=== PATIENT | female | born 1945 ===

== ENCOUNTER 2021-02-19 13:40 | Outpatient (REF) | payer OTHER, SELFPAY ==
[2021-02-19 15:32] LABS: Anion Gap 9 (12-20); Blood Urea Nitrogen 16 mg/dL (9-16); Calcium 10.2 mg/dL (8.4-10.2); Carbon Dioxide 32 mmol/L (22-29); Chloride 108 mmol/L (96-108); Estimated Glomerular Filt Rate > 60; Glucose Random 98 mg/dL (60-115); Potassium 5.3 mmol/L (3.3-5.1); Sodium 144 mmol/L (135-145)
[2021-02-19 15:37] LABS: T4 Thyroxine 6.3 ug/dL (4.5-12.0); Thyroid Stimulating Hormone 0.72 uIU/mL (0.32-4.0)
[2021-02-19 15:39] LABS: Folate > 20.0 ng/mL (> or = 4.0); Vitamin B12 743 pg/mL (200-900)
== END 2021-02-19 13:41 | disposition home or self-care (01) ==
LOC: HO.LAB 13:40
PROVIDERS: Visit Provider Psychiatry & Neurology Neurology
DX: G31.84 Mild cognitive impairment of uncertain or unknown etiology (principal)
CPT/HCPCS: 36415; 80048; 82607; 82746; 84436; 84443

== ENCOUNTER 2021-03-06 13:58 | Outpatient (REF) | payer OTHER, SELFPAY ==
--- NOTE | ~2021-03-06 | CT_ITS ---
EXAMINATION: CT HEAD WITHOUT CONTRAST CLINICAL INFORMATION: Mild cognitive impairment COMPARISON: None TECHNIQUE: Contiguous axial imaging was performed from the skull base to vertex without intravenous administration of contrast. This CT examination was performed using dose optimization techniques as appropriate, variously including the following: *Automated exposure control *Adjustment of mA and/or kV according to patient size (this includes techniques or standardized protocols for targeted exams where dose is matched to indication/reason for exam; i.e. extremities or head) *Use of iterative reconstruction technique DLP: 699 mGy-cm FINDINGS: There is no evidence of acute intracranial hemorrhage or territorial infarction. No abnormal mass effect or midline shift is seen. Richards to white matter differentiation is well preserved. No extra-axial fluid collections are identified. The ventricles are normal in size. There is no abnormal attenuation within the brain parenchyma. The osseous structures and soft tissues are normal. The mastoid air cells and visualized portions of the paranasal sinuses are well aerated. CT/CT head/brain wo con IMPRESSION: Unremarkable exam.
== END 2021-03-06 13:59 | disposition home or self-care (01) ==
LOC: HO.CT 13:58
PROVIDERS: Visit Provider Psychiatry & Neurology Neurology
DX: G31.84 Mild cognitive impairment of uncertain or unknown etiology (principal)
CPT/HCPCS: 70450

== ENCOUNTER 2021-11-28 07:56 | Outpatient (REF) | payer OTHER, SELFPAY ==
--- NOTE | ~2021-11-28 | XR_ITS ---
EXAMINATION: XR AP BILATERAL KNEE XR LEFT KNEE CLINICAL INFORMATION: Knee pain. COMPARISON: None. TECHNIQUE: AP bilateral knee standing 1 view. Left knee 2 views. FINDINGS: AP Bilateral Knee: There is total left knee prosthesis in satisfactory alignment. There is moderate medial and mild loss of lateral compartment joint space right knee with chondrocalcinosis lateral compartment. Also visualized is moderate osteophytosis in the medial compartment and mild osteophytosis in lateral compartment right knee. No visible acute fracture, dislocation or subluxation seen. Mild lateral subluxed right patella is noted Left Knee: There is a total left knee arthroplasty with the prosthetic components in satisfactory alignment. No periprostatic fracture or loose body seen. No abnormal suprapatellar joint effusion. XR/XR knee LT 2V IMPRESSION: There is a total left knee arthroplasty in satisfactory alignment. No periprostatic fracture or loose bodies or joint effusion seen. Moderate medial compartment and cvah-[id number]-ockaiizg lateral compartment degenerative changes with periarticular spurring right knee. There is chondrocalcinosis lateral compartment. No loose bodies or acute fractures seen. Mild lateral subluxation patella is noted.
--- NOTE | ~2021-11-28 | XR_ITS ---
EXAMINATION: XR AP BILATERAL KNEE XR LEFT KNEE CLINICAL INFORMATION: Knee pain. COMPARISON: None. TECHNIQUE: AP bilateral knee standing 1 view. Left knee 2 views. FINDINGS: AP Bilateral Knee: There is total left knee prosthesis in satisfactory alignment. There is moderate medial and mild loss of lateral compartment joint space right knee with chondrocalcinosis lateral compartment. Also visualized is moderate osteophytosis in the medial compartment and mild osteophytosis in lateral compartment right knee. No visible acute fracture, dislocation or subluxation seen. Mild lateral subluxed right patella is noted Left Knee: There is a total left knee arthroplasty with the prosthetic components in satisfactory alignment. No periprostatic fracture or loose body seen. No abnormal suprapatellar joint effusion. XR/XR knee standing BI IMPRESSION: There is a total left knee arthroplasty in satisfactory alignment. No periprostatic fracture or loose bodies or joint effusion seen. Moderate medial compartment and zath-ps-[id number] lateral compartment degenerative changes with periarticular spurring right knee. There is chondrocalcinosis lateral compartment. No loose bodies or acute fractures seen. Mild lateral subluxation patella is noted.
== END 2021-11-28 07:57 | disposition home or self-care (01) ==
LOC: HO.HOSX 07:56
PROVIDERS: Visit Provider Physician Assistant
DX: M25.562 Pain in left knee (principal)
CPT/HCPCS: 73560; 73565

== ENCOUNTER 2022-03-12 06:08 | Outpatient (REF) | payer OTHER, SELFPAY | END 2022-03-12 06:09 | disposition home or self-care (01) | LOC: CF 06:08 | PROVIDERS: Visit Provider Internal Medicine | DX: M25.561 Pain in right knee (principal) | CPT/HCPCS: 64447 ==

== ENCOUNTER → 2022-03-17 15:35 | Outpatient (BNVA) | payer OTHER, SELFPAY | PROVIDERS: PCP Internal Medicine; Visit Provider Nurse Practitioner Family | DX: M96.1 Postlaminectomy syndrome, not elsewhere classified (principal) ==

== ENCOUNTER 2022-06-30 13:59 | Outpatient (REF) | payer OTHER, SELFPAY ==
[2022-06-30 15:10] LABS: Hematocrit 39.1 % (37.0-47.0); Hemoglobin 12.7 g/dl (12.0-16.0); Mean Corpuscular HGB Conc 32.5 g/dl (31.0-35.0); Mean Corpuscular Hemoglobin 32.8 pg (27.0-33.0); Mean Platelet Volume 12.2 fL (9.4-12.3); Platelet Count 175 X10*3/uL (160-400); Red Blood Count 3.87 X10*6/uL (4.20-5.50); Red Cell Distribution Width 12.8 % (11.0-16.0); White Blood Count 3.2 X10*3/uL (4.8-10.8)
[2022-06-30 15:38] LABS: Alanine Aminotransferase 15 U/L (0-31); Albumin Level 4.2 g/dL (3.5-5.0); Alkaline Phosphatase 74 U/L (39-117); Aspartate Amino Transferase 17 U/L (5-31); Bilirubin Direct 0.1 mg/dL (0.0-0.5); Bilirubin Total 0.5 mg/dL (0.0-1.0); Lipase 15 U/L (8-78); Total Protein 6.7 g/dL (6.5-8.0)
[2022-07-02 17:48] LABS: Transglutaminase Ab IgG <1.0 U/mL
[2022-07-02 18:59] LABS: Immunoglobulin A 109 mg/dL (70-320)
== END 2022-06-30 14:00 | disposition home or self-care (01) ==
LOC: HO.LAB 13:59
PROVIDERS: PCP Internal Medicine; Visit Provider Internal Medicine Gastroenterology
DX: R10.84 Generalized abdominal pain (principal)
CPT/HCPCS: 36415; 80076; 82784; 83690; 85027; 86364

== ENCOUNTER 2022-09-03 09:47 | Day surgery (SDC) | payer OTHER, SELFPAY ==
[2022-09-03 09:33] VITALS: BMI 28.9
[2022-09-03 09:52] VITALS: BP 127/64; PULSE 78; RESP 20; TEMP 36.1; O2SAT 98
[2022-09-03 11:25] VITALS: BP 118/59; PULSE 75; RESP 16; TEMP 37.2; O2SAT 96
--- NOTE | 2022-09-03 11:45 | P.BOP_ITS ---
Brief Operative Note Date of Service: 09/03/22 Pre-op diagnosis: Chronic intractable right knee pain Post-op diagnosis: same Procedure: Temporary right saphenous nerve stimulator placement Implants: Sprint temporary PNS system Surgeon: Wilber Alvarado MD Anesthesia: local Was an Filter Press Supervisor used for this Procedure?: No Estimated blood loss (mL): 1 Pathology: none sent Condition: stable Disposition: same day
--- NOTE | 2022-09-03 11:45 | MHC.SHP ---
Pre-Procedural Eval Section A Date of Service: 09/03/22 The patient is an INPATIENT: No Changes since office visit: Yes Patient answered all questions The History & Physical has been completed within 30 days and I have reviewed it.: Yes Section B Chief Complaint: Pain in right knee Relevant Family History (Specify if Yes): No Relevant Social History: None Present Medications: see Short Stay Collaborative assessment Medical History: No relevant PMH History of Previous Operations: No relevant previous surgery Allergies: Allergies Allergy/AdvReac Type Severity Reaction Status Date / Time No Known Allergies Allergy Verified 03/12/22 09:38 Review of Systems Sugical H&P ROS: Negative: Constitution, Cardiovascular and Respiratory Exam Surgical H&P Exam: Normal: HEENT, Normal: Heart and Normal: Lungs Plan Diagnosis/Plan: Unchanged I have reviewed the history and physical and performed a pertinent physical examination on my patient. No changes have occurred unless specified. Proceed with right saphenous nerve stimulator placement. A emotional support teacher will be available during the procedure. Time Spent With Patient Time: Total time managing care of this patient today ____ minutes.
--- NOTE | 2022-09-03 12:10 | P.OP_ITS ---
Operative Note Operative Note Date of Service: 09/03/22 Narrative: Peripheral Nerve Stimulation Temporary Lead Placement, Ultrasound-Guided, Saphenous Nerve, Right ? After the risks, benefits and alternatives were discussed with the patient and informed consentwas obtained, patient was placed in the supine position and padded to foster comfort. Appropriate skin and bony landmarks were identified, and pertinent vascular structures were located. The skin overlying the needle entry site was prepped and draped in sterile fashion. Ultrasound was used to identify the femoral artery, the femoral vein and the saphenous nerve. After identifying and marking the intended target along the course of the saphenous nerve, the skin around the planned entry point and the subcutaneous tissues were injected with local anesthetic. An introducer needle and stimulating probe were assembled, inserted and advanced along the intended course of the saphenous; nerve, taking care to maintain the proper depth of insertion as the introducer was advanced under ultrasound guidance. The introducer needle was delivered to a location in proximity to the nerve taking care not to puncture the femoral artery or the vein. Multiple stimulation parameters were used to deliver stimulation to the saphenous nerve in concert with stimulating at multiple positions around the nerve. Nerve target acquisition was confirmed noting generation of sensory and mild motor effects (paresthesia, muscle tension, etc) in the medial knee, leg and ankle; corresponding to the distribution of the saphenous nerve. Various electrical parameter combinations were tested, and the lead location was adjusted (physic ally relocated under ultrasound guidance) until the patient indicated medial knee paresthesia and tension overlapping the distribution of the patient?s typical region of pain. The stimulating probe was removed from the introducer and a percutaneous lead was guided through the needle and delivered to a location in similar proximity to the nerve. Final location was verified with electrical stimulation and documented. The introducer needle was removed, and the exposed end of the percutaneous lead was attached to an external stimulator unit. Various electrical parameter combinations were again tested until the patient indicated paresthesia and muscle tension overlapping the distribution of the patient?s typical region of pain. After confirming that lead impedance was in the normal range, the external unit was detached, the needle was removed, and the lead was anchored at the skin. The lead was threaded into the connector block and electrical continuity and desired patient response was confirmed. The connector block was attached to the external stimulator unit. The site was covered with a sterile occlusive dressing. A final ultrasound image was taken to document final placement. The patient was observed for stability of vital signs and comfort.
== END 2022-09-03 11:59 | disposition home or self-care (01) ==
PROVIDERS: PCP Internal Medicine; Visit Provider Internal Medicine
PROC: (CPT 64555; principal; 2022-09-03 10:30)
DX: M25.561 Pain in right knee (principal); G89.29 Other chronic pain; M17.11 Unilateral primary osteoarthritis, right knee; M11.261 Other chondrocalcinosis, right knee; M54.50 Low back pain, unspecified; M54.16 Radiculopathy, lumbar region; E78.00 Pure hypercholesterolemia, unspecified; Z79.899 Other long term (current) drug therapy; Z98.890 Other specified postprocedural states; Z96.652 Presence of left artificial knee joint
CPT/HCPCS: 64555; C1778

== ENCOUNTER → 2022-09-03 09:47 | Outpatient (BNV) | payer OTHER, SELFPAY | PROVIDERS: PCP Internal Medicine; Visit Provider Internal Medicine | DX: M25.561 Pain in right knee (principal) | CPT/HCPCS: 64555 ==

== ENCOUNTER 2022-09-12 10:00 | Outpatient (AMB) | payer OTHER, SELFPAY ==
[2022-09-12 10:16] VITALS: BP 124/70; PULSE 82; RESP 16; O2SAT 97; BMI 25.5
--- NOTE | 2022-09-12 10:16 | A.OFFVIS_ITS ---
Intake Vital Signs 09/12/22 10:16 Height 5 ft 5 in Weight 153 lb 6 oz BMI 25.5 BP 124/70 Blood Pressure Location Lt brachial Position Sitting Respiration 16 Pulse 82 Pulse Source Pulse Oximeter Pulse Oximetry (%) 97 Oxygen Delivery Method Room Air Intake Visit Reasons: s/p right SN Sprint Allergies No Known Allergies Allergy (Verified 09/12/22 10:17) HPI HPI Comments History of Present Illness Details Tita is a very pleasant 77 year old female who presents to the office today 1 week s/p Right saphenous nerve peripheral nerve stimulation at the adductor canal placed 09/03/2022. Patient reports approx 40% pain relief today with improvement in activity, mobility and overall quality of life. She has been more active and is able to take 15minute walks daily. She has changed the dressing at home without difficulty. Denies any untoward effects of the device. Today she has the stimulation up to 83, she has been adjusting as tolerated and feels comfortable managing the device at home. Prior: Patient presents today via telehealth encounter to assess response to Right Diagnostic SNB at adductor canal on 03/12/[address] Alvarado. Patient reports 75-80% pain relief for 8 hours post procedure with improved mobility, functioning, sleep, and social interaction. Her pain has returned to baseline since then and has been increasing with walking. Patient is interested to proceed with peripheral nerve stimulation with Sprint for right knee pain. We also discussed genicular RFA and therapeutic injections. Patient has upcoming appointment with Dr. Dotson at [facility] this month for chronic back pain and scheduled injections. PRIOR: Patient is a pleasant 76 years old Central African speaking female presents today with right knee pain and chronic lower back pain with radiation to right lower ex tremity posteriorly and laterally with numbness and tingling in her toes. Patient is accompanied by her SCHOOL [employer]FET[employer]IA COOK. Denies any recent trauma, injury or falls. Patient reports her main pain generator is right knee pain. She reports the history of left TRK on 03/11/2020 at [facility] which has not healed well. She reports constant, daily aching, stabbing, throbbing, shooting, heavy, knee clicking, weakness, numbness and tingling sensation. Pain increased with walking, weight bearing, climbing stairs and cold weather changes. Right knee x-ray on 11/28/21 noted for Moderate medial compartment and bvqi-rn-yaudikeq lateral compartment degenerative changes with periarticular spurring right knee. There is chondrocalcinosis lateral compartment. Mild lateral subluxation patella is noted. Patient reports with orthopedic mutual decision, she is deferring right knee surgery at this time and is interested in non surgical options. Patient was referred to us for potential genicular nerve blocks. Patient reports history of back surgery at [facility] in 2018. She is currently undergoing regular lumbar and cervical injections through [facility] by Dr. Dotson. Her last injection was 3 months ago and she states next pain management visit is scheduled for 02/11/22. Patient is currently managing her pain with pregabalin, celebrex, ice and heat therapy. She cannot tolerate physical therapy due to significant pain at this time. 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 Answers questions appropriately. Fully engaged in examination. Skin: warm, dry, intact without visible rashes or lesions. Sprint insertion site dry, clean, intact without redness/warmth or drainage. HEENT: Normocephalic. Conjuntivae clear without exudate. Sclera non-icteric. Hearing intact. Cardiac: External chest normal in appearance. Respiratory: No signs of trauma. No signs of respiratory distress. No cough, audible wheezing or stridor. Abdomen: without gross distension. MS: Able to transition from sit to stand unassisted. Sprint device in place right thigh with intact Tegaderm dressing Neurological: Oriented to person, place, time and situation. Thought process intact. Psychiatric: Appropriate mood and affect. Good judgment and insight. Assessment & Plan Assessment & Plan (1) Post laminectomy syndrome: Code(s): M96.1 - Postlaminectomy syndrome, not elsewhere classified (2) Lumbar back pain with radiculopathy affecting right lower extremity: Code(s): M54.16 - Radiculopathy, lumbar region (3) Osteoarthritis of right knee: Code(s): M17.11 - Unilateral primary osteoarthritis, right knee (4) Right knee pain: Code(s): M25.561 - Pain in right knee Plan Tita is a pleasant 77 year old female seen in the office today 1 week s/p Right saphenous nerve Sprint PNS at the adductor canal. She is tolerating the device well and reports improvement in pain, mobility, functioning and quality of life since placement. Continue with once weekly dressing changes. Patient has supplies. She was reeducated today on proper dressing change to ensure lead does not get misplaced. Monitor for signs of infection at site of insertion, call the office for any drainage, redness, warmth, fevers or other concerns. Patient verbalizes understanding of stimulation titration for pain management. Sprint rep in office today and will remain in contact with patient weekly and as needed. All questions and concerns have been addressed with patient today. Follow up in the office as planned for device removal, sooner if needed. Coding Level of Care Code Est Pt Level 3 (88717) Diagnoses Post laminectomy syndrome M96.1 Lumbar back pain with radiculopathy affecting right lower extremity M54.16 Osteoarthritis of right knee M17.11 Right knee pain M25.561
== END 2022-09-12 10:36 | disposition home or self-care (01) ==
PROVIDERS: PCP Internal Medicine; Visit Provider Registered Nurse Emergency
DX: M96.1 Postlaminectomy syndrome, not elsewhere classified (principal); M54.16 Radiculopathy, lumbar region; M17.11 Unilateral primary osteoarthritis, right knee; M25.561 Pain in right knee
CPT/HCPCS: 99213

== ENCOUNTER → 2022-09-12 10:00 | Outpatient (BNVA) | payer OTHER, SELFPAY | PROVIDERS: PCP Internal Medicine; Visit Provider Registered Nurse Emergency | DX: M96.1 Postlaminectomy syndrome, not elsewhere classified (principal); M54.16 Radiculopathy, lumbar region; M17.11 Unilateral primary osteoarthritis, right knee | CPT/HCPCS: 99212 ==

== ENCOUNTER 2022-10-30 11:11 | Outpatient (REF) | payer OTHER, SELFPAY ==
--- NOTE | ~2022-10-30 | XR_ITS ---
EXAMINATION: XR KNEE, RIGHT CLINICAL INFORMATION: Pain. COMPARISON: 11/28/2021 TECHNIQUE: Three views of the right knee. FINDINGS: Significant degeneration of the medial compartment with significant joint space loss and marginal spurring. Possible meniscal calcifications are seen laterally. Efrz-aa-xobvvhxg patellofemoral spurring. Mild lateralization of the patella. Small effusion is seen. XR/XR knee RT 3V IMPRESSION: Degenerative changes muajohuh-nr-jgoxdj ongoing from 2021 study. No acute bony finding. Small effusion
== END 2022-10-30 11:12 | disposition home or self-care (01) ==
LOC: HO.XRAY 11:11
PROVIDERS: PCP Internal Medicine; Visit Provider Nurse Practitioner Family
DX: M96.1 Postlaminectomy syndrome, not elsewhere classified (principal); M17.11 Unilateral primary osteoarthritis, right knee
CPT/HCPCS: 73562; 99212

== ENCOUNTER 2022-10-30 11:11 | Outpatient (AMB) | payer OTHER, SELFPAY ==
--- NOTE | 2022-10-30 11:20 | MHC.OFFVIS ---
Intake Intake Visit Reasons: Sprint removal Intake Note: Pain today 07/02 Slot Technician Required: Yes Slot Technician Language: Trinidadian Accompanied by: Unknown Allergies No Known Allergies Allergy (Verified 10/30/22 11:39) HPI HPI Comments History of Present Illness Details Patient presents today for follow up for Sprint removal. Patient reports satisfactory and ongoing 50-60% pain relief for right anterior knee pain over the past 2 months. She reports better mobility, improved tolerance with climbing stairs, general daily activities and sleep. Patient reports ongoing posterior knee pain for months with mild bulging and tightness behind her right knee. We will proceed with xray to evaluate for Parker cyst. Denies any recent cough, cold, infection, fever, claudicating pain, back pain, or other significant changes in medical history since last office visit. Patient denies any bladder or bowel incontinence or saddle anesthesia. The dressing was removed today. Lead insertion site look clean, dry, intact, no redness, no swelling, no pathological discharge. Area was cleansed with Chloraprep. Leads pulled with tips intact and the area was cleansed again with Chloraprep, applied Bacitracin and covered it with gauze and Bandaid dressing. PRIOR: Tita is a very pleasant 77 year old female who presents to the office today 1 week s/p Right saphenous nerve peripheral nerve stimulation at the adductor canal placed 09/03/2022. Patient reports approx 40% pain relief today with improvement in activity, mobility and overall quality of life. She has been more active and is able to take 15minute walks daily. She has changed the dressing at home without difficulty. Denies any untoward effects of the device. Today she has the stimulation up to 83, she has been adjusting as tolerated and feels comfortable managing the device at home. Prior: Patient presents today via telehealth encounter to assess response to Right Diagnostic SNB at adductor canal on 03/12/[address] Alvarado. Patient reports 75-80% pain relief for 8 hours post procedure with improved mobility, functioning, sleep, and social interaction. Her pain has returned to baseline since then and has been increasing with walking. Patient is interested to proceed with peripheral nerve stimulation with Sprint for right knee pain. We also discussed genicular RFA and therapeutic injections. Patient has upcoming appointment with Dr. Dotson at [facility] this month for chronic back pain and scheduled injections. PRIOR: Patient is a pleasant 76 years old Trinidadian speaking female presents today with right knee pain and chronic lower back pain with radiation to right lower extremity posteriorly and laterally with numbness and tingling in her toes. Patient is accompanied by her REACTOR SERVICE OPERATOR. Denies any recent trauma, injury or falls. Patient reports her main pain generator is right knee pain. She reports the history of left TRK on 03/11/2020 at [facility] which has not healed well. She reports constant, daily aching, stabbing, throbbing, shooting, heavy, knee clicking, weakness, numbness and tingling sensation. Pain increased with walking, weight bearing, climbing stairs and cold weather changes. Right knee x-ray on 11/28/21 noted for Moderate medial compartment and chty-xq-jxiapzun lateral compartment degenerative changes with periarticular spurring right knee. There is chondrocalcinosis lateral compartment. Mild lateral subluxation patella is noted. Patient reports with orthopedic mutual decision, she is deferring right knee surgery at this time and is interested in non surgical options. Patient was referred to us for potential genicular nerve blocks. Patient reports history of back surgery at [facility] in 2018. She is currently undergoing regular lumbar and cervical injections through [facility] by Dr. Dotson. Her last injection was 3 months ago and she states next pain management visit is scheduled for 02/11/22. Patient is currently managing her pain with pregabalin, celebrex, ice and heat therapy. She cannot tolerate physical therapy due to significant pain at this time. 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 Alert and oriented. Mood and affect appropriate. Follows and participates in conversation appropriately. Respiratory effort is unlabored. Able to transition from sit to stand unassisted. Ambulates with bilaterally normal heel strike and toe off. Lead Insertion Site: Lead insertion site looks clean, dry, intact. Lead pulled with tip intact. Extrem General: Yes capillary refill normal, Yes no clubbing, cyanosis or edema and Yes no calf tenderness Left lower extremity: knee (small fluid-like lump posteromedial aspect of popliteal space) Details: normal to inspection and tenderness Location: of the popliteal fossa; no swelling, no ecchymosis, no crepitus and no unusual warmth and lower leg (Homans' sign negative) Details: normal to inspection and no edema; no erythema, no tenderness, no localized swelling, no ecchymosis, no crepitus and no unusual warmth Results Reviewed Results Reviewed: XR AP BILATERAL KNEE XR LEFT KNEE 11/28/21 FINDINGS: AP Bilateral Knee: There is total left knee prosthesis in satisfactory alignment. There is moderate medial and mild loss of lateral compartment joint space right knee with chondrocalcinosis lateral compartment. Also visualized is moderate osteophytosis in the medial compartment and mild osteophytosis in lateral compartment right knee. No visible acute fracture, dislocation or subluxation seen. Mild lateral subluxed right patella is noted Left Knee: There is a total left knee arthroplasty with the prosthetic components in satisfactory alignment. No periprostatic fracture or loose body seen. No abnormal suprapatellar joint effusion. IMPRESSION: There is a total left knee arthroplasty in satisfactory alignment. No periprostatic fracture or loose bodies or joint effusion seen. Moderate medial compartment and gufs-ym-czykfxpz lateral compartment degenerative changes with periarticular spurring right knee. There is chondrocalcinosis lateral compartment. No loose bodies or acute fractures seen. Mild lateral subluxation patella is noted. Assessment & Plan Assessment & Plan (1) Posterior right knee pain: Code(s): M25.561 - Pain in right knee (2) Post laminectomy syndrome: Code(s): M96.1 - Postlaminectomy syndrome, not elsewhere classified (3) Osteoarthritis of right knee: Code(s): M17.11 - Unilateral primary osteoarthritis, right knee Plan Patient is status post Right saphenous nerve Sprint removal with satisfactory results with ongloing 50-60% anterior right knee pain relief. Lead pulled with tip intact. She will continue to monitor her pain over the next months for sustained similar results. For posterior right knee pain, will obtain xray to rule out Parker's cyst for potential fluid aspiration. She denies calf pain, back or claudicating pain today. All questions were answered and the patient agreed with the plan. Follow up as needed. Orders: Orders XR knee RT 3V Today M25.561 - Pain in right knee Coding Level of Care Code Est Pt Level 4 (01353) Diagnoses Posterior right knee pain M25.561 Post laminectomy syndrome M96.1 Osteoarthritis of right knee M17.11
== END 2022-10-30 11:58 | disposition home or self-care (01) ==
PROVIDERS: PCP Internal Medicine; Visit Provider Nurse Practitioner Family
DX: M25.561 Pain in right knee (principal); M96.1 Postlaminectomy syndrome, not elsewhere classified; M17.11 Unilateral primary osteoarthritis, right knee
CPT/HCPCS: 99214

== ENCOUNTER 2023-03-11 10:39 | Outpatient (AMB) | payer OTHER, SELFPAY ==
[2023-03-11 10:52] VITALS: BMI 25.5
--- NOTE | 2023-03-11 10:52 | MHC.OFFVIS ---
Intake Vital Signs 03/11/23 10:52 Height 5 ft 5 in Weight 153 lb BMI 25.5 Intake Visit Reasons: New Prob- upper back/middle back pain Intake Note: Tita is a 77 year old romansh speaking female who presents today as a new patient with complaints of upper/middle back pain. Patient refused quality assurance monitor final, she only wishes to rely on daughter. She was referred to us by [facility], where she has history of multiple botox injections and physical therapy. Patient is currently managing her pain with pregabalin, celebrex, ice and heat therapy. Hx of back surgery in 2018 with [facility]. She is a patient with Pain mgmt, most recently on 10/30/22 she had a Sprint device removal that was effective in treating right knee pain. 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 Referred by Dr. Dotson, [facility]. Was seeing her for mid/lower back pain. Daughter mentions that she is being referred for ablation . I did discuss that ablation is/can be done by Pain Management department. Points to in between scapular area, from mid going to left side. Does not radiate lower; does not radiate to arms or legs. Denies associated numbness on hands or feet. No radiation to chest or abdoment. [facility], Ortho and pain management reviewed: Right saphenous nerve peripheral nerve stimulation at the adductor canal placed 09/03/2022. Right Diagnostic SNB at adductor canal on 03/12/[address] Alvarado. Follows Dr. Dotson at [facility] this month for chronic back pain and injections. left TRK on 03/11/2020 at [facility]. history of back surgery at [facility] in 2018. Botox injections, levator scapular, trapezius, rhomboids, . Cervical epidural injections 2020. Thoracic and cervical medial branch blocks 04/17/2019. Thoracic facet injections 2022. MRI cervical spine reporting mild degenerative changes 2020. MRI thoracic spine reporting degenerative changes 2018. Per patient, none of the above procedures have helped. 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 Patient was appropriately conversant and oriented. Good historian. MSK: No specific abnormalities found on inspection of the spine and all extremities. Tender left trapezius, rhomboids. No scapular winging. Lumbar ROM was full. Bilateral hip, knee and ankle ROM WNL. No ligamentous laxity or crepitance. No increased effusion. Straight-leg raising test negative. FABERE test negative. Strength is 5/5 in all muscle groups tested. No increased tone noted. Neurological: Neurologic examination of the upper and lower extremities was nonfocal with intact sensation, muscle stretch reflexes and without focal motor deficits . Keen?s negative bilaterally. Babinski was down going bilaterally. Clonus was negative. Gait is non-antalgic without loss of balance. Results Reviewed Results Reviewed: I reviewed records from the following: As above Assessment & Plan Assessment & Plan (1) Chronic thoracic back pain: Code(s): M54.6 - Pain in thoracic spine; G89.29 - Other chronic pain Qualifiers: Back pain laterality: midline Qualified Code(s): M54.6 - Pain in thoracic spine; G89.29 - Other chronic pain Plan Patient and daughter specifically looking to do procedures such as radiofrequency ablation. Discussed that I will refer her to our pain management department, they may evaluate/consider doing MBB/RFA and peripheral nerve stimulator. Consider physical therapy for myofascial pain on rhomboids and trapezius. Assessment and plan discussed with patient, and patient was agreeable. All questions were answered thoroughly. Total of 45 minutes spent today including chart review (remove all 275 pages), results review, history taking, physical examination, discussion of assessment and plan, and coordination of care. Precious Foster MD, SIMÓN Board Certified, [place] Board [employer] and Rehabilitation (ABPMR) Board Certified, [place] Board of Electrodiagnostic Medicine (ABEM) Orders: Referrals Pain Management Referral G89.29 - Other chronic pain, M54.6 - Pain in thoracic spine Coding Level of Care Code New Pt Level 4 (95574) Diagnoses Chronic midline thoracic back pain M54.6; G89.29 Back pain laterality: midline
== END 2023-03-11 11:37 | disposition home or self-care (01) ==
PROVIDERS: PCP Internal Medicine; Visit Provider Physical Medicine & Rehabilitation
DX: M54.6 Pain in thoracic spine (principal); G89.29 Other chronic pain
CPT/HCPCS: 99204

== ENCOUNTER → 2023-03-11 10:39 | Outpatient (BNVA) | payer OTHER, SELFPAY | PROVIDERS: PCP Internal Medicine; Visit Provider Physical Medicine & Rehabilitation | DX: G89.29 Other chronic pain (principal); M54.6 Pain in thoracic spine | CPT/HCPCS: 99202 ==

== ENCOUNTER 2023-03-16 13:50 | Outpatient (REF) | payer OTHER, SELFPAY ==
--- NOTE | ~2023-03-16 | XR_ITS ---
EXAMINATION: XR THORACIC SPINE, LUMBAR SPINE CLINICAL INFORMATION: In the thoracic spine, spondylosis without myelopathy. COMPARISON: None available. TECHNIQUE: 3 views of the thoracic spine. 5 views of the lumbar spine including bilateral obliques. FINDINGS: LUMBAR SPINE: Degenerative changes with sclerosis in the bilateral sacroiliac joints, right greater than left. Degenerative changes on limited imaging of the left hip. Atherosclerotic aortoiliac calcifications. Posterior fixation with bilateral rods and pedicular screws at L5-S1. Disc spacer at L5-S1. Hardware appears intact. Slight rightward curvature of the mid to lower lumbar spine. Moderate multilevel spondylosis in the remainder of the lumbar spine with loss of disc space height at L4-L5. THORACIC SPINE: Slight rightward curvature of the thoracic spine. Moderate multilevel degenerative changes in the thoracic spine. Degenerative changes on very limited imaging of the cervical spine could be evaluated with dedicated cervical spine radiographs. XR/XR thoracic spine 3V IMPRESSION: 1. Status post posterior fixation at L5-S1. Hardware appears intact. 2. Moderate multilevel spondylosis in the thoracic and lumbar spines with loss of disc space height at L4-L5. 3. Degenerative changes with sclerosis in the bilateral sacroiliac joints, right greater than left. 4. Moderate multilevel degenerative changes in the thoracic spine.
--- NOTE | ~2023-03-16 | XR_ITS ---
EXAMINATION: XR THORACIC SPINE, LUMBAR SPINE CLINICAL INFORMATION: In the thoracic spine, spondylosis without myelopathy. COMPARISON: None available. TECHNIQUE: 3 views of the thoracic spine. 5 views of the lumbar spine including bilateral obliques. FINDINGS: LUMBAR SPINE: Degenerative changes with sclerosis in the bilateral sacroiliac joints, right greater than left. Degenerative changes on limited imaging of the left hip. Atherosclerotic aortoiliac calcifications. Posterior fixation with bilateral rods and pedicular screws at L5-S1. Disc spacer at L5-S1. Hardware appears intact. Slight rightward curvature of the mid to lower lumbar spine. Moderate multilevel spondylosis in the remainder of the lumbar spine with loss of disc space height at L4-L5. THORACIC SPINE: Slight rightward curvature of the thoracic spine. Moderate multilevel degenerative changes in the thoracic spine. Degenerative changes on very limited imaging of the cervical spine could be evaluated with dedicated cervical spine radiographs. XR/XR lumbar spine 4V min IMPRESSION: 1. Status post posterior fixation at L5-S1. Hardware appears intact. 2. Moderate multilevel spondylosis in the thoracic and lumbar spines with loss of disc space height at L4-L5. 3. Degenerative changes with sclerosis in the bilateral sacroiliac joints, right greater than left. 4. Moderate multilevel degenerative changes in the thoracic spine.
== END 2023-03-16 13:51 | disposition home or self-care (01) ==
LOC: HO.XRAY 13:50
PROVIDERS: PCP Internal Medicine; Visit Provider Nurse Practitioner Family
DX: M54.6 Pain in thoracic spine (principal); G89.29 Other chronic pain; M96.1 Postlaminectomy syndrome, not elsewhere classified; M47.816 Spondylosis without myelopathy or radiculopathy, lumbar region
CPT/HCPCS: 72072; 72110; 99212

== ENCOUNTER 2023-03-16 13:50 | Outpatient (AMB) | payer OTHER, SELFPAY ==
--- NOTE | 2023-03-16 13:55 | A.OFFVIS_ITS ---
Intake Vital Signs 03/16/23 13:58 Height 5 ft 5 in Weight 156 lb 6 oz BMI 26.0 BP 134/76 Blood Pressure Location Rt brachial Position Sitting Pulse 97 Pulse Source Pulse Oximeter Pulse Oximetry (%) 100 Oxygen Delivery Method Room Air Intake Visit Reasons: Back pain Intake Note: Pain today 10/02 Groundwater Monitoring Technician Required: Yes Groundwater Monitoring Technician Language: Geology Scientist Name: Elba-daughter Accompanied by: Family/Other Allergies No Known Allergies Allergy (Verified 03/16/23 13:59) HPI HPI Comments History of Present Illness Details Patient presents today for evaluation of mid-thoracic and low back pain. She is accompanied by her MAGAZINE HAND and her daughter Sarah on the phone who assists with translation per patient's request. She was seen in our office last year for right knee pain which has responded well to Sprint PNS trial but notices that her right knee pain has been gradually returnning. Today her main concern is mid thoracic pain with radiation into her lower back. Denies recent trauma, injury or falls. She presents with midline and paraspinal tenderness, more on the left in her mid and lower thoracic spine and scapular area. No midline tenderness in her lumbar regions. Pain increases with pushing, pulling, thoraco-lumbar extension, movements, coughing and sneezing. She reports previous thoracic injections at [facility] provided minimal benefit. Cervical, thoracic and lumbar spine MRIs were previously completed at [facility], complete reports are not available for review today. Patient is interested to undergo interventional treatments, including RFA and PNS trial for her back pain. Denies any abdominal or groin pain, chest pain, pressure or tightness, shortness of breaths, dizziness, visual disturbances, vertigo, foot drop, weakness, bladder or bowel dysfunction or saddle anesthesia. Patient reports she also has chronic left sided neck pain with muscle stiffness and spasms for which she used to receive Botox injections at [facility]. Patient reports she would to continue Botox injections with EMG guidance in our facility. I will refer her to our Neurology group for this. Past Procedures: 09/03/22: Right saphenous nerve peripher al nerve stimulation at the adductor canal placed 09/03/2022% pain relief 03/12/22: Right Diagnostic SNB at adduct or canal on 03/12/[address] Alvarado-75-80% pain relief for 8 hours [facility], Orthopedic management reviewed: Follows Dr. Dotson at [facility] this month for chronic back pain and injections. Left TRK on 03/11/2020 at [facility]. History of back surgery at [facility] in 2018. Botox injections, levator scapular, trapezius, rhomboids, . Cervical epidural injections 2020. Thoracic and cervical medial branch blocks 04/17/2019. Thoracic facet injections 2022. PRIOR 10/30/22: Patient presents today for follow up for Sprint removal. Patient reports satisfactory and ongoing 50-60% pain relief for right anterior knee pain over the past 2 months. She reports better mobility, improved tolerance with climbing stairs, general daily activities and sleep. Patient reports ongoing posterior knee pain for months with mild bulging and tightness behind her right knee. We will proceed with xray to evaluate for Parker cyst. Denies any recent cough, cold, infection, fever, claudicating pain, back pain, or other significant changes in medical history since last office visit. Patient denies any bladder or bowel incontinence or saddle anesthesia. The dressing was removed today. Lead insertion site look clean, dry, intact, no redness, no swelling, no pathological discharge. Area was cleansed with Chloraprep. Leads pulled with tips intact and the area was cleansed again with Chloraprep, applied Bacitracin and covered it with gauze and Bandaid dressing. PRIOR: Tita is a very pleasant 77 year old female who presents to the office today 1 week s/p Right saphenous nerve peripheral nerve stimulation at the adductor canal placed 09/03/2022. Patient reports approx 40% pain relief today with improvement in activity, mobility and overall quality of life. She has been more active and is able to take 15minute walks daily. She has changed the dressing at home without difficulty. Denies any untoward effects of the device. Today she has the stimulation up to 83, she has been adjusting as tolerated and feels comfortable managing the device at home. Prior: Patient presents today via telehealth encounter to assess response to Right Diagnostic SNB at adductor canal on 03/12/[address] Alvarado. Patient reports 75-80% pain relief for 8 hours post procedure with improved mobility, functioning, sleep, and social interaction. Her pain has returned to baseline since then and has been increasing with walking. Patient is interested to proceed with peripheral nerve stimulation with Sprint for right knee pain. We also discussed genicular RFA and therapeutic injections. Patient has upcoming appointment with Dr. Dotson at [facility] this month for chronic back pain and scheduled injections. PRIOR: Patient is a pleasant 76 years old Divehi speaking female presents today with right knee pain and chronic lower back pain with radiation to right lower extremity posteriorly and laterally with numbness and tingling in her toes. Patient is accompanied by her MAGAZINE HAND. Denies any recent trauma, injury or falls. Patient reports her main pain generator is right knee pain. She reports the history of left TRK on 03/11/2020 at [facility] which has not healed well. She reports constant, daily aching, stabbing, throbbing, shooting, heavy, knee clicking, weakness, numbness and tingling sensation. Pain increased with walking, weight bearing, climbing stairs and cold weather changes. Right knee x-ray on 11/28/21 noted for Moderate medial compartment and [id number] lateral compartment degenerative changes with periarticular spurring right knee. There is chondrocalcinosis lateral compartment. Mild lateral subluxation patella is noted. Patient reports with orthopedic mutual decision, she is deferring right knee surgery at this time and is interested in non surgical options. Patient was referred to us for potential genicular nerve blocks. Patient reports history of back surgery at [facility] in 2018. She is currently undergoing regular lumbar and cervical injections through [facility] by Dr. Dotson. Her last injection was 3 months ago and she states next pain management visit is scheduled for 02/11/22. Patient is currently managing her pain with pregabalin, celebrex, ice and heat therapy. She cannot tolerate physical therapy due to significant pain at this time. 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 Review of Systems Const All systems reviewed & are unremarkable except as noted in HPI and below Reports as per HPI, Denies body aches, Denies chills, Reports fatigue, Denies fever(s), Denies frequent falls, Reports headache(s), Denies malaise, Denies night sweats and Denies weight loss ENT Reports headache(s) Neuro Denies frequent falls and Reports headache(s) Endo Reports fatigue Physical Exam Vital Signs: Last Vital Signs Pulse 97 03/16/23 13:58 BP 134/76 03/16/23 13:58 Pulse Ox 100 03/16/23 13:58 Oxygen Delivery Method Room Air 03/16/23 13:58 BMI result Body Mass Index 26.0 General: Appears afebrile. Alert and oriented. Mood and affect appropriate. Pleasant. Follows and participates in conversation appropriately. Respiratory effort is unlabored. No cough. Able to transition from sit to stand unassisted. Ambulates with bilaterally normal heel strike and toe off. Back/Spine/Pelvis Other: Patient is able to walk and stand on heels and tip toes with no difficulties demonstrating good motor tone. No limping. Can flex forward to 60-70 degrees and extend to 5-10 degrees before experiencing lumbar pain. Increase pain in mid back with extension. Demonstrates 5/5 strength of quadriceps bilaterally as well as flexion/dorsiflexion of bilateral feet against resistance. 2+ pedal pulses bilaterally. Straight leg rise with dorsiflexion negative bilaterally. +2 patellar and achilles reflexes bilaterally. Facet loading test positive bilaterally. James?s and Pelvic compression tests are negative bilaterally. No groin pain with I/E hip rotations. Valsalva maneuver negative. Cervical Spine: cervical muscular tenderness, pain with cervical ROM (with left rotation, bending and extension), cervical spasm (left, SCM mild hypertrophy noted), No Cervical spine tenderness and No step off deformity Thoracic/Lumbar Spine: thoracic and lumbar spine normal to inspection, Thoracic/lumbar spine scar(s), Lasegue's sign negative, straight leg raise negative bilaterally, pain with thoraco-lumbar ROM, paraspinal muscle tenderness on the left greater than right, thoraco-lumbar ROM limited, thoraco-lumbar spasm on the left, thoracic spinal tenderness (mid thoracic) and lumbar spinal tenderness at L5 Pelvis: no buttock tenderness Sacroiliac joints: bilaterally nontender Results Reviewed Results Reviewed: MRI cervical spine reporting mild degenerative changes 2020. MRI thoracic spine reporting degenerative changes 2019. Assessment & Plan Assessment & Plan (1) Chronic thoracic back pain: Code(s): M54.6 - Pain in thoracic spine; G89.29 - Other chronic pain Qualifiers: Back pain laterality: midline Qualified Code(s): M54.6 - Pain in thoracic spine; G89.29 - Other chronic pain (2) Post laminectomy syndrome: Code(s): M96.1 - Postlaminectomy syndrome, not elsewhere classified (3) Lumbar spondylosis: Code(s): M47.816 - Spondylosis without myelopathy or radiculopathy, lumbar region (4) Muscle spasms of neck: Code(s): M62.838 - Other muscle spasm Plan Lumbar and thoracic spine imaging to assess degree of degenerative changes, any subluxation, listhesis, compression fractures or pars defects. Medical records release sent to [facility] for complete imaging reports of previous cervical, thoracic and lumbar spine MRIs. For ongoing axial back pain will tentatively plan for diagnostic thoraco-lumbar medial branch blocks with local and fluoroscopy. If patient has significant relief from the diagnostic blocks for her axial low back pain, will consider either peripheral nerve stimulation or RFA depending on her preference. Also, recommend formal course of PT for thoracic and low back pain with muscle stiffness and spasms. Script provided. Neurology referral per patient's request for continuation of Botox injections for left sided neck pain and muscle spasms. All questions and concerns have been answered and patient agreed with the plan. Follow up for xray results and sooner if needed. Orders: Orders XR lumbar spine 4V min Today G89.29 - Other chronic pain, M47.816 - Spondylosis without myelopathy or radiculopathy, lumbar region, M54.6 - Pain in thoracic spine, M96.1 - Postlaminectomy syndrome, not elsewhere classified PT Evaluation and Treatment Today G89.29 - Other chronic pain, M47.816 - Spondylosis without myelopathy or radiculopathy, lumbar region, M54.6 - Pain in thoracic spine, M62.838 - Other muscle spasm, M96.1 - Postlaminectomy syndrome, not elsewhere classified XR thoracic spine 3V Today G89.29 - Other chronic pain, M47.816 - Spondylosis without myelopathy or radiculopathy, lumbar region, M54.6 - Pain in thoracic spi ne, M96.1 - Postlaminectomy syndrome, not elsewhere classified Referrals Neurology Referral M48.02 - Spinal stenosis, cervical region, M62.838 - Other muscle spasm Coding Level of Care Code Est Pt Level 4 (46769) Diagnoses Chronic midline thoracic back pain M54.6; G89.29 Back pain laterality: midline Post laminectomy syndrome M96.1 Lumbar spondylosis M47.816 Muscle spasms of neck M62.838
[2023-03-16 13:58] VITALS: BP 134/76; PULSE 97; O2SAT 100; BMI 26.0
== END 2023-03-16 14:27 | disposition home or self-care (01) ==
PROVIDERS: PCP Internal Medicine; Visit Provider Nurse Practitioner Family
DX: M54.6 Pain in thoracic spine (principal); G89.29 Other chronic pain; M96.1 Postlaminectomy syndrome, not elsewhere classified; M47.816 Spondylosis without myelopathy or radiculopathy, lumbar region; M62.838 Other muscle spasm
CPT/HCPCS: 99214

== ENCOUNTER 2023-04-30 06:18 | Outpatient (REF) | payer OTHER, SELFPAY ==
--- NOTE | ~2023-04-30 | FL_ITS ---
EXAMINATION: XR FLUOROSCOPY WITH IMAGES CLINICAL INFORMATION: Spondylosis without myelopathy COMPARISON: None available. TECHNIQUE: Fluoroscopy Supervised By: Olga. Pimentel. Fluoroscopy Time: 0.2 minutes. Cumulative Dose: 3.78 mGy. DAP: 0.440 Gycm2. Images: 3. FINDINGS: There are 3 digital images obtained revealing disc prosthesis at L5-S1 disc level stabilized with bilateral L5-S1 pedicular screws with interconnecting rods for fusion. There are bilateral needles adjacent L4 and L5 pedicles with contrast opacifying the soft tissues for pain management. FL/FL guidance in treatment room IMPRESSION: Fluoroscopy was provided to referrer for pain management at the L5-S1 disc level.
== END 2023-04-30 06:19 | disposition home or self-care (01) ==
LOC: CF 06:18
PROVIDERS: Visit Provider Internal Medicine
DX: M47.816 Spondylosis without myelopathy or radiculopathy, lumbar region (principal)
CPT/HCPCS: 64493; 64494; J2795; Q9967

== ENCOUNTER 2023-04-30 11:24 | Outpatient (AMB) | payer OTHER, SELFPAY ==
[2023-04-30 13:11] VITALS: BP 130/78; PULSE 71; RESP 16; O2SAT 98; BMI 26.0
--- NOTE | 2023-04-30 13:11 | A.OFFVIS_ITS ---
Intake Vital Signs 04/30/23 13:11 04/30/23 13:12 Height 5 ft 5 in Weight 156 lb BMI 26.0 BP 130/78 142/68 H Blood Pressure Location Lt brachial Lt brachial Position Sitting Sitting Respiration 16 18 Pulse 71 68 Pulse Source Pulse Oximeter Pulse Oximeter Pulse Oximetry (%) 98 Oxygen Delivery Method Room Air Comment Pre-Op Post-Op Intake Visit Reasons: BILATERAL DIAGNOSTIC L3, L4 DRL5 MBB Allergies No Known Allergies Allergy (Verified 03/16/23 13:59) HPI BILATERAL DIAGNOSTIC L3, L4 DRL5 MBB HPI Details Patient presents for scheduled procedure. Denies any recent cough, cold, infection, fever or other significant changes in medical history since last office visit. 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 The patient was placed in a prone position. The respective lumbosacral area was prepped with chloraprep and draped in sterile fashion. The skin over the target medial branch nerves was anesthetized with 0.5% lidocaine. A 22 gauge 3.5 inch needle was inserted into the target medial branch nerve under fluoroscopic guidance. No paresthesias were elicited with needle placement and aspiration was negative for blood and CSF. Next, 0.2cc of omnipaque 180 was injected to verify positioning. Next 0.5 ml 0.5% ropivicaine was injected (0.5cc total per level). The identical procedure was performed at the remaining levels. The skin was cleansed and a sterile bandage was applied. Following the procedure the patient's vital signs were stable. The patient tolerated the procedure well and no complications were encountered. Following the procedure the patient's vital signs were stable. The patient was discharged home in good condition with post-procedural instructions. Time Out: Immediately prior to the procedure, the following was verbally confirmed that there is a signed consent form and that the correct patient, planned procedure, site and side are consistent with documentation and that necessary equipment and/or blood products are available prior to the start of the case. Complications: none EBL: <5 cc 30232 - second level, with Fluoroscopy (bilateral) Procedure code (CPT) selection complete Assessment & Plan Assessment & Plan (1) Lumbar spondylosis: Code(s): M47.816 - Spondylosis without myelopathy or radiculopathy, lumbar region Plan Patient is status post diagnostic bilateral L3, L4 medial branches and L5 dorsal ramus blocks. Patient tolerated procedure well and was discharged home in stable condition with discharge instructions. All questions were answered. We will follow-up via telephone or in clinic to assess response to therapy. A follow-up appointment was made during today's visit. Orders: Orders FL guidance in treatment room Today M47.816 - Spondylosis without myelopathy or radiculopathy, lumbar region Coding Level of Care Code Procedure Only Diagnoses Lumbar spondylosis M47.816 CPT Codes Facet Injection-Lumbar/Sacral - CPT: 93547 - second level, with Fluoroscopy ([id number])
[2023-04-30 13:12] VITALS: BP 142/68; PULSE 68; RESP 18
== END 2023-04-30 12:37 | disposition home or self-care (01) ==
LOC: HO.PMCPRC 11:25
PROVIDERS: PCP Internal Medicine; Visit Provider Internal Medicine
DX: M47.816 Spondylosis without myelopathy or radiculopathy, lumbar region (principal)
CPT/HCPCS: 64493; 64494

== ENCOUNTER 2023-05-07 10:57 | Outpatient (AMB) | payer OTHER, SELFPAY ==
--- NOTE | 2023-05-07 11:00 | MHC.OFFVIS ---
Intake Vital Signs 05/07/23 11:07 Height 5 ft 5 in Weight 156 lb BMI 26.0 BP 109/59 L Blood Pressure Location Rt brachial Position Sitting Pulse 65 Pulse Source Pulse Oximeter Pulse Oximetry (%) 96 Oxygen Delivery Method Room Air Intake Visit Reasons: BILATERAL DIAGNOSTIC L3, L4, DRL5 MBB Intake Note: Pain today 10/02 Professional Fee Coder Required: Yes Professional Fee Coder Language: Tuvaluan Accompanied by: Other Relationship Allergies No Known Allergies Allergy (Verified 05/07/23 11:07) HPI HPI Comments History of Present Illness Details Patient presents today to assess response to diagnostic bilateral L3, L4 medial branches and L5 dorsal ramus blocks on 04/30/[address] Alvarado. Patient reports 100% pain relief for 24 hours with improvement in her daily functioning, mobility and sleep. However, patient reports her mid thoracic back pain has been worsening and radiating more to the left side. She would like to address mid back pain and hold off on longer term treatments for axial low back pain at this time. Patient reports this pain at 810 with significant localized tenderness to left mid back paraspinals and lower trapezius. This pain comes unexpectedly as shooting and stabbing pain per patient. She denies any recent trauma, injury, or falls. Coughing, sneezing, pulling, lifting, extension and forward flexion increase her midthoracic back pain. She reports completing multiple thoracic injections at [facility] with minimal relief. Denies any abdominal or groin pain, chest pain, pressure or tightness, shortness of breaths, heartburn, dizziness, visual disturbances, vertigo, rash, foot drop, weakness, bladder or bowel dysfunction or saddle anesthesia. Past Procedures: 04/30/23: Bilateral Diagnostic L3-L4 DR L5 MBB-100% pain relief for 24 hours 09/03/22: Right saphenous nerve peripheral nerve stimulation at the adductor canal placed 09/03/2022% pain relief 03/12/22: Right Diagnostic SNB at adductor canal on 03/12/[address] Alvarado-75-80% pain relief for 8 hours [facility], [facility], Orthopedic management reviewed: Follows Dr. Dotson at [facility] this month for chronic back pain and injections. Left TRK on 03/11/2020 at [facility]. History of back surgery at [facility] in 2018. Botox injections, levator scapular, trapezius, rhomboids, . Cervical epidural injections 2020. Thoracic and cervical medial branch blocks 04/17/2019. Thoracic facet injections 2022. PRIOR: Patient is a pleasant 76 years old Tuvaluan speaking female presents today with right knee pain and chronic lower back pain with radiation to right lower extremity posteriorly and laterally with numbness and tingling in her toes. Patient is accompanied by her DIGITAL FORENSICS EXAMINER. Denies any recent trauma, injury or falls. Patient reports her main pain generator is right knee pain. She reports the history of left TRK on 03/11/2020 at [facility] which has not healed well. She reports constant, daily aching, stabbing, throbbing, shooting, heavy, knee clicking, weakness, numbness and tingling sensation. Pain increased with walking, weight bearing, climbing stairs and cold weather changes. Right knee x-ray on 11/28/21 noted for Moderate medial compartment and [id number] lateral compartment degenerative changes with periarticular spurring right knee. There is chondrocalcinosis lateral compartment. Mild lateral subluxation patella is noted. Patient reports with orthopedic mutual decision, she is deferring right knee surgery at this time and is interested in non surgical options. Patient was referred to us for potential genicular nerve blocks. Patient reports history of back surgery at [facility] in 2018. She is currently undergoing regular lumbar and cervical injections through [facility] by Dr. Dotson. Her last injection was 3 months ago and she states next pain management visit is scheduled for 02/11/22. Patient is currently managing her pain with pregabalin, celebrex, ice and heat therapy. She cannot tolerate physical therapy due to significant pain at this time. 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 Alert and oriented. Mood and affect appropriate. Pleasant. Follows and participates in conversation appropriately. Respiratory effort is unlabored. No cough. Able to transition from sit to stand unassisted. Ambulates with bilaterally normal heel strike and toe off. Resp Effort & Inspection: normal respiratory effort, able to speak in complete sentences, no cough, no respiratory distress and symmetric chest movement Back/Spine/Pelvis Cervical Spine: cervical muscular tenderness, cervical spasm (left, SCM mild hypertrophy noted) and No Cervical spine tenderness Thoracic/Lumbar Spine: thoracic and lumbar spine normal to inspection, Thoracic/lumbar spine scar(s), Lasegue's sign negative, straight leg raise negative bilaterally, pain with thoraco-lumbar ROM, paraspinal muscle tenderness on the left in the mid thoracic and in the lower thoracic, thoraco-lumbar ROM limited, Thoracic/lumbar scoliosis, thoraco-lumbar spasm on the left, thoracic spinal tenderness (mid thoracic) at T4, at T5, at T6 and at T7 and lumbar spinal tenderness at L5 Pelvis: no buttock tenderness Sacroiliac joints: bilaterally tender to palpation Skin General skin exam: no rashes or lesions noted Results Reviewed Results Reviewed: XR THORACIC SPINE, LUMBAR SPINE 03/16/23 CLINICAL INFORMATION: In the thoracic spine, spondylosis without myelopathy. FINDINGS: LUMBAR SPINE: Degenerative changes with sclerosis in the bilateral sacroiliac joints, right greater than left. Degenerative changes on limited imaging of the left hip. Atherosclerotic aortoiliac calcifications. Posterior fixation with bilateral rods and pedicular screws at L5-S1. Disc spacer at L5-S1. Hardware appears intact. Slight rightward curvature of the mid to lower lumbar spine. Moderate multilevel spondylosis in the remainder of the lumbar spine with loss of disc space height at L4-L5. THORACIC SPINE: Slight rightward curvature of the thoracic spine. Moderate multilevel degenerative changes in the thoracic spine. Degenerative changes on very limited imaging of the cervical spine could be evaluated with dedicated cervical spine radiographs. IMPRESSION: 1. Status post posterior fixation at L5-S1. Hardware appears intact. 2. Moderate multilevel spondylosis in the thoracic and lumbar spines with loss of disc space height at L4-L5. 3. Degenerative changes with sclerosis in the bilateral sacroiliac joints, right greater than left. 4. Moderate multilevel degenerative changes in the thoracic spine. Assessment & Plan Assessment & Plan (1) Chronic thoracic back pain: Code(s): M54.6 - Pain in thoracic spine; G89.29 - Other chronic pain Qualifiers: Back pain laterality: midline Qualified Code(s): M54.6 - Pain in thoracic spine; G89.29 - Other chronic pain (2) Thoracic radiculopathy: Code(s): M54.14 - Radiculopathy, thoracic region (3) Lumbar spondylosis: Code(s): M47.816 - Spondylosis without myelopathy or radiculopathy, lumbar region (4) Post laminectomy syndrome: Code(s): M96.1 - Postlaminectomy syndrome, not elsewhere classified Plan Patient is status post diagnostic bilateral L3, L4 medial branches and L5 dorsal ramus blocks on 04/30/2023 with good relief. We will hold off on interventional procedures for axial low back pain and address midthoracic back pain with radiculopathy as next steps. Thoracic spine MRI to assess for neural integrity, compression and degenerative endplate changes. Script provided for gabapentin 100 mg t.i.d. and topical capsaicin cream. Side effects and precautions were discussed with patient and family in greater detail. All questions and concerns have been answered and patient agreed with the plan follow-up for MRI results and sooner as needed. Orders: Orders MR thoracic spine wo con Today G89.29 - Other chronic pain, M54.14 - Radiculopathy, thoracic region, M54.6 - Pain in thoracic spine Medications: New gabapentin 100 mg PO TID 30 days 90 caps 0RF pain G89.29 - Other chronic pain, M54.14 - Radiculopathy, thoracic region, M54.6 - Pain in thoracic spine capsaicin 0.1% (Arthritis Pain Relief (capsaicin)) do not wash area for at least 30 min after application 1 appl topical TID 60 grams 1RF pain 30 days G89.29 - Other chronic pain, M54.14 - Radiculopathy, thoracic region, M54.6 - Pain in thoracic spine, M96.1 - Postlaminectomy syndrome, not elsewhere classified Coding Level of Care Code Est Pt Level 4 (61656) Diagnoses Chronic midline thoracic back pain M54.6; G89.29 Back pain laterality: midline Thoracic radiculopathy M54.14 Lumbar spondylosis M47.816 Post laminectomy syndrome M96.1
[2023-05-07 11:07] VITALS: BP 109/59; PULSE 65; O2SAT 96; BMI 26.0
== END 2023-05-07 11:27 | disposition home or self-care (01) ==
PROVIDERS: PCP Internal Medicine; Visit Provider Nurse Practitioner Family
DX: M54.6 Pain in thoracic spine (principal); G89.29 Other chronic pain; M54.14 Radiculopathy, thoracic region; M47.816 Spondylosis without myelopathy or radiculopathy, lumbar region; M96.1 Postlaminectomy syndrome, not elsewhere classified
CPT/HCPCS: 99214

== ENCOUNTER → 2023-05-07 10:57 | Outpatient (BNVA) | payer OTHER, SELFPAY | PROVIDERS: PCP Internal Medicine; Visit Provider Nurse Practitioner Family | DX: G89.29 Other chronic pain (principal); M54.6 Pain in thoracic spine; M54.14 Radiculopathy, thoracic region; M47.816 Spondylosis without myelopathy or radiculopathy, lumbar region; M96.1 Postlaminectomy syndrome, not elsewhere classified; Z98.890 Other specified postprocedural states | CPT/HCPCS: 99212 ==

== ENCOUNTER 2023-06-03 17:31 | Outpatient (REF) | payer OTHER, SELFPAY ==
--- NOTE | ~2023-06-03 | MR_ITS ---
EXAMINATION: MR THORACIC SPINE WITHOUT CONTRAST CLINICAL INFORMATION: Pain in thoracic spine COMPARISON: None available. TECHNIQUE: MRI of the thoracic spine was obtained using routine sequences without contrast. FINDINGS: Normal vertebral body heights and alignment. Heterogeneous marrow signal without suspicious focal osseous lesion. There is a hemangioma involving the T8 vertebral body as well as a small hemangiomas in L1 and L2.. Several small endplate Schmorl's nodes. The conus medullaris terminates at L2 No significant marrow edema. Mild degenerative disc desiccation and height loss in the mid thoracic spine. The thoracic spinal canal is widely patent. Normal caliber and signal of the thoracic cord. The conus medullaris terminates at L2 No significant abnormalities of the visualized extraspinal soft tissues. There is a 2 cm T2 hyperintense lesion in the right lobe of the liver, likely representing a cyst. MR/MR thoracic spine wo con IMPRESSION: Mild degenerative changes of the thoracic spine. No significant spinal canal narrowing, cord compression, or cord signal abnormality.
== END 2023-06-03 17:32 | disposition home or self-care (01) ==
LOC: HO.MRI 17:31
PROVIDERS: PCP Internal Medicine; Visit Provider Nurse Practitioner Family
DX: M54.6 Pain in thoracic spine (principal); M54.14 Radiculopathy, thoracic region; G89.29 Other chronic pain
CPT/HCPCS: 72146

== ENCOUNTER 2023-06-15 12:51 | Outpatient (AMB) | payer OTHER, SELFPAY ==
--- NOTE | 2023-06-15 13:05 | MHC.OFFVIS ---
Intake Visit Reasons: Discuss MRI Results Intake Note: Pain today 09/01 Regional Sales Representative Required: Yes Regional Sales Representative Language: Wolof Accompanied by: Self / Same As Patient Allergies No Known Allergies Allergy (Verified 06/15/23 13:11) HPI Comments Details: Patient presents today to discuss recent thoracic spine MRI results. She continues to endorse mid back pain which radiates into her left periscapular and anterior left shoulder pain. Thoracic spine MRI showed mild degenerative changes of the thoracic spine with no significant spinal canal narrowing, cord compression, or cord signal abnormality. Patient underwent multiple cervical and thoracic injections with minimal relief or function improvement. She presents today with difficulty reaching her back side pocket and anterior shoulder tenderness with range of motion with pain radiating to her left mid back paraspinals and lower trapezius. She reports this pain comes unexpectedly as shooting and stabbing sensations. Patient denies any recent trauma, injury, or falls. She reports mild relief with gabapentin and topical capsaicin, NDAIDs. Denies any fever, chills, weight loss, chest pain, pressure or tightness, shortness of breaths, heartburn, dizziness, visual disturbances, vertigo, rash, foot drop, weakness, bladder or bowel dysfunction or saddle anesthesia. Past Procedures: 04/30/23: Bilateral Diagnostic L3-L4 DR L5 MBB-100% pain relief for 24 hours 09/03/22: Right saphenous nerve peripheral nerve stimulation at the adductor canal placed 09/03/2022% pain relief 03/12/22: Right Diagnostic SNB at adductor canal on 03/12/[address] Alvarado-75-80% pain relief for 8 hours [facility], [facility], Orthopedic management reviewed: Follows Dr. Dotson at [facility] this month for chronic back pain and injections. Left TRK on 03/11/2020 at [facility]. History of back surgery at [facility] in 2018. Botox injections, levator scapular, trapezius, rhomboids, . Cervical epidural injections 2020. Thoracic and cervical medial branch blocks 04/17/2019. Thoracic facet injections 2022. PRIOR: Patient is a pleasant 76 years old Wolof speaking female presents today with right knee pain and chronic lower back pain with radiation to right lower extremity posteriorly and laterally with numbness and tingling in her toes. Patient is accompanied by her AIR HOSE COUPLER. Denies any recent trauma, injury or falls. Patient reports her main pain generator is right knee pain. She reports the history of left TKR on 03/11/2020 at [facility] which has not healed well. She reports constant, daily aching, stabbing, throbbing, shooting, heavy, knee clicking, weakness, numbness and tingling sensation. Pain increased with walking, weight bearing, climbing stairs and cold weather changes. Right knee x-ray on 11/28/21 noted for Moderate medial compartment and [id number] lateral compartment degenerative changes with periarticular spurring right knee. There is chondrocalcinosis lateral compartment. Mild lateral subluxation patella is noted. Patient reports with orthopedic mutual decision, she is deferring right knee surgery at this time and is interested in non surgical options. Patient was referred to us for potential genicular nerve blocks. Patient reports history of back surgery at [facility] in 2018. She is currently undergoing regular lumbar and cervical injections through [facility] by Dr. Dotson. Her last injection was 3 months ago and she states next pain management visit is scheduled for 02/11/22. Patient is currently managing her pain with pregabalin, celebrex, ice and heat therapy. She cannot tolerate physical therapy due to significant pain at this time. 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 Alert and oriented. Mood and affect appropriate. Pleasant. Follows and participates in conversation appropriately. Respiratory effort is unlabored. No cough. Able to transition from sit to stand unassisted. Ambulates with bilaterally normal heel strike and toe off. Neck Neck: Yes no lymphadenopathy, Yes supple, No anterior neck swelling, Yes no JVD and No prominent dorsocervical fat pad Resp Effort & Inspection: normal respiratory effort, able to speak in complete sentences, no cough, no respiratory distress and symmetric chest movement Back/Spine/Pelvis Cervical Spine: cervical muscular tenderness, pain with cervical ROM, cervical spasm (left, SCM mild hypertrophy noted) and No Cervical spine tenderness Thoracic/Lumbar Spine: thoracic and lumbar spine normal to inspection, Thoracic/lumbar spine scar(s), Lasegue's sign negative, straight leg raise negative bilaterally, pain with thoraco-lumbar ROM, paraspinal muscle tenderness on the left in the mid thoracic and in the lower thoracic, thoraco-lumbar ROM limited, Thoracic/lumbar scoliosis, thoraco-lumbar spasm on the left in the upper thoracic and in the mid thoracic, thoracic spinal tenderness (mid thoracic) and lumbar spinal tenderness at L4 and at L5 Sacroiliac joints: bilaterally tender to palpation Skin General skin exam: no rashes or lesions noted Extrem General: Yes capillary refill normal, Yes no clubbing, cyanosis or edema and Yes no calf tenderness Left upper extremity: shoulder/upper arm (Limited ROM due to pain.) Details: tenderness Location: of the A-C joint, of the scapula and over the subacromial bursa and crepitus; no swelling and no unsual warmth Results Reviewed Results Reviewed: XR THORACIC SPINE, LUMBAR SPINE 03/16/23 CLINICAL INFORMATION: In the thoracic spine, spondylosis without myelopathy. FINDINGS: LUMBAR SPINE: Degenerative changes with sclerosis in the bilateral sacroiliac joints, right greater than left. Degenerative changes on limited imaging of the left hip. Atherosclerotic aortoiliac calcifications. Posterior fixation with bilateral rods and pedicular screws at L5-S1. Disc spacer at L5-S1. Hardware appears intact. Slight rightward curvature of the mid to lower lumbar spine. Moderate multilevel spondylosis in the remainder of the lumbar spine with loss of disc space height at L4-L5. THORACIC SPINE: Slight rightward curvature of the thoracic spine. Moderate multilevel degenerative changes in the thoracic spine. Degenerative changes on very limited imaging of the cervical spine could be evaluated with dedicated cervical spine radiographs. IMPRESSION: 1. Status post posterior fixation at L5-S1. Hardware appears intact. 2. Moderate multilevel spondylosis in the thoracic and lumbar spines with loss of disc space height at L4-L5. 3. Degenerative changes with sclerosis in the bilateral sacroiliac joints, right greater than left. 4. Moderate multilevel degenerative changes in the thoracic spine. MR THORACIC SPINE WITHOUT CONTRAST 06/03/23 CLINICAL INFORMATION: Pain in thoracic spine FINDINGS: Normal vertebral body heights and alignment. Heterogeneous marrow signal without suspicious focal osseous lesion. There is a hemangioma involving the T8 vertebral body as well as a small hemangiomas in L1 and L2.. Several small endplate Schmorl's nodes. The conus medullaris terminates at L2 No significant marrow edema. Mild degenerative disc desiccation and height loss in the mid thoracic spine. The thoracic spinal canal is widely patent. Normal caliber and signal of the thoracic cord. The conus medullaris terminates at L2 No significant abnormalities of the visualized extraspinal soft tissues. There is a 2 cm T2 hyperintense lesion in the right lobe of the liver, likely representing a cyst. IMPRESSION: Mild degenerative changes of the thoracic spine. No significant spinal canal narrowing, cord compression, or cord signal abnormality. Assessment & Plan Assessment & Plan (1) Thoracic radiculopathy: Code(s): M54.14 - Radiculopathy, thoracic region Category: Medical (2) Chronic left shoulder pain: Code(s): M25.512 - Pain in left shoulder; G89.29 - Other chronic pain Category: Medical (3) Periscapular pain of left shoulder: Code(s): M25.512 - Pain in left shoulder Category: Medical (4) Chronic thoracic back pain: Code(s): M54.6 - Pain in thoracic spine; G89.29 - Other chronic pain Category: Medical Qualifiers: Back pain laterality: midline Qualified Code(s): M54.6 - Pain in thoracic spine; G89.29 - Other chronic pain Plan Thoracic spine MRI results discussed with patient and her family. Findings showed mild degenerative changes of the thoracic spine. No significant spinal canal narrowing, cord compression, or cord signal abnormality. Recommend PT for ongoing myofascial pain in the mid-thoracic and neck paraspinals, periscapular, rhomboids and trapezius areas. Will obtain left shoulder and scapula imaging to rule out referred pain. Patient with limited left shoulder ROM and localized tenderness in the scapular and anterior aspects of left shoulder. All questions and concerns have been answered and patient agreed with the plan. Follow up for xray results and sooner as needed. Orders: Orders PT Evaluation and Treatment Today G89.29 - Other chronic pain, M25.512 - Pain in left shoulder, M54.6 - Pain in thoracic spine XR shoulder LT min 2V Today G89.29 - Other chronic pain, M25.512 - Pain in left shoulder, M54.14 - Radiculopathy, thoracic region XR scapula LT Today G89.29 - Other chronic pain, M25.512 - Pain in left shoulder, M54.14 - Radiculopathy, thoracic region
== END 2023-06-15 13:42 | disposition home or self-care (01) ==
LOC: HO.PMC 12:53
PROVIDERS: PCP Internal Medicine; Visit Provider Nurse Practitioner Family
DX: M54.14 Radiculopathy, thoracic region (principal); M25.512 Pain in left shoulder; G89.29 Other chronic pain; M54.6 Pain in thoracic spine
CPT/HCPCS: 99214

== ENCOUNTER 2023-06-15 12:53 | Outpatient (REF) | payer OTHER, SELFPAY ==
--- NOTE | ~2023-06-15 | XR_ITS ---
EXAMINATION: XR left shoulder, left scapula CLINICAL INFORMATION: Radiculopathy thoracic region, patient stated pain in shoulder with no trauma. COMPARISON: None available. TECHNIQUE: 3 views of the left shoulder. 2 views of the left scapula. FINDINGS: Left Shoulder: Degenerative changes in the imaged upper thoracic spine. Moderate degenerative changes in the acromioclavicular joint with joint space narrowing and hypertrophic change. Moderate degenerative changes in the glenohumeral joint with inferior hypertrophic change. Subchondral corticated cystic lucency along the glenoid. Corticated cystic lucency in the lateral aspect of the humeral head. Left Scapula: No gross displaced fracture of the scapula is appreciated; however, evaluation is limited due to overlying bony structures. XR/XR scapula LT IMPRESSION: 1. Moderate degenerative changes in the acromioclavicular and glenohumeral joints. 2. No gross displaced fracture of the scapula is appreciated; however, evaluation is limited due to overlying bony structures.
--- NOTE | ~2023-06-15 | XR_ITS ---
EXAMINATION: XR left shoulder, left scapula CLINICAL INFORMATION: Radiculopathy thoracic region, patient stated pain in shoulder with no trauma. COMPARISON: None available. TECHNIQUE: 3 views of the left shoulder. 2 views of the left scapula. FINDINGS: Left Shoulder: Degenerative changes in the imaged upper thoracic spine. Moderate degenerative changes in the acromioclavicular joint with joint space narrowing and hypertrophic change. Moderate degenerative changes in the glenohumeral joint with inferior hypertrophic change. Subchondral corticated cystic lucency along the glenoid. Corticated cystic lucency in the lateral aspect of the humeral head. Left Scapula: No gross displaced fracture of the scapula is appreciated; however, evaluation is limited due to overlying bony structures. XR/XR shoulder LT min 2V IMPRESSION: 1. Moderate degenerative changes in the acromioclavicular and glenohumeral joints. 2. No gross displaced fracture of the scapula is appreciated; however, evaluation is limited due to overlying bony structures.
== END 2023-06-15 12:54 | disposition home or self-care (01) ==
LOC: HO.XRAY 12:53
PROVIDERS: PCP Internal Medicine; Visit Provider Nurse Practitioner Family
DX: M54.14 Radiculopathy, thoracic region (principal); M25.512 Pain in left shoulder; G89.29 Other chronic pain; M54.6 Pain in thoracic spine
CPT/HCPCS: 73010; 73030; 99212

== ENCOUNTER 2023-06-29 14:01 | Outpatient (REF) | payer OTHER, SELFPAY ==
--- NOTE | ~2023-06-29 | XR_ITS ---
EXAMINATION: XR KNEE, RIGHT CLINICAL INFORMATION: Pain in the right knee. COMPARISON: X-rays of the right knee October 2022. TECHNIQUE: 3 views of the right knee. FINDINGS: RIGHT KNEE: There is genu varus. Medial compartment: Severe joint space narrowing with marginal osteophytes indicative of severe osteoarthritis. Lateral compartment: Slight widening likely due to the genu varus. Marginal osteophytes. Findings indicative of at least mild osteoarthritis. Patellofemoral compartment: Marginal osteophytes with mild joint space narrowing indicative of [id number] osteoarthritis. Small effusion. Chondrocalcinosis. XR/XR knee RT 3V IMPRESSION: Advanced osteoarthritis. Unchanged compared with the October 2022.
== END 2023-06-29 14:02 | disposition home or self-care (01) ==
LOC: HO.XRAY 14:01
PROVIDERS: PCP Internal Medicine; Visit Provider Nurse Practitioner Family
DX: M25.561 Pain in right knee (principal)
CPT/HCPCS: 73562; 99212

== ENCOUNTER 2023-06-29 14:01 | Outpatient (AMB) | payer OTHER, SELFPAY ==
--- NOTE | 2023-06-29 14:01 | MHC.OFFVIS ---
Vital Signs 06/29/23 14:06 Height 5 ft 5 in Weight 158 lb 3 oz BMI 26.3 BP 134/74 Blood Pressure Location Rt brachial Position Sitting Pulse 92 Pulse Source Pulse Oximeter Pulse Oximetry (%) 100 Oxygen Delivery Method Room Air Intake Visit Reasons: XRAY FOLLOW UP Intake Note: Pain today 10/02 Car Whacker Required: Yes Car Whacker Language: Montenegrin Accompanied by: Other Relationship Allergies No Known Allergies Allergy (Verified 06/29/23 14:07) HPI Comments Details: Patient presents today to discuss recent left shoulder and scapula xray results. Radilogy findings showed moderate degenerative changes in the acromioclavicular and glenohumeral joints and no gross displaced fracture of the scapula is appreciated. Patient is scheduled to see Orthopedics Dr. Jay on 07/02/23. She also reports right knee pain with localized tenderness in patella, medial and posterior aspects. She would like to discuss with Orthopedics as well. Patient reports chronic left sided neck pain with muscle spasms and stiffness. She is interested to restart Botox injections with EMG guidance with Neurology provider. Her last Botox injections were in 2022. Denies any recent cough, cold, infection, fever, any significant changes in her medical history, medications or recent hospitalizations. PRIOR: Patient presents today to discuss recent thoracic spine MRI results. She continues to endorse mid back pain which radiates into her left periscapular and anterior left shoulder pain. Thoracic spine MRI showed mild degenerative changes of the thoracic spine with no significant spinal canal narrowing, cord compression, or cord signal abnormality. Patient underwent multiple cervical and thoracic injections with minimal relief or function improvement. She presents today with difficulty reaching her back side pocket and anterior shoulder tenderness with range of motion with pain radiating to her left mid back paraspinals and lower trapezius. She reports this pain comes unexpectedly as shooting and stabbing sensations. Patient denies any recent trauma, injury, or falls. She reports mild relief with gabapentin and topical capsaicin, NDAIDs. Denies any fever, chills, weight loss, chest pain, pressure or tightness, shortness of breaths, heartburn, dizziness, visual disturbances, vertigo, rash, foot drop, weakness, bladder or bowel dysfunction or saddle anesthesia. Past Procedures: 04/30/23: Bilateral Diagnostic L3-L4 DR L5 MBB-100% pain relief for 24 hours 09/03/22: Right saphenous nerve peripheral nerve stimulation at the adductor canal placed 09/03/2022% pain relief 03/12/22: Right Diagnostic SNB at adductor canal on 03/12/[address] Alvarado-75-80% pain relief for 8 hours [facility], Orthopedic management reviewed: Follows Dr. Dotson at [facility] this month for chronic back pain and injections. Left TRK on 03/11/2020 at [facility]. History of back surgery at [facility] in 2018. Botox injections, levator scapular, trapezius, rhomboids, . Cervical epidural injections 2020. Thoracic and cervical medial branch blocks 04/17/2019. Thoracic facet injections 2022. PRIOR: Patient is a pleasant 76 years old Montenegrin speaking female presents today with right knee pain and chronic lower back pain with radiation to right lower extremity posteriorly and laterally with numbness and tingling in her toes. 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 Denies any recent trauma, injury or falls. Patient reports her main pain generator is right knee pain. She reports the history of left TKR on 03/11/2020 at [facility] which has not healed well. She reports constant, daily aching, stabbing, throbbing, shooting, heavy, knee clicking, weakness, numbness and tingling sensation. Pain increased with walking, weight bearing, climbing stairs and cold weather changes. Right knee x-ray on 11/28/21 noted for Moderate medial compartment and [id number] lateral compartment degenerative changes with periarticular spurring right knee. There is chondrocalcinosis lateral compartment. Mild lateral subluxation patella is noted. Patient reports with orthopedic mutual decision, she is deferring right knee surgery at this time and is interested in non surgical options. Patient was referred to us for potential genicular nerve blocks. Patient reports history of back surgery at [facility] in 2018. She is currently undergoing regular lumbar and cervical injections through [facility] by Dr. Dotson. Her last injection was 3 months ago and she states next pain management visit is scheduled for 02/11/22. Patient is currently managing her pain with pregabalin, celebrex, ice and heat therapy. She cannot tolerate physical therapy due to significant pain at this time. 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 No acute distress. Alert and oriented. Mood and affect appropriate. Pleasant. Follows and participates in conversation appropriately. Respiratory effort is unlabored. No cough. Able to transition from sit to stand unassisted. Ambulates with bilaterally normal heel strike and toe off. Neck Neck: Yes no lymphadenopathy, Yes supple, No anterior neck swelling, Yes no JVD and No prominent dorsocervical fat pad Resp Effort & Inspection: normal respiratory effort, able to speak in complete sentences, no cough, no respiratory distress and symmetric chest movement Back/Spine/Pelvis Cervical Spine: cervical muscular tenderness, pain with cervical ROM, cervical spasm (left, SCM mild hypertrophy noted), No Cervical spine tenderness and No step off deformity Thoracic/Lumbar Spine: thoracic and lumbar spine normal to inspection, Thoracic/lumbar spine scar(s), Lasegue's sign negative, straight leg raise negative bilaterally, pain with thoraco-lumbar ROM, paraspinal muscle tenderness on the left in the mid thoracic and in the lower thoracic, thoraco-lumbar ROM limited, Thoracic/lumbar scoliosis, thoraco-lumbar spasm on the left in the upper thoracic, thoracic spinal tenderness (mid thoracic) and lumbar spinal tenderness at L4 and at L5 Skin General skin exam: no rashes or lesions noted Extrem General: Yes capillary refill normal, Yes no clubbing, cyanosis or edema, Yes no calf tenderness and Yes muscle hypertrophy (left sided cervical muscles) Left upper extremity: shoulder/upper arm (Limited ROM due to pain.) Details: tenderness Location: of the A-C joint, of the scapula and over the subacromial bursa and crepitus; no swelling, no ecchymosis, no deformity and no unsual warmth Right lower extremity: knee (Limited ROM due to pain. ) Details: tenderness Location: of the patella and of the medial joint line, swelling Location: of the patella and of the popliteal fossa and crepitus; no ecchymosis and no unusual warmth Results Reviewed Results Reviewed: XR left shoulder, left scapula 06/15/23 CLINICAL INFORMATION: Radiculopathy thoracic region, patient stated pain in shoulder with no trauma. COMPARISON: None available. TECHNIQUE: 3 views of the left shoulder. 2 views of the left scapula. FINDINGS: Left Shoulder: Degenerative changes in the imaged upper thoracic spine. Moderate degenerative changes in the acromioclavicular joint with joint space narrowing and hypertrophic change. Moderate degenerative changes in the glenohumeral joint with inferior hypertrophic change. Subchondral corticated cystic lucency along the glenoid. Corticated cystic lucency in the lateral aspect of the humeral head. Left Scapula: No gross displaced fracture of the scapula is appreciated; however, evaluation is limited due to overlying bony structures. IMPRESSION: 1. Moderate degenerative changes in the acromioclavicular and glenohumeral joints. 2. No gross displaced fracture of the scapula is appreciated; however, evaluation is limited due to overlying bony structures. Assessment & Plan Assessment & Plan (1) Muscle spasms of neck: Code(s): M62.838 - Other muscle spasm Category: Medical (2) Cervicalgia: Code(s): M54.2 - Cervicalgia Category: Medical (3) Periscapular pain of left shoulder: Code(s): M25.512 - Pain in left shoulder Category: Medical (4) Degenerative cervical spinal stenosis: Code(s): M48.02 - Spinal stenosis, cervical region Category: Medical (5) Right knee pain: Code(s): M25.561 - Pain in right knee Category: Medical (6) Lumbar spondylosis: Code(s): M47.816 - Spondylosis without myelopathy or radiculopathy, lumbar region Category: Medical Plan Left shoulder and scapula results discussed with patient and family today. Pending Orthopedic evaluation on 07/02/23. Right knee xray to assess degree of arthritis and effusion. Patient will follow up with Ortho for further guidance. Briefly reviewed interventional treatments for shoulder and knee pain, including diagnostic injections for potential Sprint PNS trial vs RFA, therapeutic injections. Script provided for methocarbamol for neck muscle spasms. Side effects and precautions discussed with patient and family. Refill provided for Celebrex for prn use only. Reviewed complications with long-term NSAID use in post-menopausal female. Neurology referral for potential restart of Botox injections with EMG guidance for left sided neck pain and significant spasms. All questions and concerns have been answered and patient agreed with the plan. Follow up for medication review and sooner as needed. Orders: Orders XR knee RT 3V Today M25.561 - Pain in right knee Referrals Neurology Referral M54.2 - Cervicalgia, M62.838 - Other muscle spasm Medications: New methocarbamol 500 mg PO Q8H 30 days PRN 90 tabs 0RF muscle spasm M25.512 - Pain in left shoulder, M54.2 - Cervicalgia, M62.838 - Other muscle spasm Changed From celecoxib 100 mg PO DAILY M48.02 - Spinal stenosis, cervical region, M54.2 - Cervicalgia To celecoxib Take it with food and full glass of water. 100 mg PO DAILY 30 caps 1RF pain M48.02 - Spinal stenosis, cervical region, M54.2 - Cervicalgia Coding Level of Care Code Est Pt Level 4 (74339) Diagnoses Muscle spasms of neck M62.838 Cervicalgia M54.2 Periscapular pain of left shoulder M25.512 Degenerative cervical spinal stenosis M48.02 Right knee pain M25.561 Lumbar spondylosis M47.816
[2023-06-29 14:06] VITALS: BP 134/74; PULSE 92; O2SAT 100; BMI 26.3
== END 2023-06-29 14:26 | disposition home or self-care (01) ==
PROVIDERS: PCP Internal Medicine; Visit Provider Nurse Practitioner Family
DX: M62.838 Other muscle spasm (principal); M54.2 Cervicalgia; M25.512 Pain in left shoulder; M48.02 Spinal stenosis, cervical region; M25.561 Pain in right knee; M47.816 Spondylosis without myelopathy or radiculopathy, lumbar region
CPT/HCPCS: 99214

== ENCOUNTER 2023-07-02 13:37 | Outpatient (AMB) | payer OTHER, SELFPAY ==
--- NOTE | 2023-07-02 13:50 | MHC.OFFVIS ---
Intake Visit Reasons: Pain in left shoulder, Other chronic pain Intake Note: Tita is a 78 year old female who presents witlh Left shoulder pain that radiates to her back. Patient reports her pain has been going on for about 10 years and is a 8 on the 1-10 pain scale. She states she has used tylenol, ibuprofen, voltaren cream, with some relief. She has had injections with no relief. She reports weakness when lifting her left hand above shoulder height. She denies any numbness or tingling in either of her upper extremities. She has done physical therapy exercises which aggravated her pain and did not help with her weakness. Internal Control Analyst Name: [id number] Allergies No Known Allergies Allergy (Verified 07/02/23 14:00) Medication List - Last Reconciled 07/03/23 by Carlos Jay MD alendronate 70 mg PO QWEEK calcium carbonate-vitamin D3 600 mg-5 mcg (200 unit) 1 tab PO BID capsaicin 0.1% (Arthritis Pain Relief (capsaicin)) 1 appl topical TID 30 days celecoxib 100 mg PO DAILY donepezil mg PO duloxetine 30 mg PO DAILY erythromycin ophthalmic (eye) BEDTIME fluticasone propionate 50 mcg/actuation 1 spray intranasal DAILY gabapentin 100 mg PO TID 30 days lovastatin 20 mg PO BEDTIME methocarbamol 500 mg PO Q8H PRN 30 days trazodone 100 mg PO BEDTIME valacyclovir 1,000 mg PO DAILY zolpidem 5 mg PO BEDTIME PRN PFSH Medical History Lower back pain High cholesterol Surgical History History of back surgery Social History Current occupational status: disabled 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 Physical Exam Const Other: Well-nourished well-developed very friendly female awake alert and oriented x3 in no acute distress Extrem Other: Bilateral upper extremity examination shows good capillary refill, no skin lesions noted, normal sensation light touch Left shoulder examination shows slightly decreased range of motion when compared to her right shoulder, 4+ out of 5 strength with supraspinatus testing, positive impingement signs, tenderness over her acromioclavicular joint, no instability Results Reviewed Results Reviewed: X-rays of the patient's left shoulder show severe acromioclavicular joint narrowing, a type 2 acromion, no acute bony abnormalities Assessment & Plan Assessment & Plan (1) Chronic left shoulder pain: Code(s): M25.512 - Pain in left shoulder; G89.29 - Other chronic pain Category: Medical Plan Ms. Ingram presents with progressively worsening left shoulder pain and weakness possibly due to full-thickness rotator cuff tearing as well as impingement syndrome. Thus, I will send the patient for an MRI of her left shoulder for further evaluation. I will see her back once the MRI is completed to discuss the findings and treatment options. Feel free to call me at any time should questions regarding her orthopedic management arise. Thank you very much for asking me to see this very friendly patient. I spent 20 minutes in reviewing the patient's records and imaging studies, seeing the patient and documenting in the medical record. Orders: Orders MR shoulder LT wo con 07/02/23 G89.29 - Other chronic pain, M25.512 - Pain in left shoulder Coding Level of Care Code New Pt Level 2 (09274) Diagnoses Chronic left shoulder pain M25.512; G89.29
== END 2023-07-02 14:15 | disposition home or self-care (01) ==
PROVIDERS: PCP Internal Medicine; Visit Provider Orthopaedic Surgery
DX: M25.512 Pain in left shoulder (principal); G89.29 Other chronic pain
CPT/HCPCS: 99203

== ENCOUNTER → 2023-07-02 13:37 | Outpatient (BNVA) | payer OTHER, SELFPAY | PROVIDERS: PCP Internal Medicine; Visit Provider Orthopaedic Surgery | DX: M25.512 Pain in left shoulder (principal); G89.29 Other chronic pain | CPT/HCPCS: 99202 ==

== ENCOUNTER 2023-07-17 13:00 | Outpatient (AMB) | payer OTHER, SELFPAY ==
[2023-07-17 13:06] VITALS: BP 129/72; PULSE 91; O2SAT 100; BMI 26.4
--- NOTE | 2023-07-17 13:06 | MHC.OFFVIS ---
Vital Signs 07/17/23 13:06 Height 5 ft 5 in Weight 158 lb 6 oz BMI 26.4 BP 129/72 Blood Pressure Location Rt brachial Position Sitting Pulse 91 Pulse Source Pulse Oximeter Pulse Oximetry (%) 100 Oxygen Delivery Method Room Air Intake Visit Reasons: follow up xray result Intake Note: Pain today 10/02 Recruiter Account Manager Required: Yes Recruiter Account Manager Language: Lockstitch Waistline Joiner Name: Corinne Accompanied by: demonstrator sales Allergies No Known Allergies Allergy (Verified 07/17/23 13:07) HPI Comments Details: Patient presents today to discuss recent right knee xray results. She continues to endorse significant right knee pain with walking and climbing stairs. She recently seen Orthopedic provider and is scheduled to undergo left shoulder MRI next month. She has started physical therapy and finds these beneficial for neck and muscle spasms but reports limited ROM of left shoulder and pain with movements. Patient is interested to undergo interventional treatments for right knee pain. She has localized tenderness in patella, medial and posterior aspects. Denies any recent cough, cold, infection, fever, any significant changes in her medical history, medications or recent hospitalizations. PRIOR: Patient presents today to discuss recent thoracic spine MRI results. She continues to endorse mid back pain which radiates into her left periscapular and anterior left shoulder pain. Thoracic spine MRI showed mild degenerative changes of the thoracic spine with no significant spinal canal narrowing, cord compression, or cord signal abnormality. Patient underwent multiple cervical and thoracic injections with minimal relief or function improvement. She presents today with difficulty reaching her back side pocket and anterior shoulder tenderness with range of motion with pain radiating to her left mid back paraspinals and lower trapezius. She reports this pain comes unexpectedly as shooting and stabbing sensations. Patient denies any recent trauma, injury, or falls. She reports mild relief with gabapentin and topical capsaicin, NDAIDs. Denies any fever, chills, weight loss, chest pain, pressure or tightness, shortness of breaths, heartburn, dizziness, visual disturbances, vertigo, rash, foot drop, weakness, bladder or bowel dysfunction or saddle anesthesia. Past Procedures: 04/30/23: Bilateral Diagnostic L3-L4 DR L5 MBB-100% pain relief for 24 hours 09/03/22: Right saphenous nerve peripheral nerve stimulation at the adductor canal placed 09/03/2022% pain relief 03/12/22: Right Diagnostic SNB at adductor canal on 03/12/[address] Alvarado-75-80% pain relief for 8 hours [facility], [facility], Orthopedic management reviewed: Follows Dr. Dotson at [facility] this month for chronic back pain and injections. Left TRK on 03/11/2020 at [facility]. History of back surgery at [facility] in 2018. Botox injections, levator scapular, trapezius, rhomboids, . Cervical epidural injections 2020. Thoracic and cervical medial branch blocks 04/17/2019. Thoracic facet injections 2022. PRIOR: Patient is a pleasant 76 years old Cook Islander speaking female presents today with right knee pain and chronic lower back pain with radiation to right lower extremity posteriorly and laterally with numbness and tingling in her toes. Patient is accompanied by her RIVETING MACHINE OPERATOR AUTOMATIC. Denies any recent trauma, injury or falls. Patient reports her main pain generator is right knee pain. She reports the history of left TKR on 03/11/2020 at [facility] which has not healed well. She reports constant, daily aching, stabbing, throbbing, shooting, heavy, knee clicking, weakness, numbness and tingling sensation. Pain increased with walking, weight bearing, climbing stairs and cold weather changes. Right knee x-ray on 11/28/21 noted for Moderate medial compartment and [id number] lateral compartment degenerative changes with periarticular spurring right knee. There is chondrocalcinosis lateral compartment. Mild lateral subluxation patella is noted. Patient reports with orthopedic mutual decision, she is deferring right knee surgery at this time and is interested in non surgical options. Patient was referred to us for potential genicular nerve blocks. Patient reports history of back surgery at [facility] in 2018. She is currently undergoing regular lumbar and cervical injections through [facility] by Dr. Dotson. Her last injection was 3 months ago and she states next pain management visit is scheduled for 02/11/22. Patient is currently managing her pain with pregabalin, celebrex, ice and heat therapy. She cannot tolerate physical therapy due to significant pain at this time. 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 No acute distress. Alert and oriented. Mood and affect appropriate. Pleasant. Follows and participates in conversation appropriately. Respiratory effort is unlabored. No cough. Able to transition from sit to stand unassisted. Ambulates with bilaterally normal heel strike and toe off. Neck Neck: Yes no lymphadenopathy, Yes supple, No anterior neck swelling, Yes no JVD and No prominent dorsocervical fat pad Resp Effort & Inspection: normal respiratory effort, able to speak in complete sentences, no cough, no respiratory distress and symmetric chest movement Back/Spine/Pelvis Cervical Spine: cervical muscular tenderness, pain with cervical ROM, cervical spasm (left, SCM mild hypertrophy noted) and No Cervical spine tenderness Thoracic/Lumbar Spine: thoracic and lumbar spine normal to inspection, Thoracic/lumbar spine scar(s), Lasegue's sign negative, straight leg raise negative bilaterally, pain with thoraco-lumbar ROM, paraspinal muscle tenderness on the left in the mid thoracic and in the lower thoracic, thoraco-lumbar ROM limited, Thoracic/lumbar scoliosis, thoraco-lumbar spasm on the left in the upper thoracic, thoracic spinal tenderness (mid thoracic) and lumbar spinal tenderness at L4 and at L5 Skin General skin exam: no rashes or lesions noted Extrem General: Yes capillary refill normal, Yes no clubbing, cyanosis or edema, Yes no calf tenderness and Yes muscle hypertrophy (left sided cervical muscles) Left upper extremity: shoulder/upper arm (Limited ROM due to pain.) Details: tenderness Location: of the A-C joint, of the scapula and over the subacromial bursa and crepitus; no swelling Right lower extremity: knee (Limited ROM due to pain. ) Details: tenderness Location: of the patella, of the medial joint line and of the lateral joint line, swelling Location: of the patella and of the popliteal fossa and crepitus; no ecchymosis and no unusual warmth Results Reviewed Results Reviewed: XR left shoulder, left scapula 06/15/23 CLINICAL INFORMATION: Radiculopathy thoracic region, patient stated pain in shoulder with no trauma. COMPARISON: None available. TECHNIQUE: 3 views of the left shoulder. 2 views of the left scapula. FINDINGS: Left Shoulder: Degenerative changes in the imaged upper thoracic spine. Moderate degenerative changes in the acromioclavicular joint with joint space narrowing and hypertrophic change. Moderate degenerative changes in the glenohumeral joint with inferior hypertrophic change. Subchondral corticated cystic lucency along the glenoid. Corticated cystic lucency in the lateral aspect of the humeral head. Left Scapula: No gross displaced fracture of the scapula is appreciated; however, evaluation is limited due to overlying bony structures. IMPRESSION: 1. Moderate degenerative changes in the acromioclavicular and glenohumeral joints. 2. No gross displaced fracture of the scapula is appreciated; however, evaluation is limited due to overlying bony structures. XR KNEE, RIGHT 06/29/23 CLINICAL INFORMATION: Pain in the right knee. COMPARISON: X-rays of the right knee October 2022. FINDINGS: RIGHT KNEE: There is genu varus. Medial compartment: Severe joint space narrowing with marginal osteophytes indicative of severe osteoarthritis. Lateral compartment: Slight widening likely due to the genu varus. Marginal osteophytes. Findings indicative of at least mild osteoarthritis. Patellofemoral compartment: Marginal osteophytes with mild joint space narrowing indicative of [id number] osteoarthritis. Small effusion. Chondrocalcinosis. IMPRESSION: Advanced osteoarthritis. Unchanged compared with the October 2022. Assessment & Plan Assessment & Plan (1) Muscle spasms of neck: Code(s): M62.838 - Other muscle spasm Category: Medical (2) Cervicalgia: Code(s): M54.2 - Cervicalgia Category: Medical (3) Periscapular pain of left shoulder: Code(s): M25.512 - Pain in left shoulder Category: Medical (4) Degenerative cervical spinal stenosis: Code(s): M48.02 - Spinal stenosis, cervical region Category: Medical (5) Right knee pain: Code(s): M25.561 - Pain in right knee Category: Medical (6) Osteoarthritis of right knee: Code(s): M17.11 - Unilateral primary osteoarthritis, right knee Category: Medical Plan Right knee x-ray results were discussed with patient and her family. Patient is interested to undergo right knee intra-articular Durolane injections with local and fluoroscopy for severe OA. Follow up with Dr. Jay for left shoulder pain with pending MRI in July. Patient declined interventional treatments for left shoulder pain. Continue methocarbamol as needed for neck muscle spasms. Side effects and precautions were reviewed with patient and family. All questions and concerns have been answered and patient agreed with the plan. Follow up after injections and sooner as needed. Coding Level of Care Code Est Pt Level 4 (15202) Diagnoses Muscle spasms of neck M62.838 Cervicalgia M54.2 Periscapular pain of left shoulder M25.512 Degenerative cervical spinal stenosis M48.02 Right knee pain M25.561 Osteoarthritis of right knee M17.11
== END 2023-07-17 13:39 | disposition home or self-care (01) ==
PROVIDERS: PCP Internal Medicine; Visit Provider Nurse Practitioner Family
DX: M62.838 Other muscle spasm (principal); M54.2 Cervicalgia; M25.512 Pain in left shoulder; M48.02 Spinal stenosis, cervical region; M25.561 Pain in right knee; M17.11 Unilateral primary osteoarthritis, right knee
CPT/HCPCS: 99214

== ENCOUNTER → 2023-07-17 13:00 | Outpatient (BNVA) | payer OTHER, SELFPAY | PROVIDERS: PCP Internal Medicine; Visit Provider Nurse Practitioner Family | DX: M62.838 Other muscle spasm (principal); M54.2 Cervicalgia; M25.512 Pain in left shoulder; M48.02 Spinal stenosis, cervical region; M25.561 Pain in right knee; M17.11 Unilateral primary osteoarthritis, right knee | CPT/HCPCS: 99212 ==

== ENCOUNTER 2023-08-06 06:19 | Outpatient (REF) | payer OTHER, SELFPAY ==
--- NOTE | ~2023-08-06 | FL_ITS ---
EXAMINATION: XR FLUOROSCOPY WITH IMAGES CLINICAL INFORMATION: Right knee pain. COMPARISON: None available. TECHNIQUE: Fluoroscopy Supervised By: Dr. Wilber Alvarado. Fluoroscopy Time: 0.0 minutes. Cumulative Dose: 0.221 mGy. DAP: 0.51334 Gy-cm2. Images: 2. FINDINGS: Intraoperative fluoroscopy and spot films were performed during a procedure in the OR. A needle is seen in an anterior approach in the right knee joint. Contrast media is seen in the knee joint. Please correlate with Dr. Wilber Alvarado' report for complete details. FL/FL guidance in treatment room IMPRESSION: Intraoperative fluoroscopy and spot films were obtained. Please see Dr. Wilber Alvarado' report for complete details.
== END 2023-08-06 06:20 | disposition home or self-care (01) ==
LOC: CF 06:19
PROVIDERS: Visit Provider Internal Medicine
DX: M17.11 Unilateral primary osteoarthritis, right knee (principal)
CPT/HCPCS: 20610; Q9967

== ENCOUNTER 2023-08-06 14:48 | Outpatient (AMB) | payer OTHER, SELFPAY ==
--- NOTE | 2023-08-06 15:02 | MHC.OFFVIS ---
Vital Signs 08/06/23 15:50 08/06/23 15:51 Height 5 ft 5 in Weight 158 lb BMI 26.3 BP 128/70 128/70 Blood Pressure Location Lt brachial Lt brachial Position Sitting Sitting Respiration 16 18 Pulse 81 83 Pulse Source Pulse Oximeter Pulse Oximeter Pulse Oximetry (%) 94 96 Oxygen Delivery Method Room Air Room Air Comment Pre-Op Post-op Intake Visit Reasons: Right knee synvisc one Allergies No Known Allergies Allergy (Verified 07/17/23 13:07) HPI HPI Right knee synvisc one: Details: Patient presents for scheduled procedure. Denies any recent cough, cold, infection, fever or other significant changes in medical history since last office visit. 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 A 25 gauge needle was advanced intra-articularly under fluoroscopy and placement was confirmed with Omnipaque 1-2 cc 180 milligrams/mL. Following intra-articular confirmation, the prepackaged Synvisc-One syringe containing 6 mL hyaluronic acid was retrieved and administered to the joint. The patient tolerated the procedure well. Synvisc One Lot # [id number] Exp Date 03/14/2026 Primary Site: right knee Coding 39927 - Large joint Additional procedure code (CPT) needed Assessment & Plan Assessment & Plan (1) Osteoarthritis of right knee: Code(s): M17.11 - Unilateral primary osteoarthritis, right knee Category: Medical Plan Patient is status post right knee Synvisc One injection under fluoroscopy. Patient tolerated procedure well and was discharged home in stable condition with discharge instructions. All questions were answered. We will follow-up via telephone or in clinic to assess response to therapy. A follow-up appointment was made during today's visit. Orders: Orders US guide needle placement 08/05/23 Una Wen APRN, TAPPING MACHINE OPERATOR AUTOMATIC M25.561 - Pain in right knee FL guidance in treatment room Today Wilber Alvarado MD M25.561 - Pain in right knee Coding Level of Care Code Procedure Only Diagnoses Osteoarthritis of right knee M17.11 CPT Codes Coding - 70563 Large joint: 14826 - Large joint ([id number])
[2023-08-06 15:50] VITALS: BP 128/70; PULSE 81; RESP 16; O2SAT 94; BMI 26.3
[2023-08-06 15:51] VITALS: BP 128/70; PULSE 83; RESP 18; O2SAT 96
== END 2023-08-06 15:45 | disposition home or self-care (01) ==
LOC: HO.PMCPRC 14:48
PROVIDERS: PCP Internal Medicine; Visit Provider Internal Medicine
DX: M17.11 Unilateral primary osteoarthritis, right knee (principal)
CPT/HCPCS: 20610; 77002

== ENCOUNTER 2023-08-13 12:00 | Outpatient (RCR) | payer OTHER, SELFPAY ==
--- NOTE | 2023-07-13 13:50 | MHC.PT.EP ---
[facility] [place] Office [place] [facility] [place] Office [address] Olegario Brock [address] [phone] F: [phone] F: [phone] F: [phone] F: [phone] Physical Therapy Plan of Care Date of Evaluation: 07/13/23 Date of Surgery: Diagnosis: upper back and left shoulder pain (RL) Assessment: pt is a 78 y/o female presenting to physical therapy w/ referring diagnosis of upper back and left shoulder pain. pt has had this pain she presents to today for over a decade. At this time, I did recommend she talk to her doctor about her current medication routine as she may be experiencing some side effects from her statin and/or calcium. pt may also be experiencing psychosomatic origin of symptoms and hyperalgesia given her perseveration on symptoms. Impairments include pain, decreased range of motion, decreased strength, impaired functional mobility, impaired postural awareness, and altered ambulation mechanics. pt is a fair candidate for skilled PT due to age, potential remediation of impairments, typical disease/condition progression and prognosis, comorbidities, and motivation. pt would benefit from skilled PT intervention to provide a tailored strengthening and stretching exercise program, functional training, gait training, postural re-training, neuromuscular re-education, modalities as needed for pain, equipment safety demonstration. Frequency and Duration: The patient will be seen 2x/wk for 4 wks Short Term Goals: pt will be I w/ HEP to promote self-management of condition. pt will improve L shoulder AROM flexion and abduction by at least 15 degrees to promote ease in reaching. 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 pt will report a statistically significant improvement in self-reported outcome measure, SPADI, to promote improved independence. Treatment Plan: Modalities to reduce pain, spasms and effusion. Manual therapy to restore motion and function. Therapeutic exercise to improve strength and flexibility. Neuromuscular re-education for posture and balance. Therapeutic activities to return to functional activities of daily living. Electronically signed by: Huong Rosa PT, DPT Please sign and return to therapist. Thank you for your referral.
--- NOTE | 2023-08-21 09:53 | MHC.PT.DC ---
[facility] [place] Office [place] Office [place] Office [address] Olegario Brock [address] [facility] [phone] F: [phone] F: [phone] F: [phone] F: [phone] Physical Therapy Discharge Report Diagnosis: upper back and left shoulder pain (RL) Date of Surgery: Date of Evaluation: 07/13/23 Date of Discharge: 08/21/23 Treatments to Date: 8 Cancellations to Date: 0 No Shows to Date: 0 Discharge Status: Recommend MD Follow-up Discharge Summary: The patient overall has been reporting an improvement in her upper trapezius and thoracic spine pain. It does not seem that she has gained any additional function in her daily routine. She essentially has 15/09 care via [employer] which does not foster her to be independent. She did not have any clear goals when she first arrived. While she does have less pain I do not feel it makes much of a difference in her everyday life. The patient requested to end this session early to accommodate for an MRI appointment for the same shoulder she is receiving treatment for currently. She is independent with her home exercise program. She is discharged from this physical therapy plan of care. Electronically signed by: Huong Rosa PT, DPT Please sign and return to therapist. Thank you for your referral.
== END 2023-08-21 09:53 | disposition home or self-care (01) ==
LOC: HO.PT 12:00
PROVIDERS: PCP Internal Medicine; Visit Provider Nurse Practitioner Family
DX: M25.512 Pain in left shoulder (principal); M54.6 Pain in thoracic spine; G89.29 Other chronic pain
CPT/HCPCS: 97110; 97140; 97162

== ENCOUNTER 2023-08-13 12:43 | Outpatient (REF) | payer OTHER, SELFPAY ==
--- NOTE | ~2023-08-13 | MR_ITS ---
EXAMINATION: MR SHOULDER WITHOUT CONTRAST, LEFT CLINICAL INFORMATION: Shoulder pain. COMPARISON: X-ray 06/15/2023 TECHNIQUE: MRI of the shoulder without contrast was performed on a high-field scanner. FINDINGS: ROTATOR CUFF: Mild-moderate supraspinatus tendinosis. There is heterogeneous signal present. There are small foci of low T1 signal within the tendon, which could reflect heterogeneity related to the tendinosis; small focus of calcific tendinitis not excluded. No tear is seen. Mild-moderate infraspinatus tendinosis. There is 0.5 cm (ML) intrasubstance tear in the myotendinous region. Teres minor is intact. Mild subscapularis tendinosis, deep surface partial tearing in the distal tendon measuring 1.2 cm in ML dimension. No muscle atrophy or fatty infiltration. BICEPS: Intact. CORACOACROMIAL ARCH: The undersurface of the acromion is flat with no subacromial spur. Mild-moderate acromioclavicular arthritis. LABRUM/CAPSULE: There is labral degeneration with foci of fraying/ill-defined tear. GLENOHUMERAL JOINT/MARROW: Mild posterior subluxation of the humeral head with respect to glenoid. Moderate glenohumeral joint arthritis. No acute fracture. Subcortical cysts in the posterior lateral humeral head. Moderate joint effusion, with synovitis/debris. MR/MR shoulder LT wo con IMPRESSION: 1. Mild-moderate supraspinatus tendinosis. Foci of low T1 signal in the tendon could reflect heterogeneity related to tendinosis, small focus of calcific tendinitis not excluded. No tear is seen. 2. Mild-moderate infraspinatus tendinosis. 0.5 cm intrasubstance tear in the myotendinous region. 3. Mild subscapularis tendinosis, deep surface partial tearing in the distal tendon measuring 1.2 cm in ML. 4. Labral degeneration with foci of fraying/ill-defined tear. 5. Moderate glenohumeral joint arthritis. Moderate effusion with synovitis/debris. 6. Mild-moderate acromioclavicular arthritis.
== END 2023-08-13 12:44 | disposition home or self-care (01) ==
LOC: HO.MRI 12:43
PROVIDERS: PCP Internal Medicine; Visit Provider Orthopaedic Surgery
DX: M25.512 Pain in left shoulder (principal); G89.29 Other chronic pain
CPT/HCPCS: 73221

== ENCOUNTER 2023-10-01 09:44 | Outpatient (AMB) | payer OTHER, SELFPAY ==
--- NOTE | 2023-10-01 09:47 | MHC.OFFVIS ---
Intake Visit Reasons: OV-Left shoulder MRI review Intake Note: Tita is a 78 year old female who presents with complaints of progressively worsening left shoulder pain. The patient describes her pain as sharp in nature. Her pain has gotten worse over the last few years in spite of continued non operative treatments. She reports mild weakness when lifting her left hand above shoulder height. She has done physical therapy which aggravated her pain. She has also tried Tylenol, ibuprofen and Voltaren topical cream which gave her only mild relief. She wishes to hold off on surgery if at all possible. Sales Representative Raw Fibers Required: Yes Sales Representative Raw Fibers Language: Archivist Military History Name: Yolanda([id number]) Allergies No Known Allergies Allergy (Verified 10/01/23 09:48) Medication List - Last Reconciled 10/01/23 by Carlos Jay MD alendronate 70 mg PO QWEEK calcium carbonate-vitamin D3 600 mg-5 mcg (200 unit) 1 tab PO BID capsaicin 0.1% (Arthritis Pain Relief (capsaicin)) 1 appl topical TID 30 days celecoxib 100 mg PO DAILY donepezil mg PO duloxetine 30 mg PO DAILY erythromycin ophthalmic (eye) BEDTIME fluticasone propionate 50 mcg/actuation 1 spray intranasal DAILY gabapentin 100 mg PO TID PRN 30 days lovastatin 20 mg PO BEDTIME methocarbamol 500 mg PO Q8H PRN trazodone 100 mg PO BEDTIME valacyclovir 1,000 mg PO DAILY zolpidem 5 mg PO BEDTIME PRN PFSH Medical History Lower back pain High cholesterol Surgical History History of back surgery Social History Current occupational status: disabled 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 Physical Exam Const Other: Well-nourished well-developed very friendly female awake alert and oriented x3 in no acute distress Extrem Other: Bilateral upper extremity examination shows good capillary refill, no skin lesions noted, normal sensation light touch Left shoulder examination shows slightly decreased range of motion when compared to her right shoulder, 4+ out of 5 strength with supraspinatus testing, positive impingement signs, tenderness over her acromioclavicular joint, no instability Office Procedures Joint Injection/Aspiration Joint Injection/Aspiration Primary Site: left shoulder Prep: site was prepped using aseptic technique Injected: 40 mg of, DepoMedrol and 1% plain lidocaine Procedure: The patient tolerated the procedure well Coding 53085 - Large joint Procedure code (CPT) selection complete Results Reviewed Results Reviewed: MRI of the patient's left shoulder show severe acromioclavicular joint narrowing, a type 2 acromion, signal change within the supraspinatus tendon due to rotator cuff tendinosis versus partial-thickness tearing Assessment & Plan Assessment & Plan (1) Impingement syndrome of left shoulder: Code(s): M75.42 - Impingement syndrome of left shoulder Category: Medical Plan Ms. Ingram presents with left shoulder pain due to impingement syndrome, acromioclavicular joint arthritis and rotator cuff tendinosis versus partial-thickness tearing. I had a lengthy discussion with the patient regarding the treatment options. The risks and benefits of a left shoulder cortisone injection were discussed at length with the patient. The patient wished to proceed. She tolerated the injection well. She will continue with her home stretching prevent stiffness. She will follow up with me on an as-needed basis should her symptoms not plateau at an unacceptable level over the next few months. Feel free to call me at any time should questions regarding her orthopedic management arise. I spent 21 minutes in reviewing the patient's records and imaging studies, seeing the patient and documenting in the medical record. Orders: Orders AMB Joint Injection/Aspiration Today M75.42 - Impingement syndrome of left shoulder Coding Level of Care Code Est Pt Level 3 (99101) Diagnoses Impingement syndrome of left shoulder M75.42 CPT Codes Coding - Large joint: 03897 - Large joint ([id number])
== END 2023-10-01 10:28 | disposition home or self-care (01) ==
PROVIDERS: PCP Internal Medicine; Visit Provider Orthopaedic Surgery
DX: M75.42 Impingement syndrome of left shoulder (principal)
CPT/HCPCS: 20610; 99213

== ENCOUNTER → 2023-10-01 09:44 | Outpatient (BNVA) | payer OTHER, SELFPAY | PROVIDERS: PCP Internal Medicine; Visit Provider Orthopaedic Surgery | DX: M75.42 Impingement syndrome of left shoulder (principal) | CPT/HCPCS: 20610; 99212; J1010 ==

== ENCOUNTER 2023-10-06 10:23 | Outpatient (REF) | payer OTHER, SELFPAY ==
--- NOTE | ~2023-10-06 | XR_ITS ---
EXAMINATION: XR KNEE, LEFT CLINICAL INFORMATION: Pain left knee COMPARISON: None available. TECHNIQUE: 3 views of the left knee FINDINGS: Status post left knee total arthroplasty. Hardware appears intact. Trace joint effusion. Alignment maintained. XR/XR knee LT 3V IMPRESSION: Status post left knee total arthroplasty. Hardware appears intact. Alignment maintained. Electronically signed by: Erin Barnes MD 11/04/2023 05:18 AM EDT
== END 2023-10-06 10:24 | disposition home or self-care (01) ==
LOC: HO.HOSX 10:23
PROVIDERS: Visit Provider Orthopaedic Surgery
DX: M25.562 Pain in left knee (principal)
CPT/HCPCS: 73562; 99212

== ENCOUNTER 2023-10-06 12:55 | Outpatient (AMB) | payer OTHER, SELFPAY ==
--- NOTE | 2023-10-06 13:07 | MHC.OFFVIS ---
Vital Signs 10/06/23 13:15 Height 5 ft 5 in Weight 158 lb BMI 26.3 Intake Visit Reasons: Right knee pain Intake Note: Tita is a 78 year old female who presents with complaints of progressively worsening right knee pain. The patient did undergo left total knee replacement surgery approximately 3 years ago by another surgeon in [place]. She reports intermittent discomfort in her left knee. She denies any fevers or chills. She describes her right knee pain as sharp and severe in nature, 10/10. Right knee pain has gotten worse over the last few years in spite of continued non operative treatments. She has done physical therapy which aggravated her pain. She has also tried Tylenol and anti-inflammatory medicines which gave her minimal relief. She has had injections in the past. The most recent injection gave her no relief. The patient has difficulty walking even short distances because of her right knee pain. At this point her right knee pain is interfering with her activities of daily living and her ability to sleep well through the night. Shearing Shed Hand Services: Shearing Shed Hand Offered & Declined Accompanied by: Child Allergies No Known Allergies Allergy (Verified 10/06/23 13:12) Medication List - Last Reconciled 10/06/23 by Carlos Jay MD alendronate 70 mg PO QWEEK calcium carbonate-vitamin D3 600 mg-5 mcg (200 unit) 1 tab PO BID capsaicin 0.1% (Arthritis Pain Relief (capsaicin)) 1 appl topical TID 30 days celecoxib 100 mg PO DAILY donepezil mg PO duloxetine 30 mg PO DAILY erythromycin ophthalmic (eye) BEDTIME fluticasone propionate 50 mcg/actuation 1 spray intranasal DAILY gabapentin 100 mg PO TID PRN 30 days lovastatin 20 mg PO BEDTIME methocarbamol 500 mg PO Q8H PRN trazodone 100 mg PO BEDTIME valacyclovir 1,000 mg PO DAILY zolpidem 5 mg PO BEDTIME PRN PFSH Medical History Lower back pain High cholesterol Surgical History History of back surgery Social History Current occupational status: disabled 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 Physical Exam Vital Signs: BMI result Body Mass Index 26.3 Const Other: Well-nourished well-developed very friendly female awake alert and oriented x3 in no acute distress Extrem Other: Bilateral lower extremity examination shows good capillary refill, no skin lesions noted, normal sensation light touch Left knee examination shows that the surgical incision is well healed, no erythema, full active extension and flexion to 115 degrees, her patella tracks well Right knee examination shows a minimal effusion, palpable crepitus with range of motion, pain with range of motion, range of motion from -3 degrees to 115 degrees, no instability Results Reviewed Results Reviewed: X-rays of the patient's right knee show end-stage degenerative joint disease with grade 4 [id number] arthritis in the medial compartment, subchondral sclerosis, osteophyte formation, no acute bony abnormalities X-rays of the patient's left knee show a total knee arthroplasty in good position with no signs of loosening, no acute bony abnormalities Assessment & Plan Assessment & Plan (1) Right knee pain: Code(s): M25.561 - Pain in right knee Category: Medical Plan Ms. Juan Jose rCuz presents with progressively worsening right knee pain due to end-stage degenerative joint disease. I had a lengthy discussion with the patient regarding the treatment options. At this point she has failed continued non operative treatments. The risks and benefits of right total knee replacement surgery were discussed at length with the patient. The patient wishes to proceed with surgery. She will be scheduled for next available date. She will follow-up as instructed. Feel free to call me at any time should questions regarding her orthopedic management arise. I spent 22 minutes in reviewing the patient's records and imaging studies, seeing the patient and documenting in the medical record. Orders: Orders XR knee LT 3V Today M25.562 - Pain in left knee Coding Level of Care Code Est Pt Level 3 (62771) Diagnoses Right knee pain M25.561
[2023-10-06 13:15] VITALS: BMI 26.3
== END 2023-10-06 13:22 | disposition home or self-care (01) ==
PROVIDERS: PCP Internal Medicine; Visit Provider Orthopaedic Surgery
DX: M25.561 Pain in right knee (principal)
CPT/HCPCS: 99214

== ENCOUNTER → 2023-10-20 11:04 | Outpatient (BNVA) | payer OTHER, SELFPAY | PROVIDERS: PCP Internal Medicine | DX: Z01.818 Encounter for other preprocedural examination (principal) ==

== ENCOUNTER 2023-10-22 09:47 | Outpatient (AMB) | payer OTHER, SELFPAY ==
[2023-10-22 09:49] VITALS: BMI 26.3
--- NOTE | 2023-10-22 09:49 | MHC.OFFVIS ---
Vital Signs 10/22/23 09:49 Height 5 ft 5 in Weight 158 lb BMI 26.3 Intake Visit Reasons: Right knee pain Intake Note: Tita is a 78 year old female who presents with complaints of progressively worsening right knee pain. The patient did undergo left total knee replacement surgery approximately 3 years ago by another surgeon in [place]. She reports intermittent discomfort in her left knee. I have discuss the possibility of the patient seeing Dr. Alvarado for a nerve stimulation procedure around her left total knee replacement surgery. The patient wishes to hold off on that for now. She denies any fevers or chills. She describes her right knee pain as sharp and severe in nature, 10/10. Right knee pain has gotten worse over the last few years in spite of continued non operative treatments. She has done physical therapy which aggravated her pain. She has also tried Tylenol and anti-inflammatory medicines which gave her minimal relief. She has had injections in the past. The most recent injection gave her no relief. The patient has difficulty walking even short distances because of her right knee pain. At this point her right knee pain is interfering with her activities of daily living and her ability to sleep well through the night. Vacuum Cleaner Mechanic Required: Yes Vacuum Cleaner Mechanic Language: Computer Typesetter Name: [id number] Allergies No Known Allergies Allergy (Verified 10/22/23 09:50) Medication List - Last Reconciled 10/22/23 by Carlos Jay MD calcium carbonate-vitamin D3 600 mg-5 mcg (200 unit) 1 tab PO BID capsaicin 0.1% (Arthritis Pain Relief (capsaicin)) 1 appl topical TID 30 days celecoxib 100 mg PO DAILY duloxetine 30 mg PO DAILY erythromycin ophthalmic (eye) BEDTIME fluticasone propionate 50 mcg/actuation 1 spray intranasal DAILY gabapentin 100 mg PO TID PRN 30 days rosuvastatin 5 mg PO DAILY trazodone 100 mg PO BEDTIME valacyclovir 1,000 mg PO DAILY walker Folding front wheeled walker [facility] Medical History Lower back pain High cholesterol Surgical History History of back surgery Social History Current occupational status: disabled 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 Physical Exam Vital Signs: BMI result Body Mass Index 26.3 Const Other: Well-nourished well-developed very friendly female awake alert and oriented x3 in no acute distress Extrem Other: Right knee examination shows a minimal effusion, palpable crepitus with range of motion, pain with range of motion, range of motion from -3 degrees to 115 degrees, no instability Results Reviewed Results Reviewed: X-rays of the patient's right knee taken previously show end-stage degenerative joint disease with grade 4 [id number] arthritis, subchondral sclerosis, no acute bony abnormalities Assessment & Plan Assessment & Plan (1) Right knee pain: Code(s): M25.561 - Pain in right knee Category: Medical Plan Ms. Juan Jose Cruz presents with progressively worsening right knee pain due to end-stage degenerative joint disease. I had a lengthy discussion with the patient regarding the treatment options. At this point she has failed continued non operative treatments. The risks and benefits of right total knee replacement surgery were discussed at length with the patient. The patient wishes to proceed with surgery. She will be scheduled for next available date. I will see her back 1 week prior to her surgery to answer any final questions that she might have. Feel free to call me at any time should questions regarding her orthopedic management arise. I spent 21 minutes in reviewing the patient's records and imaging studies, seeing the patient and documenting in the medical record. Coding Level of Care Code Est Pt Level 3 (28571) Complex EM visit Add On G2211 Diagnoses Right knee pain M25.561
== END 2023-10-22 10:15 | disposition home or self-care (01) ==
LOC: HO.HOS 09:47
PROVIDERS: PCP Internal Medicine; Visit Provider Orthopaedic Surgery
DX: M25.561 Pain in right knee (principal); Z96.652 Presence of left artificial knee joint
CPT/HCPCS: 99214; G2211

== ENCOUNTER → 2023-10-22 09:47 | Outpatient (BNVA) | payer OTHER, SELFPAY | PROVIDERS: PCP Internal Medicine; Visit Provider Orthopaedic Surgery | DX: M25.561 Pain in right knee (principal) | CPT/HCPCS: 99212 ==

== ENCOUNTER 2023-11-19 10:14 | Outpatient (AMB) | payer OTHER, SELFPAY ==
--- NOTE | 2023-11-19 10:16 | MHC.OFFVIS ---
Intake Visit Reasons: Pre-Op: R TKA w/DR 11/23/23 Intake Note: Tita is a 78 year old female who presents with complaints of progressively worsening right knee pain. She did undergo left total knee replacement surgery several years ago by another provider. She reports mild intermittent discomfort in her left knee. She describes her right knee pain as sharp severe in nature, 10/10. Her right knee pain has gotten worse in spite of continued non operative treatments. She has done physical therapy exercises which aggravated her pain. She has also tried Tylenol and anti-inflammatory medicines as well as topical creams which gave her minimal relief. She has had multiple injections. The most recent injection gave her no relief. The patient has difficulty walking even short distances because of her pain. At this point her right knee pain is interfering with her activities of daily living and her ability to sleep well through the night. Sprayer Machine Required: Yes Sprayer Machine Language: [employer] Assistant Manager Name: [id number] Allergies zolpidem Adverse Reaction (Verified 11/09/23 09:29) Headache Medication List - Last Reconciled 11/19/23 by Carlos Jay MD calcium carbonate-vitamin D3 600 mg-5 mcg (200 unit) 1 tab PO BID capsaicin 0.1% (Arthritis Pain Relief (capsaicin)) 1 appl topical TID 30 days celecoxib 100 mg PO DAILY diclofenac sodium 1% 4 grams topical QID PRN duloxetine 30 mg PO DAILY erythromycin ophthalmic (eye) BEDTIME fluticasone propionate 50 mcg/actuation 1 spray intranasal DAILY gabapentin 100 mg PO TID PRN 30 days rosuvastatin 5 mg PO 3XW sodium chloride 5% 1 drp ophthalmic (eye) TID trazodone 100 mg PO BEDTIME valacyclovir 1,000 mg PO DAILY walker Folding front wheeled walker [facility] Medical History Osteoarthritis Herpes DDD (degenerative disc disease), lumbar Osteoporosis Insomnia Depression Headache High cholesterol Circulation problem Lower back pain High cholesterol Surgical History History of total left knee replacement (TKR) (~2020) Hx of appendectomy Hx of hysterectomy Hx of bilateral cataract extraction History of back surgery (~2017) Social History Are you a primary director of primary care to a significant other at home: No Do you presently have visiting nurse or other home services: Yes (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) Patient Tobacco Use Status: Never used Tobacco Current occupational status: disabled 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 Juan Jose Cruz presents with progressively worsening right knee pain due to end-stage osteoarthritis. I had a lengthy discussion with the patient regarding the treatment options. At this point she has failed continued non operative treatments. The risks and benefits of right total knee replacement surgery were discussed at length with the patient. The patient wishes to proceed with surgery. health services coordinator will be consulted following her surgery for home physical therapy and nursing versus possible inpatient rehabilitation. The patient will follow-up as instructed. Feel free to call me at any time should questions regarding her orthopedic management arise. I spent 22 minutes in reviewing the patient's records and imaging studies, seeing the patient and documenting in the medical record. Coding Level of Care Code Est Pt Level 3 (33917) Complex EM visit Add On G2211 Diagnoses Osteoarthritis of right knee M17.11
== END 2023-11-19 10:39 | disposition home or self-care (01) ==
PROVIDERS: PCP Internal Medicine; Visit Provider Orthopaedic Surgery
DX: M17.11 Unilateral primary osteoarthritis, right knee (principal)
CPT/HCPCS: 99024

== ENCOUNTER → 2023-11-19 10:14 | Outpatient (BNVA) | payer OTHER, SELFPAY | PROVIDERS: PCP Internal Medicine; Visit Provider Orthopaedic Surgery | DX: Z01.818 Encounter for other preprocedural examination (principal); M17.11 Unilateral primary osteoarthritis, right knee | CPT/HCPCS: 99212 ==

== ENCOUNTER 2023-11-23 08:06 | Inpatient (IN) | payer OTHER, SELFPAY ==
[2023-11-09 10:30] VITALS: BP 115/69; PULSE 82; RESP 16; O2SAT 96; BMI 32.1
--- NOTE | 2023-11-09 10:57 | P.CONAN_ITS ---
Documented by User: Ariadne Johnson NP 11/20/23 13:22 HPI - Anesthesia Eval Consult details Narrative: 78yo F for Right Knee Replacement Total, 11/23/23 Medically cleared No recent illness No CP/SOB with minimal activity r/t knee pain Left neck pain. Increased with movement. Left side slightly swollen compared to right. Patient instructed to make appointment with PCP for further eval. PMFSH Active Problems Active Problems: All Active Problems Left knee pain (Acute) Impingement syndrome of left shoulder (Acute) Cervicalgia (Acute) Periscapular pain of left shoulder (Acute) Chronic left shoulder pain (Acute) Thoracic radiculopathy (Acute) Muscle spasms of neck (Acute) Degenerative cervical spinal stenosis (Acute) Lumbar spondylosis (Acute) Chronic thoracic back pain (Acute) Posterior right knee pain (Acute) Post laminectomy syndrome (Acute) Lumbar back pain with radiculopathy affecting right lower extremity (Acute) Osteoarthritis of right knee (Acute) Right knee pain (Acute) Status post total left knee replacement (Acute) Past Medical History Medical History Osteoarthritis Herpes DDD (degenerative disc disease), lumbar Osteoporosis Insomnia Depression Headache High cholesterol Circulation problem Lower back pain High cholesterol Family History Family history of problems with anesthesia: No Surgical History Surgical History History of total left knee replacement (TKR) (~2020) Hx of appendectomy Hx of hysterectomy Hx of bilateral cataract extraction History of back surgery (~2017) History of Problems with Anesthesia: No Social History Social History Are you a primary patient care manager to a significant other at home: No Do you presently have visiting nurse or other home services: Yes ([employer] 3 hours daily) Patient Tobacco Use Status: Never used Tobacco Use of substances other than those prescribed or required for medical reasons: No Have you been hit, kicked, punched, or otherwise hurt by someone within the past year? 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 Meds Allergies Allergy/AdvReac Type Severity Reaction Status Date / Time zolpidem AdvReac Headache Verified 11/09/23 09:29 Home Medications ?Medication ?Instructions ?Recorded ?Confirmed ?Last Taken ?Type calcium carbonate 600 mg-vitamin 1 tab PO BID 11/28/21 11/19/23 Unknown History D3 5 mcg (200 unit) tablet trazodone 100 mg tablet 100 mg PO BEDTIME 11/28/21 11/19/23 Unknown History valacyclovir 1 gram tablet 1,000 mg PO DAILY 11/28/21 11/19/23 Unknown History duloxetine 30 mg capsule,delayed 30 mg PO DAILY 01/13/22 11/19/23 Unknown History release erythromycin 5 mg/gram (0.5 %) eye ophthalmic (eye) BEDTIME 05/07/23 11/19/23 Unknown History ointment fluticasone propionate 50 1 spray intranasal DAILY 06/15/23 11/19/23 Unknown History mcg/actuation nasal spray,suspension rosuvastatin 5 mg tablet 5 mg PO 3XW 10/20/23 11/19/23 Unknown History diclofenac sodium 1 % topical gel 4 g topical QID PRN Pain 11/09/23 11/19/23 Unknown History sodium chloride 5 % eye drops 1 drp ophthalmic (eye) TID 11/09/23 11/19/23 Unknown History Exam Height,Weight and Vital Signs: Height 4 ft 11 in Weight 72.121 kg Last Vital Signs Pulse 82 11/09/23 10:30 Resp 16 11/09/23 10:30 BP 115/69 11/09/23 10:30 Pulse Ox 96 11/09/23 10:30 O2 Del Method Room Air 11/09/23 10:30 Pertinent Lab Results Pertinent Lab Results: CBC and BMP 10/2023 from outside facility WNL Narrative Narrative: EKG 10/31/23 SR @ 76 Nonspecific T wave abnormality Airway Mallampati Class: III TM Dist: >3cm Neck ROM: Limited (Pain with movement, left side, swollen) Loose/Missing/Broken Teeth: No Heart: RRR Lungs: CTAB Assessment and Plan Assessment Anesthesia Assessment: Anesthesia Plan Discussed and PAT Visit Final Anesthetic Review Family History of Problems with Anesthesia: No History of Problems with Anesthesia: No Documented by User: Meghana aGlindo MD 11/23/23 08:25 PMFSH Past Medical History Medical History Osteoarthritis Herpes DDD (degenerative disc disease), lumbar Osteoporosis Insomnia Depression Headache High cholesterol Circulation problem Lower back pain High cholesterol Surgical History Surgical History History of total left knee replacement (TKR) (~2020) Hx of appendectomy Hx of hysterectomy Hx of bilateral cataract extraction History of back surgery (~2017) Social History Social History Are you a primary patient care manager to a significant other at home: No Do you presently have visiting nurse or other home services: Yes ([employer] 3 hours daily) Patient Tobacco Use Status: Never used Tobacco Use of substances other than those prescribed or required for medical reasons: No Have you been hit, kicked, punched, or otherwise hurt by someone within the past year? 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 Meds Allergies Allergy/AdvReac Type Severity Reaction Status Date / Time zolpidem AdvReac Headache Verified 11/09/23 09:29 Home Medications ?Medication ?Instructions ?Recorded ?Confirmed ?Last Taken ?Type calcium carbonate 600 mg-vitamin 1 tab PO BID 11/28/21 11/19/23 Unknown History D3 5 mcg (200 unit) tablet trazodone 100 mg tablet 100 mg PO BEDTIME 11/28/21 11/19/23 Unknown History valacyclovir 1 gram tablet 1,000 mg PO DAILY 11/28/21 11/19/23 Unknown History duloxetine 30 mg capsule,delayed 30 mg PO DAILY 01/13/22 11/19/23 Unknown History release erythromycin 5 mg/gram (0.5 %) eye ophthalmic (eye) BEDTIME 05/07/23 11/19/23 Unknown History ointment fluticasone propionate 50 1 spray intranasal DAILY 06/15/23 11/19/23 Unknown History mcg/actuation nasal spray,suspension rosuvastatin 5 mg tablet 5 mg PO 3XW 10/20/23 11/19/23 Unknown History diclofenac sodium 1 % topical gel 4 g topical QID PRN Pain 11/09/23 11/19/23 Unknown History sodium chloride 5 % eye drops 1 drp ophthalmic (eye) TID 11/09/23 11/19/23 Unknown History Assessment and Plan Final Anesthetic Review NPO: Yes ASA Class: III Final Preanesthetic Review: No Changes in Pt Med Stat, Meds/Allgs Chart Reviewed, Consent Obtained/Reviewed and Anes Risks/Benef Reviewed Patient Risk: Intermediate Procedure Risk: Intermediate Anesthetic Plan Anesthetic Plan: Spinal and Regional Block Disposition: Standard PACU
[2023-11-09 12:27] LABS: Estimated Average Glucose 117 mg/dL; Hemoglobin A1C 126.3651 umol/L; Hemoglobin A1c % 5.7 % (<6.0); Total Hemoglobin (HGBA1C) 3273.7639 umol/L
[2023-11-09 13:19] LABS: MRSA Nasal PCR NEGATIVE (Negative); SA Nasal PCR NEGATIVE (Negative)
[2023-11-23] VITALS (9 sets, daily range): BP systolic 115–168; BP diastolic 70–81; PULSE 62–88; RESP 14–18; TEMP 36.1–37; O2SAT 93–100; BMI 31.9
--- OUTSIDE RECORDS SUMMARY | 2023-11-23 08:09 | XMS_ITS ---
Author Organization [facility] Address [address] [place] [id number] Care Team Providers Care Toe Trimmer Name Role Phone SHIVANI GREEN Primary Care Provider Rufus Fernandez Jr Unavailable ALLERGIES No Known Allergies REASON FOR VISIT Patient presents today for abd pain MEDICATIONS Medication SIG (Take, Route, Frequency, Duration) Notes Start Date End Date Status Brinzolamide 1 % PONGA CELIA GOTA EN LO S DOS OJOS GRETEL VECES AL D A Ophthalmic for 25 Active Rosuvastatin Calcium 5 MG TOME CELIA TABLE TA POR V A ORAL ON THURSDAY, THURSDAY, AND THURSDAY Oral for 28 Active Omeprazole 20 MG 1 capsule 30 minutes before morning meal Orally Once a day for 30 day(s) 06/30/2022 Active valACYclovir HCl 1 GM TOME CELIA TABLETA T ODOS LOS D Oral for 90 Active Celecoxib 200 MG TOME CELIA C PSULA TOD OS LOS D Oral for 30 Active traZODone HCl 100 MG TOME CELIA TABLETA TO DOS LOS D AL ACOSTARSE Oral for 30 Active DULoxetine HCl 30 MG TOME 1 CAPSULA POR VIA ORAL TODOS LOS CLEMENTS Oral for 90 Active Restasis 0.05 % PONGA CELIA GOTA EN LO S DOS OJOS DOS VECES AL D A Ophthalmic for 30 Active Vitamin D-3 125 MCG (5000 UT) as directed Orally Active Calcium + Vitamin D3 600-5 MG-MCG TOME CELIA TABLETA DOS VECES AL D A Oral for 30 Active Calcium 1 tab Oral for 14 days Active SOCIAL HISTORY Tobacco Use: Social History Observation Description Date Details (start date - stop date) Never Smoker NA - NA Sex Assigned At : Social History Observation Description Sex Assigned At Unknown Tobacco Use/Smoking Question Answer Notes Patient is a nonsmoker Alcohol Screen Question Answer Notes Did you have a drink containing alcohol in the p ast year? No Points 0 Interpretation Negative VITAL SIGNS BMI 30.85 kg/m2 11/12/2023 Blood pressure systolic 00 mm Hg 11/12/19 24 Blood pressure diastolic 00 mm Hg 024 Height 60 in 11/12/2023 Weight 158 lbs 11/12/2023 Encounters Encounter Location Date Provider Diagnosis [facility] [address] [place] [address] 11/12/2023 Rufus Dover Jr Generalized abdominal pain R10.84 and Bloating R14.0 ASSESSMENTS Encounter Date Diagnosis Assessment Notes Treatment Notes Treatment Clinical Notes 11/12/2023 Generalized abdominal pain (ICD-10 - R10.84) Abdominal MRI scan material was printed 11/12/2023 Bloating (ICD-10 - R14.0) PLAN OF TREATMENT Treatment Notes Assessment Notes Generalized abdominal pain Abdominal MRI scan material was printed Next Appt Details Follow Up: 1 Year, Reason: Provider Name:Rufus minor Jr, 11/17/2024 01:35:00 PM, [address], [address], [place], [address],
--- OUTSIDE RECORDS SUMMARY | 2023-11-23 08:10 | XMS_ITS ---
Author Organization Unknown ALLERGIES AND ADVERSE REACTIONS No information ASSESSMENT No information CHIEF COMPLAINT No information MEDICATIONS No information OBJECTIVE DATA No information PHYSICAL EXAMINATION No information TREATMENT PLAN Planned Care Start Date Provider Encounter for Check-up [id number] PROBLEMS No information RESULTS No information REVIEW OF SYSTEMS No information SUBJECTIVE DATA No information VITAL SIGNS No information
--- OUTSIDE RECORDS SUMMARY | 2023-11-23 08:10 | XMS_ITS | Patient Health Record ---
Author Organization [facility] Address [address] [place] [id number] Care Team Providers Care Senior Administrative Support Name Role Phone SHIVANI GREEN Primary Care Provider Rufus Fernandez Jr Unavailable [phone] ALLERGIES No Known Allergies REASON FOR REFERRAL No Information MEDICATIONS Medication SIG (Take, Route, Frequency, Duration) Notes Start Date End Date Status valACYclovir HCl 1 GM TOME CELIA TABLETA T ODOS LOS D Oral for 90 Active Celecoxib 200 MG TOME CELIA C PSULA TOD OS LOS D Oral for 30 Active Brinzolamide 1 % PONGA CELIA GOTA EN LO S DOS OJOS GRETEL VECES AL D A Ophthalmic for 25 Active Vitamin D-3 125 MCG (5000 UT) as directed Orally Active Rosuvastatin Calcium 5 MG TOME CELIA TABLE TA POR V A ORAL ON THURSDAY, THURSDAY, AND THURSDAY Oral for 28 Active Omeprazole 20 MG 1 capsule 30 minutes before morning meal Orally Once a day for 30 day(s) 06/30/2022 Active Calcium + Vitamin D3 600-5 MG-MCG TOME CELIA TABLETA DOS VECES AL D A Oral for 30 Active Calcium 1 tab Oral for 14 days Active traZODone HCl 100 MG TOME CELIA TABLETA TO DOS LOS D AL ACOSTARSE Oral for 30 Active DULoxetine HCl 30 MG TOME 1 CAPSULA POR VIA ORAL TODOS LOS CLEMENTS Oral for 90 Active Restasis 0.05 % PONGA CELIA GOTA EN LO S DOS OJOS DOS VECES AL D A Ophthalmic for 30 Active IMMUNIZATIONS Vaccine Route Administration Date Status Comme nts Influenza Unknown 12/10/2021 Administered SOCIAL HISTORY Tobacco Use: Social History Observation Description Date Details (start date - stop date) Never Smoker NA - NA Sex Assigned At : Social History Observation Description Sex Assigned At Unknown Tobacco Use/Smoking Question Answer Notes Patient is a nonsmoker Alcohol Screen Question Answer Notes Did you have a drink containing alcohol in the p ast year? No Points 0 Interpretation Negative PROBLEMS Problem Type ICD Code Onset Dates Problem Status W/U Status Risk SNOMED Code Notes Problem Generalized abdominal pain (R10.84) Active confirmed 057201109 Problem Bloating (R14.0) Active confirmed 06071 9008 Problem Gastroesophageal reflux disease without esophagitis (K21.9) Active confirmed 009558111 VITAL SIGNS Blood pressure diastolic 00 mm Hg 11/12/2023 Height 60 in 11/12/2023 Blood pressure systolic 00 mm Hg 11/12/2023 Weight 158 lbs 11/12/2023 BMI 30.85 kg/m2 11/12/2023 Encounters Encounter Location Date Provider Diagnosis [facility] [address] [place] [address] 11/12/2023 Rufus Dover Jr Generalized abdominal pain R10.84 and Bloating R14.0 ASSESSMENTS Encounter Date Diagnosis Assessment Notes Treatment Notes Treatment Clinical Notes 11/12/2023 Bloating (ICD-10 - R14.0) 11/12/2023 Generalized abdominal pain (ICD-10 - R10.84) Abdominal MRI scan material was printed PLAN OF TREATMENT Pending Test Test Name Order Date LIVER PROFILE 06/30/2022 LIPASE 06/30/2022 CBC w/o DIFF 06/30/2022 IgA 06/30/2022 TRANSGLUTAMINASE AB IGA 06/30/2022 Next Appt Details Provider Name:Rufus minor Jr, 11/17/2024 01:35:00 PM, [address], [address], [place], [address], Insurance Providers Payer Name Payer Address Payer Phone Subscriber Number Group Number Insured Name Patient Relationship to Insured Coverage Start Date Coverage End Date [facility] [address] [address] [place] [address] [phone] [id number] JILL WU Self - patient is the insured MEDICARE OF [facility] [address] [facility] [place] [address] [id number] JILL WU Self - patient is the insured MEDICAL (GENERAL) HISTORY Medical History History ICD Code Osteoarthritis Depression Insomnia Elevated cholesterol Migraine headaches Osteoporosis Obstructive sleep apnea HSV infection Surgical History Surgery Date(Month/Year) Back surgery Hysterectomy Appendectomy Cataract surgery Left total knee replacement right knee replacement
--- OUTSIDE RECORDS SUMMARY | 2023-11-23 08:10 | XMS_ITS ---
Author Organization [facility] Address [address] [place] [address] Care Team Providers Care Practice Administrator Name Role Phone NORMASHIVANI Primary Care Provider Rufus Fernandez Jr [phone] REASON FOR VISIT labs Encounters Encounter Location Date Provider Diagnosis [facility] [address] [place] [address] 07/03/2022 Rufus Dover Jr PLAN OF TREATMENT Next Appt Details Provider Name:Rufus minor Jr, 11/17/2024 01:35:00 PM, [address] [facility] [address], [address], [place], [address],
--- OUTSIDE RECORDS SUMMARY | 2023-11-23 08:10 | XMS_ITS ---
Author Organization [facility] Address [address] [place] [phone] Care Team Providers Care Vegetable Grader Name Role Phone SHIVANI GREEN Primary Care Provider Rufus Fernandez Jr Unavailable ALLERGIES No Known Allergies REASON FOR VISIT Patient presents today for abd pain MEDICATIONS Medication SIG (Take, Route, Frequency, Duration) Notes Start Date End Date Status Restasis 0.05 % PONGA CELIA GOTA EN LO S DOS OJOS DOS VECES AL D A Ophthalmic for 30 Active DULoxetine HCl 30 MG TOME 1 CAPSULA POR VIA ORAL TODOS LOS CLEMENTS Oral for 90 Active Lovastatin 20 MG TOME CELIA TABLETA POR V A ORAL TODOS LOS D AL ACOSTARSE Oral for 90 Active Celecoxib 200 MG TOME CELIA C PSULA TOD OS LOS D Oral for 30 Active valACYclovir HCl 1 GM TOME CELIA TABLETA T ODOS LOS D Oral for 90 Active Vitamin D-3 125 MCG (5000 UT) as directed Orally Active Omeprazole 20 MG 1 capsule 30 minutes before morning meal Orally Once a day for 30 day(s) 06/30/2022 Active Calcium 1 tab Oral for 14 days Active Calcium + Vitamin D3 600-5 MG-MCG TOME CELIA TABLETA DOS VECES AL D A Oral for 30 Active traZODone HCl 100 MG TOME CELIA TABLETA TO DOS LOS D AL ACOSTARSE Oral for 30 Active Alendronate Sodium 70 MG TOME CELIA TABLET A VIA ORAL CELIA VEZ AL SEMANA Oral for 84 Active Brinzolamide 1 % PONGA CELIA GOTA EN LO S DOS OJOS GRETEL VECES AL D A Ophthalmic for 25 Active SOCIAL HISTORY Tobacco Use: Social History [...] W/U Status Risk SNOMED Code Notes Problem Gastroesophageal reflux disease without esophagitis (K21.9) Active confirmed 466214089 VITAL SIGNS BMI 29.17 kg/m2 11/10/2022 Blood pressure systolic 000 mm Hg 11/11/19 23 Blood pressure diastolic 00 mm Hg 023 Height 60 in 11/10/2022 Temperature 97.5 degrees Fahrenheit 11/11/19 23 Weight 149 lb 6 oz lbs 11/10/2022 Encounters Encounter Location Date Provider Diagnosis [facility] [address] [place] [phone] 11/10/2022 Rufus Dover Jr Gastroesophageal reflux disease without esophagitis K21.9 and Bloating R14.0 ASSESSMENTS Encounter Date Diagnosis Assessment Notes Treatment Notes Treatment Clinical Notes 11/10/2022 Gastroesophageal reflux disease without esophagitis (ICD-10 - K21.9) Gastroesophageal reflux disease material was printed 11/10/2022 Bloating (ICD-10 - R14.0) PLAN OF TREATMENT Treatment Notes Assessment Notes Gastroesophageal reflux dise ase without esophagitis Gastroesophageal reflux disease material was printed Next Appt Details Follow Up: 1 Year, Reason: Provider Name:Rufus minor Jr, 11/17/2024 01:35:00 PM, [address], [address], [place], [address],
[2023-11-23] MEDS: Lactated Ringers 1,000 ML 100 ML IVCONT ×2 (08:37→15:15)
--- NOTE | 2023-11-23 09:12 | PHA.MEDREC ---
Pharmacy Consult ? Medication Reconciliation Pharmacy has reviewed the medication reconciliation completed by nursing.
--- NOTE | 2023-11-23 14:17 | P.BOP_ITS ---
Brief Operative Note Date of Service: 11/23/23 Pre-op diagnosis: Right knee degenerative joint disease Post-op diagnosis: same Procedure: Right total knee arthroplasty Implants: Eliot Triathlon cemented posterior stabilized total knee arthroplasty with a femoral component size 2 right, tibial component size 1, polyethylene liner size 1 with 11 mm of thickness, a symmetric patellar component size 27 with 8 mm of thickness Surgeon: Carlos Jay MD Anesthesia: regional and spinal Was an Operations Accountant used for this Procedure?: No Operations Accountant: Annia Fernando Estimated blood loss (mL): 200 Pathology: other (Bony fragments from the right femur, tibia and patella) Condition: stable Disposition: PACU
--- NOTE | 2023-11-23 14:18 | W.PM.OPN ---
Operative Note Operative Note Date of Service: 11/23/23 Narrative: After the patient was identified as Tita Cruz and her right knee was initialed by myself the patient was brought to the holding area where a right leg nerve block was performed by the anesthesiologist in routine fashion. The patient was then brought to the operating room where conscious sedation and spinal anesthesia were performed by the anesthesiologist in routine fashion. The patient was given 2 g of IV Ancef preoperatively for infection prophylaxis. The patient's right lower extremity was prepped and draped in sterile fashion. A formal time-out was completed. The patient's right knee was placed onto a small bump to produce 30? of knee flexion during exposure. A #10 scalpel blade was used to make a midline incision extending 1 handbreadth proximal and distal to the patella. A second #10 scalpel blade was used to dissect the subcutaneous tissues down to the extensor mechanism. The subcutaneous flaps were maintained as thick as possible. A medial parapatellar arthrotomy was then performed using a #10 scalpel blade. The arthrotomy was begun just medial to the patellar tendon. The arthrotomy was continued 1 cm medial to the patella and then 5 mm into the medial aspect of the quadriceps tendon. The infrapatellar fat pad was partially excised to help with exposure. The soft tissue retinaculum was raised one-half of the way around the medial aspect of the proximal tibia. The patella was everted and the knee was flexed to 90?. There was no injury to the patellar tendon or its insertion onto the tibial tubercle. A drill bit was introduced into the distal aspect of the femur with a starting point 1 cm anterior to the origin of the posterior cruciate ligament. The intramedullary alignment shanti was put into place. The distal alignment guide was set for a 5 degree valgus cut. The distal cutting block was put into place and was held with 4 pins. The intramedullary alignment shanti was removed. Soft tissues were retracted in the distal femoral cut was made using a sagittal saw. The distal aspect of the femur measured to be a size 2 right component. Two drill holes were placed into the distal aspect of the femur marking 3? of external rotation. The distal cutting block was impacted into place and was held with 2 pins. Soft tissues were retracted and the 4 distal femoral cuts were made using a sagittal saw. Final notching and drilling of the distal aspect of the femur were performed in routine fashion. The trial femoral component was impacted into place. The knee was taken through a full range of motion. The patella tracked well. The patella was everted and the knee was flexed to 90?. The trial component was removed and our attention was directed to the proximal tibia. The medial and lateral menisci were removed using a #10 scalpel blade. A small rim of the medial meniscus was left intact to help prevent injury to the medial collateral ligament. A drill bit was then introduced into the proximal tibia with a starting point midway from medial to lateral and one-third of the way posteriorly. The intramedullary alignment shanti was put into place. The proximal tibial cutting guide was placed over the alignment shanti in line with the 2nd toe. The guide was held in place using 3 pins. The intramedullary alignment shanti was removed. Soft tissues were retracted and the proximal tibial cut was made using a sagittal saw. The proximal tibia measured to be a size 1 component. The tibial tray was put into place with an 11 mm liner. The femoral component was impacted into place. The knee was taken through a full range of motion. There was full flexion and full extension. There was no instability with varus or valgus stress testing with the knee in flexion or extension. The patella tracked well with no medially directed force. The rotation of the tibial tray was marked using electrocautery with the knee in extension. The patella was everted and the knee was flexed to 90?. All trial components were removed. The tibial tray was placed onto the proximal tibia in line with the electrocautery nena. The tray was held in place using 3 pins. Final broaching of the proximal tibia was performed in routine fashion. The trial liner and trial femoral component were put into place. The knee was brought into extension and our attention was directed to the patella. The patella measured 25 mm in thickness. The patellar resection guide was set for a 10 mm resection. Soft tissues were retracted and the patella cut was made using a sagittal saw. The remaining patella measured 15 mm in thickness. The undersurface of the patella was measured to be a size 27 symmetric component. Three drill holes were placed into the undersurface of the patella in routine fashion. The trial component was put into place. The knee was taken through a full range of motion. The patella tracked well. The patella was everted and the knee was flexed to 90?. All trial components were removed. The knee was once again brought into extension and placed onto a small bump. The knee joint was irrigated with copious amounts of normal saline solution via pulse lavage while the cement was mixed. The patella was everted and the knee was flexed to 90?. A small amount of cement was placed along the posterior aspects of the tibial and femoral components. Cement was then pressurized into the proximal tibia. The tibial component was impacted into place. Any excess cement was removed. The polyethylene liner was then impacted into place. Cement was then pressurized into the distal aspect of the femur. A small amount of cement was placed into the intramedullary canal to help reduce bleeding. The femoral component was impacted into place. Any excess cement was removed. The knee was then brought into extension. Cement was pressurized into the undersurface of the patella. The patellar component was put into place and was held with a patella clamp. Any excess cement was removed. Once the cement had hardened the patellar clamp was removed. The knee was taken through a full range of motion. There was full flexion and extension. There was no instability with varus or valgus stress testing with the knee in flexion or extension. The patella tracked well with no medially directed force. The knee joint was irrigated with copious amounts of normal saline solution via pulse lavage. Any significant bleeding vessels were coagulated. The patient's right knee was placed onto a small bump. The arthrotomy was closed with #2 Ethibond [id number] interrupted suture as well as #1 Vicryl [id number] interrupted suture. The wound was once again irrigated. The subcutaneous tissues were closed with 0 Vicryl and 2-0 Vicryl interrupted sutures. The skin was closed with skin maria c. Dry sterile dressing and Vinayak bandages were placed over the patient's right knee. The patient was awake and alert. The patient was transferred to the recovery room in stable condition.
[2023-11-23] MEDS: oxyCODONE HCl Immed Release 5 MG TABLET PO (15:13)
[2023-11-23] MEDS: methocarbamoL 500 MG TABLET PO ×2 (15:13→21:00)
[2023-11-23] MEDS: Acetaminophen 325 MG TABLET 650 MG PO (18:22)
[2023-11-23] MEDS: Aspirin 325 MG TABLET PO ×2 (18:22→20:59)
[2023-11-23] MEDS: ceFAZolin Sodium/Dextrose,Iso 2 GM/50 ML PIGGYBACK IV (18:22)
[2023-11-23] MEDS: oxyCODONE HCl Immed Release 5 MG TABLET 10 MG PO (18:22)
--- NOTE | 2023-11-23 18:30 | HO.PM.IMCN ---
History of Present Illness Data of Consult Service Date: 11/23/23 Requesting physician: Carlos Jay Primary Care Provider: SHIVANI GREEN DO HPI Reason for consult: Medical management 78-year-old female admitted for routine left total knee replacement. Asked to see postoperatively for medical management Review of Systems Review of Systems: Denies chest pain Denies shortness of breath Denies nausea vomiting diarrhea Denies fever chills Admits to right knee pain PMFSH Medical History (Updated 11/23/23 @ 18:36 by Celestino Johnson DO) Osteoarthritis Herpes DDD (degenerative disc disease), lumbar Osteoporosis Insomnia Depression Headache High cholesterol Circulation problem Lower back pain High cholesterol Surgical History (Updated 11/23/23 @ 18:36 by Celestino Johnson DO) History of total left knee replacement (TKR) (~2020) Hx of appendectomy Hx of hysterectomy Hx of bilateral cataract extraction History of back surgery (~2017) Social History Household Members: None Housing: Apartment Are you a primary patient care secretary to a significant other at home: No Do you presently have visiting nurse or other home services: Yes (solutions specialist daily) Patient Tobacco Use Status: Never used Tobacco Use of substances other than those prescribed or required for medical reasons: No Have you been hit, kicked, punched, or otherwise hurt by someone within the past year? 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 Meds Allergies Allergy/AdvReac Type Severity Reaction Status Date / Time zolpidem AdvReac Headache Verified 11/23/23 09:02 Active Medications: Current Medications Acetaminophen (Acetaminophen 325 Mg Tablet) 650 mg PO Q6H PRN PRN Reason: Pain, Mild (Pain Scale 1-3), fever or headache Last Admin: 11/23/23 18:22 Dose: 650 mg Aspirin (Aspirin 325 Mg Tablet) 325 mg PO BID [facility] Last Admin: 11/23/23 18:22 Dose: 325 mg Atorvastatin Calcium (Atorvastatin Calcium 20 Mg Tablet) 20 mg PO MoWeFr [facility] Celecoxib (Celecoxib 200 Mg Capsule) 200 mg PO BID [facility] Docusate Sodium (Docusate Sodium 100 Mg Capsule) 100 mg PO BID [facility] Duloxetine HCl (Duloxetine Hcl 30 Mg Capsule.Dr) 30 mg PO DAILY [facility] Erythromycin (Erythromycin Base 0.5% Oph Oin 1 Gm Tube) 0.635 cm EYE-BOTH BEDTIME [facility] Fluticasone Propionate (Fluticasone Propionate Nasal 16 Gm [place]) 1 spray NOSTRIL-B DAILY [facility] Gabapentin (Gabapentin 100 Mg Capsule) 100 mg PO TID PRN PRN Reason: for pain Hydromorphone HCl (Hydromorphone Hcl 0.5 Mg/0.5 Ml Syringe) 0.25 mg IVPUSH Q4H PRN; Protocol PRN Reason: Pain, Moderate(Pain Scale 4-6) Hydromorphone HCl (Hydromorphone Hcl 0.5 Mg/0.5 Ml Syringe) 0.5 mg IVPUSH Q4H PRN; Protocol PRN Reason: Pain, Severe (Pain Scale 7-10) Lactated Ringer's (Lr) 1,000 mls @ 100 mls/hr IVCONT .Q10H [facility] Last Admin: 11/23/23 15:15 Dose: 100 mls/hr Cefazolin Sodium/Dextrose (Ancef) 2 gm in 50 mls @ 100 mls/hr IV Q8H [facility] Stop: 11/24/23 17:29 Last Admin: 11/23/23 18:22 Dose: 100 mls/hr Magnesium Hydroxide (Milk Of Magnesia 30 Ml Oral.Susp) 30 ml PO DAILY PRN PRN Reason: Constipation Melatonin (Melatonin 3 Mg Tablet) 6 mg PO BEDTIME PRN PRN Reason: Insomnia Methocarbamol (Methocarbamol 500 Mg Tablet) 500 mg PO TID [facility] Last Admin: 11/23/23 15:13 Dose: 500 mg Ondansetron HCl (Ondansetron Hcl 4 Mg/2 Ml Vial) 4 mg IVPUSH Q8H PRN PRN Reason: Nausea and Vomiting Oxycodone HCl (Oxycodone Hcl Immed Release 5 Mg Tablet) 5 mg PO Q4H PRN PRN Reason: Pain, Mild (Pain Scale 1-3) Last Admin: 11/23/23 15:13 Dose: 5 mg Oxycodone HCl (Oxycodone Hcl Immed Release 5 Mg Tablet) 10 mg PO Q4H PRN PRN Reason: Pain, Moderate(Pain Scale 4-6) Last Admin: 11/23/23 18:22 Dose: 10 mg Sodium Chloride (Sodium Chloride 5 % Ophth Jodi 15 Ml Drpbtl) 1 drop EYE-BOTH TID [facility] Last Admin: 11/23/23 15:15 Dose: Not Given Sodium Chloride (0.9 % Sodium Chloride Flush 3 Ml Syringe) 3 ml IVFLUSH QSHIFT [facility] Last Admin: 11/23/23 15:15 Dose: Not Given Trazodone HCl (Trazodone Hcl 100 Mg Tablet) 100 mg PO BEDTIME [facility] Valacyclovir HCl (Valacyclovir Hcl 1,000 Mg Tablet) 1,000 mg PO DAILY [facility] Home Medications ?Medication ?Instructions ?Recorded ?Confirmed ?Last Taken ?Type calcium carbonate 600 mg-vitamin 1 tab PO BID 11/28/21 11/19/23 Unknown History D3 5 mcg (200 unit) tablet trazodone 100 mg tablet 100 mg PO BEDTIME 11/28/21 11/19/23 Unknown History valacyclovir 1 gram tablet 1,000 mg PO DAILY 11/28/21 11/19/23 Unknown History duloxetine 30 mg capsule,delayed 30 mg PO DAILY 01/13/22 11/19/23 Unknown History release erythromycin 5 mg/gram (0.5 %) eye 0.25 inch ophthalmic (eye) BEDTIME 05/07/23 11/23/23 Unknown History ointment fluticasone propionate 50 1 spray intranasal DAILY 06/15/23 11/19/23 Unknown History mcg/actuation nasal spray,suspension rosuvastatin 5 mg tablet 5 mg PO 3XW 10/20/23 11/19/23 Unknown History diclofenac sodium 1 % topical gel 4 g topical QID PRN Pain 11/09/23 11/19/23 Unknown History sodium chloride 5 % eye drops 1 drp ophthalmic (eye) TID 11/09/23 11/19/23 Unknown History Physical Exam Vital Signs and Narrative: Vital Signs: Last Vital Signs Temp 97.7 F 11/23/23 14:57 Pulse 64 11/23/23 14:57 Resp 14 11/23/23 14:57 BP 145/73 H 11/23/23 14:57 Pulse Ox 96 11/23/23 14:57 O2 Del Method Room Air 11/23/23 14:57 O2 Flow Rate 6 11/23/23 14:05 BMI result Body Mass Index 31.9 Const: Other: Awake alert no acute distress Resp: Other: Clear to auscultation bilaterally no rales rhonchi or wheezes Cardio: Other: No S4; positive S1-S2; no S3 murmurs rubs or gallops GI: Other: Soft nontender nondistended normoactive bowel sounds Extrem: Other: No edema bilaterally. Dressing right knee clean dry and intact Assessment and Plan (1) Status post right knee replacement: Status: Acute (2) Herpes: Status: Acute (3) High cholesterol: Status: Acute (4) Depression: Qualifiers: Depression Type: unspecified Qualified Code(s): F32.A - Depression, unspecified Status: Acute Plan 78-year-old female admitted for elective right total knee arthroplasty; consult for medical management in the postoperative. 1. Right total knee arthroplasty -as per Orthopedics 2. Herpes (details unknown) -continue valacyclovir as ordered 3. Hyperlipidemia -rosuvastatin as ordered 4. Depression -stable and well compensated -continue duloxetine/gabapentin/trazodone
[2023-11-23] MEDS: Celecoxib 200 MG CAPSULE PO (21:00)
[2023-11-23] MEDS: Docusate Sodium 100 MG CAPSULE PO (21:00)
[2023-11-23] MEDS: traZODone HCL 100 MG TABLET PO (21:00)
[2023-11-23] MEDS: Erythromycin Base 0.5% Oph Oin 1 GM TUBE 0.635 CM EYE-BOTH (21:01)
[2023-11-23] MEDS: Sodium Chloride 5 % Ophth Sol 15 ML DRPBTL 1 DROP EYE-BOTH (21:01)
[2023-11-23] MEDS: Atorvastatin Calcium 20 MG TABLET PO (21:08)
[2023-11-23] MEDS: 0.9 % Sodium Chloride Flush 3 ML SYRINGE IVFLUSH (21:09)
[2023-11-23] MEDS: HYDROmorphone HCl 0.5 MG/0.5 ML SYRINGE 0.25 MG IVPUSH (21:09)
[2023-11-23] MEDS: ondansetron HCL 4 MG/2 ML VIAL IVPUSH (22:48)
--- NOTE | 2023-11-23 22:56 | PC.NURSE ---
2220- PATIENT NOTED TO VOMIT SMALL TO MODERATE AMOUNT OF UNDIGESTED FOOD, FEELING HOT AND NAUSEOUS. ASSIST OF 2 TO BEDSIDE COMMODE, VOIDED YELLOW URINE, BED AND CHITO CHANGED, BACK AND MOUTH CARE. HOB UP, MEDICATED WITH ZOFRAN IVP AT 2245. WILL CONTINUE TO MONITOR
[2023-11-24] MEDS: Lactated Ringers 1,000 ML 100 ML IVCONT ×3 (01:16→22:09)
[2023-11-24] MEDS: ceFAZolin Sodium/Dextrose,Iso 2 GM/50 ML PIGGYBACK IV ×2 (01:20→10:31)
[2023-11-24 03:20] VITALS: BP 141/64; PULSE 86; RESP 18; TEMP 36.3; O2SAT 94
[2023-11-24 05:31] LABS: Basophils Percent Auto 0.1 % (0-2); Hematocrit 33.2 % (37.0-47.0); Hemoglobin 11.1 g/dl (12.0-16.0); Imm Gran Abs Auto 0.03 X10*3/uL (0.00-0.03); Imm Gran Pct Auto 0.3 % (0.0-0.4); Lymphocytes Absolute Auto 0.8 X10*3/uL (1.2-4.9); Lymphocytes Percent Auto 8.2 % (20-40); MANUAL DIFF FLAG NO; Mean Corpuscular HGB Conc 33.4 g/dl (31.0-35.0); Mean Corpuscular Hemoglobin 33.2 pg (27.0-33.0); Mean Corpuscular Volume 99.4 fL (80.0-98.0); Mean Platelet Volume 11.2 fL (9.4-12.3); Monocytes Absolute Auto 0.7 X10*3/uL (0.1-1.2); Monocytes Percent Auto 7.3 % (2-11); Neutrophils Absolute Auto 7.9 x10*3/uL (2.0-8.3); Neutrophils Percent Auto 84.1 % (45-73); Platelet Count 168 X10*3/uL (160-400); Red Blood Count 3.34 X10*6/uL (4.20-5.50); Red Cell Distribution Width 12.9 % (11.0-16.0); White Blood Count 9.4 X10*3/uL (4.8-10.8)
[2023-11-24 05:59] LABS: Anion Gap 12 (12-20); Blood Urea Nitrogen 14 mg/dL (9-16); Carbon Dioxide 28 mmol/L (22-29); Chloride 105 mmol/L (96-108); Creatinine Clr Calc Pharmacy 43.9; Estimated Glomerular Filt Rate 60; Glucose Fasting 128 mg/dL (60-99); Potassium 4.1 mmol/L (3.3-5.1); Sodium 141 mmol/L (135-145)
[2023-11-24 07:26] VITALS: BP 174/74; PULSE 74; RESP 16; TEMP 36.7; O2SAT 96
[2023-11-24 08:00] VITALS: BP 140/70
[2023-11-24] MEDS: ondansetron HCL 4 MG/2 ML VIAL IVPUSH (08:00)
[2023-11-24] MEDS: Sodium Chloride 5 % Ophth Sol 15 ML DRPBTL 1 DROP EYE-BOTH (08:02)
[2023-11-24] MEDS: Fluticasone Propionate Nasal 16 GM SPRAY 1 SPRAY NOSTRIL-B (08:02)
[2023-11-24] MEDS: valACYclovir HCL 1,000 MG TABLET 1000 MG PO ×2 (08:39→08:41)
[2023-11-24] MEDS: DULoxetine HCl 30 MG CAPSULE.DR PO ×2 (08:39→08:41)
[2023-11-24] MEDS: oxyCODONE HCl Immed Release 5 MG TABLET PO (08:39)
[2023-11-24] MEDS: Celecoxib 200 MG CAPSULE PO ×2 (08:41→22:10)
[2023-11-24] MEDS: Docusate Sodium 100 MG CAPSULE PO ×2 (08:41→22:11)
[2023-11-24] MEDS: Aspirin 325 MG TABLET PO ×2 (08:41→22:10)
[2023-11-24] MEDS: methocarbamoL 500 MG TABLET PO ×3 (08:41→22:10)
--- NOTE | 2023-11-24 09:08 | PM.DS ---
DS: Providers Provider Date of Service: 11/25/23 Date of admission: 11/23/23 08:06 Primary care physician: SHIVANI GREEN DO Consults: 11/23/23 14:57 Consult to Hospitalist Routine Comment: Consulting Provider: Hospitalist Reason For Exam: Routine medical management DS: Diagnosis Discharge Diagnosis (1) Status post right knee replacement: Status: Acute (2) Herpes: Status: Acute (3) High cholesterol: Status: Acute (4) Depression: Status: Acute DS: Summary Hospital Course Hospital Course: The patient underwent a successful right total knee arthroplasty, they were transferred to PACU and then to the floor to recover. During their stay, their vitals were stable, afebrile at 98.3. Labs were unremarkable, H/H 10.5/32.4. POD 1 they were started on Aspirin 325mg po bid for DVT ppx, they also received Physical Therapy services twice a day. Prior to discharge, their dressing was clean dry and intact, and the plan was to be discharged to rehab for continuation of physical therapy for safe discharge home. Time Attestation Discharge Coordination Time (in mins): 30 Quality: Safe Use of Opioids Does Pt have an Active Cancer Diagnosis on the Problem List?: No Quality: Stroke Does the patient have a stroke diagnosis?: No Physical Exam Vital Signs: Vital Signs: Last Vital Signs Temp 98.1 F 11/24/23 07:26 Pulse 74 11/24/23 07:26 Resp 16 11/24/23 07:26 BP 140/70 H 11/24/23 08:00 Pulse Ox 96 11/24/23 07:26 O2 Del Method Room Air 11/24/23 07:26 O2 Flow Rate 6 11/23/23 14:05 BMI result Body Mass Index 31.9 Const: General: cooperative, healthy appearing and no acute distress Resp: Effort & Inspection: normal respiratory effort and able to speak in complete sentences Cardio: Rate: regular rate Peripheral pulses: Peripheral pulses 2+ throughout GI: Palpation (GI): Soft to palpation Skin: Lesions: no lesions Rashes: no rashes Extrem: Other: right knee dressing is c/d/i. Able to dorsi/plantar flex. Calf is supple and nontender. Sensation intact. Pedal pulse intact. DS: Data Data Completed and Pending Pending studies at discharge: Pending at discharge 11/23/23 12:20 Surgical [PTH] Routine Labs on day of discharge: Laboratory Results - last 24 hr 11/24/23 04:59 WBC 9.4 RBC 3.34 L Hgb 11.1 L Hct 33.2 L MCV 99.4 H MCH 33.2 H MCHC 33.4 RDW 12.9 Plt Count 168 MPV 11.2 Immature Gran % (Auto) 0.3 Neut % (Auto) 84.1 H Lymph % (Auto) 8.2 L Potter % (Auto) 7.3 Eos % (Auto) 0.0 Baso % (Auto) 0.1 Lymph # (Auto) 0.8 L Potter # (Auto) 0.7 Eos # (Auto) 0.0 Baso # (Auto) 0.0 Abs Immat Gran (auto) 0.03 Absolute Neuts (auto) 7.9 Absolute Nucleated RBC 0.000 Nucleated RBC % (auto) 0.0 Sodium 141 Potassium 4.1 Chloride 105 Carbon Dioxide 28 Anion Gap 12 BUN 14 Creatinine 0.91 Estim Creat Clear Calc 43.9 Estimated GFR 60 Fasting Glucose 128 H Calcium 9.0 D Discharge Plan Discharge Anticipated Discharge Date/Time: 11/25/23 13:47 Patient Disposition: Home Health Service Discharge Diagnosis: s/p RTKA Referrals: SHIVANI GREEN [Primary Care Provider] - 1 Week Discharge Medications: New celecoxib 200 mg Capsule 200 mg PO BID 30 Days Qty: 60 0RF methocarbamol 500 mg Tablet 500 mg PO TID 7 Days Qty: 21 0RF acetaminophen 325 mg Tablet 650 mg PO Q6H PRN (Reason: Pain, Mild (Pain Scale 1-3), fever or headache) 30 Days Qty: 240 0RF aspirin 325 mg Tablet 325 mg PO BID 42 Days Qty: 84 0RF docusate sodium 100 mg Capsule 100 mg PO BID 30 Days Qty: 60 0RF oxycodone 10 mg tablet 10 mg PO Q4H PRN (Reason: pain) 7 Days Qty: 42 0RF Rx Instructions: Partial Fill upon patient request. Continued gabapentin 100 mg capsule 100 mg PO TID PRN (Reason: for pain) 30 Days Qty: 90 2RF (DME) tonia Misc See Rx Instructions .ROUTE .MEDSUPPLY Qty: 1 0RF Rx Instructions: Folding front wheeled tonia sodium chloride 5 % drops 1 drp ophthalmic (eye) TID diclofenac sodium 1 % gel 4 g topical QID PRN (Reason: Pain) trazodone 100 mg tablet 100 mg PO BEDTIME calcium carbonate-vitamin D3 600 mg-5 mcg (200 unit) tablet 1 tab PO BID valacyclovir 1 gram tablet 1,000 mg PO DAILY duloxetine 30 mg capsule,delayed release(DR/EC) 30 mg PO DAILY erythromycin 5 mg/gram (0.5 %) ointment 0.25 inch ophthalmic (eye) BEDTIME rosuvastatin 5 mg tablet 5 mg PO 3XW fluticasone propionate 50 mcg/actuation spray,suspension 1 spray intranasal DAILY Discontinued celecoxib 100 mg capsule 100 mg PO DAILY Qty: 30 1RF Rx Instructions: Take it with food and full glass of water. Discharge Orders: Discharge Order (Routine); Ordered 11/25/23 Ordered By: Annia Fernando Diet: Advance to usual diet Activity on Discharge: Use cane or walker Stand Alone Forms: Patient Portal Discharge page Print Language: Mohawk Activity Restrictions/Additional Instructions: Physical Therapy for ROM 0-120, quad strength, gait training. Use walker for ambulation Limit stair climbing, No shower, No tub bath, No driving Continue anticoagulant x 6 weeks Keep Aquacel dressing clean, dry and intact. Follow up with orthopedics in 2 weeks Care Plan Goals: restor fxn to right knee Health Concerns: none Plan of Treatment: see above Assessment: stable for d/c
--- NOTE | 2023-11-24 09:09 | W.MHC.F2F ---
Service Date Service Date: 11/24/23 Encounter Date of encounter: 11/25/23 Reasons for Services Signs and symptoms assessed: s/p RTKA Pt. is considered homebound due to recent surgery. Unable to drive, poor balance, poor gait mechanics. Reason for physical therapy: home safety and mobility, therapeutic exercises, restore joint function, gait/transfer training and ADL training Homebound: Leaving the home is medically contraindicated at this time without the asist of a device and/or another person due th the listed conditions above and below. Reason homebound: unsteady gait / fall risk, leg weakness, pain with ambulation, poor balance / fall risk and unable to drive Certification: Based on the above findings, I certify that this patient is confined to the home and needs intermittent jail care, physical therapy and/or speech therapy, or continues to need occupational therapy. The patient is under my care, and I have initiated the establishment of the plan of care. The patient will be followed by a physician who will periodically review the plan of care. Time Spent With Patient Time: Total time managing care of this patient today ____ minutes.
--- NOTE | 2023-11-24 09:43 | MHC.CM.PN ---
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
--- NOTE | 2023-11-24 10:26 | HO.POSTANES ---
Post Anesthesia Evaluation Post Anesthesia Evaluation Date of Service: 11/23/23 Vital Signs: Vital Signs Temp Pulse Resp BP Pulse Ox O2 Del Method 11/24/23 08:00 140/70 H 11/24/23 07:26 98.1 F 74 16 174/74 H 96 Room Air 11/24/23 03:20 97.3 F 86 18 141/64 H 94 Room Air Anesthesia: Spinal Mental Status: Awake Pain Control: Satisfactory Nausea/Vomiting: None Hydration: Adequate Anesthesia-Related Issues: No Anes. Related Issues
[2023-11-24] MEDS: HYDROmorphone HCl 0.5 MG/0.5 ML SYRINGE IVPUSH (10:56)
--- NOTE | 2023-11-24 13:13 | P.PNOP_ITS ---
Subjective Subjective Date of Service: 11/24/23 Interval history: POD 1 s/p RT TKA no overnight events resting in chair -worked with PT denies sob, cp, palpitations Physical Exam Vital Signs: Vital Signs: Last Vital Signs Temp 98.1 F 11/24/23 07:26 Pulse 74 11/24/23 07:26 Resp 16 11/24/23 07:26 BP 140/70 H 11/24/23 08:00 Pulse Ox 96 11/24/23 07:26 O2 Del Method Room Air 11/24/23 07:26 O2 Flow Rate 6 11/23/23 14:05 BMI result Body Mass Index 31.9 Const: General: cooperative, healthy appearing and no acute distress Resp: Effort & Inspection: normal respiratory effort and able to speak in complete sentences Cardio: Rate: regular rate Peripheral pulses: Peripheral pulses 2+ throughout GI: Palpation (GI): Soft to palpation Skin: General skin exam: no rashes or lesions noted Extrem: Other: bandage clean dry and intact. Calf supple nontender. Neurovascularly intact. Procedures Date of Service Date of Service: 11/24/23 Progress Note: A&P Assessment and plan (1) Status post right knee replacement: Status: Acute Assessment and Plan: * Continue pain mgmnt * Begin Aspirin for dvt ppx * begin PT for RT TKA * Dispo planning-Pending PT eval, pain mgmnt Need for continued inpatient stay: PT Time Spent With Patient Time: Total time managing care of this patient today ____ minutes. Quality Stroke Does the patient have a stroke diagnosis?: No VTE Prior VTE?: No VTE Risk Level:: Surgical - very high VTE Device Contraindication: N/A - Device Ordered VTE Drug Contraindication: N/A - Med Ordered
--- NOTE | 2023-11-24 14:32 | P.PNIM_ITS ---
Subjective Subjective Date of Service: 11/24/23 Interval History: No acute issues overnight. Pain control Review of Systems Denies chest pain Denies shortness of breath Denies nausea vomiting diarrhea Denies fever chills Admits to right knee pain Physical Exam 2 Vital Signs: Vital Signs: Last Vital Signs Temp 98.1 F 11/24/23 07:26 Pulse 74 11/24/23 07:26 Resp 16 11/24/23 07:26 BP 140/70 H 11/24/23 08:00 Pulse Ox 96 11/24/23 07:26 O2 Del Method Room Air 11/24/23 07:26 O2 Flow Rate 6 11/23/23 14:05 BMI result Body Mass Index 31.9 Const: Other: Awake alert no acute distress Resp: Other: Clear to auscultation bilaterally no rales rhonchi or wheezes Cardio: Other: No S4; positive S1-S2; no S3 murmurs rubs or gallops GI: Other: Soft nontender nondistended normoactive bowel sounds Extrem: Other: No edema bilaterally. Dressing right knee clean dry and intact Objective Data Active Medications Acetaminophen (Acetaminophen 325 Mg Tablet) 650 mg PO Q6H PRN PRN Reason: Pain, Mild (Pain Scale 1-3), fever or headache Last Admin: 11/23/23 18:22 Dose: 650 mg Documented By: MAR Aspirin (Aspirin 325 Mg Tablet) 325 mg PO BID [facility] Last Admin: 11/24/23 08:41 Dose: 325 mg Documented By: KAUSHIK Atorvastatin Calcium (Atorvastatin Calcium 20 Mg Tablet) 20 mg PO MoWeFr [facility] Last Admin: 11/23/23 21:08 Dose: 20 mg Documented By: MATEUSZ Celecoxib (Celecoxib 200 Mg Capsule) 200 mg PO BID [facility] Last Admin: 11/24/23 08:41 Dose: 200 mg Documented By: KAUSHIK Docusate Sodium (Docusate Sodium 100 Mg Capsule) 100 mg PO BID [facility] Last Admin: 11/24/23 08:41 Dose: 100 mg Documented By: KAUSHIK Duloxetine HCl (Duloxetine Hcl 30 Mg Capsule.Dr) 30 mg PO DAILY [facility] Last Admin: 11/24/23 08:39 Dose: 30 mg Documented By: KAUSHIK Erythromycin (Erythromycin Base 0.5% Oph Oin 1 Gm Tube) 0.635 cm EYE-BOTH BEDTIME [facility] Last Admin: 11/23/23 21:01 Dose: 0.635 cm Documented By: MATEUSZ Fluticasone Propionate (Fluticasone Propionate Nasal 16 Gm Hardy) 1 spray NOSTRIL-B DAILY [facility] Last Admin: 11/24/23 08:02 Dose: 1 spray Documented By: KAUSHIK Gabapentin (Gabapentin 100 Mg Capsule) 100 mg PO TID PRN PRN Reason: for pain Hydromorphone HCl (Hydromorphone Hcl 0.5 Mg/0.5 Ml Syringe) 0.25 mg IVPUSH Q4H PRN; Protocol PRN Reason: Pain, Moderate(Pain Scale 4-6) Last Admin: 11/23/23 21:09 Dose: 0.25 mg Hydromorphone HCl (Hydromorphone Hcl 0.5 Mg/0.5 Ml Syringe) 0.5 mg IVPUSH Q4H PRN; Protocol PRN Reason: Pain, Severe (Pain Scale 7-10) Last Admin: 11/24/23 10:56 Dose: 0.5 mg Documented By: KAUSHIK Lactated Ringer's (Lr) 1,000 mls @ 100 mls/hr IVCONT .Q10H [facility] Last Admin: 11/24/23 10:31 Dose: 100 mls/hr Documented By: KAUSHIK Cefazolin Sodium/Dextrose (Ancef) 2 gm in 50 mls @ 100 mls/hr IV Q8H [facility] Stop: 11/24/23 17:29 Last Infusion: 11/24/23 11:31 Dose: Infused Documented By: KAUSHIK Magnesium Hydroxide (Milk Of Magnesia 30 Ml Oral.Susp) 30 ml PO DAILY PRN PRN Reason: Constipation Melatonin (Melatonin 3 Mg Tablet) 6 mg PO BEDTIME PRN PRN Reason: Insomnia Methocarbamol (Methocarbamol 500 Mg Tablet) 500 mg PO TID [facility] Last Admin: 11/24/23 08:41 Dose: 500 mg Documented By: KAUSHIK Ondansetron HCl (Ondansetron Hcl 4 Mg/2 Ml Vial) 4 mg IVPUSH Q6H PRN PRN Reason: Nausea and Vomiting Oxycodone HCl (Oxycodone Hcl Immed Release 5 Mg Tablet) 5 mg PO Q4H PRN PRN Reason: Pain, Mild (Pain Scale 1-3) Last Admin: 11/24/23 08:39 Dose: 5 mg Documented By: KAUSHIK Oxycodone HCl (Oxycodone Hcl Immed Release 5 Mg Tablet) 10 mg PO Q4H PRN PRN Reason: Pain, Moderate(Pain Scale 4-6) Last Admin: 11/23/23 18:22 Dose: 10 mg Documented By: MAR Sodium Chloride (Sodium Chloride 5 % Ophth Jodi 15 Ml Drpbtl) 1 drop EYE-BOTH TID [facility] Last Admin: 11/24/23 08:02 Dose: 1 drop Documented By: KAUSHIK Sodium Chloride (0.9 % Sodium Chloride Flush 3 Ml Syringe) 3 ml IVFLUSH QSHIFT [facility] Last Admin: 11/24/23 07:49 Dose: Not Given Documented By: KAUSHIK Non-Admin Reason: IV Running Trazodone HCl (Trazodone Hcl 100 Mg Tablet) 100 mg PO BEDTIME [facility] Last Admin: 11/23/23 21:00 Dose: 100 mg Documented By: MATEUSZ Valacyclovir HCl (Valacyclovir Hcl 1,000 Mg Tablet) 1,000 mg PO DAILY [facility] Last Admin: 11/24/23 08:39 Dose: 1,000 mg Documented By: KAUSHIK Labs 11/24/23 04:59 11/24/23 04:59 Labs: Laboratory Results - last 24 hr 11/24/23 04:59 MCV 99.4 H MCH 33.2 H MCHC 33.4 RDW 12.9 Plt Count 168 MPV 11.2 Immature Gran % (Auto) 0.3 Neut % (Auto) 84.1 H Lymph % (Auto) 8.2 L Chase % (Auto) 7.3 Eos % (Auto) 0.0 Baso % (Auto) 0.1 Lymph # (Auto) 0.8 L Chase # (Auto) 0.7 Eos # (Auto) 0.0 Baso # (Auto) 0.0 Abs Immat Gran (auto) 0.03 Absolute Neuts (auto) 7.9 Absolute Nucleated RBC 0.000 Nucleated RBC % (auto) 0.0 Anion Gap 12 Estim Creat Clear Calc 43.9 Estimated GFR 60 Fasting Glucose 128 H Calcium 9.0 D Assessment and Plan (1) Status post right knee replacement: Status: Acute Plan 78-year-old female admitted for elective right total knee arthroplasty; consult for medical management in the postoperative. 1. Right total knee arthroplasty -as per Orthopedics 2. Herpes (details unknown) -continue valacyclovir as ordered 3. Hyperlipidemia -rosuvastatin as ordered 4. Depression -stable and well compensated -continue duloxetine/gabapentin/trazodone No acute changes. Will sign off at this time. Quality Stroke Does the patient have a stroke diagnosis?: No VTE Prior VTE?: No VTE Risk Level:: Surgical - very high VTE Device Contraindication: N/A - Device Ordered VTE Drug Contraindication: N/A - Med Ordered
[2023-11-24 15:04] VITALS: BP 144/67; PULSE 74; RESP 16; TEMP 36.1; O2SAT 93
[2023-11-24] MEDS: 0.9 % Sodium Chloride Flush 3 ML SYRINGE IVFLUSH (18:21)
[2023-11-24 18:59] VITALS: BP 156/71; PULSE 75; RESP 16; TEMP 36.8; O2SAT 90
[2023-11-24 22:00] VITALS: O2SAT 96
[2023-11-24] MEDS: traZODone HCL 100 MG TABLET PO (22:10)
[2023-11-24] MEDS: Erythromycin Base 0.5% Oph Oin 1 GM TUBE 0.635 CM EYE-BOTH (22:10)
[2023-11-25] MEDS: oxyCODONE HCl Immed Release 5 MG TABLET 10 MG PO ×2 (02:37→17:30)
[2023-11-25 03:16] VITALS: BP 115/56; PULSE 86; RESP 18; TEMP 36.5; O2SAT 92
[2023-11-25] MEDS: Lactated Ringers 1,000 ML 100 ML IVCONT (05:43)
[2023-11-25 07:17] VITALS: BP 134/60; PULSE 72; RESP 16; TEMP 36.8; O2SAT 92
[2023-11-25 07:26] LABS: MANUAL DIFF FLAG NO
--- NOTE | 2023-11-25 07:29 | PM.PNORT ---
Subjective Subjective Date of Service: 11/25/23 Interval history: POD2 s/p RTKA Patient is resting in bed comfortably No overnight events Pain is managed No additional complaints Physical Exam Vital Signs: Vital Signs: Last Vital Signs Temp 98.3 F 11/25/23 07:17 Pulse 72 11/25/23 07:17 Resp 16 11/25/23 07:17 BP 134/60 11/25/23 07:17 Pulse Ox 92 11/25/23 07:17 O2 Del Method Room Air 11/25/23 07:17 O2 Flow Rate 6 11/23/23 14:05 BMI result Body Mass Index 31.9 Const: General: cooperative, healthy appearing and no acute distress Resp: Effort & Inspection: normal respiratory effort and able to speak in complete sentences Cardio: Rate: regular rate Peripheral pulses: Peripheral pulses 2+ throughout GI: Palpation (GI): Soft to palpation Skin: Lesions: no lesions Rashes: no rashes Extrem: Other: right knee dressing is c/d/i. Able to dorsi/plantar flex. Calf is supple and nontender. Sensation intact. Pedal pulse intact. Procedures Date of Service Date of Service: 11/25/23 Progress Note: A&P Assessment and plan (1) Status post right knee replacement: Status: Acute Assessment and Plan: Continue pain mgmnt Begin ASA for dvt ppx begin PT for RTKA- WBAT Dispo planning- PT, pain mgmnt, rehab placement - ready for D/C to rehab Time Spent With Patient Time: Total time managing care of this patient today ____ minutes. Quality Stroke Does the patient have a stroke diagnosis?: No VTE Prior VTE?: No VTE Risk Level:: Surgical - very high VTE Device Contraindication: N/A - Device Ordered VTE Drug Contraindication: N/A - Med Ordered
[2023-11-25 07:33] LABS: Basophils Percent Auto 0.2 % (0-2); Eosinophils Percent Auto 0.2 % (0-4); Hematocrit 32.4 % (37.0-47.0); Hemoglobin 10.5 g/dl (12.0-16.0); Imm Gran Abs Auto 0.04 X10*3/uL (0.00-0.03); Imm Gran Pct Auto 0.5 % (0.0-0.4); Lymphocytes Absolute Auto 1.4 X10*3/uL (1.2-4.9); Lymphocytes Percent Auto 16.9 % (20-40); Mean Corpuscular HGB Conc 32.4 g/dl (31.0-35.0); Mean Corpuscular Hemoglobin 32.5 pg (27.0-33.0); Mean Corpuscular Volume 100.3 fL (80.0-98.0); Mean Platelet Volume 11.8 fL (9.4-12.3); Monocytes Absolute Auto 0.9 X10*3/uL (0.1-1.2); Monocytes Percent Auto 11.2 % (2-11); Neutrophils Absolute Auto 5.9 x10*3/uL (2.0-8.3); Platelet Count 163 X10*3/uL (160-400); Red Blood Count 3.23 X10*6/uL (4.20-5.50); Red Cell Distribution Width 13.2 % (11.0-16.0); White Blood Count 8.2 X10*3/uL (4.8-10.8)
[2023-11-25] MEDS: Aspirin 325 MG TABLET PO (07:40)
[2023-11-25] MEDS: Celecoxib 200 MG CAPSULE PO (07:41)
[2023-11-25] MEDS: methocarbamoL 500 MG TABLET PO ×2 (07:41→15:30)
[2023-11-25] MEDS: valACYclovir HCL 1,000 MG TABLET 1000 MG PO (07:41)
[2023-11-25] MEDS: 0.9 % Sodium Chloride Flush 3 ML SYRINGE IVFLUSH (07:42)
[2023-11-25] MEDS: Docusate Sodium 100 MG CAPSULE PO (07:42)
[2023-11-25] MEDS: DULoxetine HCl 30 MG CAPSULE.DR PO (07:42)
[2023-11-25 07:53] LABS: Anion Gap 12 (12-20); Blood Urea Nitrogen 10 mg/dL (9-16); Calcium 8.9 mg/dL (8.4-10.2); Carbon Dioxide 28 mmol/L (22-29); Chloride 106 mmol/L (96-108); Creatinine Clr Calc Pharmacy 50.5; Estimated Glomerular Filt Rate > 60; Glucose Fasting 122 mg/dL (60-99); Potassium 3.9 mmol/L (3.3-5.1); Sodium 142 mmol/L (135-145)
[2023-11-25] MEDS: Sodium Chloride 5 % Ophth Sol 15 ML DRPBTL 1 DROP EYE-BOTH ×2 (07:53→15:33)
[2023-11-25] MEDS: Fluticasone Propionate Nasal 16 GM SPRAY 1 SPRAY NOSTRIL-B (07:53)
[2023-11-25] MEDS: oxyCODONE HCl Immed Release 5 MG TABLET PO (07:54)
[2023-11-25] MEDS: Acetaminophen 325 MG TABLET 650 MG PO (07:54)
[2023-11-25] MEDS: ondansetron HCL 4 MG/2 ML VIAL IVPUSH (11:40)
[2023-11-25 15:35] VITALS: BP 99/62; PULSE 95; RESP 18; TEMP 36.6; O2SAT 92
--- NOTE | 2023-11-25 15:48 | MHC.CM.PN ---
pt denied by [facility] for not meetingacute care criteria ..pt acccpted by [facility] and has auth jenny hoffman notified of dc tonight at 6:30 w/ explaination of acute care vs str
== END 2023-11-25 18:49 | disposition skilled nursing facility (03) | DRG 470 ==
LOC: HO.SSSA 11:06 → HO.S3 11:22
PROVIDERS: Nurse Practitioner; Physician Assistant; Admitting Provider Orthopaedic Surgery; PCP Internal Medicine; Visit Provider Orthopaedic Surgery
PROC: 0SRC0J9 Replacement of Right Knee Joint with Synthetic Substitute, Cemented, Open Approach (ICD-10-PCS; CPT 27447; principal; 2023-11-23 10:30)
DX: M17.11 Unilateral primary osteoarthritis, right knee (principal); F32.A Depression, unspecified; B00.9 Herpesviral infection, unspecified; G89.18 Other acute postprocedural pain; E78.5 Hyperlipidemia, unspecified; Z79.899 Other long term (current) drug therapy
CPT/HCPCS: 36415; 80048; 83036; 85025; 86850; 86900; 86901; 87640; 87641; 88305; 88311; 97110; 97116; 97162; 97166; 97535; C1776; J0131; J0665; J0690; J1100; J1170; J2250; J2371; J2405; J2704; J3370; J7120

== ENCOUNTER → 2023-11-23 08:06 | Outpatient (BNV) | payer OTHER, SELFPAY | PROVIDERS: Admitting Provider Orthopaedic Surgery; PCP Internal Medicine; Visit Provider Orthopaedic Surgery | DX: Z96.651 Presence of right artificial knee joint (principal) | CPT/HCPCS: 27447; 99024 ==

== ENCOUNTER → 2023-11-23 08:06 | Outpatient (BNV) | payer OTHER, SELFPAY | PROVIDERS: Admitting Provider Orthopaedic Surgery; PCP Internal Medicine; Visit Provider Hospitalist | DX: G89.18 Other acute postprocedural pain (principal); Z96.651 Presence of right artificial knee joint | CPT/HCPCS: 99222; 99231 ==

== ENCOUNTER 2023-12-10 08:43 | Outpatient (REF) | payer OTHER, SELFPAY | END 2023-12-10 08:44 | disposition home or self-care (01) | LOC: HO.HOSX 08:43 | PROVIDERS: Visit Provider Physician Assistant | DX: M25.561 Pain in right knee (principal); M25.562 Pain in left knee; Z96.651 Presence of right artificial knee joint | CPT/HCPCS: 73560; 73562; 99212 ==

== ENCOUNTER 2023-12-10 11:17 | Outpatient (AMB) | payer OTHER, SELFPAY ==
--- NOTE | 2023-12-10 11:20 | A.OFFVIS_ITS ---
Intake Visit Reasons: 2WK PO: R TKA avni/ 11/23/23 Intake Note: Tita is a 78 year old female who presents today for a post op appointment s/p R TKA avni/ 11/23/23. Patient reports she is doing very well. No pain or discomfort at the moment. Allergies zolpidem Adverse Reaction (Verified 11/23/23 09:02) Headache HPI HPI 2WK PO: R TKA avni/ 11/23/23: Details: 78-year-old female, who is Trinidadian speaking, presents in the office today 17 days status post right total knee arthroplasty, which was performed on 11/23/[address] Jay. While in the office today, the patient is overall doing well. She is ambulating with the use of a walker. Her pain is effectively managed with prescribed pain medication. She is taking pain medication as directed. She would like to start with physical therapy. [facility] Medical History (Updated 11/27/23 @ 00:02 by Background Daemon) Osteoarthritis Herpes DDD (degenerative disc disease), lumbar Osteoporosis Insomnia Depression Headache High cholesterol Circulation problem Lower back pain High cholesterol Surgical History (Updated 11/27/23 @ 00:02 by Background Daemon) History of total left knee replacement (TKR) (~2020) Hx of appendectomy Hx of hysterectomy Hx of bilateral cataract extraction History of back surgery (~2017) Social History Household Members: None Housing: Apartment Are you a primary child care associate to a significant other at home: No Do you presently have visiting nurse or other home services: Yes (clinical laboratory technologist daily) Patient Tobacco Use Status: Never used Tobacco service: No Current occupational status: disabled 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 Roberto intact. No surrounding erythema or drainage. No signs of infection. ROM is 0-110 degrees. NVI. Assessment & Plan Assessment & Plan (1) Status post right knee replacement: Code(s): Z96.651 - Presence of right artificial knee joint Category: Surgical Plan Ms. Juan Jose Cruz is a 78-year-old female, who is Trinidadian speaking, presents in the office today 17 days status post right total knee arthroplasty, which was performed on 11/23/[address] Jay. While in the office today, the patient is overall doing well. She is ambulating with the use of a walker. Her pain is effectively managed with prescribed pain medication. She is taking pain medication as directed. She would like to start with physical therapy. Roberto were removed, and steri-strips were applied. The patient is transitioned to outpatient physical therapy at this time and has placed an order for PT. I sent a prescription for an antibiotic, amoxicillin 2000 mg PO (to be taken 1 hour prior to dental work), prophylactically for possible dental work in the future. However, the patient was educated they should not have any major dental work for the first 3 months post op after the procedure. I have also sent a refill of oxycodone 10 mg PO Q4H PRN and oxycodone 5 mg PO Q4H PRN to the pharmacy. Follow-up will be in [address] Jay, or sooner if needed. X-rays of the right knee which were obtained while in the office today and were reviewed by me, Annia Fernando PA-C, revealed: Intact orthopedic hardware with satisfactory alignment. Orders: Orders XR knee RT 3V Today M25.569 - Pain in unspecified knee PT Evaluation and Treatment Today Z96.651 - Presence of right artificial knee joint XR knee LT 1V Today M25.569 - Pain in unspecified knee Medications: New 2 amoxicillin 2,000 mg (4 x 500 mg) PO ONCE 4 tabs 0RF take 4 tabs by mouth 1 hour prior to dental ppx 1 day Changed From oxycodone Partial Fill upon patient request. 10 mg PO Q4H 7 days PRN 42 tabs 0RF pain To oxycodone Partial Fill upon patient request. 5 mg PO Q4H PRN 42 tabs 0RF pain 7 days Patient Instructions: Scribed by Dora Hernandez, medical grade shoemaker, for Annia Fernando PA-C on 11/23 09/15 at 11:36 am EST. Coding Level of Care Code Global (18412) Diagnoses Status post right knee replacement Z96.651
== END 2023-12-10 12:09 | disposition home or self-care (01) ==
PROVIDERS: PCP Internal Medicine; Visit Provider Physician Assistant
DX: Z96.651 Presence of right artificial knee joint (principal)
CPT/HCPCS: 99024

== ENCOUNTER 2023-12-31 10:46 | Outpatient (AMB) | payer OTHER, SELFPAY ==
--- NOTE | 2023-12-31 10:51 | A.OFFVIS_ITS ---
Intake Visit Reasons: 6WK PO: R TKA w/DR 11/23/23 Intake Note: Tita is a 78 year old female who presents with complaints of mild intermittent discomfort in her right knee after undergoing right total knee replacement surgery on 11/23/2023. She denies any fevers or chills. She continues to go to formal physical therapy. She is no longer taking narcotics for her discomfort. She does walk with a walker when she is out of her home. Tugboat Dispatcher Services: Tugboat Dispatcher Offered & Declined Allergies zolpidem Adverse Reaction (Verified 11/23/23 09:02) Headache Medication List - Last Reconciled 12/31/23 by Carlos Jay MD acetaminophen 650 mg (2 x 325 mg) PO Q6H PRN 30 days amoxicillin 2,000 mg (4 x 500 mg) PO ONCE 1 day aspirin 325 mg PO BID 42 days calcium carbonate-vitamin D3 600 mg-5 mcg (200 unit) 1 tab PO BID celecoxib 200 mg PO BID 30 days diclofenac sodium 1% 4 grams topical QID PRN docusate sodium 100 mg PO BID 30 days duloxetine 30 mg PO DAILY erythromycin 0.25 inches ophthalmic (eye) BEDTIME fluticasone propionate 50 mcg/actuation 1 spray intranasal DAILY gabapentin 100 mg PO TID PRN 30 days methocarbamol 500 mg PO TID 7 days oxycodone 5 mg PO Q4H PRN 7 days rosuvastatin 5 mg PO 3XW sodium chloride 5% 1 drp ophthalmic (eye) TID trazodone 100 mg PO BEDTIME valacyclovir 1,000 mg PO DAILY walker Folding front wheeled walker [facility] Medical History (Updated 11/27/23 @ 00:02 by Rosetta Hyman) Osteoarthritis Herpes DDD (degenerative disc disease), lumbar Osteoporosis Insomnia Depression Headache High cholesterol Circulation problem Lower back pain High cholesterol Surgical History History of total left knee replacement (TKR) (~2020) Hx of appendectomy Hx of hysterectomy Hx of bilateral cataract extraction History of back surgery (~2017) Social History Household Members: None Housing: Apartment Are you a primary director critical care to a significant other at home: No Do you presently have visiting nurse or other home services: Yes (microsoft dynamics ax developer daily) Patient Tobacco Use Status: Never used Tobacco service: No Current occupational status: disabled 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 She will continue with her physical therapy exercises. She does know to take antibiotics before any dental work. She will contact me prior to her follow-up appointment in 2 months should any questions or concerns arise. Feel free to call me at any time should questions regarding her orthopedic management arise. Medications: New walker As directed WALKER WITH SEAT FOR REST 1 ea 0RF Z96.651 - Presence of right artificial knee joint Coding Level of Care Code Global (99419) Diagnoses Status post right knee replacement Z96.651
== END 2023-12-31 11:19 | disposition home or self-care (01) ==
LOC: HO.HOS 10:47
PROVIDERS: PCP Internal Medicine; Visit Provider Orthopaedic Surgery
DX: Z96.651 Presence of right artificial knee joint (principal)
CPT/HCPCS: 99024

== ENCOUNTER → 2023-12-31 10:46 | Outpatient (BNVA) | payer OTHER, SELFPAY | PROVIDERS: PCP Internal Medicine; Visit Provider Orthopaedic Surgery | DX: M25.561 Pain in right knee (principal); Z47.1 Aftercare following joint replacement surgery; Z96.651 Presence of right artificial knee joint | CPT/HCPCS: 99212 ==

== ENCOUNTER 2024-03-02 11:13 | Outpatient (AMB) | payer OTHER, SELFPAY ==
--- NOTE | 2024-03-02 11:15 | MHC.OFFVIS ---
Vital Signs 03/02/24 11:27 Height 4 ft 11 in Weight 157 lb BMI 31.7 Intake Visit Reasons: Right knee discomfort Intake Note: Tita is a 78 year old female who presents with complaints of mild intermittent discomfort in her right knee after undergoing right total knee replacement surgery on 11/23/2023. She continues to go to formal physical therapy. She is no longer taking narcotics for her discomfort. She denies any fevers or chills. 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 Accompanied by: Daughter Allergies zolpidem Adverse Reaction (Verified 03/02/24 11:26) Headache Medication List - Last Reconciled 03/02/24 by Carlos Jay MD acetaminophen 650 mg (2 x 325 mg) PO Q6H PRN 30 days amoxicillin 2,000 mg (4 x 500 mg) PO ONCE 1 day aspirin 325 mg PO BID 42 days calcium carbonate-vitamin D3 600 mg-5 mcg (200 unit) 1 tab PO BID celecoxib 100 mg PO DAILY diclofenac sodium 1% 4 grams topical QID PRN docusate sodium 100 mg PO BID 30 days duloxetine 30 mg PO DAILY erythromycin 0.25 inches ophthalmic (eye) BEDTIME fluticasone propionate 50 mcg/actuation 1 spray intranasal DAILY gabapentin 100 mg PO TID PRN 30 days methocarbamol 500 mg PO TID 7 days rosuvastatin 5 mg PO 3XW sodium chloride 5% 1 drp ophthalmic (eye) TID trazodone 100 mg PO BEDTIME valacyclovir 1,000 mg PO DAILY walker Folding front wheeled walker walker As directed WALKER WITH SEAT FOR REST [facility] Medical History (Updated 11/27/23 @ 00:02 by Rosetta Hyman) Osteoarthritis Herpes DDD (degenerative disc disease), lumbar Osteoporosis Insomnia Depression Headache High cholesterol Circulation problem Lower back pain High cholesterol Surgical History History of total left knee replacement (TKR) (~2020) Hx of appendectomy Hx of hysterectomy Hx of bilateral cataract extraction History of back surgery (~2017) Social History Household Members: None Housing: Apartment Are you a primary wound care rn to a significant other at home: No Do you presently have visiting nurse or other home services: Yes (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) Patient Tobacco Use Status: Never used Tobacco service: No Current occupational status: disabled 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 Juan Jose Cruz continues to do well after undergoing right total knee replacement surgery on 11/23/2023. She will continue going to formal physical therapy for now. She will gradually transition to a home exercise program. She does know to take antibiotics before any dental work. She will contact me prior to her follow-up appointment in 3 months should any questions or concerns arise. Feel free to call me at any time should questions regarding her orthopedic management arise. I spent 22 minutes in reviewing the patient's records and imaging studies, seeing the patient and documenting in the medical record. Coding Level of Care Code Est Pt Level 3 (52679) Complex EM visit Add On G2211 Diagnoses Status post right knee replacement Z96.651
[2024-03-02 11:27] VITALS: BMI 31.7
== END 2024-03-02 11:48 | disposition home or self-care (01) ==
LOC: HO.HOS 11:13
PROVIDERS: PCP Internal Medicine; Visit Provider Orthopaedic Surgery
DX: Z47.1 Aftercare following joint replacement surgery (principal); Z96.651 Presence of right artificial knee joint
CPT/HCPCS: 99213; G2211

== ENCOUNTER → 2024-03-02 11:13 | Outpatient (BNVA) | payer OTHER, SELFPAY | PROVIDERS: PCP Internal Medicine; Visit Provider Orthopaedic Surgery | DX: Z96.651 Presence of right artificial knee joint (principal) | CPT/HCPCS: 99212 ==

== ENCOUNTER 2024-03-02 13:45 | Outpatient (RCR) | payer OTHER, SELFPAY ==
--- NOTE | 2024-03-25 14:24 | MHC.PT.DC ---
[facility] [place] Office [place] Office [place] [facility] [address] [place] rBock [address] [phone] F: [phone] F: [phone] F: [phone] F: [phone] Physical Therapy Discharge Report Diagnosis: s/p R TKA Date of Surgery: 11/23/23 Date of Evaluation: 12/29/23 Date of Discharge: 03/25/24 Treatments to Date: 15 Cancellations to Date: 2 No Shows to Date: 4 Discharge Status: Patient Elected to Stop Discharge Summary: Pt cancelled last scheduled visit, no further info available. As we have not heard from her in greater than 30 days we will DC current chart and perform new assessment if needed Electronically signed by: Socorro Cee PT DPT Please sign and return to therapist. Thank you for your referral.
== END 2024-03-25 14:24 | disposition home or self-care (01) ==
LOC: HO.PT 13:45
PROVIDERS: PCP Internal Medicine; Visit Provider Physician Assistant
DX: Z96.651 Presence of right artificial knee joint (principal)
CPT/HCPCS: 97110; 97140; 97162; 97530; 97535

== ENCOUNTER 2024-06-22 12:41 | Outpatient (REF) | payer OTHER, SELFPAY | END 2024-06-22 12:42 | disposition home or self-care (01) | LOC: HO.HOSX 12:41 | PROVIDERS: Visit Provider Orthopaedic Surgery | DX: Z13.89 Encounter for screening for other disorder (principal) ==

== ENCOUNTER 2024-07-20 07:32 | Outpatient (REF) | payer OTHER, SELFPAY ==
--- NOTE | ~2024-07-20 | XR_ITS ---
EXAMINATION: XR KNEE 3 VIEWS RIGHT HISTORY: Z96.651 - Presence of right artificial knee joint COMPARISON: Comparison is made with the prior examination dated 12/10/2023. FINDINGS: AP and lateral and sunrise patellar views of the right knee are submitted. The patient is again noted to be status post right total knee arthroplasty. The orthopedic elements are in anatomic alignment. There is no radiographic evidence of loosening. There is no fracture or dislocation. There is no joint effusion. The soft tissues are unremarkable. XR/XR knee RT 3V IMPRESSION: Status post right total knee arthroplasty. Electronically signed by: Chavez Altamirano MD 07/20/2024 03:25 PM EDT
--- OUTSIDE RECORDS SUMMARY | 2024-07-20 07:33 | XMS_ITS ---
Author Organization [facility] Address [address] [place] [id number] Care Team Providers Care Cloth Burler Name Role Phone SHIVANI GREEN Primary Care Provider Rufus Fernandez Jr Unavailable [phone] Allergies No Known Allergies REASON FOR VISIT Patient presents today for abd pain Medications Medication SIG (Take, Route, Frequency, Duration) Notes [...] 1 tab Oral for 14 days Active Social History Tobacco Use: Social History Observation Description Date Details (start date - stop date) Never Smoker NA - NA Tobacco Use/Smoking Question Answer Notes Patient is a nonsmoker Alcohol Screen Question Answer Notes Did you have a drink containing alcohol in the p ast year? No Points 0 Interpretation Negative Vital Signs Blood pressure systolic 00 mm Hg 11/12/19 24 Blood pressure diastolic 00 mm Hg 024 Height 60 in 11/12/2023 Weight 158 lbs 11/12/2023 BMI 30.85 kg/m2 11/12/2023 Encounters Encounter Location Date Provider Diagnosis [facility] [address] [place] [address] 11/12/2023 Rufus Dover Jr Generalized abdominal pain R10.84 and Bloating R14.0 Assessments Encounter Date Diagnosis (ICD Code) Assessment Notes Treatment Notes Treatment Clinical Notes Section Notes 11/12/2023 Generalized abdominal pain (ICD-10 - R10.84) Abdominal MRI scan material was printed At this time, she is doing well. We discussed diet, lifestyle modifications, and weight management regarding the treatment of reflux. She will continue her present regimen. Followup will be in one year. She is up-to-date on colon cancer screening. Her bloating has resolved. 11/12/2023 Bloating (ICD-10 - R14.0) At this time, she is doing well. We discussed diet, lifestyle modifications, and weight management regarding the treatment of reflux. She will continue her present regimen. Followup will be in one year. She is up-to-date on colon cancer screening. Her bloating has resolved. Plan Of Treatment Treatment Notes Assessment Notes Generalized abdominal pain Abdominal MRI scan material was printed Next Appt Details Follow Up: 1 Year, Reason: Provider Name:Rufus minor Jr, 11/17/2024 01:35:00 PM, [address], [address], [place], [address], Progress Notes * JILL WU VDOB:0 1945 (78 yo F)Acc No.[id number]:11/12/2023 Progress Notes Patient:?PIEDAD WU V Provider:?Rufus Dover MD :1945???Age:78 Y???Sex:Female D ate:11/12/2023 Address:[address] [place] [address] Pcp:SHIVANI GREEN Subjective: * Chief Complaints: * ???1. Patient presents today for abd pain. * HPI: ???New symptom(s):? The patient is a pleasant 70-year-old woman seen today in followup of gastroesophageal reflux disease and abdominal bloating. Since we saw her last, she's been doing well. She did have some right-sided abdominal pain earlier this year, which subsequently resolved. She has no complaints of dysphagia, hematemesis, or melena. Weight and appetite have been stable. She continues on omeprazole which she's using intermittently, approximately 3 times per week. This controls her reflux symptoms well. * Medical History:?Osteoarthri tis, Depression, Insomnia, Elevated cholesterol, Migraine headaches, Osteoporosis, Obstructive sleep apnea, HSV infection. * Surgical History:?Back surge ry , Hysterectomy , Appendectomy , Cataract surgery , Left total knee replacement , right knee replacement . * Family History:?Father: dece ased.?Mother: , diagnosed with Diabetes.? No family history of colon cancer or liver cancer. * Social History:?Tobacco Use:?Tobacco Use/Smoking?Patient is a?nonsmoker.?Drugs/Alcohol:?Alcohol Screen?Did you have a drink containing alcohol in the past year??No,?Points?0,?Interpretation?Negative.?Miscellaneous:?Marital status: single. Occupation: retired. * Medications:?Taking Vitamin D-3 125 MCG (5000 UT) Tablet as directed Orally , Taking Calcium 1 tab Oral , Taking Calcium + Vitamin D3 600-5 MG-MCG Tablet TOME CELIA TABLETA DOS VECES AL D A Oral , Taking traZODone HCl 100 MG Tablet TOME CLEIA TABLETA TODOS LOS D AL ACOSTARSE Oral , Taking Restasis 0.05 % Emulsion PONGA CELIA GOTA EN LOS DOS OJOS DOS VECES AL D A Ophthalmic , Taking DULoxetine HCl 30 MG Capsule Delayed Release Particles TOME 1 CAPSULA POR VIA ORAL TODOS LOS CLEMENTS Oral , Taking Celecoxib 200 MG Capsule TOME CELIA C PSULA TODOS LOS D Oral , Taking valACYclovir HCl 1 GM Tablet TOME CELIA TABLETA TODOS LOS D Oral , Taking Brinzolamide 1 % Suspension PONGA CELIA GOTA EN LOS DOS OJOS GRETEL VECES AL D A Ophthalmic , Taking Omeprazole 20 MG Capsule Delayed Release 1 capsule 30 minutes before morning meal Orally Once a day, Taking Rosuvastatin Calcium 5 MG Tablet TOME CELIA TABLETA POR V A ORAL ON THURSDAY, THURSDAY, AND THURSDAY Oral , Discontinued Alendronate Sodium 70 MG Tablet TOME CELIA TABLETA VIA ORAL CELIA VEZ AL SEMANA Oral , Discontinued Lovastatin 20 MG Tablet TOME CELIA TABLETA POR V A ORAL TODOS LOS D AL ACOSTARSE Oral , Medication List reviewed and reconciled with the patient * Allergies:?N.K.D.A. Objective: * Vitals:?Wt: 158 lbs, Ht: 60 in, BMI:30.85 Index, BP: 00/00 mm Hg. * Examination: ???General Examination: ???On examination today, she appears well. Skin is anicteric. Lungs are clear. Heart shows a regular rate and rhythm. Abdomen is soft no focal masses or tenderness. Extremities are without edema. Assessment: * Assessment: 1.?Generalized abdominal neno n - R10.84 (Primary)?2.?Bloating - R14.0? At this time, she is doing w ell. We discussed diet, lifestyle modifications, and weight management regarding the treatment of reflux. She will continue her present regimen. Followup will be in one year. She is up-to-date on colon cancer screening. Her bloating has resolved. Plan: * Treatment: * Procedure Codes:?G9903 Pt sc rn tbco id as non user, G9744 PATIENT NOT ELIG D/T ACTIVE DX HTN * Preventive Medicine:? ??Counseling:?Care goal follow-up plan:?Above Normal BMI Follow-up?Giving encouragement to exercise,?BMI management provided?Yes.? ??Urinary Incontinence:?Urinary Incontinence?Assessment:?Absent,?Plan of care documented:?No, reason not specified.? ??Screenings:?Fall Risk Screening?Fall Risk Assessment:?No falls in the past year,?Assessment:?Not performed, no reason specified.? * Follow Up:?1 Year * * Sign off status: Completed true * Provider:?Rufus Dover MD Date:?0 11/12/2023 Generated for Galileo mclaughlin/Ricardo/Kojoitting on:?07/20/2024 07:33 AM EDT History and Physical Notes * HPI (History of Present Illness) Category Sub-Category Detail Notes Category Not es New symptom(s) The patient i s a pleasant 70-year-old woman seen today in followup of gastroesophageal reflux disease and abdominal bloating. Since we saw her last, she's been doing well. She did have some right-sided abdominal pain earlier this year, which subsequently resolved. She has no complaints of dysphagia, hematemesis, or melena. Weight and appetite have been stable. She continues on omeprazole which she's using intermittently, approximately 3 times per week. This controls her reflux symptoms well. Examination Category Sub-Category Detail Notes Category Not es General Examination On exami nation today, she appears well. Skin is anicteric. Lungs are clear. Heart shows a regular rate and rhythm. Abdomen is soft no focal masses or tenderness. Extremities are without edema.
== END 2024-07-20 07:33 | disposition home or self-care (01) ==
LOC: HO.HOSX 07:32
PROVIDERS: Visit Provider Orthopaedic Surgery
DX: Z96.651 Presence of right artificial knee joint (principal); M25.561 Pain in right knee; M25.562 Pain in left knee; G89.29 Other chronic pain
CPT/HCPCS: 73562; 99212

== ENCOUNTER 2024-07-20 14:48 | Outpatient (AMB) | payer OTHER, SELFPAY ==
[2024-07-20 15:18] VITALS: BMI 31.7
--- NOTE | 2024-07-20 15:18 | A.OFFVIS_ITS ---
Vital Signs 07/20/24 15:18 Height 4 ft 11 in Weight 157 lb BMI 31.7 Intake Visit Reasons: Bilateral knee pains Intake Note: Tita is a 79 year old female who presents with complaints of bilateral knee pains after undergoing right total knee replacement surgery performed by myself on 11/23/2023 as well as left total knee replacement surgery by another provider several years ago. She denies any fevers or chills. She has taken Tylenol which gives her mild relief. She denies any locking or giving way. Account Executive Trainee Required: Yes Account Executive Trainee Language: Stuntman Services: Account Executive Trainee Offered & Declined Allergies zolpidem Adverse Reaction (Verified 07/20/24 15:19) Headache Medication List - Last Reconciled 07/20/24 by Carlos Jay MD acetaminophen 650 mg (2 x 325 mg) PO Q6H PRN 30 days amoxicillin 2,000 mg (4 x 500 mg) PO ONCE 1 day aspirin 325 mg PO BID 42 days calcium carbonate-vitamin D3 600 mg-5 mcg (200 unit) 1 tab PO BID celecoxib 100 mg PO DAILY diclofenac sodium 1% 4 grams topical QID PRN docusate sodium 100 mg PO BID 30 days duloxetine 30 mg PO DAILY erythromycin 0.25 inches ophthalmic (eye) BEDTIME fluticasone propionate 50 mcg/actuation 1 spray intranasal DAILY gabapentin 100 mg PO TID PRN 30 days methocarbamol 500 mg PO TID 7 days rosuvastatin 5 mg PO 3XW sodium chloride 5% 1 drp ophthalmic (eye) TID trazodone 100 mg PO BEDTIME valacyclovir 1,000 mg PO DAILY walker Folding front wheeled walker walker As directed WALKER WITH SEAT FOR REST [facility] Medical History (Updated 07/20/24 @ 15:36 by Carlos Jay MD) Osteoarthritis Herpes DDD (degenerative disc disease), lumbar Osteoporosis Insomnia Depression Headache High cholesterol Circulation problem Lower back pain High cholesterol Surgical History History of total left knee replacement (TKR) (~2020) Hx of appendectomy Hx of hysterectomy Hx of bilateral cataract extraction History of back surgery (~2017) Social History Household Members: None Housing: Apartment Are you a primary director of primary care to a significant other at home: No Do you presently have visiting nurse or 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 home 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) Patient Tobacco Use Status: Never used Tobacco service: No Current occupational status: disabled 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 Physical Exam Vital Signs: BMI result Body Mass Index 31.7 Const Other: Well-nourished well-developed very friendly female awake alert and oriented x3 in no acute distress Extrem Other: Bilateral knee examination shows that the surgical incisions are well healed, no erythema, no signs of infection, range of motion from -3 degrees to 110 degrees, her patellae track well, no instability Results Reviewed Results Reviewed: X-rays of the patient's right knee taken today show a total knee arthroplasty in good position with no signs of loosening, no acute bony abnormalities Assessment & Plan Assessment & Plan (1) Bilateral chronic knee pain: Code(s): M25.561 - Pain in right knee; M25.562 - Pain in left knee; G89.29 - Other chronic pain Category: Medical Plan Tiat presents with continued bilateral knee pains after undergoing bilateral total knee replacement surgeries possibly due to scar tissue formation. The patient does not have any clinical evidence of infection. She may be a cand idate for a nerve stimulation procedure. Thus, I will have her evaluated in our pain management Department by Dr. Alvarado. She will contact me prior to her annual follow-up appointment should her symptoms worsen in any way. Feel free to call me at any time should questions regarding her orthopedic management arise. I spent 20 minutes in reviewing the patient's records and imaging studies, seeing the patient and documenting in the medical record. Orders: Orders XR knee RT 3V 07/20/24 Z96.651 - Presence of right artificial knee joint Referrals Pain Management Referral G89.29 - Other chronic pain, M25.561 - Pain in right knee, M25.562 - Pain in left knee Coding Level of Care Code Est Pt Level 3 (84025) Complex EM visit Add On G2211 Diagnoses Bilateral chronic knee pain M25.561; M25.562; G89.29
== END 2024-07-20 15:33 | disposition home or self-care (01) ==
LOC: HO.HOS 14:48
PROVIDERS: PCP Internal Medicine; Visit Provider Orthopaedic Surgery
DX: M25.561 Pain in right knee (principal); M25.562 Pain in left knee; G89.29 Other chronic pain
CPT/HCPCS: 99213; G2211

== ENCOUNTER → 2024-07-20 14:50 | Outpatient (BNV) | payer OTHER, SELFPAY | PROVIDERS: Visit Provider Radiology Diagnostic Radiology | DX: Z96.651 Presence of right artificial knee joint (principal) | CPT/HCPCS: 73562 ==

== ENCOUNTER 2024-08-22 14:09 | Outpatient (AMB) | payer OTHER, SELFPAY ==
[2024-08-22 14:18] VITALS: BP 122/66; PULSE 76; RESP 18; O2SAT 98; BMI 31.9
--- NOTE | 2024-08-22 14:18 | MHC.OFFVIS ---
Vital Signs 08/22/24 14:18 Height 4 ft 11 in Weight 158 lb BMI 31.9 BP 122/66 Blood Pressure Location Rt brachial Position Sitting Respiration 18 Pulse 76 Pulse Source Pulse Oximeter Pulse Oximetry (%) 98 Oxygen Delivery Method Room Air Intake Visit Reasons: BILATERAL KNEE PAIN Intake Note: Pain today 8 Child Care Giver Required: Yes Child Care Giver Language: Utility Clerk Services: Child Care Giver Present Child Care Giver Name: Corinne #[id number] Information Interpreted: non-clinical & clinical Accompanied by: yarn inspector Allergies zolpidem Adverse Reaction (Verified 08/22/24 14:19) Headache HPI Comments Details: The patient is a 79-year-old female presenting with history of bilateral total knee replacements and continues to endorse bilateral knee pain, with the left knee being more symptomatic. She received a right knee gel injection a year ago, which provided some relief. She underwent right TKA in October 2023 and left TKA in 2020 and is still recuperating from the surgery. Patient has underwent peripheral nerve stimulation therapy on the right with moderate relief with gradual return of her right knee to baseline. She is interested to address chronic left knee pain with Sprint PNS trial as well. The left knee is currently more problematic, with significant stiffness and tenderness noted in the anterior and patellofemoral aspects. The patient has been managing her pain with Tylenol, which provides mild relief, and denies any knee locking, instability or giving way. She has also reported chronic low back pain and chronic left sided neck muscle spasms and also reports shoulder pain for which she sees Orthopedic provider. She did undergo successful lumbar medial branch blocks but at this time would like to address left knee pain. Denies any recent cough, cold, infection, fever, any significant changes in her medical history, medications or recent hospitalizations. - Pain is located in both knees, with the left knee being more symptomatic. - Reports significant stiffness in the left knee. - Pain is mildly relieved by Tylenol. - Affect: No specific impact on mood or psychological wellbeing discussed. - Analgesia: Currently using Tylenol with mild relief. - Adverse Effects: No adverse effects from pain medication reported. - Activities of Daily Living: Stiffness in the left knee affects mobility, especially climbing stairs. - Aberrant Drug Related Behaviors: No aberrant behaviors reported. Past Procedures: 04/30/23: Bilateral Diagnostic L3-L4 DR L5 MBB-100% pain relief for 24 hours 09/03/22: Right saphenous nerve peripheral nerve stimulation at the adductor canal placed 09/03/2022% pain relief 03/12/22: Right Diagnostic SNB at adductor canal on 03/12/[address] Alvarado-75-80% pain relief for 8 hours [facility], [facility] General, Orthopedic management reviewed: Follows Dr. Dotson at [facility] this month for chronic back pain and injections. Left TRK on 03/11/2020 at [facility]. History of back surgery at [facility] in 2017. Botox injections, levator scapular, trapezius, rhomboids, . Cervical epidural injections 2020. Thoracic and cervical medial branch blocks 04/17/2019. Thoracic facet injections 2022. [facility] Medical History Osteoarthritis Herpes DDD (degenerative disc disease), lumbar Osteoporosis Insomnia Depression Headache High cholesterol Circulation problem Lower back pain High cholesterol Surgical History History of total left knee replacement (TKR) (~2020) Hx of appendectomy Hx of hysterectomy Hx of bilateral cataract extraction History of back surgery (~2017) Social History Household Members: None Housing: Apartment Are you a primary caregiver assisted living to a significant other at home: No Do you presently have visiting nurse or other home services: Yes (yarn inspector daily) Patient Tobacco Use Status: Never used Tobacco service: No Current occupational status: disabled 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 Denies knee locking or giving way. All systems reviewed & are unremarkable except as noted in HPI and below Physical Exam Vital Signs: Last Vital Signs Pulse 76 08/22/24 14:18 BP 122/66 08/22/24 14:18 Pulse Ox 98 08/22/24 14:18 Oxygen Delivery Method Room Air 08/22/24 14:18 BMI result Body Mass Index 31.9 General: Appears afebrile. Alert and oriented. Mood and affect appropriate. Follows and participates in conversation appropriately. Respiratory effort is unlabored. No cough. Able to transition from sit to stand unassisted. Ambulates with bilaterally normal heel strike and toe off. Back/Spine/Pelvis Cervical Spine: cervical ROM normal, loss of normal cervical lordosis, cervical muscular tenderness, pain with cervical ROM and No Cervical spine tenderness Thoracic/Lumbar Spine: pain with thoraco-lumbar ROM, thoraco-lumbar ROM limited, No thoracic spinal tenderness and No lumbar spinal tenderness Skin General skin exam: no rashes or lesions noted Extrem General: Yes capillary refill normal, Yes no clubbing, cyanosis or edema and Yes no calf tenderness Right lower extremity: knee (Limited ROM due to pain. Well healed incision.) Details: tenderness Location: of the patella, of the medial joint line and of the lateral joint line and crepitus; no swelling, no ecchymosis, no deformity and no unusual warmth Left lower extremity: knee (Limited ROM due to pain. Well healed incision.) Details: normal to inspection, tenderness (global TTP anterior aspects) and crepitus; no swelling, no ecchymosis and no unusual warmth Results Reviewed Results Reviewed: XR KNEE 3 VIEWS RIGHT 07/20/24 HISTORY: Z96.651 - Presence of right artificial knee joint COMPARISON: Comparison is made with the prior examination dated 12/10/2023. FINDINGS: AP and lateral and sunrise patellar views of the right knee are submitted. The patient is again noted to be status post right total knee arthroplasty. The orthopedic elements are in anatomic alignment. There is no radiographic evidence of loosening. There is no fracture or dislocation. There is no joint effusion. The soft tissues are unremarkable. IMPRESSION: Status post right total knee arthroplasty. XR KNEE BILATERAL, 1 VIEW 12/10/23 CLINICAL INFORMATION: Pain in unspecified knee M25.569. COMPARISON: XR left knee 10/06/2023. TECHNIQUE: AP view of the right and left knee. FINDINGS: Right knee arthroplasty in appropriate anatomic alignment with overlying soft tissue maria c. Redemonstration of a left knee arthroplasty in unchanged anatomic alignment. No evidence of complication. IMPRESSION: 1. Right knee arthroplasty without evidence of complication. 2. Left knee arthroplasty without evidence of complication. Assessment & Plan Assessment & Plan (1) Lumbar spondylosis: Code(s): M47.816 - Spondylosis without myelopathy or radiculopathy, lumbar region Category: Medical (2) Bilateral chronic knee pain: Code(s): M25.561 - Pain in right knee; M25.562 - Pain in left knee; G89.29 - Other chronic pain Category: Medical (3) History of total bilateral knee replacement: Code(s): Z96.653 - Presence of artificial knee joint, bilateral Category: Surgical (4) Cervicalgia: Code(s): M54.2 - Cervicalgia Category: Medical Plan The plan includes scheduling a diagnostic left saphenous nerve block to assess pain relief, similar to the previous right knee intervention. If significant relief is achieved, a Sprint PNS trial procedure will be considered for the left knee. The patient is advised to monitor pain for 6 hours post-injection and report any changes. Physical therapy is suggested to alleviate stiffness in the left knee, although the patient is currently focusing on knee interventions. Schedule Left Diagnostic Saphenous Nerve Block with local and fluoroscopy. Expectations, risks and benefits were reviewed. Patient is aware she will be contacted to schedule this procedure. All questions and concerns have been answered and patient agreed with the plan. Follow up after injection and sooner as needed. Patient was informed and verbally consented to the use of an ambient scribe for clinic note documentation during this visit. Coding Level of Care Code Est Pt Level 4 (91095) Complex EM visit Add On G2211 Diagnoses Lumbar spondylosis M47.816 Bilateral chronic knee pain M25.561; M25.562; G89.29 History of total bilateral knee replacement Z96.653 Cervicalgia M54.2
--- OUTSIDE RECORDS SUMMARY | 2024-08-22 14:43 | XMS_ITS | Patient Health Record ---
Author Organization [facility] Address [address] [place], [place] [id number] Care Team Providers Care Family Protection Specialist Name Role Phone Dana LEE, Juhi Primary Care Provider Jay Rodriguez Unavailable [phone] Reason For Referral No Information Medications Medication SIG (Take, Route, Fr equency, Duration) Notes Start Date End Date Status valACYclovir HCl Act rajni Fluticasone Propionate Active Loratadine Active ProAir HFA Active Lovastatin Active Alendronate Sodium A ctive Gabapentin Active traZODone HCl Active Cymbalta Active PARoxetine HCl Activ e Flagyl Active Baclofen Active Naproxen Active CVS Muscle Rub Activ e Tylenol Extra Strength Active Nystatin Active Meclizine HCl Active Lidocaine Active Calcium 600 + D Acti ve Multivitamin Active Pyridium Active Social History Tobacco Use: Social History Observation Description Date Details (start date - stop date) Never Smoker NA - NA Alcohol Question Answer Notes Did you have a drink containing alcohol in the p ast year? No Points 0 Interpretation Negative Smoking Question Answer Notes Are you a: never smoker Weight Management Questionaire: Question Answer Notes Does the pt want to actively manage their weight ? 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 confirmed Problem [id number] Pain in toe of left foot (M79.675) Active confirmed Problem [id number] Cramps, extremit y (R25.2) Active confirmed Plan Of Treatment No Information Insurance Providers Payer Name Payer Address Payer Phone Subscriber Number Group Number Insured Name Patient Relationship to Insured Coverage Start Date Coverage End Date [facility] [address] [address] [place] [phone] [id number] Tita Foreman Self - patient is the insured [facility] Claims Department [address] [place] [address] [phone] [id number] Tita Foreman Self - patient is the insured Medical (General) History Medical History History ICD Code Osteoporosis HLD Anxiety/Depression Chronic Back Pain Genital Herpes Surgical History Surgery Date(Month/Year) Hysterectomy Appendectomy
--- OUTSIDE RECORDS SUMMARY | 2024-08-22 14:43 | XMS_ITS ---
Author Name Saunders FRACISCORenetta Address [address] [place] [address] Phone [phone] [facility] Care Team Providers Care It Desktop Support Specialist Name Role Phone Renetta Saunders Unavailable [phone] [facility] Unavailable [phone] Reason for Referral Not Available Allergies, adverse reactions, alerts No known allergies History of medication use Medication Class Instructions Start Date End Date ALPRAZolam 0.5 mg Tab TAKE 1 TABLET BY M OUTH 1 HOUR PRIOR TO INJECTION. 2021-06-26 2022-01-28 Amoxicillin 500 mg Cap TAKE 4 CAPSULES M ORNING OF INJECTION 2021-06-26 No Data Available CALCIUM 600 MG-VIT D3 5 MCG TB TAKE 1 TABLET BY MOUTH TWICE A DAY 2021-03-07 No Data Available traZODone 100 mg Tab 1 tablet orally charissa ly at bedtime 2021-04-16 No Data Available Diclofenac Sodium 75 mg Tab delayed rel TOME CELIA TABLETA DOS VECES AL D A 2021-06-07 No Data Available Celecoxib 200 mg Cap TOME CELIA C PSULA DO S VECES AL D A CON ALIMENTO 2021-07-17 No Data Available Cyclobenzaprine 10 mg Tab TAKE 1/2 TO 1 TABLET POR V A ORAL DOS VECES AL D A CUANDO SEA NECESARIO FOR MUSCLE SPASM 2021-07-17 No Data Available Alendronate Sodium 70 mg Tab take 1 tabl et orally once every week 2020-12-21 2024-04-06 valACYclovir 1 GM Tab TOME CELIA TABLETA T ODOS LOS D 2021-05-23 No Data Available Lovastatin 20 mg Tab 1 TABLET ORALLY ONC E A DAY AT BEDTIME 90 2021-04-23 2024-04-06 Pregabalin 100 mg Cap TOME CELIA C PSULA D OS VECES AL D A 2021-10-09 2022-09-18 DULoxetine 30 mg Cap delayed rel 1 tablet by mouth once daily 2021-01-26 No Data Available Lidocaine 5 % Patch 1 patch topically to affected area daily remove after 12 hours PRN Pain 2022-01-28 2022-09-18 Diclofenac Sodium 1 % Gel 4 grams topica lly to affected area 4 times per day PRN 2022-01-28 No Data Available valACYclovir 1 GM Tab 1 tablet orally daily 2022-01-28 2024-07-12 Flonase Allergy Relief 50 MCG/ACT Suspension Nasal 1-2 sprays each nostril daily 2022-01-28 2024-04-06 Diclofenac Sodium 75 mg Tab delayed rel 1 tablet orally 2 times per day 2022-01-28 2024-04-06 Tylenol Extra Strength 500 m g Tab Take 1 tablet by mouth every 6 hours as needed 2022-01-28 No Data Available Celecoxib 100 mg Cap 1 capsule orally daily 2022-01-28 No Data Available Brinzolamide 1 % Suspension PONGA CELIA GO TA EN LOS DOS OJOS GRETEL VECES AL D A 2022-02-12 No Data Available Restasis 0.05 % Emulsion Ophthalmic instill 1 drop into both eyes twice daily 2022-06-09 2024-04-06 Omeprazole 20 mg Cap delayed rel 1 capsule by mouth once daily 2022-06-30 2024-04-06 ThermaCare heat therapy patches for back Apply to left upper back once a day for 8 hours 2022-09-18 No Data Available Sodium Chloride (Hypertonic) 5 % Solution Ophthalmic 1 drop ophthalmically into affected eye every 4 hours 2022-11-12 No Data Available Doxycycline Monohydrate 100 mg Tab TOME CELIA TABLETA DOS VECES AL D A POR 7 D 2023-03-16 No Data Available Zolpidem Tartrate 5 mg Tab TOME CELIA TABL ETA TODOS LOS D AL ACOSTARSE CUANDO SEA NECESARIO FOR 30 DAYS 2023-03-25 2023-07-10 Donepezil 10 mg Tab TOME 1/2 TAB POR V A ORAL DESPU S DE LAS COMIDAS POR 3 SEMANAS. THEN 1 TAB TODOS LOS D 2023-03-25 2023-07-10 Erythromycin 5 mg/GM Oint Ophthalmic APPLY SMALL AMOUNT INTO BOTH EYES EVERY NIGHT AT BEDTIME 2023-04-10 No Data Available Gabapentin 100 mg Cap 1 capsule by mouth three times daily as needed 2023-05-07 No Data Available Capsaicin 0.1 % Crm PLEASE SEE ATTACHED FOR DETAILED DIRECTIONS 2023-05-07 No Data Available Methocarbamol 500 mg Tab TOME CELIA TABLET A POR V A ORAL EVERY 8 HOURS NEEDED FOR MUSCLE SPASM FOR 30 DAYS 2023-06-29 No Data Available Fluticasone Propionate 50 MCG/ACT Suspension Nasal use 1 spray in each nostril BID as needed 2023-07-10 No Data Available Methocarbamol 500 mg Tab 1 tab Q8h as ne eded for muscle spasm 2023-07-10 2024-04-06 Rosuvastatin Calcium 5 mg Tab TOME CELIA T ABLETA POR VIA ORAL ON THURSDAY, THURSDAY, AND Thursday2023-07-16 No Data Available Triamcinolone Acetonide 0.1 % Crm APLIQUE AL LIVE AFECTADA TODOS LOS D FOR 1 WEEK, REPEAT NEEDED 2023-10-27 No Data Available oxyCODONE 5 mg Tab TOME CELIA TABLETA POR V A ORAL CADA CUATRO HORAS POR 7 D CUANDO SEA NECESARIO PARA EL DOLOR 2023-12-10 No Data Available Betamethasone Dipropionate 0.05 % Crm USE 1 APPLICATOR TOPICALLY DOS VECES AL D A FOR 14 DAYS 2024-01-11 No Data Available Problem List Problem Status Onset Date Resolved Date Synopsis Mild dementia Active 2023-07-10 N/A Not current ly taking medications. Continue to follow up with Neurologist. MDD (major depressive disorder), recurrent episode, moderate Active 2022-01-28 N/A RX: Duloxetine , TrazodoneContinue to follow up with PCP. Hyperlipidemia Active 2022-01-28 N/A RX: Rosuva statin Heart healthy diet. Continue to follow up with PCP. Chronic upper back pain Active 2022-09-18 N/A R X: Tylenol, Diclofenac Gel, CelecoxidContinue to follow up with PCP. Peripheral nervous system or special sense stimulat response abnormal Active 2022-09-18 N/A Taking Gabapen tinRight hip and leg painHas peripheral nerve stimulation device Arthritis, multiple joint involvement Active 2024-06-02 N/A Taking Tylenol, Celecoxib, Diclofenac GelReports intermittent pain, denies use of assistive device during ambulation. She continues to exercise as tolerated08/10/24: Reports R knee pain from surgery 3 years ago, has PCP appt next week who will refer to a specialist for follow up COPD with Obstructive sleep apnea Active 2023-07-10 N/A COPD documented on note dated 01/28/22. 'Not currently taking medications or MDIs.Avoid allergens and triggers. Continue to follow up with PCP. 05/06/24: She reports tolerating bipap machine. She was inquiring on a replacement masks. I instructed her to call the company that provided the equipment and to call with any concerns.07/12/24: Denies dyspnea, uses bipap with good effect Eye irritation Active 2024-07-12 N/A Reports ch ronic eyes irritationUses opth erythromycin, denies effectiveness with tears solution Other problems related to medical facilities and other health care Active 2023-05-05 N/A FALL CONTIN GENCY PLANMember to call for the following symptoms: Fall / Pre-syncope/ Vertigo/ WeaknessPlanned intervention: Encourage extra fluid intake / Assess for change in mental status and provide reassurance if none (patient's Baseline is a/o x3) / Review importance of sitting for two to three minutes prior to standing after laying downPAIN CONTINGENCY PLANLast updated: 07/12/2024Member to call for the following symptoms: Fall / Increased pain/ Joint swelling/ StiffnessPlanned intervention: Tylenol 1,000mg q6h/ Ibuprofen 400mg q6h/ Lidoderm patch 4% to affected area/ Prednisone 50mg daily for 5 days/ Apply heat to affected area/ Apply ice to affected area Encounters Encounters Type Facility Date of Service Diagnosis/Co mplaint New patient,40-59min; chronic exacerbation, 2 stable chronic or 1 acute illness add add modifier 95 for video (do not use for phone, instead use [id number]) [facility] Chronic obstructive pulmonar y disease, unspecifiedMajor depressive disorder, recurrent, mildHyperlipidemia, unspecifiedAcute upper respiratory infection, unspecified New patient,40-59min; chronic exacerbation, 2 stable chronic or 1 acute illness add add modifier 95 for video (do not use for phone, instead use [id number][facility] New patient,40-59min; chronic exacerbation, 2 stable chronic or 1 acute illness add add modifier 95 for video (do not use for phone, instead use [id number]) [facility] [place] New patient,40-59min; chronic exacerbation, 2 stable chronic or 1 acute illness add add modifier 95 for video (do not use for phone, instead use 12557-05) [facility] New patient,40-59min; chronic exacerbation, 2 stable chronic or 1 acute illness add add modifier 95 for video (do not use for phone, instead use 33556-47) [facility] New patient,40-59min; chronic exacerbation, 2 stable chronic or 1 acute illness add add modifier 95 for video (do not use for phone, instead use [id number]) [facility] Estab. patient 30-39min; chronic exacerbation, 2 stable chronic or 1 acute illness add add modifier 95 for video, (do not use for phone, instead use 55568-95) [facility]18[place]2022 Chronic obstructive pulmonar y disease, unspecifiedMajor depressive disorder, recurrent, mildHyperlipidemia, unspecifiedAcute upper respiratory infection, unspecifiedDorsalgia, unspecifiedOther chronic painOther specified postprocedural statesAbnormal response to nerve stimulation, unspecified Estab. patient 30-39min; chronic exacerbation, 2 stable chronic or 1 acute illness add add modifier 95 for video, (do not use for phone, instead use 87915-99) [facility] Estab. patient 30-39min; chronic exacerbation, 2 stable chronic or 1 acute illness add add modifier 95 for video, (do not use for phone, instead use 84899-51) [facility] Estab. patient 30-39min; chronic exacerbation, 2 stable chronic or 1 acute illness add add modifier 95 for video, (do not use for phone, instead use 07890-35) [facility] Estab. patient 30-39min; chronic exacerbation, 2 stable chronic or 1 acute illness add add modifier 95 for video, (do not use for phone, instead use 19940-71) [facility] Estab. patient 30-39min; chronic exacerbation, 2 stable chronic or 1 acute illness add add modifier 95 for video, (do not use for phone, instead use 34980-81) [facility] Estab. patient 30-39min; chronic exacerbation, 2 stable chronic or 1 acute illness add add modifier 95 for video, (do not use for phone, instead use [id number]) [facility]18[place] Estab. patient 30-39min; chronic exacerbation, 2 stable chronic or 1 acute illness add add modifier 95 for video, (do not use for phone, instead use 37647-46) [facility] [place]18[place]20[place] Estab. patient 30-39min; chronic exacerbation, 2 stable chronic or 1 acute illness add add modifier 95 for video, (do not use for phone, instead use 92710-49) [facility]23 Major depressive disorder, recurrent, mildHyperlipidemia, unspecifiedDorsalgia, unspecifiedOther chronic painOther specified postprocedural statesAbnormal response to nerve stimulation, unspecifiedAlzheimer's disease, unspecifiedOther problems related to medical facilities and other health careDementia in oth diseases classd elswhr w/o behavrl disturbChronic obstructive pulmonary disease, unspecifiedObstructive sleep apnea (adult) (pediatric) Estab. patient 30-39min; chronic exacerbation, 2 stable chronic or 1 acute illness add add modifier 95 for video, (do not use for phone, instead use 61682-45) [facility] Estab. patient 30-39min; chronic exacerbation, 2 stable chronic or 1 acute illness add add modifier 95 for video, (do not use for phone, instead use [id number]) [facility] Estab. patient 30-39min; chronic exacerbation, 2 stable chronic or 1 acute illness add add modifier 95 for video, (do not use for phone, instead use 27792-74) [facility] [place]20[place] Estab. patient 30-39min; chronic exacerbation, 2 stable chronic or 1 acute illness add add modifier 95 for video, (do not use for phone, instead use 79526-24) [facility] [place]20[place] Estab. patient 30-39min; chronic exacerbation, 2 stable chronic or 1 acute illness add add modifier 95 for video, (do not use for phone, instead use 31694-59) [facility] [place] 07[place]20[place] Estab. patient 30-39min; chronic exacerbation, 2 stable chronic or 1 acute illness add add modifier 95 for video, (do not use for phone, instead use 59556-83) [facility] [place] 07[place]20[place] Estab. patient 30-39min; chronic exacerbation, 2 stable chronic or 1 acute illness add add modifier 95 for video, (do not use for phone, instead use 08038-61) [facility] [place] 07[place]20[place] Estab. patient 10-29min; 1 minor problem; add add modifier 95 for video, modifier 93 for phone [facility] ([place] 03/30/2024 Dorsalgia, unspecifiedOther chronic painOther specified postprocedural statesOther problems related to medical facilities and other health care Estab. patient 20-29min; 1 stable chronic or 2 minor; add add modifier 95 for video, modifier 93 for phone [facility], ([place] 04/06/2024 Unspecified dementia, mild, without behavioral disturbance, psychotic disturbance, mood disturbance, and anxietyObstructive sleep apnea (adult) (pediatric)Chronic obstructive pulmonary disease, unspecifiedMajor depressive disorder, recurrent, moderateHyperlipidemia, unspecifiedDorsalgia, unspecifiedOther chronic painAbnormal response to nerve stimulation, unspecifiedOther problems related to medical facilities and other health care Estab. patient 20-29min; 1 stable chronic or 2 minor; add add modifier 95 for video, modifier 93 for phone [facility] [place] 04/06/20[place] Estab. patient 20-29min; 1 stable chronic or 2 minor; add add modifier 95 for video, modifier 93 for phone [facility] 04[place]20[place] Estab. patient 20-29min; 1 stable chronic or 2 minor; add add modifier 95 for video, modifier 93 for phone [facility] 04[place]06/20[place] Estab. patient 20-29min; 1 stable chronic or 2 minor; add add modifier 95 for video, modifier 93 for phone [facility] 04[place]06/20[place] Estab. patient 20-29min; 1 stable chronic or 2 minor; add add modifier 95 for video, modifier 93 for phone [facility] 04/06/20[place] Estab. patient 20-29min; 1 stable chronic or 2 minor; add add modifier 95 for video, modifier 93 for phone [facility] 04/06/2024 Estab. patient 10-29min; 1 minor problem; add add modifier 95 for video, modifier 93 for phone [facility] 05/06/2024 Obstructive sleep apnea (fidelina lt) (pediatric)Chronic obstructive pulmonary disease, unspecifiedOther problems related to medical facilities and other health care Estab. patient 10-29min; 1 minor problem; add add modifier 95 for video, modifier 93 for phone [facility] 06/02/2024 Arthropathy, unspecifiedOthe r problems related to medical facilities and other health care Estab. patient 10-29min; 1 minor problem; add add modifier 95 for video, modifier 93 for phone [facility] ([place] 07/12/2024 Dorsalgia, unspecifiedOther chronic painObstructive sleep apnea (adult) (pediatric)Chronic obstructive pulmonary disease, unspecifiedOther specified disorders of eye and adnexaOther problems related to medical facilities and other health care Estab. patient 10-29min; 1 minor problem; add add modifier 95 for video, modifier 93 for phone [facility] ([place] 08/10/2024 Arthropathy, unspecifiedOthe r problems related to medical facilities and other health care Vital Signs Date of Collection Vitals 2022-01-28 09:20:55 Height - 152.4 cmWei ght - 66.68 kgBody Mass Index (BMI) - 28.71 kg/m2 2022-09-18 11:27:22 Height - 152.4 cmWei ght - 69.4 kgBody Mass Index (BMI) - 29.88 kg/m2 2023-07-10 09:05:03 Weight - 68.04 kgBod y Mass Index (BMI) - 29.29 kg/m2 2024-04-06 14:14:11 Weight - 69.4 kgBody Mass Index (BMI) - 29.88 kg/m2Pain Scale - 0.0 {score} Social History Social History Social History Observation Description Effec tive Time Current Smoking Status Never smoker 2024-07-26 0 Sex Female History of Procedures Procedures Service Procedure code Service date Servicing provider Phone# New patient,40-59min; chronic exacerbation, 2 stable chronic or 1 acute illness add add modifier 95 for video (do not use for phone, instead use [id number]) 19759 2022-01-28 No Data Available No Data Availa ble Medication List Documented (1159F) 1159F 2022-01-28 No Data Available No Data Shelly ilable Medication Review by prescribing provider or pharmacist documented (1160F) 1160F 2022-01-28 No Data Available No Data Shelly ilable Pain Assessment - Pain Documented on a Pain Scale (1125F) 1125F 2022-01-28 No Data Available No Data Shelly ilable Advance Care Directive Advance care planning discussion documented in the medical record (1158F) 1158F 2022-01-28 No Data Available No Data Availa ble BMI obtained (3008F) 3008F 2022-01-28 No Data Availab le No Data Available Estab. patient 30-39min; chronic exacerbation, 2 stable chronic or 1 acute illness add add modifier 95 for video, (do not use for phone, instead use 71361-41) 67424 2022-09-18 No Data Available No Data Availa ble Medication List Documented (1159F) 1159F 2022-09-18 No Data Available No Data Shelly ilable Medication Review by prescribing provider or pharmacist documented (1160F) 1160F 2022-09-18 No Data Available No Data Shelly ilable BMI obtained (3008F) 3008F 2022-09-18 No Data Availab le No Data Available Advance Care Directive Advance care planning discussion documented in the medical record (1158F) 1158F 2022-09-18 No Data Available No Data Availa ble Advance care planning discussed and documented advance care plan or surrogate decision-maker was documented in the medical record. (1123F) 1123F 2022-09-18 No Data Available No Data Availa ble Pain Assessment - Pain Documented on a Pain Scale (1125F) 1125F 2022-09-18 No Data Available No Data Shelly ilable Functional Status Assessed (1170F) 1170F 2022-09-18 No Data Available No Data Avail able Estab. patient 30-39min; chronic exacerbation, 2 stable chronic or 1 acute illness add add modifier 95 for video, (do not use for phone, instead use 23073-22) 72000 2023-07-10 No Data Available No Data Availa ble Medication List Documented (1159F) 1159F 2023-07-10 No Data Available No Data Shelly ilable Medication Review by prescribing provider or pharmacist documented (1160F) 1160F 2023-07-10 No Data Available No Data Shelly ilable BMI obtained (3008F) 3008F 2023-07-10 No Data Availab le No Data Available Advance Care Directive Advance care planning discussion documented in the medical record (1158F) 1158F 2023-07-10 No Data Available No Data Availa ble Advance care planning discussed and documented advance care plan or surrogate decision-maker was documented in the medical record. (1123F) 1123F 2023-07-10 No Data Available No Data Availa ble Pain Assessment - Pain Documented on a Pain Scale (1125F) 1125F 2023-07-10 No Data Available No Data Shelly ilable Functional Status Assessed (1170F) 1170F 2023-07-10 No Data Available No Data Avail able Estab. patient 10-29min; 1 minor problem; add add modifier 95 for video, modifier 93 for phone 23069 2024-03-30 No Data Available No Data Availa ble Estab. patient 20-29min; 1 stable chronic or 2 minor; add add modifier 95 for video, modifier 93 for phone [id number] 2024-04-06 No Data Available No Data Availa ble Medication List Documented (1159F) 1159F 2024-04-06 No Data Available No Data Shelly ilable Medication Review by prescribing provider or pharmacist documented (1160F) 1160F 2024-04-06 No Data Available No Data Shelly ilable Functional Status Assessed (1170F) 1170F 2024-04-06 No Data Available No Data Avail able Advance Care Directive Advance care planning discussion documented in the medical record (1158F) 1158F 2024-04-06 No Data Available No Data Availa ble Advance care planning discussed and documented advance care plan or surrogate decision-maker was documented in the medical record. (1123F) 1123F 2024-04-06 No Data Available No Data Availa ble Pain Assessment - NO pain present (1126F) 1126F 2024-04-06 No Data Available No Data A vailable Estab. patient 10-29min; 1 minor problem; add add modifier 95 for video, modifier 93 for phone [id number] 2024-05-06 No Data Available No Data Availa ble Estab. patient 10-29min; 1 minor problem; add add modifier 95 for video, modifier 93 for phone [id number] 2024-06-02 No Data Available No Data Availa ble Estab. patient 10-29min; 1 minor problem; add add modifier 95 for video, modifier 93 for phone [id number] 2024-07-12 No Data Available No Data Availa ble Estab. patient 10-29min; 1 minor problem; add add modifier 95 for video, modifier 93 for phone [id number] 2024-08-10 No Data Available No Data Availa ble Functional Status Functional Category Effective Dates ADL: Bathing: Needs assistan ceDressing: Needs assistanceEating: IndependentAmbulation: Needs assistanceTransferring: Needs assistanceToileting: Needs assistanceIADL: Medication: Needs AssistanceMeal Prep: Needs AssistanceShopping: Needs AssistanceHousekeeping: Needs AssistanceFalls in last 6 Months: No 2022-09-18 DME: Walker, Cane. Shower Chair, Wheelch air 2024-04-06 Mental Status Status Date Cognition Status: Mild Dementia Assessments Date of Service Assessments 2022-01-28 09:20:55 COPD (chronic obstru ctive pulmonary disease)MDD (major depressive disorder), recurrent episode, mildHyperlipidemiaURI (upper respiratory infection) 2022-09-18 11:27:22 COPD (chronic obstru ctive pulmonary disease)MDD (major depressive disorder), recurrent episode, mildHyperlipidemiaURI (upper respiratory infection)Chronic upper back painHx of left knee surgeryPeripheral nervous system or special sense stimulat response abnormal 2023-07-10 09:05:03 MDD (major depressiv e disorder), recurrent episode, mildOther problems related to medical facilities and other health careHyperlipidemiaChronic upper back painHx of left knee surgeryPeripheral nervous system or special sense stimulat response abnormalAlzheimer's dementiaCOPD with Obstructive sleep apnea 2024-03-30 12:55:34 Chronic upper back p ainHx of left knee surgeryOther problems related to medical facilities and other health care 2024-04-06 14:14:11 Mild dementiaCOPD wi th Obstructive sleep apneaMDD (major depressive disorder), recurrent episode, moderateHyperlipidemiaChronic upper back painPeripheral nervous system or special sense stimulat response abnormalOther problems related to medical facilities and other health care 2024-05-06 07:35:31 Other problems relat ed to medical facilities and other health careCOPD with Obstructive sleep apnea 2024-06-02 11:47:20 Other problems relat ed to medical facilities and other health careArthritis, multiple joint involvementOther problems related to medical facilities and other health care 2024-07-12 12:59:24 Chronic upper back p ainCOPD with Obstructive sleep apneaEye irritationOther problems related to medical facilities and other health care 2024-08-10 14:04:19 Arthritis, multiple joint involvementOther problems related to medical facilities and other health care Plan of Care Date of Service Plans 2022-01-28 09:20:55 Medication Review by prescribing provider or pharmacist documented (1160F)Medication List Documented (1159F)Functional Status Assessed (1170F)Advance Care Directive Advance care planning discussion documented in the medical record (1158F)BMI obtained (3008F)sbdbTelevideo new patient,40-59min; chronic exacerbation, 2 stable chronic or 1 acute illness add modifier 95Pain Assessment - Pain Documented (1125F)Continue to see PCP. [facility] or disease education needs that may arise.not currently on medicationson duloxetine and trazodonestable, no recent episodeson lovastatinnasal congestion, cough x 12 days states she is feeling better, cough has improved and nasal congestions has decreasedwarm salt water garglesflonase as indicated 2022-09-18 11:27:22 Medication Review by prescribing provider or pharmacist documented (1160F)Medication List Documented (1159F)Functional Status Assessed (1170F)Advance Care Directive Advance care planning discussion documented in the medical record (1158F)BMI obtained (3008F)Televideo 30-39min; chronic exacerbation, 2 stable chronic or 1 acute illness add modifier 95Advance care planning discussed and documented advance care plan or surrogate decision-maker was documented in the medical record. (1123F)Pain Assessment - Pain Documented (1125F)Continue to see PCP. Follow-up with [facility] as needed for any acute or disease education needs that may arise.not currently on medicationson duloxetine and trazodonestable, no recent episodeson lovastatinnasal congestion, cough x 12 days states she is feeling better, cough has improved and nasal congestions has decreasedwarm salt water garglesflonase as indicatedx many yearsOn left side,has not found relief save for heatHeat [id number] hip and leg painHas peripheral nerve stimulation deviceput in on September 03 and will be removes 2023-07-10 09:05:03 Medication Review by prescribing provider or pharmacist documented (1160F)Medication List Documented (1159F)Functional Status Assessed (1170F)Advance Care Directive Advance care planning discussion documented in the medical record (1158F)BMI obtained (3008F)Televideo 30-39min; chronic exacerbation, 2 stable chronic or 1 acute illness add modifier 95Pain Assessment - Pain Documented (1125F)Advance care planning discussed and documented advance care plan or surrogate decision-maker was documented in the medical record. (1123F)Continue to see PCP. Follow-up with [facility] as needed for any acute or disease education needs that may arise.on duloxetine and trazodonestable, no recent episodesPHQ-4= 0When member to call: 1. If bp is elevated sbp>150; dbp>90 or symptomatic-h/a, dizziness, cp, sob. 2. if there is a fall 3. if BS >300 or BS<90 or symptomatic; i.e., dizzy, off balance , shaky, general weakness. 4. if UTI symptoms arise-urinary frequency, dysuria, low abd pain. 5. if pain in knees increases/ or joint pain increased Please remember to call CBContinue to see PCP. Follow-up with [facility] as needed for any acute or disease education needs that may arise 15/09.what should be done when the member calls: see each individual diagnosis for contingency planon lovastatinx many yearsOn left side,has not found relief save for heatHeat patches, diclofenac gel, methocarbamol07/10/23: Will start PT on [id number] to experience constant knee pain, she will f/u with pain clinic after PT sessions are completedTaking gabapentinRight hip and leg painHas peripheral nerve stimulation devicetaking celecoxibSees neurologistreports forgetfulness at times, she lives alone with good memory function per patient.COPD documented on note dated 01/28/22. wears CPAP machine every night she reports its due to her snoring 2024-03-30 12:55:34 Estab. patient 10-29 min; 1 minor problem; add add modifier 95 for video, modifier 93 for phoneContinue to see PCP. [facility] or disease education needs that may arise 15/09.x many yearsOn left side,has not found relief save for heatHeat patches, diclofenac gel, methocarbamol07/10/23: Will start PT on Thursday03/30/24: Pt reports ongoing pain with some relief from current regimen. Refill for diclofenac gel Contin to experience constant knee pain, she will f/u with pain clinic after PT sessions are completed03/30/24: Reports she was told that it will take time for increase relief.When member to call: 1. If bp is elevated sbp>150; dbp>90 or symptomatic-h/a, dizziness, cp, sob. 2. if there is a fall 3. if BS >300 or BS<90 or symptomatic; i.e., dizzy, off balance , shaky, general weakness. 4. if UTI symptoms arise-urinary frequency, dysuria, low abd pain. 5. if pain in knees increases/ or joint pain increased Please remember to call CB 2024-04-06 14:14:11 Functional Status As sessed (1170F)Advance Care Directive Advance care planning discussion documented in the medical record (1158F)Advance care planning discussed and documented advance care plan or surrogate decision-maker was documented in the medical record. (1123F)Estab. patient 20-29min; 1 stable chronic or 2 minor; add add modifier 95 for video, modifier 93 for phoneMedication List Documented (1159F)Medication Review by prescribing provider or pharmacist documented (1160F)BMI obtained (3008F)Pain Assessment - NO pain present (1126F)Continue to see PCP. Follow-up with [facility] as needed for any acute or disease education needs that may arise.Not currently taking medications. Continue to follow up with Neurologist.COPD documented on note dated 01/28/22. 'Not currently taking medications or MDIs.Avoid allergens and triggers. Continue to follow up with PCP.RX: Duloxetine, TrazodoneContinue to follow up with PCP.RX: Rosuvastatin Heart healthy diet. Continue to follow up with PCP.RX: Tylenol, Diclofenac Gel, CelecoxidContinue to follow up with PCP.Taking GabapentinRight hip and leg painHas peripheral nerve stimulation deviceFALL CONTINGENCY PLANMember to call for the following symptoms: Fall / Pre-syncope/ Vertigo/ WeaknessPlanned intervention: Encourage extra fluid intake / Assess for change in mental status and provide reassurance if none (patient's Baseline is _) / Review importance of sitting for two to three minutes prior to standing after laying downAt least 50% of time spent counseling patient, discussing diagnosis, treatment plan, compliance, and coordinating follow up care. 2024-05-06 07:35:31 Estab. patient 10-29 min; 1 minor problem; add add modifier 95 for video, modifier 93 for phoneContinue to see PCP. Follow-up with [facility] as needed for any acute or disease education needs that may arise 15/09.FALL CONTINGENCY PLANMember to call for the following symptoms: Fall / Pre-syncope/ Vertigo/ WeaknessPlanned intervention: Encourage extra fluid intake / Assess for change in mental status and provide reassurance if none (patient's Baseline is _) / Review importance of sitting for two to three minutes prior to standing after laying downCOPD documented on note dated 01/28/22. 'Not currently taking medications or MDIs.Avoid allergens and triggers. Continue to follow up with PCP. 05/06/24: She reports tolerating bipap machine. She was inquiring on a replacement masks. I instructed her to call the [employer] that provided the equipment and to call with any concerns. 2024-06-02 11:47:20 Estab. patient 10-29 min; 1 minor problem; add add modifier 95 for video, modifier 93 for phoneContinue to see PCP. Follow-up with [facility] as needed for any acute or disease education needs that may arise 15/09.Add Contingency PlanTaking Tylenol, Celecoxib, Diclofenac GelReports intermittent pain, denies use of assistive device during ambulation. She continues to exercise as toleratedFALL CONTINGENCY PLANMember to call for the following symptoms: Fall / Pre-syncope/ Vertigo/ WeaknessPlanned intervention: Encourage extra fluid intake / Assess for change in mental status and provide reassurance if none (patient's Baseline is _) / Review importance of sitting for two to three minutes prior to standing after laying down 2024-07-12 12:59:24 Estab. patient 10-29 min; 1 minor problem; add add modifier 95 for video, modifier 93 for phoneContinue to see PCP. [facility] or disease education needs that may arise 15/09.RX: Tylenol, Diclofenac Gel, CelecoxidContinue to follow up with PCP.COPD documented on note dated 01/28/22. 'Not currently taking medications or MDIs.Avoid allergens and triggers. Continue to follow up with PCP. 05/06/24: She reports tolerating bipap machine. She was inquiring on a replacement masks. I instructed her to call the [employer] that provided the equipment and to call with any concerns.07/12/24: Denies dyspnea, uses bipap with good effectReports chronic eyes irritationUses opth erythromycin, denies effectiveness with tears solutionFALL CONTINGENCY PLANMember to call for the following symptoms: Fall / Pre-syncope/ Vertigo/ WeaknessPlanned intervention: Encourage extra fluid intake / Assess for change in mental status and provide reassurance if none (patient's Baseline is a/o x3) / Review importance of sitting for two to three minutes prior to standing after laying downPAIN CONTINGENCY PLANLast updated: 07/12/2024[facility] the following symptoms: Fall / Increased pain/ Joint swelling/ StiffnessPlanned intervention: Tylenol 1,000mg q6h/ Ibuprofen 400mg q6h/ Lidoderm patch 4% to affected area/ Prednisone 50mg daily for 5 days/ Apply heat to affected area/ Apply ice to affected area 2024-08-10 14:04:19 Estab. patient 10-29 min; 1 minor problem; add add modifier 95 for video, modifier 93 for phoneContinue to see PCP. Follow-up with [facility] as needed for any acute or disease education needs that may arise 15/09.Taking Tylenol, Celecoxib, Diclofenac GelReports intermittent pain, denies use of assistive device during ambulation. She continues to exercise as tolerated08/10/24: Reports R knee pain from surgery 3 years ago, has PCP appt next week who will refer to a specialist for follow upFALL CONTINGENCY PLANMember to call for the following symptoms: Fall / Pre-syncope/ Vertigo/ WeaknessPlanned intervention: Encourage extra fluid intake / Assess for change in mental status and provide reassurance if none (patient's Baseline is a/o x3) / Review importance of sitting for two to three minutes prior to standing after laying downPAIN CONTINGENCY PLANLast updated: 07/12/2024[facility] to call for the following symptoms: Fall / Increased pain/ Joint swelling/ StiffnessPlanned intervention: Tylenol 1,000mg q6h/ Ibuprofen 400mg q6h/ Lidoderm patch 4% to affected area/ Prednisone 50mg daily for 5 days/ Apply heat to affected area/ Apply ice to affected area Goals Date Goal 2022-01-28 Remember to take med ications as prescribed 2022-01-28 Call me if you feel ill have any questions or concerns 2022-01-28 Keep it up performin g adls safely and independently 2022-01-28 aware to not take mo re than one NSAID medication, recently sent celebrex aware to not take aprosen and diclofenac all same class of medications 2024-04-06 Continue taking medi cations as directed and keep all follow up appointments with established PCP and Specialist. Health Concerns Date Concern 2024-08-10 Patient/Guardian agr eed to visit via telehealth.Visit completed via: [ ] audio and video; [x] audio only 2024-08-10 Concerns for today's visit:No acute concerns or needs 2024-08-10 Most recent hospital stay or ER visit:No ER visits or hospitalizations documented in [facility] in 90 days. Member denies ER visits or hospitalizations in last 90 days. 2024-08-10 Open HEDIS Measures: No open measures
--- OUTSIDE RECORDS SUMMARY | 2024-08-22 14:44 | XMS_ITS | Patient Health Record ---
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 Frame Builder Name Role Phone SHIVANI GREEN Primary Care Provider Rufus Fernandez Jr Unavailable Allergies No Known Allergies Reason For Referral No Information Medications Medication SIG (Take, Route, Frequency, Duration) [...] AL D A Ophthalmic for 30 Active Immunizations Vaccine Route Administration Date Status Comme nts Influenza Unknown 12/10/2021 Administered Social History Tobacco Use: Social History Observation Description Date Details (start date - stop date) Never Smoker NA - NA Tobacco Use/Smoking Question Answer Notes Patient is a nonsmoker Alcohol Screen Question Answer Notes Did you have a drink containing alcohol in the p ast year? No Points 0 Interpretation Negative Problems Problem Type SNOMED Code ICD Code Onset Dates Problem Status W/U Status Risk Notes Problem 511814967 Bloating (R14.0) Active confirmed Problem 934443059 Generalized abdominal pain (R10.84) Active confirmed Problem 145887850 Gastroesophageal reflux disease without esophagitis (K21.9) Active confirmed Vital Signs Blood pressure diastolic 00 mm Hg 11/12/2023 Height 60 in 11/12/2023 Blood pressure systolic 00 mm Hg 11/12/2023 Weight 158 lbs 11/12/2023 BMI 30.85 kg/m2 11/12/2023 Encounters Encounter Location Date Provider Diagnosis [facility] [address] [place] [phone] 11/12/2023 Rufus Dover Jr Generalized abdominal pain R10.84 and Bloating R14.0 Assessments Encounter Date Diagnosis (ICD Code) Assessment Notes Treatment Notes Treatment Clinical Notes Section Notes 11/12/2023 Bloating (ICD-10 - R14.0) At this time, she is doing well. We discussed diet, lifestyle modifications, and weight management regarding the treatment of reflux. She will continue her present regimen. Followup will be in one year. She is up-to-date on colon cancer screening. Her bloating has resolved. 11/12/2023 Generalized abdominal pain (ICD-10 - R10.84) Abdominal MRI scan material was printed At this time, she is doing well. We discussed diet, lifestyle modifications, and weight management regarding the treatment of reflux. She will continue her present regimen. Followup will be in one year. She is up-to-date on colon cancer screening. Her bloating has resolved. Plan Of Treatment Pending Test Test Name Order Date LIVER PROFILE 06/30/2022 LIPASE 06/30/2022 CBC w/o DIFF 06/30/2022 IgA 06/30/2022 TRANSGLUTAMINASE AB IGA 06/30/2022 Next Appt Details Provider Name:Rufus minor Jr, 11/17/2024 01:35:00 PM, [address] [place] [address] Drive, [address], [place], [address], Insurance Providers Payer Name Payer Address Payer Phone Subscriber Number Group Number Insured Name Patient Relationship to Insured Coverage Start Date Coverage End Date [facility] [address] [address] [place] [phone] [id number] JILL WU Self - patient is the insured MEDICARE OF [place] [address] [place], [place] [id number] [phone] [id number] JILL WU Self - patient is the insured Medical (General) History Medical History History ICD Code Osteoarthritis Depression Insomnia Elevated cholesterol Migraine headaches Osteoporosis Obstructive sleep apnea HSV infection Surgical History Surgery Date(Month/Year) Back surgery Hysterectomy Appendectomy Cataract surgery Left total knee replacement right knee replacement
--- OUTSIDE RECORDS SUMMARY | 2024-08-22 14:44 | XMS_ITS | Clinical Summary ---
Author Organization [facility] Address [address] [place] [address] Phone Care Team Providers Care Hotel Baggage Handler Name Role Phone Gerard Bradley DO Primary Care Provider [phone] Social History Tobacco Use Types Packs/Day Years Used Date Smoking Tobacco: Never Assessed Comments No Sex and Gender Information Value Date Recorded Sex Assigned at Not on file Legal Sex Female 5:00 AM EST Gender Identity Not on file Sexual Orientation Not on file Obstetrics History Para Term AB IAB SAB Ectopic Multiple Livin g Live Births 3 Last Filed Vital Signs Vital Sign Reading Time Taken Comments Blood Pressure - - Pulse - - Temperature - - Respiratory Rate - - Oxygen Saturation - - Inhaled Oxygen Concentration - - Weight 71.2 kg (157 lb) 01/13/2024 2:03 PM EST Height 149.9 cm (4' 11 ) 01/13/2024 2:03 PM EST Body Mass Index 31.71 01/13/2024 2:03 PM EST Plan of Treatment Upcoming Encounters Date Type Department Care Team (Late st Contact Info) Description 11/17/2024 1:30 PM EDT Office Visit [facility] [address] [phone] Aroldo Purcell MD [address] [address] 11/17/2024 3:00 PM EDT Office Visit [facility] [address] [phone] Aroldo Purcell MD [address] [place] [address] [address] [place] [address] Health Maintenance Due Date Last Done Comments DTaP,Tdap,and Td Vaccines (1 - Tdap) 1964 Zoster Vaccines (1 of 2) 1995 RSV Immunization Adult Patients (1 - 1-dose 75+ series) 2020 COVID-19 Vaccine ( season) 2024 12/28/2023, 07/15/2021, 01/14/2021, Additional history exists Cholesterol Screening (Lipid Panel) 07/24/2024 Depression Screening 07/24/2024 Falls Risk Assessment 07/24/2024 Hepatitis C Screening 07/24/2024 Medicare Annual Wellness Visit 07/24/2024 Osteoporosis Screening (Bone Density Screening) 07/24/2024 Social Influencers of Health Screening 07/24/2024 Pneumococcal Vaccine: 50+ Years Completed 11/13/2021, 01/09/2016 Influenza Vaccine Completed 12/22/2023, , 11/13/2021, Additional history exists HIB Vaccines Aged Out No longer eligi ble based on patient's age to complete this topic HPV Vaccines Aged Out No longer eligi ble based on patient's age to complete this topic Hepatitis A Vaccines Aged Out No long er eligible based on patient's age to complete this topic Hepatitis B Vaccines Aged Out No long er eligible based on patient's age to complete this topic IPV Vaccines Aged Out No longer eligi ble based on patient's age to complete this topic MMR Vaccines Aged Out No longer eligi ble based on patient's age to complete this topic Meningococcal ACWY Vaccine Aged Out N o longer eligible based on patient's age to complete this topic Meningococcal B Vaccine Aged Out No l onger eligible based on patient's age to complete this topic RSV Immunization Patients Under 20 months Aged Out No longer eligible based on patient's age to complete this topic Varicella Vaccines Aged Out No longer eligible based on patient's age to complete this topic Insurance [employer] MEDICARE MEDICAID - [place] [employer] MEDICARE Care Teams Hotel Baggage Handler Relationship Specialty Start Date End Date Gerard Bradley DO [address] [place] [id number] PCP - General Internal Medicine 01/12/24
--- OUTSIDE RECORDS SUMMARY | 2024-08-22 14:44 | XMS_ITS | Data Portability ---
Author Organization [place] - [facility]-IP Address [address] [place] [address] Care Team Providers Care Quality Engineer Medical Device Name Role Phone AMY KEATING Primary Care Provider Assessment Encounter Date Assessment Date Assessment LastModified by Organization Details LastModified Time 05/21/2017 05/21/2017 audio wnl.. sx are consistent with BPPV. however this pt is drowsy, an inconsistent historian with a depressed affect. a neuro consult would be appropriate if her PCP feels there has been some change that would suggest a net solutions architect problem. I have asked her to stop the meclizine which can cause many side effects exp in the elderly. we will send her for vestibular PT and see her in a month wwatt Not available 05/21/2017 16:48:12 Plan of Treatment Reminders Order Date Submit Date Provider Last Modified By Organization Details Last Modified Time Details Appointments None record ed. Lab None record ed. Referral None record ed. Procedures None record ed. Surgeries None record ed. Imaging None record ed. Medication Orders None record ed. Patient TargetsNo targets recorded. Patient Instructions Encounter Date Encounter Id Patient Instructions Last Modified By Organization Details Last Modified Time 05/21/2017 [id number] V rtigo posicional parox stico nnamdi: Instrucciones de cuidado - [Benign Paroxysmal Positional Vertigo (BPPV): Care Instructions] wwatt Not available 05/21/2017 16:50:43 Reason for Referral None Reported. Medical Equipment None Reported. Allergies No known drug allergies Medications Name Sig Start Date Stop Date Status Note LastModified by Organization Details LastModified Time duloxetine hcl 20 mg cpep active Not Available Not Available Not Available meclizine hcl 25 mg tabs active Not Available Not Available Not Available mapap 500 mg tabs active Not Available Not Available Not Available metronidazol e 500 mg tabs active Not Available Not Available Not Available gabapentin 100 mg caps active Not Available Not Available Not Available naproxen 500 mg tabs active Not Available Not Available Not Available tizanidine hcl 2 mg tabs active Not Available Not Available Not Available refresh opti miriam 0.5-0.9% active Not Available Not Available Not Available nystatin 391894 unit/gm crea active Not Available Not Available Not Available nitrofuranto in monohydrate/ macrocrystal s 100 mg caps active Not Available Not Available Not Available bengay cre greasles active Not Available Not Available Not Available cromolyn sodium 4 % soln active Not Available Not Available Not Available lovastatin 20 mg tabs active Not Available Not Available N ot Available calcium/d tab 600-400 active Not Available Not Available Not Available azopt 1 % susp active Not Available Not Available Not Available lidocaine 5 % oint active Not Available Not Available Not Available trazodone hcl 50 mg tabs active Not Available Not Available Not Available daily-genevieve tab active Not Available Not Available Not Available restasis 0.05 % emul active Not Available Not Available Not Available alendronate sodium 70 mg tabs active Not Available Not Available Not Available paroxetine hcl 20 mg tabs active Not Available Not Available Not Available paroxetine hcl 10 mg tabs active Not Available Not Available Not Available valacyclovir hcl 1 gm tabs active Not Available Not Available Not Available Mapap Extra Strength 500 mg tablet TK 2 TS PO TID PRF PAIN active Not Available Not Available No t Available paroxetine 10 mg tablet TK 1 T PO D active Not Available Not Avail able Not Available tizanidine 2 mg tablet TK 1 T PO BID FOR 30 DAYS active Not Available Not Available No t Available trazodone 50 mg tablet TK 1 T PO QHS active Not Available Not Available No t Available valacyclovir 1 gram tablet TK 1 T PO ONCE A DAY active Not Available Not Available N ot Available alendronate 70 mg tablet TK 1 T PO Q WEEK WITH WATER 30 MIUNTES BEFORE FIRST FOOD OR DRINK IN THE MORNING THEN AVOID LAYING DOWN FOR 30 MINUTES active Not Available Not Available No t Available cromolyn 4 % eye drops INT ONE GTT IN OU BID active Not Available Not Available No t Available metronidazol e 500 mg tablet TK 1 T PO BID active Not Available Not Available No t Available Azopt 1 % eye drops,suspen padmini INSTILL 1 GTT IN EACH EYE BID active Not Available Not Available No t Available Bengay Greaseless 15 %-10 % topical cream NELDA TO BACK PRN active Not Available Not Available No t Available meclizine 25 mg tablet TK 1 T PO Q 8 H PRN active Not Available Not Available No t Available paroxetine 20 mg tablet TK 1 T PO D active Not Available Not Avail able Not Available nystatin 100,000 unit/gram topical cream NELDA EXT AA TID active Not Available Not Available No t Available gabapentin 100 mg capsule TK 2 C PO TID FOR 30 DAYS active Not Available Not Available No t Available ergocalcifer ol (vitamin D2) 1,250 mcg (50,000 unit) capsule TK 1 C PO WEEKLY FOR 8 WKS active Not Available Not Available No t Available lovastatin 20 mg tablet TK 1 T PO QHS FOR CHOLESTEROL active Not Available Not Available Not Available naproxen 500 mg tablet TK 1 T PO BID PRF PAIN active Not Available Not Available No t Available Daily-Genevieve tablet TK 1 T PO D active Not Available Not Available Not Available Restasis 0.05 % eye drops in a dropperette INSTILL 1 GTT IN EACH EYE BID active Not Available Not Available No t Available nitrofuranto in monohydrate/ macrocrystal s 100 mg capsule TK 1 C PO BID FOR 7 DAYS active Not Available Not Available No t Available duloxetine 20 mg capsule,jonathan yed release TK 1 C PO BID active Not Available Not Available No t Available calcium 600 mg (as carbonate)-v itamin D3 10 mcg (400 unit) tablet TK 1 T PO BID active Not Available Not Available No t Available Refresh Optive 0.5 %-0.9 % eye drops INSTILL 1 GTT IN EACH EYE Q 4 H active Not Available Not Available No t Available lidocaine 5 % topical ointment NELDA EXT AA TID active Not Available Not Available No t Available Vitals None Recorded Social History Question Answer Notes LastModified by Organizat ion Details LastModified Time Tobacco Smoking Status Never Smoker Rachel schmitt [place] - [facility] 05/21/2017 15:11:47 What Is Your Level Of Caffeine Consumption? None Information not available 05/21/2017 What Was The Date Of Your Most Recent Tobacco Screening? 05/21/2017 Information n ot available 09/17/2018 How Much Tobacco Do You Smoke? No Information not available 05/21/2017 Sex: Unknown Functional Status Question Answer Note LastModified by Organization D etails LastModified Time What is your level of alcohol consumption? None Information not available 05/21/2017 Mental Status None recorded. Family History Nothing Reported. Medical History Condition Response Allergies/Hayfever N Acid reflux (GERD) N Heart Conditions N Liver Disease/Jaundice N Emphysema N Migraines N Thyroid Problems N Glaucoma Y Depression N HIV/Sexually Transmitted Disease N Anemia N Heart Attack (CA) N N Diabetes N Bleeding Disorder N Hearing Loss N Arthritis N Cancer N Stroke N Asthma N Sleep Disorder N Hypertension N Speech Delay N Kidney Disease N Gynecological HistoryNo gynecological history recorded. Obstetrics History GPAL:G 0 P 0 0 0 0 Past Encounters Encounter ID Performer Location Encounter Start Date Encounter Closed Date Diagnosis/Indication Diagnosis SNOMED-CT Code Diagnosis ICD10 Code Diagnosis Note [id number] Valerio Bronson MD Main Office [address] [place] [phone] 05/21/2017 15:07:05 05/21/2017 16:39:35 Benign paroxysmal positional vertigo 855992688 H81.11 Health Concerns Section Related Observation LastModified by Organization Detai ls LastModified Time None Recorded Concern Status LastModified by Organization Details LastModified Time None Recorded Advance Directives Directive None Recorded Payers Insurance Date Sequence Insurance Name Policy Number Policy Giraldo Covered Member ID Giraldo Member ID Guarantor Name 04/28/2017 1 [place] [employer] Tita Ingram [id number] Tita Cruz 08/17/2017 1 [facility] (MEDICAID HMO) Tita Cruz [id number] Tita Abarcaua 04/28/2017 1 [place] [facility] Tita Ingram [id number] Tita Cruz Notes Date Note Type Note Provider Name and Address Organization Details Recorded Time 05/21/2017 text/html about a year of dizziness which is mainly postional , occurring adriana when walking and turning. she has not noted sx when in bed and she is ok sitting unless she turns her head quickly. it sounds like sx have worsened for the past 4 months. [id number] she is depressed. her aide is not aware of cognitive issues. Valerio schmitt MA - [facility] 05/21/2017 16:50:59 OBGyn Episode No OBEpisode recorded.
== END 2024-08-22 14:27 | disposition home or self-care (01) ==
PROVIDERS: PCP Internal Medicine; Visit Provider Nurse Practitioner Family
DX: M47.816 Spondylosis without myelopathy or radiculopathy, lumbar region (principal); M25.561 Pain in right knee; M25.562 Pain in left knee; G89.29 Other chronic pain; Z96.653 Presence of artificial knee joint, bilateral; M54.2 Cervicalgia
CPT/HCPCS: 99214; G2211

== ENCOUNTER → 2024-08-22 14:09 | Outpatient (BNVA) | payer OTHER, SELFPAY | PROVIDERS: PCP Internal Medicine; Visit Provider Nurse Practitioner Family | DX: M25.562 Pain in left knee (principal); M47.816 Spondylosis without myelopathy or radiculopathy, lumbar region; G89.29 Other chronic pain; Z96.653 Presence of artificial knee joint, bilateral; Z79.899 Other long term (current) drug therapy | CPT/HCPCS: 99212 ==

== ENCOUNTER 2024-09-22 06:28 | Outpatient (REF) | payer OTHER, SELFPAY ==
--- OUTSIDE RECORDS SUMMARY | 2024-09-22 06:30 | XMS_ITS | Patient Health Record ---
Author Organization [facility] Address [address] [place] [address] Care Team Providers Care Rand Tacker Name Role Phone SHIVANI GREEN Primary Care Provider Rufus Fernandez Jr Unavailable [phone] Allergies No Known Allergies Reason For Referral [...] Problem Status W/U Status Risk Notes Problem [id number] Bloating (R14.0) Active confirmed Problem 279864899 Generalized abdominal pain (R10.84) Active confirmed Problem 307519887 Gastroesophageal reflux disease without esophagitis (K21.9) Active confirmed Vital Signs Blood pressure diastolic 00 mm Hg 11/12/2023 Height 60 in 11/12/2023 Blood pressure systolic 00 mm Hg 11/12/2023 Weight 158 lbs 11/12/2023 BMI 30.85 kg/m2 11/12/2023 Encounters Encounter Location Date Provider Diagnosis [facility] [address] [place] [phone] 11/12/2023 Rufus Dover Jr Generalized abdominal pain [...] Next Appt Details Provider Name:Rufus minor Jr, 10/10/2024 11:20:00 AM, [address], [address], [place], [address], Insurance Providers Payer Name Payer Address Payer Phone Subscriber Number Group Number Insured Name Patient Relationship to Insured Coverage Start Date Coverage End Date [facility] [address] [address] [place] [address] [phone] [id number] JILL WU Self - patient is the insured MEDICARE OF [place] [address] [place], [place] [id number] JILL WU Self - patient is the insured Medical (General) History Medical History History ICD Code Osteoarthritis Depression Insomnia Elevated cholesterol Migraine headaches Osteoporosis Obstructive sleep apnea HSV infection Surgical History Surgery Date(Month/Year) Back surgery Hysterectomy Appendectomy Cataract surgery Left total knee replacement right knee replacement
--- OUTSIDE RECORDS SUMMARY | 2024-09-22 06:30 | XMS_ITS | Patient Health Record ---
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) Active confirmed Problem 057722642754073 Pain in toe of left foot (M79.675) Active confirmed Problem 206612408 Cramps, extremit y (R25.2) Active confirmed Plan Of Treatment No Information Insurance Providers Payer Name Payer Address Payer Phone Subscriber Number Group Number Insured Name Patient Relationship to Insured Coverage Start Date Coverage End Date [facility] [address] [address] [place] [phone] [id number] Tita Foreman Self - patient is the insured [facility] [address] [place] [address] [phone] [id number] Tita Foreman Self - patient is the insured Medical (General) History Medical History History ICD Code Osteoporosis HLD Anxiety/Depression Chronic Back Pain Genital Herpes Surgical History Surgery Date(Month/Year) Hysterectomy Appendectomy
--- OUTSIDE RECORDS SUMMARY | 2024-09-22 06:30 | XMS_ITS ---
Author Name Saunders FRACISCORenetta Address [address] [place] [address] Phone [phone] [facility] Care Team Providers Care Blacking Wheel Tender Name Role Phone Renetta Saunders Unavailable [phone] [facility] Unavailable Reason for Referral Not Available Allergies, adverse [...] (do not use for phone, instead use 62619-75) [facility] Chronic obstructive pulmonar y disease, unspecifiedMajor depressive disorder, recurrent, mildHyperlipidemia, unspecifiedAcute upper respiratory infection, unspecified New patient,40-59min; chronic exacerbation, 2 stable chronic or 1 acute illness add add modifier 95 for video (do not use for phone, instead use 12287-28) [facility] New patient,40-59min; chronic exacerbation, 2 stable chronic or 1 acute illness add add modifier 95 for video (do not use for phone, instead use 17792-65) [facility] [place] New patient,40-59min; chronic exacerbation, 2 stable chronic or 1 acute illness add add modifier 95 for video (do not use for phone, instead use 55112-57) [facility] [place] New patient,40-59min; chronic exacerbation, 2 stable chronic or 1 acute illness add add modifier 95 for video (do not use for phone, instead use 70042-11) [facility] [place]/2022 New patient,40-59min; chronic exacerbation, 2 stable chronic or 1 acute illness add add modifier 95 for video (do not use for phone, instead use 10847-94) [facility] [place] 01/[place]/2022 Estab. patient 30-39min; chronic exacerbation, 2 stable chronic or 1 acute illness add add modifier 95 for video, (do not use for phone, instead use 46803-79) [facility] [place] 09/18/2022 Chronic obstructive pulmonar y disease, unspecifiedMajor depressive disorder, recurrent, mildHyperlipidemia, unspecifiedAcute upper respiratory infection, unspecifiedDorsalgia, unspecifiedOther chronic painOther specified postprocedural statesAbnormal response to nerve stimulation, unspecified Estab. patient 30-39min; chronic exacerbation, 2 stable chronic or 1 acute illness add add modifier 95 for video, (do not use for phone, instead use 45944-83) [facility] [place] 09[place]18[place]20[place] Estab. patient 30-39min; chronic exacerbation, 2 stable chronic or 1 acute illness add add modifier 95 for video, (do not use for phone, instead use 55635-08) [facility] [place] 09[place]18/20[place] Estab. patient 30-39min; chronic exacerbation, 2 stable chronic or 1 acute illness add add modifier 95 for video, (do not use for phone, instead use 44283-80) [facility] [place] 09[place]18/2022 Estab. patient 30-39min; chronic exacerbation, 2 stable chronic or 1 acute illness add add modifier 95 for video, (do not use for phone, instead use 73206-28) [facility] [place] 09[place]18/20[place] Estab. patient 30-39min; chronic exacerbation, 2 stable chronic or 1 acute illness add add modifier 95 for video, (do not use for phone, instead use 28669-66) [facility] [place] 09[place]18/2022 Estab. patient 30-39min; chronic exacerbation, 2 stable chronic or 1 acute illness add add modifier 95 for video, (do not use for phone, instead use 77195-83) [facility] [place] 09[place]18/2022 Estab. patient 30-39min; chronic exacerbation, 2 stable chronic or 1 acute illness add add modifier 95 for video, (do not use for phone, instead use 91805-11) [facility] [place] 09/18/2022 Estab. patient 30-39min; chronic exacerbation, 2 stable chronic or 1 acute illness add add modifier 95 for video, (do not use for phone, instead use 03255-72) [facility] [place] 07[place]10/2023 Major depressive disorder, recurrent, mildHyperlipidemia, [...] (do not use for phone, instead use 88557-72) [facility] [place] 07[place]10/2023 Estab. patient 30-39min; chronic exacerbation, 2 stable chronic or 1 acute illness add add modifier 95 for video, (do not use for phone, instead use 56813-14) [facility] [place] 07/10/2023 Estab. patient 30-39min; chronic exacerbation, 2 stable chronic or 1 acute illness add add modifier 95 for video, (do not use for phone, instead use 86345-13) [facility] [place] 07/10/2023 Estab. patient 30-39min; chronic exacerbation, 2 stable chronic or 1 acute illness add add modifier 95 for video, (do not use for phone, instead use 05517-44) [facility] [place] 07/10/2023 Estab. patient 30-39min; chronic exacerbation, 2 stable chronic or 1 acute illness add add modifier 95 for video, (do not use for phone, instead use 37618-06) [facility] [place] 07/10/2023 Estab. patient 30-39min; chronic exacerbation, 2 stable chronic or 1 acute illness add add modifier 95 for video, (do not use for phone, instead use 56276-58) [facility] [place] 07/10/2023 Estab. patient 30-39min; chronic exacerbation, 2 stable chronic or 1 acute illness add add modifier 95 for video, (do not use for phone, instead use 56213-73) [facility] [place] 07/10/2023 Estab. patient 10-29min; 1 minor problem; add add modifier 95 for video, modifier 93 for phone [facility] ([place] 03/30/2024 Dorsalgia, unspecifiedOther chronic painOther specified postprocedural statesOther problems related to medical facilities and other health care Estab. patient 20-29min; 1 stable chronic or 2 minor; add add modifier 95 for video, modifier 93 for phone [facility] [place] 04/06/2024 Unspecified dementia, mild, without behavioral disturbance, psychotic disturbance, mood disturbance, and anxietyObstructive sleep apnea (adult) (pediatric)Chronic obstructive pulmonary disease, unspecifiedMajor depressive disorder, recurrent, moderateHyperlipidemia, unspecifiedDorsalgia, unspecifiedOther chronic painAbnormal response to nerve stimulation, unspecifiedOther problems related to medical facilities and other health care Estab. patient 20-29min; 1 stable chronic or 2 minor; add add modifier 95 for video, modifier 93 for phone [facility] [place] 04/06/2024 Estab. patient 20-29min; 1 stable chronic [...] tive Time Current Smoking Status Never smoker 2024-08-25 1 Sex Female History of Procedures Procedures Service Procedure code Service date Servicing provider Phone# New patient,40-59min; chronic exacerbation, 2 stable chronic or 1 acute illness add add modifier 95 for video (do not use for phone, instead use 59279-19) [id number] 2022-01-28 No Data Available No Data Availa [...] (do not use for phone, instead use 74507-25) 59536 2022-09-18 No Data Available No Data Availa [...] (do not use for phone, instead use 26810-74) 17170 2023-07-10 No Data Available No Data Availa [...] 95 for video, modifier 93 for phone 94953 2024-03-30 No Data Available No Data Availa ble Estab. patient 20-29min; 1 stable chronic or 2 minor; add add modifier 95 for video, modifier 93 for phone 40175 2024-04-06 No Data Available No Data Availa [...] 95 for video, modifier 93 for phone 34627 2024-05-06 No Data Available No Data Availa ble Estab. patient 10-29min; 1 minor problem; add add modifier 95 for video, modifier 93 for phone 40617 2024-06-02 No Data Available No Data Availa ble Estab. patient 10-29min; 1 minor problem; add add modifier 95 for video, modifier 93 for phone 15761 2024-07-12 No Data Available No Data Availa ble Estab. patient 10-29min; 1 minor problem; add add modifier 95 for video, modifier 93 for phone 88966 2024-08-10 No Data Available No Data Availa [...] Documented (1125F)Continue to see PCP. [facility] [...] side,has not found relief save for heatHeat [id number] hip and leg painHas peripheral nerve stimulation [...] diclofenac gel, methocarbamol07/10/23: Will start PT on [id number] to experience constant knee pain, she will [...] for phoneContinue to see PCP. [facility] or [...] masks. I instructed her to call the [employer] that provided the equipment and to call [...] for phoneContinue to see PCP. [facility] any acute or disease education needs that may arise 15/09.RX: Tylenol, Diclofenac Gel, CelecoxidContinue to follow up with PCP.COPD documented on note dated 01/28/22. 'Not currently taking medications or MDIs.Avoid allergens and triggers. Continue to follow up with PCP. 05/06/24: She reports tolerating bipap machine. She was inquiring on a replacement masks. I instructed her to call the [employer] that provided the equipment and to call [...] standing after laying downPAIN CONTINGENCY PLANLast updated: 07/12/2024[facility] to call for the following symptoms: [...] for phoneContinue to see PCP. Follow-up with [facility] as needed for any acute or [...] standing after laying downPAIN CONTINGENCY PLANLast updated: 07/12/2024[facility] to call for the following symptoms: [...]
--- OUTSIDE RECORDS SUMMARY | 2024-09-22 06:30 | XMS_ITS | Clinical Summary ---
Author Organization [facility] Address [address] [place] [address] Phone Care Team Providers Care Mine Geologist Name Role Phone Gerard Bradley DO Primary Care Provider [phone] Social History Tobacco Use Types Packs/Day Years [...] Care Team (Late st Contact Info) Description 10/26/2024 3:00 PM EDT Office Visit Pulmonolgy - [place] [address] [phone] Aroldo Purcell MD [address] [facility] [address] [place] [address] Health Maintenance Due Date Last Done Comments DTaP,Tdap,and Td Vaccines (1 - Tdap) 1964 Zoster Vaccines (1 of 2) 1995 RSV Immunization Adult Patients (1 - 1-dose 75+ series) 2020 Depression Screening 02/24/2024 COVID-19 Vaccine (2023- season) 2024 12/28/2023, 07/15/2021, 01/14/2021, Additional history exists Cholesterol Screening (Lipid Panel) 07/24/2024 Falls Risk Assessment 07/24/2024 Hepatitis C Screening 07/24/2024 Medicare Annual Wellness Visit 07/24/2024 Osteoporosis Screening (Bone Density Screening) 07/24/2024 Social Influencers of Health Screening 07/24/2024 Influenza Vaccine (#1) 2024 , 12/29/2022, 11/13/2021, Additional history exists Pneumococcal Vaccine: 50+ Years Completed 11/13/2021, 01/09/2016 HIB Vaccines Aged Out No longer eligi [...] patient's age to complete this topic Insurance [address] [place] [address] [place] [address] MEDICAID - [place] [address] [place] [address] [place] [address] Care Teams Mine Geologist Relationship Specialty Start Date End Date Gerard Bradley DO [address] [place] [id number] PCP - General Internal Medicine 01/12/24
== END 2024-09-22 06:29 | disposition home or self-care (01) ==
LOC: CF 06:28
PROVIDERS: Visit Provider Internal Medicine
DX: M25.562 Pain in left knee (principal)
CPT/HCPCS: 64447; J2003; J2795

== ENCOUNTER 2024-09-22 12:35 | Outpatient (AMB) | payer OTHER, SELFPAY ==
[2024-09-22 12:54] VITALS: BP 125/78; PULSE 77; RESP 16; O2SAT 96; BMI 31.9
--- NOTE | 2024-09-22 12:54 | A.OFFVIS_ITS ---
Vital Signs 09/22/24 12:54 09/22/24 13:13 Height 4 ft 11 in Weight 158 lb BMI 31.9 BP 125/78 119/73 Blood Pressure Location Lt brachial Rt brachial Position Sitting Sitting Respiration 16 16 Pulse 77 78 Pulse Source Pulse Oximeter Pulse Oximeter Pulse Oximetry (%) 96 96 Oxygen Delivery Method Room Air Room Air Intake Visit Reasons: Left Dx SNB Allergies zolpidem Adverse Reaction (Verified 08/22/24 14:19) Headache HPI HPI Left Dx SNB: Details: Patient presents for scheduled procedure. Denies any recent cough, cold, infection, fever or other significant changes in medical history since last office visit. 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 The patient was placed supine on the table. The medial thigh area overlying the adductor canal was widely prepped with chloraprep, allowed to dry and sterilely draped. Using ultrasound, the appropriate landmarks including the femoral artery and saphenous nerve were identified. The skin overlying the target was anesthetized with 0.5% lidocaine. A 21 gauge 80 mm echostim needle was advanced under sonographic guidance to the adductor canal. Aspiration was negative for heme and synovial fluid. 10 cc of lidocaine 1%? was injected around the saphenous nerve. The needles were removed, skin cleansed and a sterile bandage was applied. The patient tolerated the procedure well and no complications were encountered. Following the procedure the patient's vital signs and knee strength were stable. The patient was discharged home in good condition with post-procedural instructions. Time Out: Immediately prior to the procedure, the following was verbally confirmed that there is a signed consent form and that the correct patient, planned procedure, site and side are consistent with documentation and that necessary equipment and/or blood products are available prior to the start of the case. Complications: none EBL: <1 cc 29354 - Femoral (adductor injection) Procedure code (CPT) selection complete Office Meds lidocaine (PF) 10 mg/mL (1 %) injection solution Performing Provider: Wilber Alvarado MD Performing Location: [facility] Administered by: Wilber Alvarado MD on 09/22/24 14:40 Dose Route Admin Location Dispensed Lot Number Expiration Date NDC Head Of Business Development 2 mL peripheral nerve block 2 mL Total Dispensed Waste 2 mL 0 % Assessment & Plan Assessment & Plan (1) Left knee pain: Code(s): M25.562 - Pain in left knee Category: Medical Plan Patient is status post left saphenous nerve block at the level of the adductor canal. Patient tolerated procedure well and was discharged home in stable condition with discharge instructions. All questions were answered. We will follow-up via telephone or in clinic to assess response to therapy. A follow-up appointment was made during today's visit. Orders: Orders US guide needle placement Today Una Wen APRN, ARTICULATION OFFICER M25.562 - Pain in left knee AMB Nerve Block Today Wilber Alvarado MD M25.562 - Pain in left knee Coding Level of Care Code Procedure Only Diagnoses Left knee pain M25.562 CPT Codes Nerve Block - Nerve Block 7: 45151 - Femoral (adductor injection) ([id number])
[2024-09-22 13:13] VITALS: BP 119/73; PULSE 78; RESP 16; O2SAT 96
== END 2024-09-22 13:17 | disposition home or self-care (01) ==
LOC: HO.PMCPRC 12:35
PROVIDERS: PCP Internal Medicine; Visit Provider Internal Medicine
DX: M25.562 Pain in left knee (principal)
CPT/HCPCS: 64447

== ENCOUNTER 2024-09-29 14:30 | Outpatient (AMB) | payer OTHER, SELFPAY ==
--- NOTE | 2024-09-29 14:31 | A.OFFVIS_ITS ---
Vital Signs 09/29/24 14:34 Height 4 ft 11 in Weight 158 lb BMI 31.9 BP 129/74 Blood Pressure Location Rt brachial Position Sitting Pulse 89 Pulse Source Pulse Oximeter Pulse Oximetry (%) 98 Oxygen Delivery Method Room Air Intake Visit Reasons: s/p Left Dx SNB Intake Note: Pain today 8/10 Plastic Fixture Builder Required: Yes Plastic Fixture Builder Language: Small Parts Assembler Services: Plastic Fixture Builder Offered & Declined Plastic Fixture Builder Name: DYE BOX OPERATOR Accompanied by: DYE BOX OPERATOR Allergies zolpidem Adverse Reaction (Verified 09/29/24 14:35) Headache HPI Comments Details: The patient is a 79-year-old female presenting with ongoing bilateral knee pain following knee replacement surgery. She underwent bilateral knee replacement and has been experiencing persistent pain, which is suspected to be due to scar tissue formation per Orthopedics. A diagnostic saphenous nerve block was performed on 09/22/24, which temporarily reduced her pain from 8/10 to 6/10 for few hours. Patient continues to reports significant anterior global left knee pain that extends downs into her pulido with intermittent tingling. She reports mild pain in the right knee today and denies back pain. Denies any recent cough, cold, infection, fever or any significant changes in medical history since last office visit. Past Procedures: 09/22/24: Left adductor canal saphenous nerve block, odlhcxcvid-xsmitt-30% pain relief PRIOR: The patient is a 79-year-old female presenting with history of bilateral total knee replacements and continues to endorse bilateral knee pain, with the left knee being more symptomatic. She received a right knee gel injection a year ago, which provided some relief. She underwent right TKA in October 2023 and left TKA in 2020 and is still recuperating from the surgery. Patient has underwent peripheral nerve stimulation therapy on the right with moderate relief with gradual return of her right knee to baseline. She is interested to address chronic left knee pain with Sprint PNS trial as well. The left knee is currently more problematic, with significant stiffness and tenderness noted in the anterior and patellofemoral aspects. The patient has been managing her pain with Tylenol, which provides mild relief, and denies any knee locking, instability or giving way. She has also reported chronic low back pain and chronic left sided neck muscle spasms and also reports shoulder pain for which she sees Orthopedic provider. She did undergo successful lumbar medial branch blocks but at this time would like to address left knee pain. Denies any recent cough, cold, infection, fever, any significant changes in her medical history, medications or recent hospitalizations. - Pain is located in both knees, with the left knee being more symptomatic. - Reports significant stiffness in the left knee. - Pain is mildly relieved by Tylenol. - Affect: No specific impact on mood or psychological wellbeing discussed. - Analgesia: Currently using Tylenol with mild relief. - Adverse Effects: No adverse effects from pain medication reported. - Activities of Daily Living: Stiffness in the left knee affects mobility, especially climbing stairs. - Aberrant Drug Related Behaviors: No aberrant behaviors reported. Past Procedures: 04/30/23: Bilateral Diagnostic L3-L4 DR L5 MBB-100% pain relief for 24 hours 09/03/22: Right saphenous nerve peripheral nerve stimulation at the adductor canal placed 09/03/2022% pain relief 03/12/22: Right Diagnostic SNB at adductor canal on 03/12/[address] Alvarado-75-80% pain relief for 8 hours [facility], Orthopedic management reviewed: Follows Dr. Dotson at [facility] this month for chronic back pain and injections. Left TRK on 03/11/2020 at [facility]. History of back surgery at [facility] in 2018. Botox injections, levator scapular, trapezius, rhomboids, . Cervical epidural injections 2020. Thoracic and cervical medial branch blocks 04/17/2019. Thoracic facet injections 2022. 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 Alert and oriented. Mood and affect appropriate. Follows and participates in conversation appropriately. Respiratory effort is unlabored. No cough. Able to transition from sit to stand unassisted. Ambulates with bilaterally normal heel strike and toe off. Back/Spine/Pelvis Cervical Spine: cervical ROM normal, loss of normal cervical lordosis, cervical muscular tenderness, pain with cervical ROM and No Cervical spine tenderness Thoracic/Lumbar Spine: pain with thoraco-lumbar ROM, thoraco-lumbar ROM limited, No thoracic spinal tenderness and No lumbar spinal tenderness Skin General skin exam: no rashes or lesions noted Extrem General: Yes capillary refill normal, Yes no clubbing, cyanosis or edema and Yes no calf tenderness Right lower extremity: knee (Limited ROM due to pain. Well healed incision.) Details: tenderness Location: of the patella, of the medial joint line and of the lateral joint line and crepitus; no swelling, no ecchymosis, no deformity and no unusual warmth Left lower extremity: knee (Limited ROM due to pain. Well healed incision.) Details: normal to inspection, tenderness (global TTP anterior aspects) and crepitus; no swelling, no ecchymosis and no unusual warmth Results Reviewed Results Reviewed: XR KNEE 3 VIEWS RIGHT 07/20/24 HISTORY: Z96.651 - Presence of right artificial knee joint COMPARISON: Comparison is made with the prior examination dated 12/10/2023. FINDINGS: AP and lateral and sunrise patellar views of the right knee are submitted. The patient is again noted to be status post right total knee arthroplasty. The orthopedic elements are in anatomic alignment. There is no radiographic evidence of loosening. There is no fracture or dislocation. There is no joint effusion. The soft tissues are unremarkable. IMPRESSION: Status post right total knee arthroplasty. XR KNEE BILATERAL, 1 VIEW 12/10/23 CLINICAL INFORMATION: Pain in unspecified knee M25.569. COMPARISON: XR left knee 10/06/2023. TECHNIQUE: AP view of the right and left knee. FINDINGS: Right knee arthroplasty in appropriate anatomic alignment with overlying soft tissue maria c. Redemonstration of a left knee arthroplasty in unchanged anatomic alignment. No evidence of complication. IMPRESSION: 1. Right knee arthroplasty without evidence of complication. 2. Left knee arthroplasty without evidence of complication. Assessment & Plan Assessment & Plan (1) Bilateral chronic knee pain: Code(s): M25.561 - Pain in right knee; M25.562 - Pain in left knee; G89.29 - Other chronic pain Category: Medical (2) History of total bilateral knee replacement: Code(s): Z96.653 - Presence of artificial knee joint, bilateral Category: Surgical Plan The plan involves considering a left diagnostic femoral nerve block with local and fluoroscopy as the next step as recent left diagnostic SNB did not provide temporary adequate relief. Patient is interested in Sprint PNS trial if effective and positive femoral nerve block. If the femoral nerve block is ineffective, the patient will be referred back to Orthopedics for further evaluation. Expectations, risks and benefits were reviewed. Patient is aware she will be contacted to schedule this procedure. Physical therapy is recommended to strengthen the muscles and potentially reduce joint pain. All questions and concerns have been answered and patient agreed with the plan. Follow up after injection and sooner as needed. Patient was informed and verbally consented to the use of an ambient scribe for clinic note documentation during this visit. Orders: Orders PT Evaluation and Treatment Today G89.29 - Other chronic pain, M25.561 - Pain in right knee, M25.562 - Pain in left knee, Z96.653 - Presence of artificial knee joint, bilateral Coding Level of Care Code Est Pt Level 3 (86080) Complex EM visit Add On G2211 Diagnoses Bilateral chronic knee pain M25.561; M25.562; G89.29 History of total bilateral knee replacement Z96.653
--- OUTSIDE RECORDS SUMMARY | 2024-09-29 14:33 | XMS_ITS ---
Author Name Saunders FRACISCORenetta Address [address] [place] [address] Phone [phone] [facility] Care Team Providers Care Supervisor Intelligence Analyst Name Role Phone Renetta Saunders Unavailable [phone] [facility] Unavailable Reason for Referral Not Available Allergies, [...] (do not use for phone, instead use 44449-69) [facility] Chronic obstructive pulmonar y disease, unspecifiedMajor depressive disorder, recurrent, mildHyperlipidemia, unspecifiedAcute upper respiratory infection, unspecified New patient,40-59min; chronic exacerbation, 2 stable chronic or 1 acute illness add add modifier 95 for video (do not use for phone, instead use 76995-26) [facility] New patient,40-59min; chronic exacerbation, 2 stable chronic or 1 acute illness add add modifier 95 for video (do not use for phone, instead use 41755-97) [facility] [place]28/20[place] New patient,40-59min; chronic exacerbation, 2 stable chronic or 1 acute illness add add modifier 95 for video (do not use for phone, instead use 84479-47) [facility] [place]2022 New patient,40-59min; chronic exacerbation, 2 stable chronic or 1 acute illness add add modifier 95 for video (do not use for phone, instead use 58525-34) [facility] [place] 01/28/2022 New patient,40-59min; chronic exacerbation, 2 stable chronic or 1 acute illness add add modifier 95 for video (do not use for phone, instead use 60545-69) [facility] [place] 01[place]28/2022 Estab. patient 30-39min; chronic exacerbation, 2 stable chronic or 1 acute illness add add modifier 95 for video, (do not use for phone, instead use 74444-63) [facility] 09[place]18/2022 Chronic obstructive pulmonar y disease, unspecifiedMajor depressive disorder, recurrent, mildHyperlipidemia, unspecifiedAcute upper respiratory infection, unspecifiedDorsalgia, unspecifiedOther chronic painOther specified postprocedural statesAbnormal response to nerve stimulation, unspecified Estab. patient 30-39min; chronic exacerbation, 2 stable chronic or 1 acute illness add add modifier 95 for video, (do not use for phone, instead use 48856-64) [facility] [place] 09[place]18/20[place] Estab. patient 30-39min; chronic exacerbation, 2 stable chronic or 1 acute illness add add modifier 95 for video, (do not use for phone, instead use 84139-50) [facility] [place] 09[place]18/20[place] Estab. patient 30-39min; chronic exacerbation, 2 stable chronic or 1 acute illness add add modifier 95 for video, (do not use for phone, instead use 60777-00) [facility] [place] 09[place]18/2022 Estab. patient 30-39min; chronic exacerbation, 2 stable chronic or 1 acute illness add add modifier 95 for video, (do not use for phone, instead use 41341-61) [facility] [place] 09[place]18/2022 Estab. patient 30-39min; chronic exacerbation, 2 stable chronic or 1 acute illness add add modifier 95 for video, (do not use for phone, instead use 72856-43) [facility] [place] 09[place]18/2022 Estab. patient 30-39min; chronic exacerbation, 2 stable chronic or 1 acute illness add add modifier 95 for video, (do not use for phone, instead use 21690-95) [facility] [place] 09[place]18/2022 Estab. patient 30-39min; chronic exacerbation, 2 stable chronic or 1 acute illness add add modifier 95 for video, (do not use for phone, instead use 62281-32) [facility] [place] 09[place]18/2022 Estab. patient 30-39min; chronic exacerbation, 2 stable chronic or 1 acute illness add add modifier 95 for video, (do not use for phone, instead use 65110-26) [facility] [place] 07[place]10/2023 Major depressive disorder, [...] (do not use for phone, instead use 21318-78) [facility] [place] 07[place]10/2023 Estab. patient 30-39min; chronic exacerbation, 2 stable chronic or 1 acute illness add add modifier 95 for video, (do not use for phone, instead use 59013-48) [facility] [place] 07/10/2023 Estab. patient 30-39min; chronic exacerbation, 2 stable chronic or 1 acute illness add add modifier 95 for video, (do not use for phone, instead use 61917-20) [facility] 07/10/2023 Estab. patient 30-39min; chronic exacerbation, 2 stable chronic or 1 acute illness add add modifier 95 for video, (do not use for phone, instead use 36835-15) [facility] [place] 07/10/2023 Estab. patient 30-39min; chronic exacerbation, 2 stable chronic or 1 acute illness add add modifier 95 for video, (do not use for phone, instead use 06444-25) [facility] [place] 07/10/2023 Estab. patient 30-39min; chronic exacerbation, 2 stable chronic or 1 acute illness add add modifier 95 for video, (do not use for phone, instead use 04700-15) [facility] [place] 07/10/2023 Estab. patient 30-39min; chronic exacerbation, 2 stable chronic or 1 acute illness add add modifier 95 for video, (do not use for phone, instead use 10398-10) [facility] [place] 07/10/2023 Estab. patient 10-29min; 1 minor problem; add add modifier 95 for video, modifier 93 for phone [facility] ([place] 03/30/2024 Dorsalgia, unspecifiedOther chronic painOther specified postprocedural statesOther problems related to medical facilities and other health care Estab. patient 20-29min; 1 stable chronic or 2 minor; add add modifier 95 for video, modifier 93 for phone [facility] [place] 04/06/2024 Unspecified dementia, mild, without behavioral disturbance, psychotic disturbance, mood disturbance, and anxietyObstructive sleep apnea (adult) (pediatric)Chronic obstructive pulmonary disease, unspecifiedMajor depressive disorder, recurrent, moderateHyperlipidemia, unspecifiedDorsalgia, unspecifiedOther chronic painAbnormal response to nerve stimulation, unspecifiedOther problems related to medical facilities and other health care Estab. patient 20-29min; 1 stable chronic or 2 minor; add add modifier 95 for video, modifier 93 for phone [facility] [place] 04/06/2024 Estab. patient 20-29min; 1 stable chronic [...] tive Time Current Smoking Status Never smoker 7 Sex Female History of Procedures Procedures Service Procedure code Service date Servicing provider Phone# New patient,40-59min; chronic exacerbation, 2 stable chronic or 1 acute illness add add modifier 95 for video (do not use for phone, instead use 53988-28) [id number] 2022-01-28 No Data Available No Data Availa [...] (do not use for phone, instead use 16335-46) [id number] 2022-09-18 No Data Available No Data Availa [...] (do not use for phone, instead use 50622-12) 56641 2023-07-10 No Data Available No Data Availa [...] 95 for video, modifier 93 for phone 53617 2024-03-30 No Data Available No Data Availa ble Estab. patient 20-29min; 1 stable chronic or 2 minor; add add modifier 95 for video, modifier 93 for phone 28823 2024-04-06 No Data Available No Data Availa [...] 95 for video, modifier 93 for phone [id number] 2024-05-06 No Data Available No Data Availa ble Estab. patient 10-29min; 1 minor problem; add add modifier 95 for video, modifier 93 for phone 59474 2024-06-02 No Data Available No Data Availa ble Estab. patient 10-29min; 1 minor problem; add add modifier 95 for video, modifier 93 for phone 70472 2024-07-12 No Data Available No Data Availa ble Estab. patient 10-29min; 1 minor problem; add add modifier 95 for video, modifier 93 for phone [id number] 2024-08-10 No Data Available No Data Availa [...] Documented (1125F)Continue to see PCP. [facility] or disease [...] side,has not found relief save for heatHeat [id number] hip and leg painHas peripheral nerve stimulation [...] diclofenac gel, methocarbamol07/10/23: Will start PT on [id number] to experience constant knee pain, she will [...] for phoneContinue to see PCP. [facility] or disease [...] masks. I instructed her to call the [employer] that provided the equipment and to call [...] for phoneContinue to see PCP. [facility] any acute or disease education needs that may arise 15/09.RX: Tylenol, Diclofenac Gel, CelecoxidContinue to follow up with PCP.COPD documented on note dated 01/28/22. 'Not currently taking medications or MDIs.Avoid allergens and triggers. Continue to follow up with PCP. 05/06/24: She reports tolerating bipap machine. She was inquiring on a replacement masks. I instructed her to call the [employer] that provided the equipment and to call [...] standing after laying downPAIN CONTINGENCY PLANLast updated: 07/12/2024[facility] [place] to call for the following symptoms: Fall [...] for phoneContinue to see PCP. Follow-up with [facility] as needed for any acute or [...] standing after laying downPAIN CONTINGENCY PLANLast updated: 07/12/2024[facility] [place] to call for the following symptoms: Fall [...]
--- OUTSIDE RECORDS SUMMARY | 2024-09-29 14:33 | XMS_ITS | Clinical Summary ---
Author Organization [facility] Address [address] [place] [address] Phone Care Team Providers Care Hand Bobbin Cleaner Name Role Phone Gerard Bradley DO Primary Care Provider [phone] Social History Tobacco Use Types Packs/Day Years [...] 3:00 PM EDT Office Visit Pulmonolgy - [place] [address] [phone] Aroldo Purcell MD 175 [facility] [address] [place] [address] Health Maintenance Due Date Last Done Comments [...] [address] [place] [address] [employer] [place]ICA[place] - [place] [address] [place] [address] [employer] Care Teams Hand Bobbin Cleaner Relationship Specialty Start Date End Date Gerard Bradley DO [address] [place] [id number] PCP - General Internal Medicine 01/12/24
[2024-09-29 14:34] VITALS: BP 129/74; PULSE 89; O2SAT 98; BMI 31.9
== END 2024-09-29 14:48 | disposition home or self-care (01) ==
LOC: HO.PMC 14:31
PROVIDERS: PCP Internal Medicine; Visit Provider Nurse Practitioner Family
DX: M25.561 Pain in right knee (principal); M25.562 Pain in left knee; G89.29 Other chronic pain; Z96.653 Presence of artificial knee joint, bilateral
CPT/HCPCS: 99213; G2211

== ENCOUNTER → 2024-09-29 14:30 | Outpatient (BNVA) | payer OTHER, SELFPAY | PROVIDERS: PCP Internal Medicine; Visit Provider Nurse Practitioner Family | DX: M25.561 Pain in right knee (principal); M25.562 Pain in left knee; G89.29 Other chronic pain; Z96.653 Presence of artificial knee joint, bilateral | CPT/HCPCS: 99212 ==

== ENCOUNTER 2024-10-06 13:54 | Outpatient (AMB) | payer OTHER, SELFPAY ==
--- NOTE | 2024-10-06 13:54 | MHC.OFFVIS ---
Vital Signs 10/06/24 13:57 Height 4 ft 11 in Weight 159 lb 8 oz BMI 32.2 BP 133/72 Blood Pressure Location Rt brachial Position Sitting Pulse 85 Pulse Source Pulse Oximeter Pulse Oximetry (%) 96 Oxygen Delivery Method Room Air Intake Visit Reasons: Back pain Paraffin Plant Operator Required: Yes Paraffin Plant Operator Language: Financial Auditor Services: Paraffin Plant Operator Offered & Declined Paraffin Plant Operator Name: Daughter Elba-phone Accompanied by: COMPUTER INFORMATION SCIENCE PROFESSOR Allergies zolpidem Adverse Reaction (Verified 10/06/24 13:57) Headache HPI Comments Details: The patient is a 79-year-old female presenting with worsening chronic mid back pain. The back pain has been persistent and resistant to conservative treatments, including multiple injections at [facility] and [facility] [place] that provided temporary relief. She has also experienced bilateral knee pain, which was addressed with injections previously but provided no significant relief. Patient reports significant mid back pain with radiation into her left side, ribs and ribcage, and left shoulder worse on the left. She underwent a cervical x-ray that revealed mild degenerative changes with C5-C7 disc space narrowing and multilevel bilateral facet hypertrophy. She also has chronic left shoulder pain due to AC joint arthritis, impingement syndrome and rotator cuff tendinosis versus partial-thickness tearing and has been followed for this by [facility] and last received cortisone injection one year ago. Patient reports increased mid back pain with movements, coughing, twisting, and leaning backwards and forward. She has been taking gabapentin and Tylenol with minimal relief. - Onset: Persistent and chronic - Quality: Sharp, burning, tingling, stabbing, throbbing, radiates from mid-back to left side, under ribs, up to neck and left shoulder - Exacerbating factors: Physical activity, pressing back against the wall for relief - Relieving factors: Temporary relief from injections - Interference: Affects daily activities, unable to perform usual tasks - Affect: Pain impacts daily activities and stability - Analgesia: Uses lidocaine patches, diclofenac cream, acetaminophen, gabapentin; previously used naproxen and oxycodone - Adverse Effects: Dislikes oxycodone due to sedation - Activities of Daily Living: Pain limits ability to perform household tasks - Aberrant Drug Related Behaviors: No evidence of misuse, but concern over high medication use PRIOR: The patient is a 79-year-old female presenting with ongoing bilateral knee pain following knee replacement surgery. She underwent bilateral knee replacement and has been experiencing persistent pain, which is suspected to be due to scar tissue formation per Orthopedics. A diagnostic saphenous nerve block was performed on 09/22/24, which temporarily reduced her pain from 8/10 to 6/10 for few hours. Patient continues to reports significant anterior global left knee pain that extends downs into her pulido with intermittent tingling. She reports mild pain in the right knee today and denies back pain. Denies any recent cough, cold, infection, fever or any significant changes in medical history since last office visit. Past Procedures: 09/22/24: Left adductor canal saphenous nerve block, [id number]% pain relief PRIOR: The patient is a 79-year-old female presenting with history of bilateral total knee replacements and continues to endorse bilateral knee pain, with the left knee being more symptomatic. She received a right knee gel injection a year ago, which provided some relief. She underwent right TKA in October 2023 and left TKA in 2020 and is still recuperating from the surgery. Patient has underwent peripheral nerve stimulation therapy on the right with moderate relief with gradual return of her right knee to baseline. She is interested to address chronic left knee pain with Sprint PNS trial as well. The left knee is currently more problematic, with significant stiffness and tenderness noted in the anterior and patellofemoral aspects. The patient has been managing her pain with Tylenol, which provides mild relief, and denies any knee locking, instability or giving way. She has also reported chronic low back pain and chronic left sided neck muscle spasms and also reports shoulder pain for which she sees Orthopedic provider. She did undergo successful lumbar medial branch blocks but at this time would like to address left knee pain. Denies any recent cough, cold, infection, fever, any significant changes in her medical history, medications or recent hospitalizations. - Pain is located in both knees, with the left knee being more symptomatic. - Reports significant stiffness in the left knee. - Pain is mildly relieved by Tylenol. - Affect: No specific impact on mood or psychological wellbeing discussed. - Analgesia: Currently using Tylenol with mild relief. - Adverse Effects: No adverse effects from pain medication reported. - Activities of Daily Living: Stiffness in the left knee affects mobility, especially climbing stairs. - Aberrant Drug Related Behaviors: No aberrant behaviors reported. Past Procedures: 04/30/23: Bilateral Diagnostic L3-L4 DR L5 MBB-100% pain relief for 24 hours 09/03/22: Right saphenous nerve peripheral nerve stimulation at the adductor canal placed 09/03/2022% pain relief 03/12/22: Right Diagnostic SNB at adductor canal on 03/12/[address] Alvarado-75-80% pain relief for 8 hours [facility] General, Orthopedic management reviewed: Follows Dr. Dotson at [facility] this month for chronic back pain and injections. Left TRK on 03/11/2020 at [facility]. History of back surgery at [facility] in 2017. Botox injections, levator scapular, trapezius, rhomboids, . Cervical epidural injections 2020. Thoracic and cervical medial branch blocks 04/17/2019. Thoracic facet injections 2022. [facility] Medical History Osteoarthritis Herpes DDD (degenerative disc disease), lumbar Osteoporosis Insomnia Depression Headache High cholesterol Circulation problem Lower back pain High cholesterol Surgical History History of total left knee replacement (TKR) (~2020) Hx of appendectomy Hx of hysterectomy Hx of bilateral cataract extraction History of back surgery (~2017) Social History Household Members: None Housing: Apartment Are you a primary critical care nurse specialist to a significant other at home: No Do you presently have visiting nurse or other home services: Yes (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) Patient Tobacco Use Status: Never used Tobacco service: No Current occupational status: disabled 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 Alert and oriented. Mood and affect appropriate. Follows and participates in conversation appropriately. Respiratory effort is unlabored. No cough. Able to transition from sit to stand unassisted. Ambulates with bilaterally normal heel strike and toe off. Neck Neck: Yes normal visual inspection, Yes no lymphadenopathy, Yes supple, No anterior neck swelling, Yes no JVD, No prominent supraclavicular fat pad and Yes prominent dorsocervical fat pad Chest Chest palpation & inspection: normal inspection of the chest, tenderness rib left mid-axillary line and No rash General: Yes no CVA tenderness Back/Spine/Pelvis Back: no CVA tenderness Cervical Spine: loss of normal cervical lordosis, cervical muscular tenderness, pain with cervical ROM and No Cervical spine tenderness Thoracic/Lumbar Spine: thoracic and lumbar spine normal to inspection, Thoracic/lumbar spine scar(s), pain with thoraco-lumbar ROM, paraspinal muscle tenderness on the left greater than right, thoraco-lumbar ROM limited, thoracic spinal tenderness (mid to lower thoracic) and No lumbar spinal tenderness Skin General skin exam: no rashes or lesions noted Extrem General: Yes capillary refill normal, Yes no clubbing, cyanosis or edema and Yes no calf tenderness Left upper extremity: shoulder/upper arm (Limited ROM due to pain.) Details: inspection abnormal, tenderness Location: of the A-C joint and over the subacromial bursa and crepitus; no swelling, no ecchymosis and no unsual warmth Right lower extremity: knee (Limited ROM due to pain. Well healed incision.) Details: tenderness Location: of the patella, of the medial joint line and of the lateral joint line and crepitus; no swelling, no ecchymosis, no deformity and no unusual warmth Left lower extremity: knee (Limited ROM due to pain. Well healed incision.) Details: normal to inspection, tenderness (global TTP anterior aspects) and crepitus; no swelling, no ecchymosis and no unusual warmth Results Reviewed Results Reviewed: XR THORACIC SPINE, LUMBAR SPINE 03/16/23 CLINICAL INFORMATION: In the thoracic spine, spondylosis without myelopathy. FINDINGS: LUMBAR SPINE: Degenerative changes with sclerosis in the bilateral sacroiliac joints, right greater than left. Degenerative changes on limited imaging of the left hip. Atherosclerotic aortoiliac calcifications. Posterior fixation with bilateral rods and pedicular screws at L5-S1. Disc spacer at L5-S1. Hardware appears intact. Slight rightward curvature of the mid to lower lumbar spine. Moderate multilevel spondylosis in the remainder of the lumbar spine with loss of disc space height at L4-L5. THORACIC SPINE: Slight rightward curvature of the thoracic spine. Moderate multilevel degenerative changes in the thoracic spine. Degenerative changes on very limited imaging of the cervical spine could be evaluated with dedicated cervical spine radiographs. IMPRESSION: 1. Status post posterior fixation at L5-S1. Hardware appears intact. 2. Moderate multilevel spondylosis in the thoracic and lumbar spines with loss of disc space height at L4-L5. 3. Degenerative changes with sclerosis in the bilateral sacroiliac joints, right greater than left. 4. Moderate multilevel degenerative changes in the thoracic spine. MR THORACIC SPINE WITHOUT CONTRAST 06/03/23 CLINICAL INFORMATION: Pain in thoracic spine FINDINGS: Normal vertebral body heights and alignment. Heterogeneous marrow signal without suspicious focal osseous lesion. There is a hemangioma involving the T8 vertebral body as well as a small hemangiomas in L1 and L2.. Several small endplate Schmorl's nodes. The conus medullaris terminates at L2 No significant marrow edema. Mild degenerative disc desiccation and height loss in the mid thoracic spine. The thoracic spinal canal is widely patent. Normal caliber and signal of the thoracic cord. The conus medullaris terminates at L2 No significant abnormalities of the visualized extraspinal soft tissues. There is a 2 cm T2 hyperintense lesion in the right lobe of the liver, likely representing a cyst. IMPRESSION: Mild degenerative changes of the thoracic spine. No significant spinal canal narrowing, cord compression, or cord signal abnormality. XR RIBS 4 VIEWS BILATERAL WITH PA CHEST 10/06/24 HISTORY: R07.81 - Pleurodynia COMPARISON: There are no prior studies available for comparison. FINDINGS: A single PA view of the chest and 2 views of the bilateral ribs are submitted. The lungs are expanded and clear. There is no pleural effusion, pneumothorax, or pulmonary vascular congestion. The heart is normal in size. The ribs are intact. No fracture is seen. IMPRESSION: Clear lungs. No evidence of fracture of the bilateral ribs. XR THORACIC SPINE 3 VIEWS 10/06/24 HISTORY: M54.6 - Pain in thoracic spine COMPARISON: Comparison is made with the prior examination dated 03/16/2023. FINDINGS: AP and lateral views of the thoracic spine are submitted. Osseous mineralization is normal. The vertebral bodies maintain normal height and alignment without evidence of fracture or subluxation. There is mild degenerative disc disease with disc space narrowing and osteophyte formation. The visualized paraspinal soft tissues are unremarkable. IMPRESSION: Mild degenerative disc disease. Assessment & Plan Assessment & Plan (1) Chronic thoracic back pain: Code(s): M54.6 - Pain in thoracic spine; G89.29 - Other chronic pain Category: Medical Qualifiers: Back pain laterality: midline Qualified Code(s): M54.6 - Pain in thoracic spine; G89.29 - Other chronic pain (2) Thoracic radiculopathy: Code(s): M54.14 - Radiculopathy, thoracic region Category: Medical (3) Rib pain: Code(s): R07.81 - Pleurodynia Category: Medical (4) Bilateral chronic knee pain: Code(s): M25.561 - Pain in right knee; M25.562 - Pain in left knee; G89.29 - Other chronic pain Category: Medical (5) Post laminectomy syndrome: Code(s): M96.1 - Postlaminectomy syndrome, not elsewhere classified Category: Medical (6) Thoracic spondylosis: Code(s): M47.814 - Spondylosis without myelopathy or radiculopathy, thoracic region Category: Medical (7) Chronic left shoulder pain: Code(s): M25.512 - Pain in left shoulder; G89.29 - Other chronic pain Category: Medical Plan The plan includes scheduling a thoracic MRI to evaluate the left-sided thoracic radiculitis and significant mid-back pain that has been resistant to conservative treatment. Updated thoracic xray and ribs xray completed today after visit are noted above. For chronic low back pain with post laminectomy syndrome and chronic SI joint pain, we discussed spinal cord stimulation. Informational pamphlets provided to patient in [place]. The patient's gabapentin dosage will be increased to two pills three times a day to better manage her pain. A prescription for lidocaine patches will be provided for knee pain management. Patient is encouraged to follow up with Orthopedics for left shoulder pain re-evaluation. All questions and concerns have been answered and patient agreed with the treatment plan. Follow up for MRI results review and sooner as needed. Patient was informed and verbally consented to the use of an ambient scribe for clinic note documentation during this visit. Orders: Orders XR thoracic spine 3V Today G89.29 - Other chronic pain, M54.14 - Radiculopathy, thoracic region, M54.6 - Pain in thoracic spine XR ribs BI min 4V w CXR1V Today R07.81 - Pleurodynia MR thoracic spine wo con Today G89.29 - Other chronic pain, M47.814 - Spondylosis without myelopathy or radiculopathy, thoracic region, M54.14 - Radiculopathy, thoracic region, M54.6 - Pain in thoracic spine Medications: New lidocaine 5% 2 patches topical DAILY 30 ea 0RF pain 15 days G89.29 - Other chronic pain, M25.561 - Pain in right knee, M25.562 - Pain in left knee Changed From gabapentin 100 mg PO TID 30 days PRN 90 caps 3RF for pain G89.29 - Other chronic pain, M54.14 - Radiculopathy, thoracic region, M54.6 - Pain in thoracic spine To gabapentin 200 mg (2 x 100 mg) PO TID PRN 180 caps 3RF for pain 30 days G89.29 - Other chronic pain, M54.14 - Radiculopathy, thoracic region, M54.6 - Pain in thoracic spine Coding Level of Care Code Est Pt Level 4 (88031) Complex EM visit Add On G2211 Diagnoses Chronic midline thoracic back pain M54.6; G89.29 Back pain laterality: midline Thoracic radiculopathy M54.14 Rib pain R07.81 Bilateral chronic knee pain M25.561; M25.562; G89.29 Post laminectomy syndrome M96.1 Thoracic spondylosis M47.814 Chronic left shoulder pain M25.512; G89.29
[2024-10-06 13:57] VITALS: BP 133/72; PULSE 85; O2SAT 96; BMI 32.2
--- OUTSIDE RECORDS SUMMARY | 2024-10-06 14:45 | XMS_ITS ---
Author Name Tray YAPBarbyjohn Pompa Address [address] [place] [address] Phone [phone] [facility] Team Providers Care Supervisor Riprap Placing Name Role Phone Rose Marie Feliz Unavailable [phone] [facility] Unavailable [phone] Reason for Referral Not Available Allergies, adverse [...] (do not use for phone, instead use 78752-91) [facility] Chronic obstructive pulmonar y disease, unspecifiedMajor depressive disorder, recurrent, mildHyperlipidemia, unspecifiedAcute upper respiratory infection, unspecified New patient,40-59min; chronic exacerbation, 2 stable chronic or 1 acute illness add add modifier 95 for video (do not use for phone, instead use 87465-78) [facility] New patient,40-59min; chronic exacerbation, 2 stable chronic or 1 acute illness add add modifier 95 for video (do not use for phone, instead use 08251-82) [facility] [place] New patient,40-59min; chronic exacerbation, 2 stable chronic or 1 acute illness add add modifier 95 for video (do not use for phone, instead use 27959-04) [facility] [place] New patient,40-59min; chronic exacerbation, 2 stable chronic or 1 acute illness add add modifier 95 for video (do not use for phone, instead use 92898-00) [facility] ([place] 01/[place]/20[place] New patient,40-59min; chronic exacerbation, 2 stable chronic or 1 acute illness add add modifier 95 for video (do not use for phone, instead use 68491-89) [facility] [place] Estab. patient 30-39min; chronic exacerbation, 2 stable chronic or 1 acute illness add add modifier 95 for video, (do not use for phone, instead use 25826-73) [facility] ([place] 09/18/2022 Chronic obstructive pulmonar y disease, unspecifiedMajor depressive disorder, recurrent, mildHyperlipidemia, unspecifiedAcute upper respiratory infection, unspecifiedDorsalgia, unspecifiedOther chronic painOther specified postprocedural statesAbnormal response to nerve stimulation, unspecified Estab. patient 30-39min; chronic exacerbation, 2 stable chronic or 1 acute illness add add modifier 95 for video, (do not use for phone, instead use 34003-35) [facility] [place] Estab. patient 30-39min; chronic exacerbation, 2 stable chronic or 1 acute illness add add modifier 95 for video, (do not use for phone, instead use 66014-62) [facility] [place] Estab. patient 30-39min; chronic exacerbation, 2 stable chronic or 1 acute illness add add modifier 95 for video, (do not use for phone, instead use 02974-08) [facility] Estab. patient 30-39min; chronic exacerbation, 2 stable chronic or 1 acute illness add add modifier 95 for video, (do not use for phone, instead use 96792-81) [facility] [place] Estab. patient 30-39min; chronic exacerbation, 2 stable chronic or 1 acute illness add add modifier 95 for video, (do not use for phone, instead use 33928-69) [facility] [place]20[place] Estab. patient 30-39min; chronic exacerbation, 2 stable chronic or 1 acute illness add add modifier 95 for video, (do not use for phone, instead use 52325-16) [facility] [place] Estab. patient 30-39min; chronic exacerbation, 2 stable chronic or 1 acute illness add add modifier 95 for video, (do not use for phone, instead use 51287-44) [facility] ([place] 09[place]18/20[place] Estab. patient 30-39min; chronic exacerbation, 2 stable chronic or 1 acute illness add add modifier 95 for video, (do not use for phone, instead use 11471-31) [facility]2023 Major depressive disorder, recurrent, mildHyperlipidemia, [...] (do not use for phone, instead use 91577-80) [facility] Estab. patient 30-39min; chronic exacerbation, 2 stable chronic or 1 acute illness add add modifier 95 for video, (do not use for phone, instead use 53571-67) [facility]20[place] Estab. patient 30-39min; chronic exacerbation, 2 stable chronic or 1 acute illness add add modifier 95 for video, (do not use for phone, instead use 08731-64) [facility] ([place] 07[place]10/2023 Estab. patient 30-39min; chronic exacerbation, 2 stable chronic or 1 acute illness add add modifier 95 for video, (do not use for phone, instead use 97572-45) [facility] [place] 07[place]10/2023 Estab. patient 30-39min; chronic exacerbation, 2 stable chronic or 1 acute illness add add modifier 95 for video, (do not use for phone, instead use 11988-65) [facility] ([place] 07[place]10/2023 Estab. patient 30-39min; chronic exacerbation, 2 stable chronic or 1 acute illness add add modifier 95 for video, (do not use for phone, instead use 32268-66) [facility] [place] 07[place]10/2023 Estab. patient 30-39min; chronic exacerbation, 2 stable chronic or 1 acute illness add add modifier 95 for video, (do not use for phone, instead use 49353-88) [facility] [place] 07/10/2023 Estab. patient 10-29min; 1 minor problem; add add modifier 95 for video, modifier 93 for phone [facility] ([place]) 03/30/2024 Dorsalgia, unspecifiedOther chronic painOther specified postprocedural statesOther problems related to medical facilities and other health care Estab. patient 20-29min; 1 stable chronic or 2 minor; add add modifier 95 for video, modifier [address] [facility], ([place] 04/06/2024 Unspecified dementia, mild, without behavioral disturbance, psychotic disturbance, mood disturbance, and anxietyObstructive sleep apnea (adult) (pediatric)Chronic obstructive pulmonary disease, unspecifiedMajor depressive disorder, recurrent, moderateHyperlipidemia, unspecifiedDorsalgia, unspecifiedOther chronic painAbnormal response to nerve stimulation, unspecifiedOther problems related to medical facilities and other health care Estab. patient 20-29min; 1 stable chronic or 2 minor; add add modifier 95 for video, modifier [address] [facility], ([place] 04/06/20[place] Estab. patient 20-29min; 1 stable chronic [...] tive Time Current Smoking Status Never smoker 2024-09-23 4 Sex Female History of Procedures Procedures Service Procedure code Service date Servicing provider Phone# New patient,40-59min; chronic exacerbation, 2 stable chronic or 1 acute illness add add modifier 95 for video (do not use for phone, instead use 12702-95) 56926 2022-01-28 No Data Available No Data Availa [...] (do not use for phone, instead use 96606-17) 26795 2022-09-18 No Data Available No Data Availa [...] (do not use for phone, instead use 96259-03) 40622 2023-07-10 No Data Available No Data Availa [...] 1125F 2023-07-10 No Data Available No Data Shlely ilable Functional Status Assessed (1170F) 1170F 2023-07-10 No Data Available No Data Avail able Estab. patient 10-29min; 1 minor problem; add add modifier 95 for video, modifier 93 for phone 82837 2024-03-30 No Data Available No Data Availa ble Estab. patient 20-29min; 1 stable chronic or 2 minor; add add modifier 95 for video, modifier 93 for phone 14693 2024-04-06 No Data Available No Data Availa [...] 95 for video, modifier 93 for phone 75761 2024-05-06 No Data Available No Data Availa ble Estab. patient 10-29min; 1 minor problem; add add modifier 95 for video, modifier 93 for phone 26540 2024-06-02 No Data Available No Data Availa ble Estab. patient 10-29min; 1 minor problem; add add modifier 95 for video, modifier 93 for phone 45321 2024-07-12 No Data Available No Data Availa ble Estab. patient 10-29min; 1 minor problem; add add modifier 95 for video, modifier 93 for phone 03957 2024-08-10 No Data Available No Data Availa [...] Documented (1125F)Continue to see PCP. Follow-up with [facility] as needed for any acute or [...] side,has not found relief save for heatHeat [id number] hip and leg painHas peripheral nerve stimulation [...] diclofenac gel, methocarbamol07/10/23: Will start PT on [id number] to experience constant knee pain, she will [...] masks. I instructed her to call the [employer] that provided the equipment and to call [...] for phoneContinue to see PCP. Follow[facility]up with [facility] as needed for any acute or disease education needs that may arise 15/09.RX: Tylenol, Diclofenac Gel, CelecoxidContinue to follow up with PCP.COPD documented on note dated 01/28/22. 'Not currently taking medications or MDIs.Avoid allergens and triggers. Continue to follow up with PCP. 05/06/24: She reports tolerating bipap machine. She was inquiring on a replacement masks. I instructed her to call the [employer] that provided the equipment and to call [...] standing after laying downPAIN CONTINGENCY PLANLast updated: 07/12/2024[facility] to call for the following symptoms: Fall [...] for phoneContinue to see PCP. Follow-up with [facility] as needed for any acute or [...] standing after laying downPAIN CONTINGENCY PLANLast updated: 07/12/2024[facility] to call for the following symptoms: Fall [...]
--- OUTSIDE RECORDS SUMMARY | 2024-10-06 14:45 | XMS_ITS | Patient Health Record ---
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 confirmed Problem 950631219021443 Pain in toe of left foot (M79.675) Active confirmed Problem 108221778 Cramps, extremit y (R25.2) Active confirmed Plan Of Treatment No Information Insurance Providers Payer Name Payer Address Payer Phone Subscriber Number Group Number Insured Name Patient Relationship to Insured Coverage Start Date Coverage End Date [facility] [address] [address] [place] [phone] [id number] Tita Foreman Self - patient is the insured [facility] [address] [place] [address] [phone] [id number] Tita Foreman Self - patient is the insured Medical (General) History Medical History History ICD Code Osteoporosis HLD Anxiety/Depression Chronic Back Pain Genital Herpes Surgical History Surgery Date(Month/Year) Hysterectomy Appendectomy
--- OUTSIDE RECORDS SUMMARY | 2024-10-06 14:46 | XMS_ITS | Patient Health Record ---
Author Organization [facility] Address [address] [place] [phone] Care Team Providers Care Substance Abuse Therapist Name Role Phone SHIVANI GREEN Primary Care Provider Rufus Fernandez Jr Unavailable [phone] Allergies No Known Allergies Reason For Referral [...] Problem Status W/U Status Risk Notes Problem [id number] Bloating (R14.0) Active confirmed Problem 420550795 Generalized abdominal pain (R10.84) Active confirmed Problem 184539712 Gastroesophageal reflux disease without esophagitis (K21.9) Active confirmed Vital Signs Blood pressure diastolic 00 mm Hg 11/12/2023 Height 60 in 11/12/2023 Blood pressure systolic 00 mm Hg 11/12/2023 Weight 158 lbs 11/12/2023 BMI 30.85 kg/m2 11/12/2023 Encounters Encounter Location Date Provider Diagnosis [facility] [address] [place] [phone] 11/12/2023 Rufus Dover Jr Generalized abdominal pain [...] Name:Rufus minor Jr, 10/10/2024 11:20:00 AM, [address], [address], [place], [address], Insurance Providers Payer Name Payer Address Payer Phone Subscriber Number Group Number Insured Name Patient Relationship to Insured Coverage Start Date Coverage End Date [facility] [address] [address] [place] [phone] [id number] JILL WU Self - patient is the insured MEDICARE OF [place] [address] [place], [place] [id number] [phone] [id number] JILL WU Self - patient is the insured Medical (General) History Medical History History ICD Code Osteoarthritis Depression Insomnia Elevated cholesterol Migraine headaches Osteoporosis Obstructive sleep apnea HSV infection Surgical History Surgery Date(Month/Year) Back surgery Hysterectomy Appendectomy Cataract surgery Left total knee replacement right knee replacement
== END 2024-10-06 14:21 | disposition home or self-care (01) ==
PROVIDERS: PCP Internal Medicine; Visit Provider Nurse Practitioner Family
DX: M54.6 Pain in thoracic spine (principal); G89.29 Other chronic pain; M54.14 Radiculopathy, thoracic region; R07.81 Pleurodynia; M25.561 Pain in right knee; M25.562 Pain in left knee; M96.1 Postlaminectomy syndrome, not elsewhere classified; M47.814 Spondylosis without myelopathy or radiculopathy, thoracic region; M25.512 Pain in left shoulder
CPT/HCPCS: 99214; G2211

== ENCOUNTER 2024-10-06 13:54 | Outpatient (REF) | payer OTHER, SELFPAY ==
--- NOTE | ~2024-10-06 | XR_ITS ---
EXAMINATION: XR RIBS 4 VIEWS BILATERAL WITH PA CHEST HISTORY: R07.81 - Pleurodynia COMPARISON: There are no prior studies available for comparison. FINDINGS: A single PA view of the chest and 2 views of the bilateral ribs are submitted. The lungs are expanded and clear. There is no pleural effusion, pneumothorax, or pulmonary vascular congestion. The heart is normal in size. The ribs are intact. No fracture is seen. XR/XR ribs BI min 4V w CXR1V IMPRESSION: Clear lungs. No evidence of fracture of the bilateral ribs. Electronically signed by: Chavez Altamirano MD 10/06/2024 03:21 PM EDT
--- NOTE | ~2024-10-06 | XR_ITS ---
EXAMINATION: XR THORACIC SPINE 3 VIEWS HISTORY: M54.6 - Pain in thoracic spine COMPARISON: Comparison is made with the prior examination dated 03/16/2023. FINDINGS: AP and lateral views of the thoracic spine are submitted. Osseous mineralization is normal. The vertebral bodies maintain normal height and alignment without evidence of fracture or subluxation. There is mild degenerative disc disease with disc space narrowing and osteophyte formation. The visualized paraspinal soft tissues are unremarkable. XR/XR thoracic spine 3V IMPRESSION: Mild degenerative disc disease. Electronically signed by: Chavez Altamirano MD 10/06/2024 03:22 PM EDT
== END 2024-10-06 13:55 | disposition home or self-care (01) ==
LOC: HO.XRAY 13:54
PROVIDERS: PCP Internal Medicine; Visit Provider Nurse Practitioner Family
DX: M47.24 Other spondylosis with radiculopathy, thoracic region (principal); M96.1 Postlaminectomy syndrome, not elsewhere classified; R07.81 Pleurodynia; G89.29 Other chronic pain; M54.6 Pain in thoracic spine; M25.561 Pain in right knee; M25.512 Pain in left shoulder
CPT/HCPCS: 71111; 72072; 99212

== ENCOUNTER → 2024-10-06 14:34 | Outpatient (BNV) | payer OTHER, SELFPAY | PROVIDERS: PCP Internal Medicine; Visit Provider Radiology Diagnostic Radiology | DX: R07.81 Pleurodynia (principal); M51.34 Other intervertebral disc degeneration, thoracic region | CPT/HCPCS: 71111; 72072 ==

== ENCOUNTER 2024-10-31 17:00 | Outpatient (REF) | payer OTHER, SELFPAY ==
--- OUTSIDE RECORDS SUMMARY | 2024-10-26 15:00 | XMS_ITS | Encounter Summary ---
Author Organization [facility] Address [address] [place] [address] Care Team Providers Care Breast Buffer Name Role Phone Gerard Bradley DO Primary Care Provider Reason for Visit * Reason Comments Sleep Apnea Follow up for SUE. Encounter Details Date Type Department Care Team (Late st Contact Info) Description 10/26/2024 3:00 PM EDT [facility] [address] [facility] [address] [place] [phone] Aroldo Purcell MD [address] [place] [phone] SUE (obstructive sleep apnea) (Primary Dx); Obesity (BMI 30-39.9) Social History Tobacco Use Types Packs/Day Years Used Date Smoking Tobacco: Never Assessed Comments No Sex and Gender Information Value Date Recorded Sex Assigned at Not on file Legal Sex Female 5:00 AM EST Gender Identity Not on file Sexual Orientation Not on file documented as of this encounter Last Filed Vital Signs Vital Sign Reading Time Taken Comments Blood Pressure 118/70 10/26/2024 3:22 PM EDT Pulse 82 10/26/2024 3:22 PM EDT Temperature 36.1 C (97 F) 10/26/2024 3:22 PM EDT Respiratory Rate 20 10/26/2024 3:22 PM EDT Oxygen Saturation 97% 10/26/2024 3:22 PM EDT Inhaled Oxygen Concentration - - Weight 72.1 kg (159 lb) 10/26/2024 3:22 PM EDT Height 149.9 cm (4' 11 ) 10/26/2024 3:22 PM EDT Body Mass Index 32.11 10/26/2024 3:22 PM EDT documented in this encounter Progress Notes * Aroldo Purcell MD - 10/26/2024 3:00 PM EDT ADULT PULMONARY Followup CHIEF COMPLAINT : Sleep Apnea (Follow up for SUE. ) HISTORY OF PRESENT ILLNESS: Tita Cruz is a 79 y.o. old, obese female who is here for follow-up visit in regards to obstructive sleep apnea, has been compliant with the use of CPAP machine, patient was interviewed with the use of helpful securities broker, denies any residual daytime tiredness and somnolence. REVIEW OF SYSTEMS: Review of Systems All other systems reviewed and are negative. ALLERGIES: No Known Allergies ACTIVE MEDICATIONS: Outpatient Medications Marked as Taking for the 10/26/24 encounter (Office Visit) with Aroldo Purcell MD Medication Sig Dispense Refill amoxicillin (AMOXIL) 500 mg capsule TAKE 4 CAPSULES BY MOUTH 1 HOUR PRIOR TO DENTAL FOR 1 DAY brinzolamide (Azopt) 1 % ophthalmic suspension INSTILL 1 GTT IN EACH EYE BID calcium carbonate-vitamin D3 600 mg-5 mcg (200 unit) per tablet TOME CELIA TABLETA 2 VECES AL D A celecoxib (CeleBREX) 200 mg capsule TOME CELIA C PSULA TODOS LOS D Oral for 30 cromolyn (OPTICROM) 4 % ophthalmic solution INT ONE GTT IN OU BID cycloSPORINE (Restasis MultiDose) 0.05 % drops PONGA CELIA GOTA EN LOS DOS OJOS DOS VECES AL D A Ophthalmic for 30 DULoxetine (CYMBALTA) [address] capsule TOME 1 CAPSULA POR VIA ORAL TODOS LOS CLEMENTS 90 ergocalciferol (VITAMIN D-2) 1,250 mcg (50,000 unit) capsule TK 1 C PO WEEKLY FOR 8 WKS erythromycin 5 mg/gram (0.5 %) ophthalmic ointment APPLY 1/4 INCH INTO BOTH EYES EVERY NIGHT AT BEDTIME fluticasone propionate (FLONASE) 50 mcg/actuation nasal spray PULVERICE SPRAY 1 SPRAY EN CADA VENTANILLA DE LA NARIZ TODOS LOS CLEMENTS FOR 30 DAYS gabapentin (NEURONTIN) 100 mg capsule TK 2 C PO TID FOR 30 DAYS lovastatin (MEVACOR) 20 mg tablet TK 1 T PO QHS FOR CHOLESTEROL meclizine (ANTIVERT) 25 mg tablet TK 1 T PO Q 8 H PRN methyl salicylate-menthol (BENGAY) 15%-10% cream NELDA TO BACK PRN metroNIDAZOLE (FLAGYL) 500 mg tablet TK 1 T PO BID nitrofurantoin, macrocrystal-monohydrate, (MACROBID) 100 mg capsule TK 1 C PO BID FOR 7 DAYS nystatin (MYCOSTATIN) cream NELDA EXT AA TID oxyCODONE (ROXICODONE) 5 mg immediate release tablet TOME CELIA TABLETA POR V A ORAL CADA CUATRO HORAS POR 7 D CUANDO SEA NECESARIO PARA EL DOLOR PARoxetine (PAXIL) 20 mg tablet TK 1 T PO D rosuvastatin (CRESTOR) 5 mg tablet TOME CELIA TABLETA POR VIA ORAL ON THURSDAY, THURSDAY, AND Thursday tiZANidine (ZANAFLEX) 2 mg tablet TK 1 T PO BID FOR 30 DAYS traZODone (DESYREL) 100 mg tablet TOME 1 TABLETA POR V A ORAL TODOS LOS D AL ACOSTARSE FOR 30 DAYS valACYclovir (VALTREX) 1 gram tablet TK 1 T PO ONCE A DAY PROVIDER ATTESTS THAT THE MEDICATION LIST WAS OBTAINED, REVIEWED AND UPDATED. PAST MEDICAL HISTORY: Patient Active Problem List Diagnosis Date Noted HLD (hyperlipidemia) 10/26/2024 SUE (obstructive sleep apnea) 10/26/2024 Osteoarthritis 10/26/2024 Osteoporosis 10/26/2024 No past surgical history on file. No past surgical history on file. FAMILY HISTORY: No family history on file. SOCIAL HISTORY Social History Socioeconomic History Marital status: Single Spouse name: Not on file Number of children: Not on file Years of education: Not on file Highest education level: Not on file Occupational History Not on file Tobacco Use Smoking status: Not on file Smokeless tobacco: Not on file Substance and Sexual Activity Alcohol use: Not on file Drug use: Not on file Sexual activity: Not on file Other Topics Concern Not on file Social History Narrative Not on file IMMUNIZATION: Immunization History Administered Date(s) Administered COVID-19 (Pfizer/Comirnaty) 12yo and older 12/28/2023 Pfizer (ages 12 & older) SARS-CoV-2 COVID-19, mRNA, LNP-S, diamond-sucrose, preservative free 07/15/2021 Pfizer SARS-CoV-2 COVID-19, mRNA, LNP-S, preservative free 06/15/2020, 07/06/2020, 01/14/2021 PHYSICAL EXAM: Visit Vitals BP 118/70 Pulse 82 Temp 36.1 ??C (97 ??F) (Temporal) Resp 20 Ht 1.499 m (59 ) Wt 72.1 kg (159 lb) SpO2 97% BMI 32.11 kg/m?? OB Status Postmenopausal BSA 1.67 m?? Physical Exam Vitals and nursing note reviewed. Constitutional: Appearance: Normal appearance. HENT: Head: Normocephalic and atraumatic. Right Ear: Tympanic membrane, ear canal and external ear normal. Left Ear: Tympanic membrane, ear canal and external ear normal. Nose: Nose normal. Mouth/Throat: Mouth: Mucous membranes are moist. Pharynx: Oropharynx is clear. Comments: Mallampati scale of 4, macroglossia. Eyes: Extraocular Movements: Extraocular movements intact. Conjunctiva/sclera: Conjunctivae normal. Pupils: Pupils are equal, round, and reactive to light. Comments: Bilateral intraocular lens implant. Cardiovascular: Rate and Rhythm: Normal rate and regular rhythm. Pulses: Normal pulses. Heart sounds: Normal heart sounds. Pulmonary: Effort: Pulmonary effort is normal. Breath sounds: Normal breath sounds. Abdominal: General: Bowel sounds are normal. Palpations: Abdomen is soft. Comments: Obese. Musculoskeletal: General: Normal range of motion. Cervical back: Normal range of motion and neck supple. Skin: General: Skin is warm. Capillary Refill: Capillary refill takes 2 to 3 seconds. Neurological: General: No focal deficit present. Mental Status: She is alert and oriented to person, place, and time. Mental status is at baseline. Psychiatric: Mood and Affect: Mood normal. Behavior: Behavior normal. Thought Content: Thought content normal. Judgment: Judgment normal. Diagnostic: CURRENTS ICD-10 PULMONARY DIAGNOSIS 1. SUE (obstructive sleep apnea) 2. Obesity (BMI 30-39.9) ASSESSMENT/PLAN: This is a pleasant 79-year-old obese female lifelong non-smoker, past medical history is significant for osteoarthritis, hyperlipidemia, depression, left total knee replacement in 2020, total abdominal hysterectomy, bilateral intraocular lens implant, nonspecific interstitial pneumonitis treated with antibiotic and prednisone with resolution of CAT scan of the chest, obstructive sleep apnea, status post right total knee replacement November 2023, obstructive sleep apnea, compliant with the use of CPAP machine, denies any residual daytime tiredness and somnolence. 1. Obesity, weight loss has been advised, counseling has been given, she has been advised to join aweight loss program to lose weight, dietary discretion and portion control advised. 2. Obstructive sleep apnea, moderate degree, patient is on auto CPAP 5 to 15 cm of water pressure, has been compliant with the use of CPAP machine, using it every night, denies any residual daytime tiredness and somnolence. 3. Medications were reconciled with the patient today. 4. Disposition, follow-up in 1 year or sooner if need arises. Problem List Items Addressed This Visit SUE (obstructive sleep apnea) - Primary Other Visit Diagnoses Obesity (BMI 30-39.9) -Follow up with Gerard Bradley DO for the other co-morbilities. RETURN TO THE NEXT VISIT: Based on physical exam, symptomatology, tests requested and baseline pulmonary evaluation/disease, I instructed the patient to come back to see me in for reevaluation after the test has been done or earlier if the patient needed. Thanks Gerard Bradley DO for allowing me to have the opportunity to assist in the care of this patient. This chart was generated by the [employer] EMR system and [employer] speech recognition software and may contain inherent errors or omissions not intended by the user. Grammatical errors, random word insertions, deletions, pronoun errors and incomplete sentences are occasional consequences of this technologydue to software limitations. Not all errors are caught or corrected. If there are questions or concerns about the content of this note or information contained within the body of this dictation theyshould be addressed directly with the author for clarification. Electronically Signed By:Aroldo Purcell MD documented in this encounter Plan of Treatment Upcoming Encounters Date Type Department Care Team (Late st Contact Info) Description 10/26/2025 2:45 PM EDT Office Visit Pulmon[facility]gy - [place] [address] [facility] [address] [place] [address] Aroldo Purcell MD [address] [place] [address] documented as of this encounter Visit Diagnoses Diagnosis SUE (obstructive sleep apnea)- Primary Obstructive sleep apnea (adult) (pediatric) Obesity (BMI 30-39.9) documented in this encounter Historical Medications * This list may reflect changes made after this encounter. valACYclovir (VALTREX) 1 gram tablet TK 1 T PO ONCE A DAY traZODone (DESYREL) 100 mg tablet TOME 1 TABLETA POR V A ORAL TODOS LOS D AL ACOSTARSE FOR 30 DAYS tiZANidine (ZANAFLEX) 2 mg tablet TK 1 T PO BID FOR 30 DAYS rosuvastatin (CRESTOR) 5 mg tablet TOME CELIA TABLETA POR VIA ORAL ON THURSDAY, THURSDAY, AND Thursday PARoxetine (PAXIL) 20 mg tablet TK 1 T PO D 08/09/2020 oxyCODONE (ROXICODONE) 5 mg immediate release tablet TOME CELIA TABLETA POR V A ORAL CADA CUATRO HORAS POR 7 D CUANDO SEA NECESARIO PARA EL DOLOR 12/10/2023 nystatin (MYCOSTATIN) cream NELDA EXT AA TID nitrofurantoin, macrocrystal-mon ohydrate, (MACROBID) 100 mg capsule TK 1 C PO BID FOR 7 DAYS metroNIDAZOLE (FLAGYL) 500 mg tablet TK 1 T PO BID methyl salicylate-menth ol (BENGAY) 15%-10% cream NELDA TO BACK PRN meclizine (ANTIVERT) 25 mg tablet TK 1 T PO Q 8 H PRN lovastatin (MEVACOR) 20 mg tablet TK 1 T PO QHS FOR CHOLESTEROL 08/09/2020 gabapentin (NEURONTIN) 100 mg capsule TK 2 C PO TID FOR 30 DAYS 08/09/2020 fluticasone propionate (FLONASE) 50 mcg/actuation nasal spray PULVERICE SPRAY 1 SPRAY EN CADA VENTANILLA DE LA NARIZ TODOS LOS CLEMENTS FOR 30 DAYS 01/02/2024 erythromycin 5 mg/gram (0.5 %) ophthalmic ointment APPLY 1/4 INCH INTO BOTH EYES EVERY NIGHT AT BEDTIME 10/19/2023 ergocalciferol (VITAMIN D-2) 1,250 mcg (50,000 unit) capsule TK 1 C PO WEEKLY FOR 8 WKS DULoxetine (CYMBALTA) [address] capsule TOME 1 CAPSULA POR VIA ORAL TODOS LOS CLEMENTS 90 cycloSPORINE (Restasis MultiDose) 0.05 % drops PONGA CELIA GOTA EN LOS DOS OJOS DOS VECES AL D A Ophthalmic for 30 cromolyn (OPTICROM) 4 % ophthalmic solution INT ONE GTT IN OU BID celecoxib (CeleBREX) 200 mg capsule TOME CELIA C PSULA TODOS LOS D Oral for 30 calcium carbonate-vitami n D3 600 mg-5 mcg (200 unit) per tablet TOME CELIA TABLETA 2 VECES AL D A brinzolamide (Azopt) 1 % ophthalmic suspension INSTILL 1 GTT IN EACH EYE BID amoxicillin (AMOXIL) 500 mg capsule TAKE 4 CAPSULES BY MOUTH 1 HOUR PRIOR TO DENTAL FOR 1 DAY 12/10/2023 added in this encounter Care Teams Breast Buffer Relationship Specialty Start Date End Date Gerard Bradley DO [address] [place] [id number] PCP - General Internal Medicine 01/12/24 documented as of this encounter
--- NOTE | ~2024-10-31 | MR_ITS ---
EXAMINATION: MR THORACIC SPINE WITHOUT CONTRAST CLINICAL INFORMATION: Pain, thoracic spine. M54.6. COMPARISON: June 03, 2023. Correlated to x-ray dated October 06, 2024. TECHNIQUE: MRI of the thoracic spine was obtained using routine sequences without contrast. FINDINGS: No bone marrow STIR signal abnormality. Multilevel marginal osteophyte formation, decreased intervertebral disc height and signal throughout the axial skeleton. Normal alignment. The thoracic spinal cord demonstrates normal caliber and normal signal. Paramagnetic field distortion secondary to posterior fusion at L5-S1. There is no cord compression or herniated disc from T1 to T12. The conus medullaris ends at superior endplate of L2 with normal signal. There is a 2.6 cm hyperintense T2 cystic lesion in the right hepatic lobe no fully included in the exam. No prevertebral compartment hematoma, mass or fluid collection. MR/MR thoracic spine wo con IMPRESSION: No acute fracture or listhesis. Multilevel spondylosis without cord compression. No cord edema and or myelopathy. 2.6 cm cystic lesion, right hepatic lobe.. Electronically signed by: Sanjay Harman MD 11/01/2024 08:14 AM EDT
--- OUTSIDE RECORDS SUMMARY | 2024-10-31 18:54 | XMS_ITS ---
Author Name [facility] Address [address] [place] [address] Phone [phone] [facility] Team Providers Care Office Supervisor Name Role Phone Rose Marie Feliz Unavailable [phone] [facility] Unavailable Reason for Referral Not [...] (do not use for phone, instead use [id number]) [facility] Chronic obstructive pulmonar y disease, unspecifiedMajor depressive disorder, recurrent, mildHyperlipidemia, unspecifiedAcute upper respiratory infection, unspecified New patient,40-59min; chronic exacerbation, 2 stable chronic or 1 acute illness add add modifier 95 for video (do not use for phone, instead use 07102-70) [facility] New patient,40-59min; chronic exacerbation, 2 stable chronic or 1 acute illness add add modifier 95 for video (do not use for phone, instead use 14019-05) [facility] [place]28/2022 New patient,40-59min; chronic exacerbation, 2 stable chronic or 1 acute illness add add modifier 95 for video (do not use for phone, instead use 51687-86) [facility]/2022 New patient,40-59min; chronic exacerbation, 2 stable chronic or 1 acute illness add add modifier 95 for video (do not use for phone, instead use 50708-40) [facility], ([place] 01/28/2022 New patient,40-59min; chronic exacerbation, 2 stable chronic or 1 acute illness add add modifier 95 for video (do not use for phone, instead use 11192-71) [facility] 01/28/2022 Estab. patient 30-39min; chronic exacerbation, 2 stable chronic or 1 acute illness add add modifier 95 for video, (do not use for phone, instead use 20268-85) [facility], ([place] 09/18/2022 Chronic obstructive pulmonar y disease, unspecifiedMajor depressive disorder, recurrent, mildHyperlipidemia, unspecifiedAcute upper respiratory infection, unspecifiedDorsalgia, unspecifiedOther chronic painOther specified postprocedural statesAbnormal response to nerve stimulation, unspecified Estab. patient 30-39min; chronic exacerbation, 2 stable chronic or 1 acute illness add add modifier 95 for video, (do not use for phone, instead use 54478-20) [facility] 09[place]18/20[place] Estab. patient 30-39min; chronic exacerbation, 2 stable chronic or 1 acute illness add add modifier 95 for video, (do not use for phone, instead use 72163-95) [facility] 09[place]18/2022 Estab. patient 30-39min; chronic exacerbation, 2 stable chronic or 1 acute illness add add modifier 95 for video, (do not use for phone, instead use 10724-75) [facility] 09[place]18/2022 Estab. patient 30-39min; chronic exacerbation, 2 stable chronic or 1 acute illness add add modifier 95 for video, (do not use for phone, instead use 28051-84) [facility] 09[place]18/2022 Estab. patient 30-39min; chronic exacerbation, 2 stable chronic or 1 acute illness add add modifier 95 for video, (do not use for phone, instead use 89112-10) [facility] [place] 09[place]18/2022 Estab. patient 30-39min; chronic exacerbation, 2 stable chronic or 1 acute illness add add modifier 95 for video, (do not use for phone, instead use 23808-53) [facility] [place] 09[place]18/2022 Estab. patient 30-39min; chronic exacerbation, 2 stable chronic or 1 acute illness add add modifier 95 for video, (do not use for phone, instead use 35028-91) [facility], ([place] 09/18/2022 Estab. patient 30-39min; chronic exacerbation, 2 stable chronic or 1 acute illness add add modifier 95 for video, (do not use for phone, instead use 39026-54) [facility] [place] 07[place]10/2023 Major depressive disorder, [...] (do not use for phone, instead use 85086-44) [facility] [place] 07[place]10/2023 Estab. patient 30-39min; chronic exacerbation, 2 stable chronic or 1 acute illness add add modifier 95 for video, (do not use for phone, instead use 10223-77) [facility] 07[place]10/2023 Estab. patient 30-39min; chronic exacerbation, 2 stable chronic or 1 acute illness add add modifier 95 for video, (do not use for phone, instead use 83455-20) [facility], ([place] 07/10/2023 Estab. patient 30-39min; chronic exacerbation, 2 stable chronic or 1 acute illness add add modifier 95 for video, (do not use for phone, instead use 79394-81) [facility], ([place] 07/10/2023 Estab. patient 30-39min; chronic exacerbation, 2 stable chronic or 1 acute illness add add modifier 95 for video, (do not use for phone, instead use 16112-38) [facility] ([place] 07/10/2023 Estab. patient 30-39min; chronic exacerbation, 2 stable chronic or 1 acute illness add add modifier 95 for video, (do not use for phone, instead use 94929-83) [facility], ([place] 07/10/2023 Estab. patient 30-39min; chronic exacerbation, 2 stable chronic or 1 acute illness add add modifier 95 for video, (do not use for phone, instead use 16707-09) [facility], ([place] 07/10/2023 Estab. patient 10-29min; 1 minor problem; add add modifier 95 for video, modifier 93 for phone [facility] ([place]) 03/30/2024 Dorsalgia, unspecifiedOther chronic painOther specified postprocedural statesOther problems related to medical facilities and other health care Estab. patient 20-29min; 1 stable chronic or 2 minor; add add modifier 95 for video, modifier 93 for phone [facility], ([place]) 04/06/2024 Unspecified dementia, mild, without behavioral disturbance, psychotic disturbance, mood disturbance, and anxietyObstructive sleep apnea (adult) (pediatric)Chronic obstructive pulmonary disease, unspecifiedMajor depressive disorder, recurrent, moderateHyperlipidemia, unspecifiedDorsalgia, unspecifiedOther chronic painAbnormal response to nerve stimulation, unspecifiedOther problems related to medical facilities and other health care Estab. patient 20-29min; 1 stable chronic or 2 minor; add add modifier 95 for video, modifier 93 for phone [facility], ([place] 04/06/2024 Estab. patient 20-29min; 1 stable chronic [...] tive Time Current Smoking Status Never smoker 8 Sex Female History of Procedures Procedures Service Procedure code Service date Servicing provider Phone# New patient,40-59min; chronic exacerbation, 2 stable chronic or 1 acute illness add add modifier 95 for video (do not use for phone, instead use 62035-55) [id number] 2022-01-28 No Data Available No Data Availa [...] (do not use for phone, instead use 91412-57) [id number] 2022-09-18 No Data Available No Data Availa [...] (do not use for phone, instead use 11799-24) [id number] 2023-07-10 No Data Available No Data Availa [...] 95 for video, modifier 93 for phone [id number] 2024-03-30 No Data Available No Data Availa ble Estab. patient 20-29min; 1 stable chronic or 2 minor; add add modifier 95 for video, modifier 93 for phone 33026 2024-04-06 No Data Available No Data Availa [...] 95 for video, modifier 93 for phone [id number] 2024-05-06 No Data Available No Data Availa ble Estab. patient 10-29min; 1 minor problem; add add modifier 95 for video, modifier 93 for phone 64207 2024-06-02 No Data Available No Data Availa ble Estab. patient 10-29min; 1 minor problem; add add modifier 95 for video, modifier 93 for phone [id number] 2024-07-12 No Data Available No Data Availa ble Estab. patient 10-29min; 1 minor problem; add add modifier 95 for video, modifier 93 for phone 92198 2024-08-10 No Data Available No Data Availa [...] Documented (1125F)Continue to see PCP. Follow-up with [facility] as needed for any acute [...] side,has not found relief save for heatHeat [id number] hip and leg painHas peripheral nerve stimulation [...] diclofenac gel, methocarbamol07/10/23: Will start PT on [id number] to experience constant knee pain, she will [...] masks. I instructed her to call the [employer] that provided the equipment and to call [...] for phoneContinue to see PCP. [facility] or disease education needs that may arise 15/09.RX: Tylenol, Diclofenac Gel, CelecoxidContinue to follow up with PCP.COPD documented on note dated 01/28/22. 'Not currently taking medications or MDIs.Avoid allergens and triggers. Continue to follow up with PCP. 05/06/24: She reports tolerating bipap machine. She was inquiring on a replacement masks. I instructed her to call the [employer] that provided the equipment and to call [...] for phoneContinue to see PCP. Follow-up with [facility] as needed for any acute [...]
--- OUTSIDE RECORDS SUMMARY | 2024-10-31 18:55 | XMS_ITS | Clinical Summary ---
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 Role Phone Gerard Bradley DO Primary Care Provider [phone] Allergies No known active allergies Medications amoxicillin (AMOXIL) 500 mg capsule TAKE 4 CAPSULES BY MOUTH 1 HOUR PRIOR TO DENTAL FOR 1 DAY 4 Active brinzolamide (Azopt) 1 % ophthalmic suspension INSTILL 1 GTT IN EACH EYE BID Active calcium carbonate-vitam in D3 600 mg-5 mcg (200 unit) per tablet TOME CELIA TABLETA 2 VECES AL D A Active celecoxib (CeleBREX) 200 mg capsule TOME CELIA C PSULA TODOS LOS D Oral for 30 Active cromolyn (OPTICROM) 4 % ophthalmic solution INT ONE GTT IN OU BID Active cycloSPORINE (Restasis MultiDose) 0.05 % drops PONGA CELIA GOTA EN LOS DOS OJOS DOS VECES AL D A Ophthalmic for 30 Active DULoxetine (CYMBALTA) [address] capsule TOME 1 CAPSULA POR VIA ORAL TODOS LOS CLEMENTS 90 Active ergocalciferol (VITAMIN D-2) 1,250 mcg (50,000 unit) capsule TK 1 C PO WEEKLY FOR 8 WKS Active erythromycin 5 mg/gram (0.5 %) ophthalmic ointment APPLY 1/4 INCH INTO BOTH EYES EVERY NIGHT AT BEDTIME 4 Active fluticasone propionate (FLONASE) 50 mcg/actuation nasal spray PULVERICE SPRAY 1 SPRAY EN CADA [place] DE [place] TODOS LOS CLEMENTS FOR 30 DAYS 4 Active gabapentin (NEURONTIN) 100 mg capsule TK 2 C PO TID FOR 30 DAYS 1 Active lovastatin (MEVACOR) 20 mg tablet TK 1 T PO QHS FOR CHOLESTEROL 1 Active meclizine (ANTIVERT) 25 mg tablet TK 1 T PO Q 8 H PRN Active methyl salicylate-ment hol (BENGAY) 15%-10% cream NELDA TO BACK PRN Active metroNIDAZOLE (FLAGYL) 500 mg tablet TK 1 T PO BID Active nitrofurantoin, macrocrystal-mo nohydrate, (MACROBID) 100 mg capsule TK 1 C PO BID FOR 7 DAYS Active nystatin (MYCOSTATIN) cream NELDA EXT AA TID Activ e oxyCODONE (ROXICODONE) 5 mg immediate release tablet TOME CELIA TABLETA POR V A ORAL CADA CUATRO HORAS POR 7 D CUANDO SEA NECESARIO PARA EL DOLOR 4 Active PARoxetine (PAXIL) 20 mg tablet TK 1 T PO D 1 Active rosuvastatin (CRESTOR) 5 mg tablet TOME CELIA TABLETA POR VIA ORAL ON THURSDAY, THURSDAY, AND Thursday Active tiZANidine (ZANAFLEX) 2 mg tablet TK 1 T PO BID FOR 30 DAYS Active traZODone (DESYREL) 100 mg tablet TOME 1 TABLETA POR V A ORAL TODOS D AL ACOSTARSE FOR 30 DAYS Active valACYclovir (VALTREX) 1 gram tablet TK 1 T PO ONCE A DAY Active Active Problems Problem Noted Date Diagnosed Date HLD (hyperlipidemia) 10/26/2024 SUE (obstructive sleep apnea) 10/26/2024 Osteoarthritis 10/26/2024 Osteoporosis 10/26/2024 Encounters Date Type Department Care Team Description 10/26/2024 3:00 PM EDT Office Visit [address] [phone] Aroldo Purcell MD SUE (obstructive sleep apnea) (Primary Dx); Obesity (BMI 30-39.9) from Last 3 Months Social History Tobacco Use Types Packs/Day Years [...] Mass Index 32.11 10/26/2024 3:22 PM EDT Plan of Treatment Upcoming Encounters Date Type Department Care Team (Late st Contact Info) Description 10/26/2025 2:45 PM EDT Office Visit Pulmonolgy - [address] [place] [id number] Aroldo Purcell MD [address] [place] [phone] Health Maintenance Due Date Last Done Comments RSV Immunization Adult Patients (1 - 1-dose 75+ series) 2020 Depression Screening 02/24/2024 Cholesterol Screening (Lipid Panel) 07/24/2024 Falls Risk Assessment 07/24/2024 Hepatitis C Screening 07/24/2024 Medicare Annual Wellness Visit 07/24/2024 Osteoporosis Screening (Bone Density Screening) 07/24/2024 Social Influencers of Health Screening 07/24/2024 COVID-19 Vaccine ( season) 2024 12/28/2023, 07/15/2021, 01/14/2021, Additional history exists Influenza Vaccine (#1) 2024 , 12/29/2022, 11/13/2021, Additional history exists DTaP,Tdap,and Td Vaccines (3 - Td or Tdap) 01/07/2026 01/08/2016, 12/17/2007 MMR Vaccines Aged Out 01/08/2007, 12/07/2006 No lo nger eligible based on patient's age to complete this topic Pneumococcal Vaccine: 50+ Years Completed 11/13/2021, 01/09/2016, 01/09/2016 Zoster Vaccines Completed 05/19/2024, 02/19/2024 HIB Vaccines Aged Out No longer eligi [...] - [place] [employer] [place]IC[place] Care 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
--- OUTSIDE RECORDS SUMMARY | 2024-10-31 18:55 | XMS_ITS | Patient Health Record ---
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 Yes BMI Follow Up Above Normal BMI Follow-up Weight monito ring Drug/Alcohol: Social Info Question Answer Notes Alcohol Did you have a drink containing alcohol in the past year? 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 [address] [address] [place] [phone] [id number] Tita Foreman Self - patient is the insured [facility] Claims Department [address] [place] [address] [phone] [id number] Tita Foreman Self - patient is the insured Medical (General) History Medical History History ICD Code Osteoporosis HLD Anxiety/Depression Chronic Back Pain Genital Herpes Surgical History Surgery Date(Month/Year) Hysterectomy Appendectomy
--- OUTSIDE RECORDS SUMMARY | 2024-10-31 18:55 | XMS_ITS | Patient Health Record ---
Author Organization [facility] Address [address] [place] [phone] Care Team Providers Care Cardiopulmonary Technologist Chief Name Role Phone SHIVANI GREEN Primary Care Provider Rufus Fernandez Jr Unavailable [phone] Allergies No Known Allergies Reason For Referral No Information Medications Medication SIG (Take, Route, Frequency, Duration) Notes Start Date End Date Status Restasis 0.05 % PONGA CELIA GOTA EN LO S DOS OJOS DOS VECES AL D A Ophthalmic for 30 Active DULoxetine HCl 30 MG TOME 1 CAPSULA POR VIA ORAL TODOS LOS CLEMENTS Oral for 90 Active traZODone HCl 100 MG TOME CELIA TABLETA TO DOS LOS D AL ACOSTARSE Oral for 30 Active Fluticasone Furoate 27.5 MCG/SPRAY 2 sprays (1 spray in each nostril) Nasally Once a day Active Brinzolamide 1 % PONGA CELIA GOTA EN LO S DOS OJOS GRETEL VECES AL D A Ophthalmic for 25 Active Gabapentin (Once-Daily) Active Omeprazole 20 MG 1 capsule 30 minutes before morning meal Orally Once a day for 30 day(s) 06/30/2022 Active Erythromycin 2 % 1 application 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 ally Twice a day Active Celecoxib 200 MG TOME CELIA C PSULA TOD OS LOS D Oral for 30 Active Sodium Chloride Acti ve valACYclovir HCl 1 GM TOME CELIA TABLETA T ODOS LOS D Oral for 90 Active Calcium 1 tab Oral for 14 days Active Calcium + Vitamin D3 600-5 MG-MCG TOME CELIA TABLETA DOS VECES AL D A Oral for 30 Active Diclofenac 1.25 % 1 patch Externally O nce a day Active Rosuvastatin Calcium 5 MG TOME CELIA TABLE TA POR V A ORAL ON THURSDAY, THURSDAY, AND THURSDAY Oral for 28 Active Vitamin D-3 125 MCG (5000 UT) as directed Orally Active Immunizations Vaccine Route Administration Date Status Comme nts Influenza Unknown 12/10/2021 Administered Social History Tobacco Use: Social History Observation Description Date Details (start date - stop date) Never Smoker NA - NA Tobacco Use/Smoking Question Answer Notes Patient is a nonsmoker AUDIT-C (Standard) Question Answer Notes Did you have a drink containing alcohol in the p ast year? No Points 0 Interpretation Negative Problems Problem Type SNOMED Code ICD Code Onset Dates Problem Status W/U Status Risk Notes Problem 009828400 Bloating (R14.0) Active confirmed Problem 130937906 Generalized abdominal pain (R10.84) Active confirmed Problem 349040679 Gastroesophageal reflux disease without esophagitis (K21.9) Active confirmed Vital Signs Heart Rate 96 /min 10/10/2024 Temperature 97.5 degrees Fahrenheit 10/10/2024 Blood pressure diastolic 01 mm Hg 10/10/2024 Height 60 in 10/10/2024 Blood pressure systolic 001 mm Hg 10/10/2024 Weight 164.8 lbs 10/10/2024 BMI 32.18 kg/m2 10/10/2024 Encounters Encounter Location Date Provider Diagnosis [facility] [address] [place] [phone] 11/12/2023 Rufus Dover Jr Generalized abdominal pain R10.84 and Bloating R14.0 [facility] [address] [place] [phone] 10/10/2024 Rufus Dover Jr Gastroesophageal reflux disease without esophagitis K21.9 and Bloating R14.0 Assessments Encounter Date Diagnosis (ICD Code) Assessment Notes Treatment Notes Treatment Clinical Notes Section Notes 11/12/2023 Bloating (ICD-10 - R14.0) At this time, she is doing well. We discussed diet, lifestyle modifications , and weight management regarding the treatment of reflux. She will continue her present regimen. Followup will be in one year. She is up-to-date on colon cancer screening. Her bloating has resolved. 11/12/2023 Generalized abdominal pain (ICD-10 - R10.84) Abdominal MRI scan material was printed At this time, she is doing well. We discussed diet, lifestyle modifications , and weight management regarding the treatment of reflux. She will continue her present regimen. Followup will be in one year. She is up-to-date on colon cancer screening. Her bloating has resolved. 10/10/2024 Bloating (ICD-10 - R14.0) At this time, she is doing well. She will continue omeprazole 20 mg daily. We discussed diet, lifestyle modifications , and weight management regarding the treatment of reflux. She will continue these measures. Bloating is under good control with diet and she will continue this. Follow-up will be in 1 year. 10/10/2024 Gastroesophageal reflux disease without esophagitis (ICD-10 - K21.9) At this time, she is doing well. She will continue omeprazole 20 mg daily. We discussed diet, lifestyle modifications , and weight management regarding the treatment of reflux. She will continue these measures. Bloating is under good control with diet and she will continue this. Follow-up will be in 1 year. Plan Of Treatment Pending Test Test Name Order Date LIVER PROFILE 06/30/2022 LIPASE 06/30/2022 CBC w/o DIFF 06/30/2022 IgA 06/30/2022 TRANSGLUTAMINASE AB IGA 06/30/2022 Next Appt Details Provider Name:Rufus minor , 10/19/2025 01:15:00 PM, [address] [place] [address], [facility] [address], [place], [phone], Insurance Providers Payer Name Payer Address Payer Phone Subscriber Number Group Number Insured Name Patient Relationship to Insured Coverage Start Date Coverage End Date [facility] [address] [address] [place] [phone] [id number] JILL WU Self - patient is the insured MEDICARE OF [facility] [address] JAMESON CORBETT [id number] JILL WU Self - patient is the insured Medical (General) History Medical History History ICD Code Osteoarthritis Insomnia Elevated cholesterol Migraine headaches Osteoporosis Obstructive sleep apnea HSV infection Surgical History Surgery Date(Month/Year) back surgery right knee replacement Left total knee replacement Cataract surgery Appendectomy Hysterectomy Back surgery
== END 2024-10-31 17:01 | disposition home or self-care (01) ==
LOC: HO.MRI 17:00
PROVIDERS: PCP Internal Medicine; Visit Provider Nurse Practitioner Family
DX: M54.6 Pain in thoracic spine (principal); G89.29 Other chronic pain; M54.14 Radiculopathy, thoracic region; M47.814 Spondylosis without myelopathy or radiculopathy, thoracic region
CPT/HCPCS: 72146

== ENCOUNTER → 2024-10-31 17:01 | Outpatient (BNV) | payer OTHER, SELFPAY | PROVIDERS: PCP Internal Medicine; Visit Provider Radiology Diagnostic Radiology | DX: M47.814 Spondylosis without myelopathy or radiculopathy, thoracic region (principal); K76.89 Other specified diseases of liver | CPT/HCPCS: 72146 ==

== ENCOUNTER 2024-11-03 14:42 | Outpatient (AMB) | payer OTHER, SELFPAY ==
--- NOTE | 2024-11-03 14:44 | MHC.OFFVIS ---
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 The MRI of the thoracic spine revealed multilevel arthritis and disc degeneration, which have slightly increased since the previous imaging. There is no evidence of nerve root or spinal cord compression. The patient has a history of receiving various injections for pain management, including neck injections, upper back medial branch blocks in 2019, and facet injections in 2022. She has also undergone multiple trigger point injections. Additionally, the MRI incidentally noted a 2.6 cm cystic lesion on the right hepatic lobe, which requires follow-up with her primary care physician. PRIOR: The patient is a 79-year-old female presenting with worsening chronic mid back pain. The back pain has been persistent and resistant to conservative treatments, including multiple injections at [facility] and [facility] that provided temporary relief. She has also experienced bilateral knee pain, which was addressed with injections previously but provided no significant relief. Patient reports significant mid back pain with radiation into her left side, ribs and ribcage, and left shoulder worse on the left. She underwent a cervical x-ray that revealed mild degenerative changes with C5-C7 disc space narrowing and multilevel bilateral facet hypertrophy. She also has chronic left shoulder pain due to AC joint arthritis, impingement syndrome and rotator cuff tendinosis versus partial-thickness tearing and has been followed for this by [facility] and last received cortisone injection one year ago. Patient reports increased mid back pain with movements, coughing, twisting, and leaning backwards and forward. She has been taking gabapentin and Tylenol with minimal relief. - Onset: Persistent and chronic - Quality: Sharp, burning, tingling, stabbing, throbbing, radiates from mid-back to left side, under ribs, up to neck and left shoulder - Exacerbating factors: Physical activity, pressing back against the wall for relief - Relieving factors: Temporary relief from injections - Interference: Affects daily activities, unable to perform usual tasks - Affect: Pain impacts daily activities and stability - Analgesia: Uses lidocaine patches, diclofenac cream, acetaminophen, gabapentin; previously used naproxen and oxycodone - Adverse Effects: Dislikes oxycodone due to sedation - Activities of Daily Living: Pain limits ability to perform household tasks - Aberrant Drug Related Behaviors: No evidence of misuse, but concern over high medication use PRIOR: The patient is a 79-year-old female presenting with ongoing bilateral knee pain following knee replacement surgery. She underwent bilateral knee replacement and has been experiencing persistent pain, which is suspected to be due to scar tissue formation per Orthopedics. A diagnostic saphenous nerve block was performed on 09/22/24, which temporarily reduced her pain from 8/10 to 6/10 for few hours. Patient continues to reports significant anterior global left knee pain that extends downs into her pulido with intermittent tingling. She reports mild pain in the right knee today and denies back pain. Denies any recent cough, cold, infection, fever or any significant changes in medical history since last office visit. Past Procedures: 09/22/24: Left adductor canal saphenous nerve block, [id number]% pain relief PRIOR: The patient is a 79-year-old female presenting with history of bilateral total knee replacements and continues to endorse bilateral knee pain, with the left knee being more symptomatic. She received a right knee gel injection a year ago, which provided some relief. She underwent right TKA in October 2023 and left TKA in 2020 and is still recuperating from the surgery. Patient has underwent peripheral nerve stimulation therapy on the right with moderate relief with gradual return of her right knee to baseline. She is interested to address chronic left knee pain with Sprint PNS trial as well. The left knee is currently more problematic, with significant stiffness and tenderness noted in the anterior and patellofemoral aspects. The patient has been managing her pain with Tylenol, which provides mild relief, and denies any knee locking, instability or giving way. She has also reported chronic low back pain and chronic left sided neck muscle spasms and also reports shoulder pain for which she sees Orthopedic provider. She did undergo successful lumbar medial branch blocks but at this time would like to address left knee pain. Denies any recent cough, cold, infection, fever, any significant changes in her medical history, medications or recent hospitalizations. - Pain is located in both knees, with the left knee being more symptomatic. - Reports significant stiffness in the left knee. - Pain is mildly relieved by Tylenol. - Affect: No specific impact on mood or psychological wellbeing discussed. - Analgesia: Currently using Tylenol with mild relief. - Adverse Effects: No adverse effects from pain medication reported. - Activities of Daily Living: Stiffness in the left knee affects mobility, especially climbing stairs. - Aberrant Drug Related Behaviors: No aberrant behaviors reported. Past Procedures: 04/30/23: Bilateral Diagnostic L3-L4 DR Lozano MBB-100% pain relief for 24 hours 09/03/22: Right saphenous nerve peripheral nerve stimulation at the adductor canal placed 09/03/2022% pain relief 03/12/22: Right Diagnostic SNB at adductor canal on 03/12/[address] Alvarado-75-80% pain relief for 8 hours [facility], [facility], Orthopedic management reviewed: Follows Dr. Dotson at [facility] this month for chronic back pain and injections. Left TRK on 03/11/2020 at [facility]. History of back surgery at [facility] in 2018. Botox injections, levator scapular, trapezius, rhomboids, . Cervical epidural injections 2020. Thoracic and cervical medial branch blocks 04/17/2019. Thoracic facet injections 2022. 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 Alert and oriented. Mood and affect appropriate. Follows and participates in conversation appropriately. Respiratory effort is unlabored. No cough. Able to transition from sit to stand unassisted. Ambulates with bilaterally normal heel strike and toe off. Neck Neck: Yes normal visual inspection, Yes no lymphadenopathy, Yes supple, No anterior neck swelling, Yes no JVD, No prominent supraclavicular fat pad and Yes prominent dorsocervical fat pad Chest Chest palpation & inspection: normal inspection of the chest, tenderness rib and No rash General: Yes no CVA tenderness Back/Spine/Pelvis Back: no CVA tenderness Cervical Spine: loss of normal cervical lordosis, cervical muscular tenderness, pain with cervical ROM and No Cervical spine tenderness Thoracic/Lumbar Spine: thoracic and lumbar spine normal to inspection, Thoracic/lumbar spine scar(s), pain with thoraco-lumbar ROM, paraspinal muscle tenderness on the left greater than right, thoraco-lumbar ROM limited, thoracic spinal tenderness (mid to lower thoracic) and No lumbar spinal tenderness Skin General skin exam: no rashes or lesions noted Extrem General: Yes capillary refill normal, Yes no clubbing, cyanosis or edema and Yes no calf tenderness Left upper extremity: shoulder/upper arm (Limited ROM due to pain.) Details: inspection abnormal, tenderness Location: of the A-C joint and over the subacromial bursa and crepitus; no swelling, no ecchymosis and no unsual warmth Right lower extremity: knee (Limited ROM due to pain. Well healed incision.) Details: tenderness Location: of the patella, of the medial joint line and of the lateral joint line and crepitus; no swelling, no ecchymosis, no deformity and no unusual warmth Left lower extremity: knee (Limited ROM due to pain. Well healed incision.) Details: normal to inspection, tenderness (global TTP anterior aspects) and crepitus; no swelling, no ecchymosis and no unusual warmth Results Reviewed Results Reviewed: MR THORACIC SPINE WITHOUT CONTRAST 10/31/24 CLINICAL INFORMATION: Pain, thoracic spine. M54.6. COMPARISON: June 03, 2023. Correlated to x-ray dated October 06, 2024. TECHNIQUE: MRI of the thoracic spine was obtained using routine sequences without contrast. FINDINGS: No bone marrow STIR signal abnormality. Multilevel marginal osteophyte formation, decreased intervertebral disc height and signal throughout the axial skeleton. Normal alignment. The thoracic spinal cord demonstrates normal caliber and normal signal. Paramagnetic field distortion secondary to posterior fusion at L5-S1. There is no cord compression or herniated disc from T1 to T12. The conus medullaris ends at superior endplate of L2 with normal signal. There is a 2.6 cm hyperintense T2 cystic lesion in the right hepatic lobe no fully included in the exam. No prevertebral compartment hematoma, mass or fluid collection. IMPRESSION: No acute fracture or listhesis. Multilevel spondylosis without cord compression. No cord edema and or myelopathy. 2.6 cm cystic lesion, right hepatic lobe.. XR THORACIC SPINE 3 VIEWS 10/06/24 HISTORY: M54.6 - Pain in thoracic spine COMPARISON: Comparison is made with the prior examination dated 03/16/2023. FINDINGS: AP and lateral views of the thoracic spine are submitted. Osseous mineralization is normal. The vertebral bodies maintain normal height and alignment without evidence of fracture or subluxation. There is mild degenerative disc disease with disc space narrowing and osteophyte formation. The visualized paraspinal soft tissues are unremarkable. IMPRESSION: Mild degenerative disc disease. Assessment & Plan Assessment & Plan (1) Post laminectomy syndrome: Code(s): M96.1 - Postlaminectomy syndrome, not elsewhere classified Category: Medical (2) Chronic thoracic back pain: Code(s): M54.6 - Pain in thoracic spine; G89.29 - Other chronic pain Category: Medical Qualifiers: Back pain laterality: midline Qualified Code(s): M54.6 - Pain in thoracic spine; G89.29 - Other chronic pain (3) Thoracic spondylosis: Code(s): M47.814 - Spondylosis without myelopathy or radiculopathy, thoracic region Category: Medical (4) Cervicalgia: Code(s): M54.2 - Cervicalgia Category: Medical Plan The plan includes scheduling mid-thoracic injections to assess the potential for further interventions, such as ablation or peripheral nerve stimulation, if the diagnostic blocks prove effective. The patient is advised to continue current pain management medications, including gabapentin, and to follow up with her primary care physician regarding the liver cyst. Further evaluation of the liver lesion is recommended, potentially involving a referral to a specialist if deemed necessary by her primary care provider. Schedule Bilateral Diagnostic T7-T8-T9 MBB with local and fluoroscopy. Expectations, risks and benefits were reviewed. Patient is aware she will be contacted to schedule this procedure. All questions and concerns have been answered and patient agreed with the treatment plan. Follow up after injections and sooner as needed. Patient was informed and verbally consented to the use of an ambient scribe for clinic note documentation during this visit. Coding Level of Care Code Est Pt Level 4 (19725) Complex EM visit Add On G2211 Diagnoses Post laminectomy syndrome M96.1 Chronic midline thoracic back pain M54.6; G89.29 Back pain laterality: midline Thoracic spondylosis M47.814 Cervicalgia M54.2
[2024-11-03 14:50] VITALS: BP 118/64; PULSE 82; O2SAT 97; BMI 31.7
--- OUTSIDE RECORDS SUMMARY | 2024-11-03 18:19 | XMS_ITS ---
Author Name Tray YAPBarbyjohn Pompa Address [address] [place] [address] Phone [phone] [facility] Care Team Providers Care Air Crew Officer Name Role Phone Rose Marie Feliz Unavailable [phone] [facility] Unavailable [phone] Reason for Referral Not Available Allergies, adverse [...] ne eded for muscle spasm 2023-07-10 2024-04-06 Diclofenac Sodium 1 % Gel APPLY 4 GRAMS TOPICALLY TO AFFECTED AREA 4 TIMES PER DAY NEEDED 2024-03-08 No Data Available Rosuvastatin Calcium 5 mg Tab TOME CELIA [...] (do not use for phone, instead use 41586-87) [facility] [place]2022 Chronic obstructive pulmonar y disease, unspecifiedMajor depressive disorder, recurrent, mildHyperlipidemia, unspecifiedAcute upper respiratory infection, unspecified New patient,40-59min; chronic exacerbation, 2 stable chronic or 1 acute illness add add modifier 95 for video (do not use for phone, instead use 85283-31) [facility] [place] New patient,40-59min; chronic exacerbation, 2 stable chronic or 1 acute illness add add modifier 95 for video (do not use for phone, instead use 48554-83) [facility] [place] New patient,40-59min; chronic exacerbation, 2 stable chronic or 1 acute illness add add modifier 95 for video (do not use for phone, instead use 56616-51) [facility] [place] New patient,40-59min; chronic exacerbation, 2 stable chronic or 1 acute illness add add modifier 95 for video (do not use for phone, instead use 01546-36) [facility] [place] New patient,40-59min; chronic exacerbation, 2 stable chronic or 1 acute illness add add modifier 95 for video (do not use for phone, instead use 94509-34) [facility] [place] Estab. patient 30-39min; chronic exacerbation, 2 stable chronic or 1 acute illness add add modifier 95 for video, (do not use for phone, instead use 33288-94) [facility] [place] 09[place]18[place]2022 Chronic obstructive pulmonar y disease, unspecifiedMajor depressive disorder, recurrent, mildHyperlipidemia, unspecifiedAcute upper respiratory infection, unspecifiedDorsalgia, unspecifiedOther chronic painOther specified postprocedural statesAbnormal response to nerve stimulation, unspecified Estab. patient 30-39min; chronic exacerbation, 2 stable chronic or 1 acute illness add add modifier 95 for video, (do not use for phone, instead use 03891-66) [facility] [place] 09[place]18[place] Estab. patient 30-39min; chronic exacerbation, 2 stable chronic or 1 acute illness add add modifier 95 for video, (do not use for phone, instead use 85064-21) [facility] [place] 09[place]18[place] Estab. patient 30-39min; chronic exacerbation, 2 stable chronic or 1 acute illness add add modifier 95 for video, (do not use for phone, instead use 41852-06) [facility] [place] 09[place]18[place] Estab. patient 30-39min; chronic exacerbation, 2 stable chronic or 1 acute illness add add modifier 95 for video, (do not use for phone, instead use 23017-08) [facility] [place] 09[place] Estab. patient 30-39min; chronic exacerbation, 2 stable chronic or 1 acute illness add add modifier 95 for video, (do not use for phone, instead use 73782-88) [facility] [place] 09[place]18[place] Estab. patient 30-39min; chronic exacerbation, 2 stable chronic or 1 acute illness add add modifier 95 for video, (do not use for phone, instead use 96508-76) [facility] [place] Estab. patient 30-39min; chronic exacerbation, 2 stable chronic or 1 acute illness add add modifier 95 for video, (do not use for phone, instead use 00902-02) [facility] [place] 09[place]18[place]20[place] Estab. patient 30-39min; chronic exacerbation, 2 stable chronic or 1 acute illness add add modifier 95 for video, (do not use for phone, instead use 88436-66) [facility] [place] 07[place]2023 Major depressive disorder, recurrent, [...] (do not use for phone, instead use 06041-16) [facility] [place] 07[place]20[place] Estab. patient 30-39min; chronic exacerbation, 2 stable chronic or 1 acute illness add add modifier 95 for video, (do not use for phone, instead use 36095-08) [facility] [place] 07[place]2023 Estab. patient 30-39min; chronic exacerbation, 2 stable chronic or 1 acute illness add add modifier 95 for video, (do not use for phone, instead use 67510-18) [facility] [place] 07[place]2023 Estab. patient 30-39min; chronic exacerbation, 2 stable chronic or 1 acute illness add add modifier 95 for video, (do not use for phone, instead use 17435-53) [facility] [place] 07[place]2023 Estab. patient 30-39min; chronic exacerbation, 2 stable chronic or 1 acute illness add add modifier 95 for video, (do not use for phone, instead use 86369-08) [facility] [place] 07[place]2023 Estab. patient 30-39min; chronic exacerbation, 2 stable chronic or 1 acute illness add add modifier 95 for video, (do not use for phone, instead use 78964-05) [facility] [place] 07[place]2023 Estab. patient 30-39min; chronic exacerbation, 2 stable chronic or 1 acute illness add add modifier 95 for video, (do not use for phone, instead use 37608-19) [facility] [place] 07[place]2023 Estab. patient 10-29min; 1 minor problem; add add modifier 95 for video, modifier 93 for phone [facility] [place] 03/[place]/2024 Dorsalgia, unspecifiedOther chronic painOther specified postprocedural statesOther problems related to medical facilities and other health care Estab. patient 20-29min; 1 stable chronic or 2 minor; add add modifier 95 for video, modifier 93 for phone [facility] [place] 04/06/2024 Unspecified dementia, mild, without behavioral disturbance, psychotic disturbance, mood disturbance, and anxietyObstructive sleep apnea (adult) (pediatric)Chronic obstructive pulmonary disease, unspecifiedMajor depressive disorder, recurrent, moderateHyperlipidemia, unspecifiedDorsalgia, unspecifiedOther chronic painAbnormal response to nerve stimulation, unspecifiedOther problems related to medical facilities and other health care Estab. patient 20-29min; 1 stable chronic or 2 minor; add add modifier 95 for video, modifier 93 for phone [facility] [place] 04[place]06[place]20[place] Estab. patient 20-29min; 1 stable chronic or 2 minor; add add modifier 95 for video, modifier 93 for phone [facility] [place] 04[place]06[place]20[place] Estab. patient 20-29min; 1 stable chronic or 2 minor; add add modifier 95 for video, modifier 93 for phone [facility] [place] 04/06/2024 Estab. patient 20-29min; 1 stable chronic or 2 minor; add add modifier 95 for video, modifier 93 for phone [facility] [place] 04/06/2024 Estab. patient 20-29min; 1 stable chronic or 2 minor; add add modifier 95 for video, modifier 93 for phone [facility] [place] 04/06/2024 Estab. patient 20-29min; 1 stable chronic or 2 minor; add add modifier 95 for video, modifier 93 for phone [facility] [place] 04/06/2024 Estab. patient 10-29min; 1 minor problem; add add modifier 95 for video, modifier 93 for phone [facility] [place] 05/06/2024 Obstructive sleep apnea (fidelina lt) (pediatric)Chronic obstructive pulmonary disease, unspecifiedOther problems related to medical facilities and other health care Estab. patient 10-29min; 1 minor problem; add add modifier 95 for video, modifier 93 for phone [facility] [place] 06/02/2024 Arthropathy, unspecifiedOthe r problems related to medical facilities and other health care Estab. patient 10-29min; 1 minor problem; add add modifier 95 for video, modifier 93 for phone [facility] [place] 07/12/2024 Dorsalgia, unspecifiedOther chronic painObstructive sleep apnea (adult) (pediatric)Chronic obstructive pulmonary disease, unspecifiedOther specified disorders of eye and adnexaOther problems related to medical facilities and other health care Estab. patient 10-29min; 1 minor problem; add add modifier 95 for video, modifier 93 for phone [facility] [place] 08/10/2024 Arthropathy, unspecifiedOthe r problems related [...] tive Time Current Smoking Status Never smoker 2024-10-24 1 Sex Female History of Procedures Procedures Service Procedure code Service date Servicing provider Phone# New patient,40-59min; chronic exacerbation, 2 stable chronic or 1 acute illness add add modifier 95 for video (do not use for phone, instead use 27528-86) 23773 2022-01-28 No Data Available No Data Availa [...] (do not use for phone, instead use 43218-28) 79236 2022-09-18 No Data Available No Data Availa [...] (do not use for phone, instead use 54299-17) 94228 2023-07-10 No Data Available No Data Availa [...] 95 for video, modifier 93 for phone 27336 2024-03-30 No Data Available No Data Availa ble Estab. patient 20-29min; 1 stable chronic or 2 minor; add add modifier 95 for video, modifier 93 for phone 36973 2024-04-06 No Data Available No Data Availa [...] 95 for video, modifier 93 for phone 59024 2024-05-06 No Data Available No Data Availa ble Estab. patient 10-29min; 1 minor problem; add add modifier 95 for video, modifier 93 for phone 35551 2024-06-02 No Data Available No Data Availa ble Estab. patient 10-29min; 1 minor problem; add add modifier 95 for video, modifier 93 for phone 92754 2024-07-12 No Data Available No Data Availa ble Estab. patient 10-29min; 1 minor problem; add add modifier 95 for video, modifier 93 for phone 39367 2024-08-10 No Data Available No Data Availa [...] Documented (1125F)Continue to see PCP. Follow-up with Jose as needed for any acute or disease [...] side,has not found relief save for heatHeat [id number] hip and leg painHas peripheral nerve stimulation [...] call CBContinue to see PCP. [facility] or disease education needs that may arise 15/09.what should be done when the member calls: see each individual diagnosis for contingency planon lovastatinx many yearsOn left side,has not found relief save for heatHeat patches, diclofenac gel, methocarbamol07/10/23: Will start PT on [id number] to experience constant knee pain, she will [...] for phoneContinue to see PCP. [facility] for any acute or disease education needs that may arise 15/09.x many yearsOn left side,has not found relief save for heatHeat patches, diclofenac gel, methocarbamol07/10/23: Will start PT on Thursday03/30/24: Pt reports ongoing pain with some relief from current regimen. Refill for diclofenac gel .2019Contin to experience constant knee pain, she will [...] standing after laying downPAIN CONTINGENCY PLANLast updated: 07/12/2024[facility] to call for the following symptoms: [...] for phoneContinue to see PCP. [facility] with [facility] needed for any acute or disease [...] standing after laying downPAIN CONTINGENCY PLANLast updated: 07/12/2024[facility] to call for the following symptoms: [...]
--- OUTSIDE RECORDS SUMMARY | 2024-11-03 18:19 | XMS_ITS | Patient Health Record ---
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 Problem Onychodystrophy (61171891) Onychodystrophy (L60.3) Active confirmed Problem Pain in limb (76883002) Pain in toe of left foot (M79.675) Active confirmed Problem Spasm (70921079) Cramps, extremi ty (R25.2) Active confirmed Plan Of Treatment No Information Insurance Providers Payer Name Payer Address Payer Phone Subscriber Number Group Number Insured Name Patient Relationship to Insured Coverage Start Date Coverage End Date [facility] [address] [address] [place] [address] [phone] [id number] Tita Foreman Self - patient is the insured [facility] [employer] Claims [employer] [address] [place] [address] [phone] [id number] Tita Foreman Self - patient is the insured Medical (General) History Medical History History ICD Code Osteoporosis HLD Anxiety/Depression Chronic Back Pain Genital Herpes Surgical History Surgery Date(Month/Year) Hysterectomy Appendectomy
--- OUTSIDE RECORDS SUMMARY | 2024-11-03 18:20 | XMS_ITS | Clinical Summary ---
Author Organization [facility] Address [address] [place] [address] Phone Care Team Providers Care Manager Icu Name Role Phone Gerard Bradley DO Primary Care Provider [phone] Allergies No known active allergies Medications amoxicillin [...] Description 10/26/2024 3:00 PM EDT Office Visit [address] [address] Aroldo Purcell MD SUE (obstructive [...] 2:45 PM EDT Office Visit Pulmonolgy - [address] [place] [phone] Aroldo Purcell MD [address] [place] [phone] Health Maintenance Due Date Last Done [...] - [place] [employer] [place] Care Teams Manager Icu Relationship Specialty Start Date End Date Gerard Bradley DO [address] [place] [id number] PCP - General Internal Medicine 01/12/24
--- OUTSIDE RECORDS SUMMARY | 2024-11-03 18:20 | XMS_ITS | Patient Health Record ---
Author Organization [facility] Address [address] [place] [address] Care Team Providers Care Laboratory Veterinarian Name Role Phone SHIVANI GREEN Primary Care [...] 06/30/2022 Active Erythromycin 2 % 1 application Plastics Scientist ally Twice a day Active Celecoxib 200 [...] Problem Status W/U Status Risk Notes Problem 554170613 Bloating (R14.0) Active confirmed Problem 571905355 Generalized abdominal pain (R10.84) Active confirmed Problem 360490461 Gastroesophageal reflux disease without esophagitis (K21.9) Active confirmed Vital Signs Heart Rate 96 /min 10/10/2024 Temperature 97.5 degrees Fahrenheit 10/10/2024 Blood pressure diastolic 01 mm Hg 10/10/2024 Height 60 in 10/10/2024 Blood pressure systolic 001 mm Hg 10/10/2024 Weight 164.8 lbs 10/10/2024 BMI 32.18 kg/m2 10/10/2024 Encounters Encounter Location Date Provider Diagnosis [facility] [address] [place] [phone] 11/12/2023 Rufus Dover Jr Generalized abdominal pain R10.84 and Bloating R14.0 [facility] [address] [place] [phone] 10/10/2024 Rufus Dover Jr Gastroesophageal reflux disease [...] Provider Name:Rufus minor , 10/19/2025 01:15:00 PM, [address] [place] [address], [facility], [place], [address], Insurance Providers Payer Name Payer Address Payer Phone Subscriber Number Group Number Insured Name Patient Relationship to Insured Coverage Start Date Coverage End Date [facility] [address] [facility] [address] [place] [phone] [id number] JILL WU Self - patient is the insured MEDICARE OF [facility] [address] JAMESON CORBETT [id number] JILL WU Self - patient is the insured Medical (General) History Medical History History ICD Code Osteoarthritis Insomnia Elevated cholesterol Migraine headaches Osteoporosis Obstructive sleep apnea HSV infection Surgical History Surgery Date(Month/Year) back surgery right knee replacement Left total knee replacement Cataract surgery Appendectomy Hysterectomy Back surgery
== END 2024-11-03 15:37 | disposition home or self-care (01) ==
LOC: HO.PMC 14:43
PROVIDERS: PCP Internal Medicine; Visit Provider Nurse Practitioner Family
DX: M96.1 Postlaminectomy syndrome, not elsewhere classified (principal); M54.6 Pain in thoracic spine; G89.29 Other chronic pain; M47.814 Spondylosis without myelopathy or radiculopathy, thoracic region; M54.2 Cervicalgia
CPT/HCPCS: 99214; G2211

== ENCOUNTER → 2024-11-03 14:42 | Outpatient (BNVA) | payer OTHER, SELFPAY | PROVIDERS: PCP Internal Medicine; Visit Provider Nurse Practitioner Family | DX: M96.1 Postlaminectomy syndrome, not elsewhere classified (principal); M54.6 Pain in thoracic spine; G89.29 Other chronic pain; M47.814 Spondylosis without myelopathy or radiculopathy, thoracic region; M54.2 Cervicalgia | CPT/HCPCS: 99212 ==

== ENCOUNTER 2024-11-24 15:43 | Outpatient (REF) | payer OTHER, SELFPAY ==
--- OUTSIDE RECORDS SUMMARY | 2024-11-17 09:35 | XMS_ITS ---
Author Organization [facility] Address [address] [facility] [address] [place] [address] Care Team Providers Care Cook Cold Meat Name Role Phone SHIVANI GREEN Primary Care Provider Rufus Fernandez Jr [phone] REASON FOR VISIT gerd Encounters Encounter Location Date Provider Diagnosis [facility] [address] [place] [phone] 11/17/2024 Rufus Dover Jr Plan Of Treatment Next Appt Details Provider Name:Rufus minor Jr, 10/19/2025 01:15:00 PM, [address] [facility], [address], [place], [address], Progress Notes * JILL WU VDOB:0 1945 (79 yo F)Acc No.[id number]:11/17/2024 Progress Notes Patient: Yosvany JILL URIBE V Provider: Asael Dover MD :1945 A ge:79 Y S ex:Female Date:11/17/2024 Address:[address] [place], [place] [phone] Pcp:SHIVANI GREEN Subjective: * Chief Complaints: * 1 . Gerd. * Medical History: Objective: * Vitals: Assessment: Plan: * Treatment: * * The named appointment provid er may or may not be the originator of this progress note, and it is not deemed complete until electronically signed by the appointment provider. Sign off status: Pending * Provider: Asael Dover MD Date: 0 11/17/2024 Generated for Glaileo mclaughlin/Ricardo/Flakito on: 1 04:49 PM EDT
--- NOTE | ~2024-11-24 | MR_ITS ---
EXAMINATION: MR ABDOMEN WITHOUT AND WITH CONTRAST CLINICAL INFORMATION: Liver mass. COMPARISON: None available. TECHNIQUE: MR abdomen was performed without and with use of 6.5 mL intravenous Gadavist) gadolinium contrast. Postcontrast images are performed in multiphase dynamic sequences. Imaging was performed in 3 planes. No reported immediate complications. FINDINGS: Patient's motion artifact. LUNG BASES: No signal abnormality or enhancing lesion. LIVER, GALLBLADDER, AND BILIARY TREE: Liver measures 15 cm. There is a well-defined, 19 x 27 x 24 mm, lobulated, thin septated, nonrestricted diffusion, hypointense T1, hyperintense T2 nonenhancing lesion centered in the posterior right hepatic lobe. There are a few, 1 mm nonenhancing fluid signal characteristic lesions in the hepatic parenchyma. Flow-void signal within the main portal vein, hepatic veins and intrahepatic portion of the IVC are patent. There is drop of the parenchymal signal from in to the out of 3-D phase sequences. Gallbladder is fluid-filled without intraluminal lesions. No pericholecystic fluid collection or gallbladder wall thickening. Gallbladder is nondistended. Common bile duct measures 4 mm. PANCREAS: No focal lesion. 2 mm nonenhancing fluid signal characteristic lesions in the body and tail. No peripancreatic fluid collection. No main pancreatic ductal dilatation. SPLEEN: 8 cm. No focal lesion. ADRENAL GLANDS: No nodular lesion. KIDNEYS AND URETERS: Normal enhancement pattern of the renal parenchyma. No hydronephrosis. No enhancing lesion. No dilatation of the urinary collecting system. GASTROINTESTINAL TRACT: Abundant food contents in the stomach. Small hiatal hernia. Abundant stool in the large intestine. No intestinal obstruction pattern. No ascites. Numerous diverticula throughout the sigmoid colon.. ABDOMINAL WALL: Small fat-containing umbilical hernia. LYMPH NODES: No mesenteric or retroperitoneal lymphadenopathy. VASCULAR: No aneurysm or dissection, abdominal aorta. OSSEOUS STRUCTURES: Paramagnetic field distortion secondary to metallic hardware, posterior elements L5-S1 and intervertebral disc spacer placement. Multilevel thoracolumbar spondylosis. Grade 1 anterolisthesis L4-5. Probable intraosseous hemangioma, L2. MR/MR abdomen wo/w con IMPRESSION: 19 x 27 x 24 mm thin septated nonenhancing cystic lesion, right hepatic lobe. 2 mm pancreatic cysts. Diverticular disease, sigmoid colon. Small fat-containing umbilical hernia. Hiatal hernia. Electronically signed by: Sanjay Harman MD 11/25/2024 07:14 AM EDT
--- OUTSIDE RECORDS SUMMARY | 2024-11-24 16:49 | XMS_ITS | Patient Health Record ---
Author Organization [facility] Address [address] [phone] Care Team Providers Care Manipulative Therapy Specialist Name Role Phone Dana LEE, Juhi Primary Care Provider DR. 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) Active confirmed Problem Pain in limb (49758524) Pain in toe of left foot (M79.675) Active confirmed Problem Spasm (93497749) Cramps, extremi ty (R25.2) Active confirmed Plan Of Treatment No Information Insurance Providers Payer Name Payer Address Payer Phone Subscriber Number Group Number Insured Name Patient Relationship to Insured Coverage Start Date Coverage End Date [facility] [address] [address] [place] [phone] [id number] Tita Foreman Self - patient is the insured [facility] Claims Department [address] [place] [address] [phone] [id number] Tita Foreman Self - patient is the insured Medical (General) History Medical History History ICD Code Osteoporosis HLD Anxiety/Depression Chronic Back Pain Genital Herpes Surgical History Surgery Date(Month/Year) Hysterectomy Appendectomy
--- OUTSIDE RECORDS SUMMARY | 2024-11-24 16:49 | XMS_ITS ---
Author Name Tray YAP Rose Marie Pompa Address [address] [place] [address] Phone [phone] [facility] Care Team Providers Care Bag Adjuster Name Role Phone Rose Marie Feliz Unavailable [phone] [facility] Unavailable Reason for Referral Not Available Allergies, [...] 2022-09-18 Diclofenac Sodium 1 % Gel 4 GRAMS TOPICA LLY TO AFFECTED AREA 4 TIMES PER DAY CUANDO SEA NECESARIO 2022-01-28 No Data Available valACYclovir 1 GM [...] (do not use for phone, instead use 30432-27) [facility] ([place]) 01/28/2022 Chronic obstructive pulmonar y disease, unspecifiedMajor depressive disorder, recurrent, mildHyperlipidemia, unspecifiedAcute upper respiratory infection, unspecified New patient,40-59min; chronic exacerbation, 2 stable chronic or 1 acute illness add add modifier 95 for video (do not use for phone, instead use 22058-34) [facility]28/2022 New patient,40-59min; chronic exacerbation, 2 stable chronic or 1 acute illness add add modifier 95 for video (do not use for phone, instead use 07777-29) [facility]/20[place] New patient,40-59min; chronic exacerbation, 2 stable chronic or 1 acute illness add add modifier 95 for video (do not use for phone, instead use 68398-97) [facility] 01/28/2022 New patient,40-59min; chronic exacerbation, 2 stable chronic or 1 acute illness add add modifier 95 for video (do not use for phone, instead use 01830-33) [facility] 01/28/2022 New patient,40-59min; chronic exacerbation, 2 stable chronic or 1 acute illness add add modifier 95 for video (do not use for phone, instead use 95031-82) [facility] ([place] 01/28/2022 Estab. patient 30-39min; chronic exacerbation, 2 stable chronic or 1 acute illness add add modifier 95 for video, (do not use for phone, instead use 87722-73) [facility] 09/18/2022 Chronic obstructive pulmonar y disease, unspecifiedMajor depressive disorder, recurrent, mildHyperlipidemia, unspecifiedAcute upper respiratory infection, unspecifiedDorsalgia, unspecifiedOther chronic painOther specified postprocedural statesAbnormal response to nerve stimulation, unspecified Estab. patient 30-39min; chronic exacerbation, 2 stable chronic or 1 acute illness add add modifier 95 for video, (do not use for phone, instead use 76525-68) [facility] 09/18/2022 Estab. patient 30-39min; chronic exacerbation, 2 stable chronic or 1 acute illness add add modifier 95 for video, (do not use for phone, instead use 56318-12) [facility] 09/18/2022 Estab. patient 30-39min; chronic exacerbation, 2 stable chronic or 1 acute illness add add modifier 95 for video, (do not use for phone, instead use 52015-34) [facility] 09/18/2022 Estab. patient 30-39min; chronic exacerbation, 2 stable chronic or 1 acute illness add add modifier 95 for video, (do not use for phone, instead use 15179-81) [facility] 09/18/2022 Estab. patient 30-39min; chronic exacerbation, 2 stable chronic or 1 acute illness add add modifier 95 for video, (do not use for phone, instead use 54273-07) [facility] 09/18/2022 Estab. patient 30-39min; chronic exacerbation, 2 stable chronic or 1 acute illness add add modifier 95 for video, (do not use for phone, instead use 18580-83) [facility] 09/18/2022 Estab. patient 30-39min; chronic exacerbation, 2 stable chronic or 1 acute illness add add modifier 95 for video, (do not use for phone, instead use 79092-19) [facility] ([place] 09/18/2022 Estab. patient 30-39min; chronic exacerbation, 2 stable chronic or 1 acute illness add add modifier 95 for video, (do not use for phone, instead use 36454-73) [facility] 07/10/2023 Major depressive disorder, recurrent, mildHyperlipidemia, unspecifiedDorsalgia, [...] (do not use for phone, instead use 95321-78) [facility] ([place] 07/10/2023 Estab. patient 30-39min; chronic exacerbation, 2 stable chronic or 1 acute illness add add modifier 95 for video, (do not use for phone, instead use 83289-33) [facility] 07/10/2023 Estab. patient 30-39min; chronic exacerbation, 2 stable chronic or 1 acute illness add add modifier 95 for video, (do not use for phone, instead use 01051-49) [facility] 07/10/2023 Estab. patient 30-39min; chronic exacerbation, 2 stable chronic or 1 acute illness add add modifier 95 for video, (do not use for phone, instead use 23489-69) [facility] 07/10/2023 Estab. patient 30-39min; chronic exacerbation, 2 stable chronic or 1 acute illness add add modifier 95 for video, (do not use for phone, instead use 42599-32) [facility] 07/10/2023 Estab. patient 30-39min; chronic exacerbation, 2 stable chronic or 1 acute illness add add modifier 95 for video, (do not use for phone, instead use 25944-60) [facility] [place] 07[place]/2023 Estab. patient 30-39min; chronic exacerbation, 2 stable chronic or 1 acute illness add add modifier 95 for video, (do not use for phone, instead use 98454-73) [facility] 07/10/2023 Estab. patient 10-29min; 1 minor problem; add add modifier 95 for video, modifier [address] [facility] [place] 03/30/2024 Dorsalgia, unspecifiedOther chronic painOther specified postprocedural statesOther problems related to medical facilities and other health care Estab. patient 20-29min; 1 stable chronic or 2 minor; add add modifier 95 for video, modifier 93 for phone [facility] [place] 04/06/2024 Unspecified dementia, mild, without behavioral disturbance, [...] tive Time Current Smoking Status Never smoker 2 Sex Female History of Procedures Procedures Service Procedure code Service date Servicing provider Phone# New patient,40-59min; chronic exacerbation, 2 stable chronic or 1 acute illness add add modifier 95 for video (do not use for phone, instead use 87661-39) [id number] 2022-01-28 No Data Available No Data Availa [...] (do not use for phone, instead use 79319-13) [id number] 2022-09-18 No Data Available No Data Availa [...] (do not use for phone, instead use 53691-04) 70432 2023-07-10 No Data Available No Data Availa [...] 95 for video, modifier 93 for phone 18757 2024-03-30 No Data Available No Data Availa ble Estab. patient 20-29min; 1 stable chronic or 2 minor; add add modifier 95 for video, modifier 93 for phone 74622 2024-04-06 No Data Available No Data Availa [...] 95 for video, modifier 93 for phone 18022 2024-05-06 No Data Available No Data Availa ble Estab. patient 10-29min; 1 minor problem; add add modifier 95 for video, modifier 93 for phone 86895 2024-06-02 No Data Available No Data Availa ble Estab. patient 10-29min; 1 minor problem; add add modifier 95 for video, modifier 93 for phone 84270 2024-07-12 No Data Available No Data Availa ble Estab. patient 10-29min; 1 minor problem; add add modifier 95 for video, modifier 93 for phone 48164 2024-08-10 No Data Available No Data Availa [...] Documented (1125F)Continue to see PCP. Follow-up with [facility] as [...] side,has not found relief save for heatHeat [id number] hip and leg painHas peripheral nerve stimulation [...] call CBContinue to see PCP. [facility] needs that may arise 15/09.what should be done when the member calls: see each individual diagnosis for contingency planon lovastatinx many yearsOn left side,has not found relief save for heatHeat patches, diclofenac gel, methocarbamol07/10/23: Will start PT on [id number] to experience constant knee pain, she will [...] for phoneContinue to see PCP. Follow-up with [facility] as needed for any acute or disease education needs that may arise 15/09.x many yearsOn left side,has not found relief save for heatHeat patches, diclofenac gel, methocarbamol07/10/23: Will start PT on Thursday03/30/24: Pt reports ongoing pain with some relief from current regimen. Refill for diclofenac gel sent.2019Contin to experience constant knee pain, she will [...] standing after laying downPAIN CONTINGENCY PLANLast updated: 07/12/2024[facility] to call for the following symptoms: Fall [...] for phoneContinue to see PCP. Follow-up with Jose as [...] standing after laying downPAIN CONTINGENCY PLANLast updated: 07/12/2024[facility] to call for the following symptoms: Fall [...]
--- OUTSIDE RECORDS SUMMARY | 2024-11-24 16:50 | XMS_ITS | Patient Health Record ---
Author Organization [facility] Address [address] [place] [id number] Care Team Providers Care Saddle Cutter Name Role Phone SHIVANI GREEN Primary Care [...] 06/30/2022 Active Erythromycin 2 % 1 application Blocklayer ally Twice a day Active Celecoxib 200 [...] Problem Status W/U Status Risk Notes Problem 328699166 Bloating (R14.0) Active confirmed Problem 673356990 Generalized abdominal pain (R10.84) Active confirmed Problem [id number] Gastroesophageal reflux disease without esophagitis (K21.9) Active confirmed Vital Signs Heart Rate 96 /min 10/10/2024 Temperature 97.5 degrees Fahrenheit 10/10/2024 Blood pressure diastolic 01 mm Hg 10/10/2024 Height 60 in 10/10/2024 Blood pressure systolic 001 mm Hg 10/10/2024 Weight 164.8 lbs 10/10/2024 BMI 32.18 kg/m2 10/10/2024 Encounters Encounter Location Date Provider Diagnosis [facility] [address] [facility] [address] [place] [phone] 10/10/2024 Rufus Dover Jr Gastroesophageal reflux disease without esophagitis K21.9 and Bloating R14.0 Assessments Encounter Date Diagnosis (ICD Code) Assessment Notes Treatment Notes Treatment Clinical Notes Section Notes 10/10/2024 Bloating (ICD-10 - R14.0) At this [...] IGA 06/30/2022 Next Appt Details Provider Name:Rufus tomger Guillaume, 10/19/2025 01:15:00 PM, [address] [place] [address], [address], [place], [address], Insurance Providers Payer Name Payer Address Payer Phone Subscriber Number Group Number Insured Name Patient Relationship to Insured Coverage Start Date Coverage End Date [facility] [address] [address] [place] [phone] [id number] JILL WU Self - patient is the insured MEDICARE OF [place] [address] [place] [address] [id number] JILL WU Self - patient is the insured Medical (General) History Medical History History ICD Code Osteoarthritis Insomnia Elevated cholesterol Migraine headaches Osteoporosis Obstructive sleep apnea HSV infection Surgical History Surgery Date(Month/Year) back surgery right knee replacement Left total knee replacement Cataract surgery Appendectomy Hysterectomy Back surgery
--- OUTSIDE RECORDS SUMMARY | 2024-11-24 16:50 | XMS_ITS | Clinical Summary ---
Author Organization [facility] Address [address] [place] [address] Phone Care Team Providers Care Dope House Operator Helper Name Role Phone Gerard Bradley DO Primary Care Provider [phone] Allergies No known active allergies Medications amoxicillin [...] LOS D AL ACOSTARSE FOR 30 DAYS Active valACYclovir (VALTREX) 1 gram tablet TK 1 T PO ONCE A DAY Active Active Problems Problem Noted Date Diagnosed Date HLD (hyperlipidemia) 10/26/2024 SUE (obstructive sleep apnea) 10/26/2024 Osteoarthritis 10/26/2024 Osteoporosis 10/26/2024 Encounters Date Type Department Care Team Description 10/26/2024 3:00 PM EDT Office Visit Pulmonology - [address] [phone] Aroldo Purcell MD SUE (obstructive [...] Description 10/26/2025 2:45 PM EDT Office Visit Pulmonology - [address] [place] [phone] Aroldo Purcell MD [address] [place] [phone] Health Maintenance Due Date Last Done [...] Insurance [employer] [place] [address] [place] [id number] [employer] Care Teams Dope House Operator Helper Relationship Specialty Start Date End Date Gerard Bradley DO [address] [place] [address] PCP - General Internal Medicine 01/12/24
== END 2024-11-24 15:44 | disposition home or self-care (01) ==
LOC: HO.MRI 15:43
PROVIDERS: PCP Internal Medicine; Visit Provider Internal Medicine
DX: R93.2 Abnormal findings on diagnostic imaging of liver and biliary tract (principal)
CPT/HCPCS: 74183; A9585

== ENCOUNTER → 2024-11-24 16:00 | Outpatient (BNV) | payer OTHER, SELFPAY | PROVIDERS: PCP Internal Medicine; Visit Provider Radiology Diagnostic Radiology | DX: K76.89 Other specified diseases of liver (principal); K86.2 Cyst of pancreas; K57.30 Diverticulosis of large intestine without perforation or abscess without bleeding; K42.9 Umbilical hernia without obstruction or gangrene; K44.9 Diaphragmatic hernia without obstruction or gangrene | CPT/HCPCS: 74183 ==